=== PATIENT | female | born 1955 | race Caucasian/White ===

== ENCOUNTER 2016-12-31 19:18 | Emergency (ER) | payer OTHER ==
[2016-12-31] MEDS ORDERED: HYDROcodone/Acetaminophen 5/325 mg Tablet ONE ×2 (21:08→21:10)
--- NOTE | 2016-12-31 23:35 | RAD ---
THREE VIEWS LUMBAR SPINE 12/31/2016 HISTORY: Fall from standing at 1500 hours today. Increased tailbone pain. FINDINGS: There are 5 [id number] lumbar-type vertebral bodies. Multilevel osteophytes are seen. There i s loss of intervertebral disk height at the L3-4 and L5-S1 levels. Facet degenerative changes are p resent. There is suggestion of slight height loss along the central superior endplate of the L1 catherine tebral body. While the exact age is indeterminate, given prominent osteophytes at this level, this probably represents a more remote finding. The remaining vertebral body heights are within normal l imits. There is trace anterolisthesis of L4 on L5. Dense vascular calcifications seen in the abdom inal aorta and involving the iliac arteries. IMPRESSION: 1. Trace anterolisthesis of L4 on L5, probably related to facet degenerative changes. 2. Multilevel degenerative changes in the lumbar spine. 3. Slight height loss involving the superior endplate of the L1 vertebral body. There are prominent osteophytes at this level, both anteriorly and posteriorly, and this probably represents a more rem ote finding. Although, the exact age is difficult to determine based on plain film evaluation. POS: TROY
--- NOTE | 2017-01-01 00:21 | CT ---
CT LUMBAR SPINE WITHOUT IV CONTRAST 12/31/16 HISTORY: Lower back pain and tailbone pain after a fall today. FINDINGS: There is suggestion of a tiny bilateral pleural effusions, partially imaged at the posteromedial asp ect of each lung base. However, these pleural effusions have decreased when compared to a study on . There is nonspecific minimal stranding adjacent to the right adrenal gland of uncertain etiology and this is incompletely imaged or evaluated on this exam. There is a small amount of free fluid seen i n the pelvis. This is more than normally expected for physiological fluid. There is colonic diverticulosis. Dense vascular calcifications are seen in the abdominal aorta and involving the iliac arteries. Multilevel degenerative changes are seen in the lumbar spine. There is a mild wedge shaped compression fracture at the L1 vertebral body of which the exact age is indeterminate based on this exam. There is slight retropulsion of fracture fragment suggesting that this represents a small burst type fracture. T12-L1 level: There is posterior osteophyte formation and disc bulge. In addition to retropulsion of fracture fragments of the posterior superior end plate of the L1 vertebral body, there is mild gene ralized narrowing of the central spinal canal. Neural foramina are patent. L1-2 level: There is no disc bulge or disc herniation. Central spinal canal and neural foramina are patent. There are mild facet hypertrophic changes. L2-3 level: There is a mild broad based disc osteophyte complex. Facet hypertrophic changes are pres ent. There is mild to moderate narrowing of the central spinal canal. Neural foramina appear patent. L3-4 level: There is loss of intervertebral disc height with vacuum phenomenon. There are mild end p late degenerative changes present. There is a broad based disc osteophyte complex with prominent fac et hypertrophic changes and ligamentous thickening. Findings result in moderate to severe narrowing of the central spinal canal. There is severe right and moderate left sided neural foraminal narrowin g. L4-5 level: There is trace anterolisthesis of L4 on L5. There is a broad based disc osteophyte comp carlita with prominent facet hypertrophic changes. There is a hypodense structure which is partially per ipherally calcified which is seen to the right of midline and extends into the right neural foramen. This measures 14 mm x 11 mm and may represent a disc extrusion which extends superiorly from the L4 -5 intervertebral disc space. This does extend into the right neural foramen and resulting in what a ppears to be severe right sided neural foraminal narrowing. There is moderate to severe left sided n eural foraminal narrowing. L5-S1 level: There is loss of the intervertebral disc height with vacuum phenomenon in intervertebra l discs. End plate degenerative changes are present. There is posterior osteophyte formation and ass ociated broad based disc bulge. There are prominent facet hypertrophic changes as well. The findings result in mild narrowing of the central spinal canal. There is severe bilateral neural foraminal na rrowing much greater on the left. IMPRESSION: 1. Mild burst fracture involving the L1 vertebral body of which the exact age is indeterminate based on this exam. 2. Probable prominent Schmorl's node left lateral and central aspect of the L3 vertebral body. 3. Trace anterolisthesis of L4 on L5 with trace retrolisthesis of L5 on S1. 4. Multilevel degenerative changes seen throughout the lumbar spine. There are severe degrees o f neural foraminal narrowing as described above. There is a prominent disc osteophyte complex at the L4-5 level with hypodense mass-like structure which is peripherally calcified and extends superiorl y from the disc space and may represent a disc extrusion which is partially peripherally calcified. This is difficult to further evaluate on CT scan exam, and nonemergent MRI lumbar spine is suggested for further evaluation of this structure. There is severe right sided neural foraminal narrowing at this level. 5. Tiny bilateral pleural effusions with small amount of free fluid in the pelvis. There is als o suggestion of minimal stranding and fluid adjacent to the right adrenal gland which is nonspecific and incompletely evaluated. POS: TROY
== END 2017-01-01 00:24 | disposition home or self-care (01) ==
LOC: ERS 19:18
DX: S32.011A Stable burst fracture of first lumbar vertebra, initial encounter for closed fracture (principal); I48.91 Unspecified atrial fibrillation; E11.9 Type 2 diabetes mellitus without complications; K21.9 Gastro-esophageal reflux disease without esophagitis; E78.5 Hyperlipidemia, unspecified; I10 Essential (primary) hypertension; J44.9 Chronic obstructive pulmonary disease, unspecified; F17.200 Nicotine dependence, unspecified, uncomplicated; W18.30XA Fall on same level, unspecified, initial encounter
CPT/HCPCS: 36415; 72100; 72131; 82728; L0639

== ENCOUNTER 2017-08-24 08:37 | Inpatient (IN) | payer MEDICAID, OTHER ==
--- NOTE | 2017-08-24 09:37 | RAD ---
LEFT FOOT THREE VIEWS: History: 62-year-old female with history of left foot pain and swelling, left toes amputated 18 in [place] . Never had stitches removed. Redness and drainage. FINDINGS: There are post amputation changes at the level of the distal second and third metatarsals with some f airly exuberant bony callus and heterogeneous demineralization within the distal second and third rem aining intact metatarsals with soft tissue swelling at the level of the post-operative region. The po ssibility of osteomyelitis certainly is a consideration. Consider follow up MRI for further assessmen t. Stable arthrosis changes of the first toe. Stable post-operative changes of the medial and lateral ankle malleoli. IMPRESSION: Status post amputation changes with some exuberant callus as well as some heterogeneous bony deminera lization in the distal second and third intact metatarsals raising concern for potential osteomyeliti s. Follow up MRI is recommended. Stable post-operative changes of the ankle and degenerative changes of the great toe. POS: OFF
[2017-08-24 09:46] LABS: #Eosinphils 0.1 thou/uL (0.0-0.7); #Lymphocytes 1.5 thou/uL (1.20-3.40); #Monocytes 0.6 thou/uL (0.11-0.59); #Neutrophils 2.6 thou/uL (1.40-6.50); %Basophils 0.1 % (0.0-1.0); %Eosinophils 1.4 % (0.0-10.0); %Lymphocytes 31.4 % (21.0-51.0); %Neutrophils 55.1 % (42.0-75.0); Hemoglobin 12.4 g/dL (12.0-16.0); Mean Corpuscular HGB CONC 32.3 g/dL (32.0-36.0); Mean Corpuscular Hemoglobin 28.2 pg (27.0-31.0); Mean Corpuscular Volume 87.4 fl (81.0-99.0); Mean Platelet Volume 7.3 fL (7.4-10.4); Platelet Count 204 thou/uL (130-400); Red Blood Cell (RBC) Count 4.41 mill/uL (4.20-5.40); White Blood Cell (WBC) Count 4.7 thou/uL (4.8-10.8)
[2017-08-24 10:17] LABS: ALT (SGPT) 15 U/L (8-55); AST (SGOT) 21 U/L (5-34); Albumin 4.1 g/dL (3.4-4.8); Alkaline Phosphatase 98 U/L (40-150); Anion Gap 12 mmol/L (10-20); BUN (Urea Nitrogen) 21 mg/dL (9.8-20.1); Bilirubin, Total 0.4 mg/dL (0.2-1.2); Calc. Creatinine Clearance 0 mL/min (70-130); Calcium 9.3 mg/dL (7.8-10.44); Carbon Dioxide 28 mmol/L (23-31); Chloride 102 mmol/L (98-107); Estimated GFR-MDRD 61; Globulin 3.5 g/dL (2.4-3.5); Glucose 77 mg/dL (80-115); Potassium 3.5 mmol/L (3.5-5.1); Protein, Total 7.6 g/dL (6.0-8.3); Sodium 138 mmol/L (136-145)
[2017-08-24] MEDS ORDERED: Morphine 4 MG/ML VIAL ONE (11:03)
[2017-08-24] MEDS ORDERED: Ondansetron ODT 4 MG TAB ONE (11:09)
[2017-08-24 13:45] VITALS: BMI 25.9
[2017-08-24] MEDS ORDERED: Non-Formulary Item 1 EACH (Acetaminophen With Codeine [Tylenol With Codeine #4] 1 TABLET) PO PRN (16:18)
[2017-08-24] MEDS ORDERED: Bisacodyl 5 MG TAB PO PRN (16:25)
[2017-08-24] MEDS ORDERED: Bisacodyl 10 MG SUPP PR PRN (16:25)
[2017-08-24] MEDS ORDERED: Senokot 8.6 MG TAB PO PRN (16:25)
[2017-08-24] MEDS: OxyCODONE IR 30 MG TAB PO PRN (17:33)
[2017-08-24 17:37] LABS: Hemoglobin A1c 4.9 % (4.0-6.0)
[2017-08-24] MEDS: Carvedilol 25 MG TAB PO SCH (18:37)
--- NOTE | 2017-08-24 19:14 | HP ---
PRIMARY CARE PHYSICIAN: The patient does not have a PCP as she just moved to the area. CHIEF COMPLAINT: Painful left foot. HISTORY OF PRESENT ILLNESS: This is a 62-year-old female with a history of diabetes, coronary artery disease, who presented with a chief complaint of left foot pain. Please note that the patient's his tory actually started several weeks ago and earlier this year she actually stepped on glass which "wo rked its way" and ultimately resulted in amputation in 05/2017. Unfortunately, the patient had mirza nued issues with wound healing and overlying infection including osteo and underwent a further amputa tion in 06/2017. At this point in time, the patient is currently status post amputation of her secon d and third metatarsals of the left foot at the base. The patient is presenting here because of foul -smelling drainage and pain in that area. It also appears that she was originally supposed to see [facility] outpatient surgeon for a possible suture removal on an outpatient basis, but since she moved from [facility] to our area to help take care of her boyfriend who is currently status post CABG, zeina ent presented to our ER for care as noted above. The patient denies any fevers, chills. Endorses a fair amount of localized pain in that region. REVIEW OF SYSTEMS: As per HPI. Constitutional: The patient endorses about 140 pound weight loss ov er the last 2 years, which the first year was grossly unintentional. Denies any overt fevers or chil ls over the last few weeks. HEENT: No new headaches, dizziness or lightheadedness. Cardiovascular: No chest pain or chest pressure. Respiratory: No difficulty with breathing. Of note, the patient does have complaints of a knot like protrusion in her chest wall that she has noticed after "losing all that weight" and states that she has difficulty lying on against her chest for that reason. Julio rointestinal: No issues with tolerating p.o. intake. Remainder of review of systems is otherwise ne gative. PAST MEDICAL HISTORY: As per HPI: 1. History of type 2 diabetes. 2. Gastroesophageal reflux disease, hypertension, hyperlipidemia, COPD, myocardial infarction in Apr of this year. 3. Atrial fibrillation. 4. Status post cholecystectomy. 5. Status post hysterectomy. 6. Status post cardiac ablation during the same time of her admission for PR in 2018. 7. Status post amputations as discussed above. 8. Status post prior history of left ankle surgery with multiple pins in place. HOME MEDICATIONS: Include the following: Aspirin 81 mg p.o. daily, ferrous sulfate 325 mg p.o. b.i. d., digoxin 0.25 mg p.o. daily, carvedilol 25 mg p.o. b.i.d., albuterol 90 mcg inhaled b.i.d., valsar mohr 320 mg p.o. daily, tiotropium bromide 2 inhalation daily, nystatin ointment 1 application topical b.i.d., lisinopril 5 mg p.o. b.i.d., furosemide 20 mg p.o. daily, folic acid 1 mg p.o. daily, tramad ol 50 mg p.o. q.4 hours p.r.n., metoprolol succinate 50 mg p.o. daily, magnesium 250 mg p.o. daily, t izanidine 4 mg p.o. q.6 hours p.r.n., oxycodone 30 mg p.o. q.6 hours p.r.n., hydrocortisone cream 1 a pplication topically daily, amiodarone 200 mg p.o. daily, acetaminophen with codeine #4 one tablet p. o. q.6 hours p.r.n., torsemide 20 mg p.o. daily, omega-3 fatty acids 1 tablet p.o. daily, hydrocodone and acetaminophen 5/325 one tablet p.o. q.6 hours p.r.n., pregabalin 50 mg p.o. at bedtime, duloxeti ne 20 mg p.o. b.i.d., phenytoin 50 mg p.o. daily, pantoprazole 40 mg p.o. daily, metformin 500 mg p.o . b.i.d., diltiazem 360 mg p.o. daily, trazodone 50 mg p.o. at bedtime, atorvastatin 80 mg p.o. daily . ALLERGIES: LATEX allergy. SOCIAL HISTORY: The patient is a former smoker, quit approximately a month ago, tobacco, previously had a remote history of heavy alcohol use. The patient is currently residing with her boyfriend here in town. Please see the HPI as well. FAMILY HISTORY: The patient states that she is adopted, so she is not aware of her biological family history. PHYSICAL EXAMINATION: GENERAL: The patient is awake, alert, appropriate, in no acute distress, lying in the hospital bed, provides a history grossly as noted above, appears to be a reasonable historian. HEENT: Normocephalic, atraumatic. Moist mucous membranes. No posterior oropharyngeal erythema or e xudate. Pupils equal and reactive. Equal ocular motions are intact. CARDIOVASCULAR: S1, S2. Pulses 2+ bilateral upper extremities, no pitting pedal edema. Prominent s ystolic ejection murmur heard over the left precordium approximately 3/5. RESPIRATORY: Reasonable air movement. No conversational dyspnea. No wheezes, rales or rhonchi. Cl ear to auscultation bilaterally. ABDOMEN: Positive bowel sounds, soft, nontender to palpation. MUSCULOSKELETAL: Able to sit up on the edge of the bed without difficulty or assistance. Examinatio n was made of both bilateral lower extremity. It is noted on the left, the patient has an area that appears to have skin changes consistent with psoriatic type plaquing and is found on the patient's ow n elbows as well. This appears to be distributed, extending towards her surgical site and back. She also has multiple sutures lining the anterior aspect of where her previously second and third metata rsal amputations were completed. There is a fair amount of crusting and some slight serosanguineous seepage throughout the wound as well. The area has erythema and is tender to palpation. LABORATORY DATA AND IMAGING: WBC 4.7, hemoglobin 12.4, hematocrit 38.5, platelet 204. Sodium 138, p otassium 3.5, chloride 102, bicarbonate 28, BUN 21, creatinine 0.92, glucose 77, lactic acid 1.2, mar cium 9.3, total bilirubin 0.4, AST 21, ALT 15, alkaline phosphatase 98, total protein 7.6, albumin 4. 1. On 08/24/2017, x-ray of the foot impression, status post amputation changes with some callus as w ell as some heterogenous bony demineralization in the distal second and third intact metatarsals rais ing concern for potential osteomyelitis. Follow up MRI is recommended. Stable postoperative changes of the ankle and degenerative changes of the great toe. ASSESSMENT AND PLAN: A 62-year-old female presenting with pain in her left foot. 1. Pain of the left foot, likely appears to be localized to the previous surgical site. Given the i mages, there is also concern for osteomyelitis. We will continue the patient on her home pain regime n with breakthrough pain coverage as needed and close monitoring of the patient's hemodynamic stabili ty. Given the concern for osteomyelitis, the patient has also been started on empiric vancomycin and Zosyn. We request for an MRI to be completed has been placed. If the patient does have osteomyelit is, she may need further surgery even if the patient does not have osteomyelitis question whether or not the surgical site wound may benefit from a degree of debridement. I appreciate surgical evaluati on and consultation as well. 2. Diabetes. Check hemoglobin A1c again to maintain the patient on her current home regimen. The p atient is not currently giving any risk factors to warrant double coverage for Pseudomonas, but if sh e fails to improve or has any further signs or symptoms consistent with that possibility, we will low threshold to initiate a second antibiotic for antipseudomonal coverage. 3. History of cardiovascular disease including an myocardial infarction earlier this year and atrial fibrillation, currently appears to be stable. Continue the patient on her home regimen. 4. Prior history of seizures. The patient has been seizure free for several years. Continue the pa guint on her home regimen and closely monitor her mental status. 5. Hypertension. We will reassess as the patient's pain is better controlled. 6. Diet: Cardiac. 7. Activity: As tolerated. 8. DVT prophylaxis with heparin.
[2017-08-24] MEDS: Ondansetron HCl/PF 4 MG/2 ML Vial IVP PRN (19:40)
[2017-08-24] MEDS: Piperacillin/Tazobactam 3.375 GM in Sodium Chloride 0.9% 100 ML IVPB SCH (19:40)
[2017-08-24] MEDS: Lisinopril 5 MG TAB PO SCH (19:52)
[2017-08-24] MEDS ORDERED: PROVENTIL INHALER 6.7 G (200 INHALATIONS) INH PRN (21:00)
[2017-08-24] MEDS: Heparin 5,000 UNITS/ML VIAL SC SCH (21:38)
[2017-08-24] MEDS: Pregabalin 50 MG CAP PO SCH (21:39)
[2017-08-24] MEDS: Docusate 100 MG CAP PO SCH (21:39)
[2017-08-24] MEDS: Ferrous Sulfate 325 MG TAB PO SCH (21:39)
[2017-08-24] MEDS: Atorvastatin Calcium 40 MG TAB PO SCH (21:39)
[2017-08-24] MEDS: traZODone HCl 50 MG TAB PO SCH (21:40)
[2017-08-24] MEDS: Nystatin Ointment 15 GM TUBE TOP SCH (21:54)
[2017-08-24] MEDS: Vancomycin HCl 750 MG in Sodium Chloride 0.9% 250 ML 250 ML IVPB SCH (23:35)
[2017-08-24] MEDS: tiZANidine HCl 4 MG TAB PO SCH (23:36)
[2017-08-24] MEDS: HYDROcodone/Acetaminophen 5/325 mg Tablet PO PRN (23:43)
[2017-08-25] MEDS: Piperacillin/Tazobactam 3.375 GM in Sodium Chloride 0.9% 100 ML IVPB SCH ×4 (01:03→14:55)
[2017-08-25] MEDS: traMADol HCl 50 MG TAB PO PRN ×2 (03:39→14:29)
[2017-08-25] MEDS: OxyCODONE IR 30 MG TAB PO PRN ×2 (03:49→14:36)
[2017-08-25] MEDS: Magnesium Oxide 250 MG TAB PO SCH (05:10)
[2017-08-25] MEDS: tiZANidine HCl 4 MG TAB PO SCH ×4 (05:10→23:17)
[2017-08-25 05:13] LABS: Anion Gap 11 mmol/L (10-20); BUN (Urea Nitrogen) 18 mg/dL (9.8-20.1); Calc. Creatinine Clearance 63 mL/min (70-130); Calcium 8.4 mg/dL (7.8-10.44); Carbon Dioxide 30 mmol/L (23-31); Chloride 100 mmol/L (98-107); Estimated GFR-MDRD 52; Glucose 112 mg/dL (80-115); Potassium 3.2 mmol/L (3.5-5.1); Sodium 138 mmol/L (136-145)
[2017-08-25 05:26] LABS: Band 2 % (5-11); Eosinophils 2 % (0-10); Hemoglobin 10.5 g/dL (12.0-16.0); Lymphocytes 30 % (21-51); MDiff Complete? YES; Mean Corpuscular HGB CONC 32.1 g/dL (32.0-36.0); Mean Corpuscular Hemoglobin 28.5 pg (27.0-31.0); Mean Corpuscular Volume 88.8 fl (81.0-99.0); Mean Platelet Volume 6.8 fL (7.4-10.4); Monocytes 12 % (0-10); Neutrophil 54 % (42-75); PLT Morphology Comment Appears Adequate; Platelet Count 167 thou/uL (130-400); RBC Distribution Width 14.9 % (11.5-14.5); Red Blood Cell (RBC) Count 3.68 mill/uL (4.20-5.40); White Blood Cell (WBC) Count 3.5 thou/uL (4.8-10.8)
[2017-08-25] MEDS ORDERED: Loperamide HCl 2 MG CAP PO PRN (06:04)
[2017-08-25] MEDS: Heparin 5,000 UNITS/ML VIAL SC SCH ×3 (09:15→20:19)
[2017-08-25] MEDS: Amiodarone 200 MG TAB PO SCH (09:16)
[2017-08-25] MEDS: Aspirin 81 mg Enteric Coated Tablet PO SCH (09:17)
[2017-08-25] MEDS: Torsemide 20 MG TAB PO SCH (09:17)
[2017-08-25] MEDS: Docusate 100 MG CAP PO SCH ×2 (09:17→20:16)
[2017-08-25] MEDS: Furosemide 20 MG TAB PO SCH (09:17)
[2017-08-25] MEDS: Lisinopril 5 MG TAB PO SCH ×2 (09:17→20:19)
[2017-08-25] MEDS: Digoxin 0.25 MG TAB PO SCH (09:19)
[2017-08-25] MEDS: Proctozone-HC 2.5% Cream 30 GM TUBE TOP SCH (09:20)
[2017-08-25] MEDS: Ferrous Sulfate 325 MG TAB PO SCH ×2 (09:20→20:16)
[2017-08-25] MEDS: Fish Oil 1,000 MG CAP PO SCH (09:20)
[2017-08-25] MEDS: Folic Acid 1 MG TAB PO SCH (09:20)
[2017-08-25] MEDS: Nystatin Ointment 15 GM TUBE TOP SCH ×2 (09:21→22:42)
[2017-08-25] MEDS: Valsartan 80 MG TAB PO SCH (09:22)
[2017-08-25] MEDS: HYDROcodone/Acetaminophen 5/325 mg Tablet PO PRN ×2 (09:28→20:15)
[2017-08-25] MEDS: Carvedilol 25 MG TAB PO SCH ×2 (09:38→16:17)
[2017-08-25] MEDS: Phenytoin 50 MG Chewable Tablet PO SCH (09:38)
[2017-08-25] MEDS: Ondansetron HCl/PF 4 MG/2 ML Vial IVP PRN (10:14)
[2017-08-25] MEDS: Vancomycin HCl 750 MG in Sodium Chloride 0.9% 250 ML 250 ML IVPB SCH (11:28)
--- NOTE | 2017-08-25 13:29 | MRI ---
MRI LEFT SHOULDER WITH AND WITHOUT CONTRAST: HISTORY: Osteomyelitis. COMPARISON: Radiographs prior day. FINDINGS: Bones: There is amputation of the 2nd and 3rd metatarsal necks. There is loss of the normal marrow signal w ithin the 2nd and 3rd metatarsal diaphysis. There is also loss of normal marrow signal within the 4t h metatarsal diaphysis extending to the head and neck. Mild degenerative changes of the mid foot. On the postcontrast sequence, there is an abscess within the plantar soft tissues with peripheral enh ancement extending with a sinus tract to the skin. This abscess measures 1 x 0.5 x 0.8 cm. There is an abnormal enhancement involving the 2nd, 3rd, and 4th metatarsals. There is a likely infectious collection within the 4th metatarsophalangeal joint, septic arthritis. No definite evidence of pyomyositis. IMPRESSION: 1. Osteomyelitis of the 2nd and 3rd metatarsal from the mid diaphysis to the amputation sites. 2. Osteomyelitis of the 4th metatarsal from the mid diaphysis through the head and neck with septic arthritis in the metatarsophalangeal joint. 3. Small abscess measuring up to 1.8 cm with a sinus tract to the skin. 4. Extensive degenerative changes of the mid foot. POS: C
[2017-08-25] MEDS ORDERED: Linezolid 600 MG TAB PO SCH (16:00)
[2017-08-25] MEDS: metFORMIN 500 MG TAB PO SCH (16:17)
--- NOTE | 2017-08-25 19:13 | HP ---
HISTORY OF PRESENT ILLNESS: Mary Khan is a 62-year-old female, recently moved from the [facility]. The patient has diabetes, hypertension. She in May and June had amputation o f the left second and third toes and metatarsals. She had a PICC line, received intravenous antibiot ics until a week ago when it was discontinued. She reported to the emergency room, wanting her sutur es removed from left foot. X-rays were performed revealing changes read out as possible osteomyeliti s and she is admitted for intravenous antibiotics, IV cannot be established. The patient underwent a n MRI, demonstrated changes suggestive, but not definitive for osteomyelitis. I have personally talk ed to the radiologist, who has reviewed these plain radiographs and MRI scans and he admits these cou ld be just postoperative changes. The MRI signals are probably a result of altered weightbearing. ALLERGIES: LATEX. TOBACCO: Cessation a month ago, 1/2 pack per day prior. ALCOHOL: None. OUTPATIENT MEDICATIONS: Ferrous sulfate, digoxin, carvedilol, albuterol inhaler, valsartan, Spiriva, nystatin, lisinopril, furosemide, folic acid, tramadol, metoprolol, magnesium, tizanidine, oxycodone 30 mg p.o. q.6 hours p.r.n., hydrocortisone cream, amiodarone 200 mg daily, Tylenol with codeine as needed for pain, Demadex 20 mg a day, hydrocodone 5/325 p.r.n. pain, Lyrica 50 mg at bedtime, Cymbalt a 20 mg b.i.d., phenytoin 40 mg daily, metformin 500 mg b.i.d., diltiazem HCL 60 mg daily, trazodone 50 mg at bedtime, atorvastatin 80 mg a day, aspirin 81 mg a day. PAST SURGICAL HISTORY: Appendectomy, cholecystectomy, hysterectomy, bilateral salpingo-oophorectomy, tonsillectomy. PAST MEDICAL HISTORY: Hypertension, diabetes, history of atrial fibrillation with ablation on 8 in [place], previous cardiac stress test negative. A PICC line right arm subsequently removed a wee k ago, colonoscopy in the past with polypectomies. SOCIAL HISTORY: She lives in the [facility] area. PHYSICAL EXAMINATION: VITAL SIGNS: Temperature 97.4, pulse 52, blood pressure 108/59. HEENT: Unremarkable. LUNGS: Clear to auscultation. CARDIAC: Regular rate and rhythm without murmur or gallop. ABDOMEN: Soft, obese, nontender. EXTREMITIES: Palpable femoral, popliteal, dorsalis pedis pulse. Left foot reveals sutures over the dorsum of the foot from amputation of left second and third toes and metatarsals. Wound is healthy, healed, and there is no cellulitis or indications of infection. ASSESSMENT AND PLAN: 1. Postoperative left foot surgery, amputation, left second and third toes and metatarsal in [facility] in May and June of 2017. I have reviewed her plain radiographs and MRIs with Radiology and her findings were read as possible osteomyelitis are probably postoperative changes. Clinically, she does not have osteomyelitis. She does not need further surgeries intervention. I would recommend r emoval of her sutures. I would recommend discontinuing her antibiotics. I would recommend dischargi ng her home. She can follow up with a gas station clerk, her doctor in [place] or follow up with me per h er discretion. 2. Diabetes mellitus. 3. Hypertension. 4. History of atrial fibrillation. 5. Polypharmacy with multiple narcotic analgesics.
[2017-08-25] MEDS: Pregabalin 50 MG CAP PO SCH (20:15)
[2017-08-25] MEDS: Atorvastatin Calcium 40 MG TAB PO SCH (20:16)
[2017-08-25] MEDS ORDERED: traZODone HCl 50 MG TAB PO SCH (21:15)
--- NOTE | 2017-08-25 22:19 | CON ---
DATE OF CONSULTATION: 08/25/2017 REASON FOR CONSULTATION: Osteomyelitis, left foot. HISTORY OF PRESENT ILLNESS: A 62-year-old patient with a history of COPD, atrial fibrillation, and ischemic cardiomyopathy as well as type 2 diabetes who had been living in [facility] in the [facility] [place], and had undergone amputation of the second and third toes by a doctor in [place], [place]. These procedures were done in [facility] in [place] and after the second procedure in June, she underwent treatment with IV antimicrobial therapy. She recalls 2 different antimicrobials, one of them was vancomycin and she does not remember the name of the second, and those were administered via PICC line, which was given for 6 weeks. Her boyfriend developed some health issues and she had to move to the area here. He lives in [facility] and because of these events related to her boyfriend, she missed the appointments with her provider in [place], never had the stitches removed from the surgery in June. Eventually, developed worsening pain with foul- smelling drainage and came to the emergency room and was placed in the 24-hour observation. Other than [id number] pain, she denies any headaches, visual symptoms, sore throat, odynophagia, dysphagia. No dyspnea or cough. No back pain. No abdominal pain. Some diarrhea intermittently. No genitourinary symptoms. PAST MEDICAL HISTORY: Type 2 diabetes, hypertension, COPD, coronary artery disease with prior ND, atrial fibrillation, cholecystectomy, hysterectomy, cardiac ablation, and amputation of second and third toes of left foot, protracted IV antimicrobial therapy through a PICC line. MEDICATIONS AT HOME: Aspirin, ferrous sulfate, digoxin, Coreg, albuterol, valsartan, tiotropium inhalation spray, lisinopril, furosemide, tramadol, metoprolol, tizanidine, oxycodone, hydrocortisone, amiodarone, torsemide, pregabalin, duloxetine, phenytoin, pantoprazole, metformin, diltiazem, trazodone. Here, she is receiving albuterol, Ecotrin, Cordarone, Lipitor, Dulcolax, Coreg, Lanoxin, Cardizem, Colace, Cymbalta, Feosol, Folvite, furosemide, heparin, linezolid, levofloxacin, tizanidine, tramadol, valsartan. ALLERGIES: LATEX. SOCIAL HISTORY: Former smoker, quit recently. Has a history of alcohol abuse and had been living in [facility], moved to be with boyfriend. FAMILY HISTORY: Noncontributory. PHYSICAL EXAMINATION: VITAL SIGNS: Temperature max 97.5, blood pressure 108/59, pulse of 52, respirations 16-18, O2 sat 94% to 97%. SKIN: Shows the left foot amputation site, second and third toe area, with stitches still in place. There is a linear slit-like opening at the amputation site with seropurulent exudate, mild erythema surrounding the edges extending towards the mid foot region. No areas of necrosis noted. Some areas of hyperkeratosis in the foot area distal aspect. No lymphadenopathy. HEENT: Ocular movements conjugate. Pupils are 2 mm and reactive. Oral cavity is unremarkable. NECK: Supple. No jugular vein distention. LUNGS: With symmetric air entry. HEART: S1 and S2 regular rate without obvious murmurs. No S3. ABDOMEN: Soft. Not distended or tender. No ascites. No bladder distention. EXTREMITIES: Pulses are 2+ in popliteal and 1+ in dorsalis pedis and posterior tibialis. NEUROLOGIC: Nonfocal including cognitive function. LABORATORY DATA: White cell count 4.7 and 3.5, hemoglobin 12.4 and 10.5, MCV 88 , platelets 167, 54% neutrophils. Chemistry with a creatinine of 0.92. Liver profile is normal. Albumin 4.1, glucose 150. Last urinalysis from 2017. Microbiology: The last one from the left foot is from 2017 with MRSA. The patient had a lower extremity MRI and this showed amputation of second and third metatarsal necks, loss of normal marrow signal in diaphysis of the metatarsals, abscess within the plantar soft tissues with peripheral enhancement extending with a sinus tract to the skin measuring 1 x 0.5 x 0.8 cm ; abnormal enhancement involving second, third, and fourth metatarsals; possible metatarsophalangeal joint septic arthritis. ASSESSMENT: Type 2 diabetes, ischemic cardiomyopathy, and complications related to likely diabetic neuropathy with amputations and then problems with followup. Extended IV antimicrobial therapy with now recrudescence of inflammatory process, evidence of abscess, and residual osteomyelitis of the second and third, possible septic arthritis of the fourth metatarsophalangeal joint. The patient will need consultation with surgery, probably General Surgery, and removal of the stitches and then revision of the amputation site, washout, and resume protracted antimicrobial therapy again. We will need to review the cultures from this site to be obtained during surgery and review the cultures from the [place] samples that were submitted earlier this year. I would advise a full admit for this patient to allow completion of the above management plan. She probably will need placement of PICC line and protracted IV antimicrobial therapy again. Although amputation sites will demonstrate postop MRI changes, in her case there are changes in the 4th MTT which was not involved in the June procedure as well as persistence of pain and drainage 2 months after the procedure. Both developments increase the likelihood of persistent infection. ABHINAV
[2017-08-25 22:20] LABS: Vancomycin, Trough 9.4 ug/mL
[2017-08-25] MEDS: Ondansetron ODT 4 MG TAB PO PRN (22:41)
[2017-08-25] MEDS: Bacitracin Zinc Ointment 30 gm TUBE TOP SCH (22:44)
[2017-08-25] MEDS: traZODone HCl 50 MG TAB PO SCH (22:48)
[2017-08-26] MEDS: HYDROcodone/Acetaminophen 5/325 mg Tablet PO PRN ×3 (03:38→19:39)
[2017-08-26] MEDS: Magnesium Oxide 250 MG TAB PO SCH (05:12)
[2017-08-26] MEDS: tiZANidine HCl 4 MG TAB PO SCH ×4 (05:12→23:44)
[2017-08-26] MEDS: Digoxin 0.25 MG TAB PO SCH ×3 (07:50→10:03)
[2017-08-26] MEDS: Ferrous Sulfate 325 MG TAB PO SCH ×2 (07:50→21:09)
[2017-08-26] MEDS: Aspirin 81 mg Enteric Coated Tablet PO SCH (07:51)
[2017-08-26] MEDS: Furosemide 20 MG TAB PO SCH (07:51)
[2017-08-26] MEDS: Torsemide 20 MG TAB PO SCH (07:51)
[2017-08-26] MEDS: Docusate 100 MG CAP PO SCH ×2 (07:53→21:14)
[2017-08-26] MEDS: metFORMIN 500 MG TAB PO SCH ×3 (07:53→17:11)
[2017-08-26] MEDS: Fish Oil 1,000 MG CAP PO SCH (07:53)
[2017-08-26] MEDS: Folic Acid 1 MG TAB PO SCH (07:54)
[2017-08-26] MEDS: Amiodarone 200 MG TAB PO SCH (07:54)
[2017-08-26] MEDS: Valsartan 80 MG TAB PO SCH (07:55)
[2017-08-26] MEDS: Lisinopril 5 MG TAB PO SCH ×2 (07:56→21:18)
[2017-08-26] MEDS: Heparin 5,000 UNITS/ML VIAL SC SCH ×3 (07:56→21:10)
[2017-08-26] MEDS: Carvedilol 25 MG TAB PO SCH ×3 (07:57→17:10)
[2017-08-26] MEDS: Proctozone-HC 2.5% Cream 30 GM TUBE TOP SCH (07:57)
[2017-08-26] MEDS: Nystatin Ointment 15 GM TUBE TOP SCH ×2 (07:57→21:14)
[2017-08-26] MEDS: Bacitracin Zinc Ointment 30 gm TUBE TOP SCH (07:58)
[2017-08-26] MEDS: OxyCODONE IR 30 MG TAB PO PRN ×3 (08:09→23:50)
--- NOTE | 2017-08-26 09:15 | PDOC.PN ---
- Subjective Encounter Start Date: 08/25/17 Encounter Start Time: 16:00 Subjective: follow up for foot infxn, nsg notes rev, tej ovn, pts pain is better -: controlled on current regimen, still has pain in foot, no fevers/ chills - Objective Resuscitation Status: Resuscitation Status FULL:Full Resuscitation Vital Signs & Weight: Vital Signs (12 hours) Temp Pulse Resp BP BP Pulse Ox 08/26/17 08:00 98.1 F 48 L 16 08/26/17 07:56 48 L 103/53 L 08/26/17 07:50 50 L 08/26/17 07:35 98.1 F 50 L 16 105/72 94 L 08/26/17 03:34 97.4 F L 48 L 16 103/53 L 95 08/25/17 23:38 97.2 F L 48 L 16 96/55 L 95 Weight Admit Weight 165 lb 4 oz Weight 165 lb 4 oz I&O: 08/25/17 08/26/17 08/27/17 06:59 06:59 06:59 Intake Total 980 1170 Output Total 1100 Balance 980 70 Result Diagrams: 08/25/17 04:50 08/25/17 04:50 Additional Labs: Accuchecks 08/26/17 08/25/17 08/25/17 05:12 20:48 16:53 POC Glucose 111 H 141 H 94 08/25/17 11:24 POC Glucose 112 H Phys Exam - Physical Examination Constitutional: NAD HEENT: moist MMs, sclera anicteric Respiratory: no wheezing, no rales, no rhonchi, clear to auscultation bilateral Cardiovascular: RRR, no significant murmur, no rub Gastrointestinal: soft, non-tender, no distention, positive bowel sounds Musculoskeletal: pulses present dressing not removed today Neurological: moves all 4 limbs Psychiatric: normal affect, A&O x 3 Dx/Plan - Plan * L foot infection with question of persistent infection * apprec sugical c/s * apprec ID c/s * unable to obtain PIV, will consider PICC, recheck BMP * concern for new sites of osteo and abscess formation leukopenia * concern for relation to SIRS vs direct abx effect DM2 * appears reasonably well controlled * continue to monitor diet: as becca activity: as becca dvt pxx Review of Systems - Medications/Allergies Allergies/Adverse Reactions: Allergies Allergy/AdvReac Type Severity Reaction Status Date / Time latex Allergy Verified 08/24/17 17:15 No Known Drug Allergies Allergy Verified 10/12/16 20:51 Medications: Current Medications Hydrocodone Bitart/Acetaminophen ([place] 5/325) 1 tab PO Q6H PRN PRN Reason: Mild-Moderate Pain (1-5) Last Admin: 08/26/17 03:38 Dose: 1 tab Albuterol Sulfate (Proventil Hfa) 1 puff INH BID PRN PRN Reason: SOB or Anxiety Amiodarone HCl (Cordarone) 200 mg PO DAILY [facility] Last Admin: 08/26/17 07:54 Dose: 200 mg Aspirin (Ecotrin) 81 mg PO DAILY [facility] Last Admin: 08/26/17 07:51 Dose: 81 mg Atorvastatin Calcium (Lipitor) 80 mg PO HS [facility] Last Admin: 08/25/17 20:16 Dose: 80 mg Bacitracin Zinc (Bacitracin Zinc Ointment 30 Gm Tube) 0 gm TOP BIDPRN [facility] Last Admin: 08/26/17 07:58 Dose: 1 applic Bisacodyl (Dulcolax) 10 mg PO DAILYPRN PRN PRN Reason: Constipation Bisacodyl (Dulcolax) 10 mg [place] Q24H PRN PRN Reason: Constipation Carvedilol (Coreg) 25 mg PO BID-[facility] Last Admin: 08/26/17 07:57 Dose: Not Given Digoxin (Lanoxin) 0.25 mg PO DAILY [facility] Last Admin: 08/26/17 07:50 Dose: Not Given Diltiazem HCl (Cardizem Cd) 360 mg PO DAILY [facility] Last Admin: 08/26/17 07:53 Dose: Not Given Docusate Sodium (Colace) 100 mg PO BID [facility] Last Admin: 08/26/17 07:53 Dose: Not Given Duloxetine HCl (Cymbalta) 20 mg PO BID [facility] Last Admin: 08/26/17 07:59 Dose: 20 mg Ferrous Sulfate (Feosol) 325 mg PO BID [facility] Last Admin: 08/26/17 07:50 Dose: 325 mg Fish Oil (Fish Oil) 1,000 mg PO DAILY [facility] Last Admin: 08/26/17 07:53 Dose: 1,000 mg Folic Acid (Folvite) 1 mg PO DAILY [facility] Last Admin: 08/26/17 07:54 Dose: 1 mg Furosemide (Lasix) 20 mg PO DAILY [facility] Last Admin: 08/26/17 07:51 Dose: 20 mg Heparin Sodium (Porcine) (Heparin) 5,000 units SC TID [facility] Last Admin: 08/26/17 07:56 Dose: Not Given Hydrocortisone Sodium Succinate (Proctozone-Hc 2.5% Cream) 0 gm TOP DAILY [facility] Last Admin: 08/26/17 07:57 Dose: 1 applic Lisinopril (Zestril) 5 mg PO BID [facility] Last Admin: 08/26/17 07:56 Dose: Not Given Loperamide HCl (Imodium) 2 mg PO ASDIR PRN PRN Reason: Diarrhea/Loose Stools Last Admin: 08/25/17 09:28 Dose: 2 mg Magnesium Oxide (Magnesium Oxide) 250 mg PO 0600 [facility] Last Admin: 08/26/17 05:12 Dose: 250 mg Metformin HCl (Glucophage) 500 mg PO BID-[facility] Last Admin: 08/26/17 07:53 Dose: 500 mg Metoprolol Succinate (Toprol Xl) 50 mg PO DAILY [facility] Last Admin: 08/26/17 07:58 Dose: Not Given Non-Formulary Medication (Acetaminophen With Codeine [Tylenol With Codeine #4]) 1 tablet PO Q6H PRN PRN Reason: Pain Nystatin (Mycostatin Ointment) 0 gm TOP BID [facility] Last Admin: 08/26/17 07:57 Dose: 1 applic Ondansetron HCl (Zofran) 4 mg IVP Q6H PRN PRN Reason: Nausea/Vomiting Last Admin: 08/25/17 10:14 Dose: 4 mg Ondansetron HCl (Zofran Odt) 4 mg PO Q6H PRN PRN Reason: Nausea/Vomiting Last Admin: 08/25/17 22:41 Dose: 4 mg Oxycodone HCl (Oxycodone Ir) 30 mg PO Q6H PRN PRN Reason: Moderate to Severe Pain (6-10) Last Admin: 08/26/17 08:09 Dose: 30 mg Pantoprazole Sodium (Protonix) 40 mg PO DAILY [facility] Last Admin: 08/26/17 07:51 Dose: 40 mg Phenytoin Sodium (Dilantin Chewable) 50 mg PO DAILY [facility] Last Admin: 08/25/17 09:38 Dose: 50 mg Pregabalin (Lyrica) 50 mg PO HS [facility] Last Admin: 08/25/17 20:15 Dose: 50 mg Senna (Senokot) 2 tab PO HSPRN PRN PRN Reason: Constipation Tizanidine HCl (Zanaflex) 4 mg PO Q6HR [facility] Last Admin: 08/26/17 05:12 Dose: 4 mg Torsemide (Demadex) 20 mg PO DAILY [facility] Last Admin: 08/26/17 07:51 Dose: 20 mg Tramadol HCl (Ultram) 50 mg PO Q4H PRN PRN Reason: Mild-Moderate Pain (1-5) Last Admin: 08/25/17 14:29 Dose: 50 mg Trazodone HCl (Desyrel) 100 mg PO HS [facility] Valsartan (Diovan) 320 mg PO DAILY [facility] Last Admin: 08/26/17 07:55 Dose: Not Given
[2017-08-26 09:42] LABS: #Eosinphils 0.1 thou/uL (0.0-0.7); #Monocytes 0.4 thou/uL (0.11-0.59); #Neutrophils 1.7 thou/uL (1.40-6.50); %Basophils 0.6 % (0.0-1.0); %Lymphocytes 31.2 % (21.0-51.0); %Neutrophils 51.2 % (42.0-75.0); Hemoglobin 10.8 g/dL (12.0-16.0); Mean Corpuscular HGB CONC 31.9 g/dL (32.0-36.0); Mean Corpuscular Hemoglobin 28.8 pg (27.0-31.0); Mean Corpuscular Volume 90.4 fl (81.0-99.0); Platelet Count 174 thou/uL (130-400); RBC Distribution Width 14.9 % (11.5-14.5); Red Blood Cell (RBC) Count 3.74 mill/uL (4.20-5.40); White Blood Cell (WBC) Count 3.3 thou/uL (4.8-10.8)
[2017-08-26 09:55] LABS: Anion Gap 10 mmol/L (10-20); BUN (Urea Nitrogen) 18 mg/dL (9.8-20.1); Calc. Creatinine Clearance 53 mL/min (70-130); Calcium 8.8 mg/dL (7.8-10.44); Carbon Dioxide 29 mmol/L (23-31); Chloride 99 mmol/L (98-107); Estimated GFR-MDRD 43; Glucose 97 mg/dL (80-115); Sodium 134 mmol/L (136-145)
[2017-08-26] MEDS: Ondansetron ODT 4 MG TAB PO PRN (10:01)
[2017-08-26] MEDS: Phenytoin 50 MG Chewable Tablet PO SCH (10:06)
[2017-08-26] MEDS: Piperacillin/Tazobactam 3.375 GM in Sodium Chloride 0.9% 100 ML IVPB SCH ×2 (17:07→23:40)
--- NOTE | 2017-08-26 17:16 | RAD ---
CHEST TWO VIEWS: HISTORY: Post PICC line placement. COMPARISON: Radiograph from 2017. FINDINGS: Satisfactory appearance of the PICC with the tip of the inferior inserted central catheter in good po sition. No focal air space consolidation, pneumothorax, or effusion. Skin folds over the right hemithorax. Calcified granulomas in the left lung base. IMPRESSION: Satisfactory appearance of the peripherally inserted central catheter. POS: [facility]
--- NOTE | 2017-08-26 17:30 | SPC ---
SONOGRAPHIC GUIDED LEFT UPPER EXTREMITY PICC PLACEMENT: HISTORY: Foot infection. Need for long-term antibiotics. FINDINGS: After explaining the procedure and answering all questions, the left upper extremity was prepped and draped in the usual sterile fashion. A sterile technique, buffered local anesthesia, sonographic ben dance, and a 22 gauge needle were used to carefully access the left brachial vein. Standard techniqu e was then used to place the tip of a 5 Wolof single-lumen PICC. The tip lies at the level of the c avoatrial junction. The catheter was flushed and secured externally. The patient tolerated the proc edure well and was dismissed in good condition. FLUOROSCOPY TIME: Zero seconds. IMPRESSION: Technically successful left upper extremity peripherally inserted central catheter placement. The ca theter is now ready for use. POS: [facility]
--- NOTE | 2017-08-26 17:56 | PRG ---
DATE OF SERVICE: 08/26/2017 SUBJECTIVE: Still with pain on the left foot. She had a PICC line inserted. No respiratory symptom s. No abdominal pain or diarrhea. PHYSICAL EXAMINATION: VITAL SIGNS: Normal. SKIN: Shows erythema in the dorsal aspect of the left forefoot at the base of the amputation site. The stitches have been now removed. There is a slit-like granulation tissue opening. Moderate to ma rked tenderness around the area. I tried to probe with a Q-tip and I could not find any tunneling. LABORATORY DATA: White cell count 3.3, hemoglobin 10.8, platelets 174, and creatinine is 1.26. ASSESSMENT AND DISCUSSION: Type 2 diabetes, ischemic cardiomyopathy, prior amputations with a recent amputation in June of left second and third toes with persistence of inflammatory process with mode rate to marked pain, some drainage, and the findings in the MRI. The patient to continue treatment i n the outpatient setting. We will set it up for her to be potentially discharged tomorrow.
[2017-08-26] MEDS: Vancomycin HCl 1.5 GM in Sodium Chloride 0.9% 250 ML 300 ML IVPB SCH (19:32)
[2017-08-26] MEDS: Atorvastatin Calcium 40 MG TAB PO SCH (21:08)
[2017-08-26] MEDS: Pregabalin 50 MG CAP PO SCH (21:09)
--- NOTE | 2017-08-26 23:22 | PDOC.PN ---
- Subjective Encounter Start Date: 08/26/17 Encounter Start Time: 12:00 Subjective: f/u osteo. nsg notes rev, tej ovn, continued intermittent pain in L foot -: that resolves with pain medications. no fevers, chills, nausea, vomiting. -: sig other @ bedside - Objective Resuscitation Status: Resuscitation Status FULL:Full Resuscitation Vital Signs & Weight: Vital Signs (12 hours) Temp Pulse Resp BP BP Pulse Ox 08/26/17 21:18 57 L 123/58 L 08/26/17 19:32 97.5 F L 57 L 18 123/58 L 97 08/26/17 15:37 97.8 F 57 L 18 118/55 L 91 L Weight Admit Weight 165 lb 4 oz Weight 165 lb 4 oz I&O: 08/25/17 08/26/17 08/27/17 06:59 06:59 06:59 Intake Total 980 1170 1220 Output Total 1100 800 Balance 980 70 420 Result Diagrams: 08/26/17 09:21 08/26/17 09:21 Additional Labs: Accuchecks 08/26/17 08/26/17 08/26/17 21:10 16:49 11:12 POC Glucose 113 H 89 108 08/26/17 05:12 POC Glucose 111 H Phys Exam - Physical Examination HEENT: moist MMs, sclera anicteric Respiratory: no wheezing, no rales, no rhonchi, clear to auscultation bilateral Cardiovascular: RRR, no significant murmur, no rub Gastrointestinal: soft, non-tender, positive bowel sounds Musculoskeletal: no edema, pulses present Neurological: moves all 4 limbs Psychiatric: normal affect, A&O x 3 Deviation from normal: dressing not removed from L foot surg site during this examination Dx/Plan - Plan * L foot infection with question of persistent infection * apprec sugical c/s - no active procedural requirement at this point, d/w Dr. Robles * apprec ID c/s - need for PICC and IV abx re-initiation planned today due to concern for new sites of osteo and cellulitis * recheck BMP in AM, if continued concern re: renal fxn, t/c addition of urine eosinophils * outline area of erythema on foot leukopenia * concern for relation to SIRS vs direct abx effect * continue to monitor hx of hypertension with lower than "usual" BP * hold diuretics * continue to monitor closely DM2 * appears reasonably well controlled * continue to monitor diet: as becca activity: as becca dvt pxx Discussed with patient and boyfriend at bedside Review of Systems - Medications/Allergies Allergies/Adverse Reactions: Allergies Allergy/AdvReac Type Severity Reaction Status Date / Time latex Allergy Verified 08/24/17 17:15 No Known Drug Allergies Allergy Verified 10/12/16 20:51 Medications: Current Medications Hydrocodone Bitart/Acetaminophen ([place] 5/325) 1 tab PO Q6H PRN PRN Reason: Mild-Moderate Pain (1-5) Last Admin: 08/27/17 02:49 Dose: 1 tab Albuterol Sulfate (Proventil Hfa) 1 puff INH BID PRN PRN Reason: SOB or Anxiety Amiodarone HCl (Cordarone) 200 mg PO DAILY [facility] Last Admin: 08/26/17 07:54 Dose: 200 mg Aspirin (Ecotrin) 81 mg PO DAILY [facility] Last Admin: 08/26/17 07:51 Dose: 81 mg Atorvastatin Calcium (Lipitor) 80 mg PO HS [facility]PL[facility] BY [facility] Last Admin: 08/26/17 21:08 Dose: 80 mg Bacitracin Zinc (Bacitracin Zinc Ointment 30 Gm Tube) 0 gm TOP BIDPRN REPLACED BY [facility] Last Admin: 08/26/17 07:58 Dose: 1 applic Bisacodyl (Dulcolax) 10 mg PO DAILYPRN PRN PRN Reason: Constipation Bisacodyl (Dulcolax) 10 mg [place] Q24H PRN PRN Reason: Constipation Carvedilol (Coreg) 25 mg PO BID-[facility] Last Admin: 08/26/17 17:10 Dose: Not Given Digoxin (Lanoxin) 0.25 mg PO DAILY [facility] Last Admin: 08/26/17 10:03 Dose: 0.25 mg Diltiazem HCl (Cardizem Cd) 360 mg PO DAILY [facility] Last Admin: 08/26/17 07:53 Dose: Not Given Docusate Sodium (Colace) 100 mg PO BID [facility] Last Admin: 08/26/17 21:14 Dose: Not Given Duloxetine HCl (Cymbalta) 20 mg PO BID [facility] Last Admin: 08/26/17 21:09 Dose: 20 mg Ferrous Sulfate (Feosol) 325 mg PO BID [facility] Last Admin: 08/26/17 21:09 Dose: 325 mg Fish Oil (Fish Oil) 1,000 mg PO DAILY [facility] Last Admin: 08/26/17 07:53 Dose: 1,000 mg Folic Acid (Folvite) 1 mg PO DAILY [facility] Last Admin: 08/26/17 07:54 Dose: 1 mg Heparin Sodium (Porcine) (Heparin) 5,000 units SC TID [facility]PL[facility] Last Admin: 08/26/17 21:10 Dose: 5,000 units Hydrocortisone Sodium Succinate (Proctozone-Hc 2.5% Cream) 0 gm TOP DAILY [facility]PL[facility] Last Admin: 08/26/17 07:57 Dose: 1 applic Piperacillin Sod/Tazobactam (Sod 3.375 gm/ Sodium Chloride) 100 mls @ 200 mls/ hr IVPB Q6HR REPLACED BY [facility] Last Admin: 08/26/17 23:40 Dose: 100 mls Vancomycin HCl 1.5 gm/ Sodium (Chloride) 300 mls @ 200 mls/hr IVPB Q24HR@2000 REPLACED BY [facility] Last Admin: 08/26/17 19:32 Dose: 300 mls Lisinopril (Zestril) 5 mg PO BID [facility] Last Admin: 08/26/17 21:18 Dose: 5 mg Loperamide HCl (Imodium) 2 mg PO ASDIR PRN PRN Reason: Diarrhea/Loose Stools Last Admin: 08/25/17 09:28 Dose: 2 mg Magnesium Oxide (Magnesium Oxide) 250 mg PO 0600 [facility]PL[facility] Last Admin: 08/26/17 05:12 Dose: 250 mg Metformin HCl (Glucophage) 500 mg PO BID-[facility] Last Admin: 08/26/17 17:11 Dose: Not Given Miscellaneous Medication (Pharmacy To Dose) 1 each IVPB PRN PRN PRN Reason: Pharmacy to dose Non-Formulary Medication (Acetaminophen With Codeine [Tylenol With Codeine #4]) 1 tablet PO Q6H PRN PRN Reason: Pain Nystatin (Mycostatin Ointment) 0 gm TOP BID [facility]PLACED BY [facility] Last Admin: 08/26/17 21:14 Dose: 1 applic Ondansetron HCl (Zofran) 4 mg IVP Q6H PRN PRN Reason: Nausea/Vomiting Last Admin: 08/25/17 10:14 Dose: 4 mg Ondansetron HCl (Zofran Odt) 4 mg PO Q6H PRN PRN Reason: Nausea/Vomiting Last Admin: 08/26/17 10:01 Dose: 4 mg Oxycodone HCl (Oxycodone Ir) 30 mg PO Q6H PRN PRN Reason: Moderate to Severe Pain (6-10) Last Admin: 08/26/17 23:50 Dose: 30 mg Pantoprazole Sodium (Protonix) 40 mg PO DAILY [facility] Last Admin: 08/26/17 07:51 Dose: 40 mg Phenytoin Sodium (Dilantin Chewable) 50 mg PO DAILY [facility] Last Admin: 08/26/17 10:06 Dose: 50 mg Pregabalin (Lyrica) 50 mg PO [facility] Last Admin: 08/26/17 21:09 Dose: 50 mg Senna (Senokot) 2 tab PO HSPRN PRN PRN Reason: Constipation Tizanidine HCl (Zanaflex) 4 mg PO Q6HR REPLACED BY [facility] Last Admin: 08/26/17 23:44 Dose: 4 mg Tramadol HCl (Ultram) 50 mg PO Q4H PRN PRN Reason: Mild-Moderate Pain (1-5) Last Admin: 08/25/17 14:29 Dose: 50 mg Trazodone HCl (Desyrel) 100 mg PO [facility] Last Admin: 08/26/17 23:44 Dose: 100 mg
[2017-08-26] MEDS: traZODone HCl 50 MG TAB PO SCH (23:44)
[2017-08-27] MEDS: HYDROcodone/Acetaminophen 5/325 mg Tablet PO PRN ×3 (02:49→16:55)
[2017-08-27] MEDS: Piperacillin/Tazobactam 3.375 GM in Sodium Chloride 0.9% 100 ML IVPB SCH ×3 (05:38→16:57)
[2017-08-27] MEDS: Magnesium Oxide 250 MG TAB PO SCH (05:39)
[2017-08-27] MEDS: tiZANidine HCl 4 MG TAB PO SCH ×3 (05:39→16:55)
[2017-08-27] MEDS: OxyCODONE IR 30 MG TAB PO PRN ×3 (05:45→20:22)
[2017-08-27] MEDS: metFORMIN 500 MG TAB PO SCH ×2 (08:39→16:55)
[2017-08-27] MEDS: Carvedilol 25 MG TAB PO SCH ×2 (08:39→16:55)
[2017-08-27] MEDS: Digoxin 0.25 MG TAB PO SCH (08:40)
[2017-08-27] MEDS: Aspirin 81 mg Enteric Coated Tablet PO SCH (08:40)
[2017-08-27] MEDS: Amiodarone 200 MG TAB PO SCH (08:40)
[2017-08-27] MEDS: Docusate 100 MG CAP PO SCH ×2 (08:41→20:23)
[2017-08-27] MEDS: Ferrous Sulfate 325 MG TAB PO SCH ×2 (08:41→20:21)
[2017-08-27] MEDS: Fish Oil 1,000 MG CAP PO SCH (08:42)
[2017-08-27] MEDS: Phenytoin 50 MG Chewable Tablet PO SCH (08:42)
[2017-08-27] MEDS: Folic Acid 1 MG TAB PO SCH (08:42)
[2017-08-27] MEDS: Lisinopril 5 MG TAB PO SCH ×2 (08:42→20:21)
[2017-08-27] MEDS: Heparin 5,000 UNITS/ML VIAL SC SCH ×3 (08:43→20:23)
[2017-08-27] MEDS: Nystatin Ointment 15 GM TUBE TOP SCH ×2 (08:43→20:24)
[2017-08-27] MEDS: Proctozone-HC 2.5% Cream 30 GM TUBE TOP SCH (08:43)
[2017-08-27] MEDS: Bacitracin Zinc Ointment 30 gm TUBE TOP SCH (08:44)
--- NOTE | 2017-08-27 12:05 | PDOC.PN ---
- Subjective Encounter Start Date: 08/27/17 Encounter Start Time: 11:55 Subjective: f/u for osteomyelitis of L foot 2nd-4th metatarsals receiving Vancomycin/ -: Zosyn. No surgery recommended currently but PICC line placed with plans for -: outpt IV abx. - Objective Resuscitation Status: Resuscitation Status FULL:Full Resuscitation MAR Reviewed: Yes Vital Signs & Weight: Vital Signs (12 hours) Temp Pulse Resp BP BP Pulse Ox 08/27/17 11:17 97.7 F 62 20 171/74 H 98 08/27/17 08:42 67 08/27/17 08:40 65 08/27/17 07:58 97.4 F L 59 L 18 08/27/17 07:49 97.3 F L 57 L 16 112/56 L 95 08/27/17 03:02 97.4 F L 59 L 18 154/69 H 93 L Weight Admit Weight 165 lb 4 oz Weight 166 lb I&O: 08/26/17 08/27/17 08/28/17 06:59 06:59 06:59 Intake Total 1170 2510 340 Output Total 1100 2025 600 Balance 70 485 -260 Result Diagrams: 08/26/17 09:21 08/26/17 09:21 Additional Labs: Accuchecks 08/27/17 08/26/17 08/26/17 05:44 21:10 16:49 POC Glucose 93 113 H 89 08/26/17 11:12 POC Glucose 108 Microbiology 08/25/17 19:40 Foot - Wound Bacterial Culture - Preliminary Staphylococcus aureus Pseudomonas species 08/24/17 11:00 Venous blood - Left Hand Blood Culture - Preliminary NO GROWTH AT 48 HOURS 08/24/17 10:36 Venous blood - Right Arm Blood Culture - Preliminary NO GROWTH AT 48 HOURS Laboratory Tests 08/24/17 08/24/17 08/25/17 09:36 09:36 04:50 Hgb 12.4 Creatinine 0.92 1.07 08/25/17 04:50 Hgb 10.5 L Creatinine Radiology Reviewed by me: Yes (PCXR - no effusion, pneumothorax, PICC line tip in place) Phys Exam - Physical Examination Constitutional: NAD HEENT: PERRLA, moist MMs, sclera anicteric, oral pharynx no lesions Neck: no nodes, no JVD, supple, full ROM Respiratory: no wheezing, no rales, no rhonchi, clear to auscultation bilateral Cardiovascular: RRR, no significant murmur, no rub, gallop Gastrointestinal: soft, non-tender, no distention, positive bowel sounds L foot edema with dressing in place, edema to forefoot, post-surgical changes Musculoskeletal: pulses present Neurological: normal sensation, moves all 4 limbs Psychiatric: normal affect, A&O x 3 Skin: no rash, normal turgor, cap refill <2 seconds Dx/Plan (1) Osteomyelitis of foot, left, acute Code(s): M86.172 - OTHER ACUTE OSTEOMYELITIS, LEFT ANKLE AND FOOT Status: Acute Comment: Acute/chronic osteo with current Vancomycin and Zosyn, plan for outpt IV abx 6-8 weeks, no surgical intervention planned currently (2) CKD (chronic kidney disease), stage III Code(s): N18.3 - CHRONIC KIDNEY DISEASE, STAGE 3 (MODERATE) Status: Chronic Comment: Avoid nephrotoxic meds and contrast media, serial creatinine, monitor closely given senior living NANDINI-i use (3) CAD (coronary artery disease) Code(s): I25.10 - ATHSCL HEART DISEASE OF [place] CORONARY ARTERY W/O ANG PCTRS Status: Chronic Qualifiers: Coronary Disease-Associated Artery/Lesion type: [place] artery [place] vs. transplanted heart: [place] heart Associated angina: without angina Qualified Code(s): I25.10 - Atherosclerotic heart disease of [place] coronary artery without angina pectoris Comment: Continue ASA, Lipitor and Coreg (4) DM2 (diabetes mellitus, type 2) Status: Chronic Qualifiers: Diabetes mellitus assisted insulin use: without exterminator helper use Diabetes mellitus complication status: with unspecified complications Qualified Code(s) : E11.8 - Type 2 diabetes mellitus with unspecified complications Comment: Continue ISS, Metformin, ADA (5) HTN (hypertension) Code(s): I10 - ESSENTIAL (PRIMARY) HYPERTENSION Status: Chronic Qualifiers: Hypertension type: essential hypertension Qualified Code(s): I10 - Essential (primary) hypertension Comment: Continue Coreg, Diltiazem and Lisinopril, serial BP monitoring - Plan continue antibiotics, PT/OT, social media developer, out of bed/ambulate Stable overall -: Continue Vancomycin and Zosyn -: CM assisting with coordination for outpt IV abx -: Pain control as clinically indicated -: AM lab: BMP * Likely home in 24h
[2017-08-27 17:15] LABS: Hep C IgG Ab Non-Reactive (NonReactive); Hep C Index 0.12 S/CO (0-0.79)
[2017-08-27] MEDS: Vancomycin HCl 1.5 GM in Sodium Chloride 0.9% 250 ML 300 ML IVPB SCH (20:20)
[2017-08-27] MEDS: traZODone HCl 50 MG TAB PO SCH (20:21)
[2017-08-27] MEDS: Atorvastatin Calcium 40 MG TAB PO SCH (20:21)
[2017-08-27] MEDS: Pregabalin 50 MG CAP PO SCH (20:21)
[2017-08-28] MEDS: Piperacillin/Tazobactam 3.375 GM in Sodium Chloride 0.9% 100 ML IVPB SCH ×4 (00:12→17:22)
[2017-08-28] MEDS: tiZANidine HCl 4 MG TAB PO SCH ×4 (00:14→17:22)
[2017-08-28] MEDS: HYDROcodone/Acetaminophen 5/325 mg Tablet PO PRN ×3 (00:16→15:29)
[2017-08-28] MEDS: OxyCODONE IR 30 MG TAB PO PRN ×3 (04:10→18:08)
[2017-08-28] MEDS: Magnesium Oxide 250 MG TAB PO SCH (05:40)
[2017-08-28 05:50] LABS: Anion Gap 11 mmol/L (10-20); BUN (Urea Nitrogen) 20 mg/dL (9.8-20.1); Calc. Creatinine Clearance 67 mL/min (70-130); Calcium 9.4 mg/dL (7.8-10.44); Carbon Dioxide 31 mmol/L (23-31); Chloride 102 mmol/L (98-107); Estimated GFR-MDRD 55; Glucose 66 mg/dL (80-115); Potassium 4.6 mmol/L (3.5-5.1); Sodium 139 mmol/L (136-145)
[2017-08-28] MEDS: Docusate 100 MG CAP PO SCH (08:08)
[2017-08-28] MEDS: Phenytoin 50 MG Chewable Tablet PO SCH (08:08)
[2017-08-28] MEDS: metFORMIN 500 MG TAB PO SCH ×2 (08:08→15:28)
[2017-08-28] MEDS: Aspirin 81 mg Enteric Coated Tablet PO SCH (08:08)
[2017-08-28] MEDS: Amiodarone 200 MG TAB PO SCH (08:08)
[2017-08-28] MEDS: Fish Oil 1,000 MG CAP PO SCH (08:08)
[2017-08-28] MEDS: Folic Acid 1 MG TAB PO SCH (08:08)
[2017-08-28] MEDS: Ferrous Sulfate 325 MG TAB PO SCH (08:08)
[2017-08-28] MEDS: Heparin 5,000 UNITS/ML VIAL SC SCH ×2 (08:09→15:29)
[2017-08-28] MEDS: Proctozone-HC 2.5% Cream 30 GM TUBE TOP SCH (08:13)
[2017-08-28] MEDS: Bacitracin Zinc Ointment 30 gm TUBE TOP SCH (08:13)
[2017-08-28] MEDS: Nystatin Ointment 15 GM TUBE TOP SCH (08:14)
[2017-08-28] MEDS: Digoxin 0.25 MG TAB PO SCH (08:20)
[2017-08-28] MEDS: Carvedilol 25 MG TAB PO SCH ×2 (08:21→15:29)
[2017-08-28] MEDS: Lisinopril 5 MG TAB PO SCH (08:22)
--- NOTE | 2017-08-28 16:06 | PDOC.PN ---
- Subjective Encounter Start Date: 08/28/17 Encounter Start Time: 16:05 Ms. Khan was seen today in follow-up. She does not have any complaints, and is ready to go home. - Objective Resuscitation Status: Resuscitation Status FULL:Full Resuscitation MAR Reviewed: Yes Vital Signs & Weight: Vital Signs (12 hours) Temp Pulse Resp BP BP Pulse Ox 08/28/17 11:00 97.5 F L 58 L 16 134/78 96 08/28/17 08:20 64 08/28/17 08:00 98.1 F 64 16 08/28/17 07:59 98.1 F 55 L 16 100/61 95 08/28/17 05:28 98.4 F 55 L 16 121/58 L 92 L Weight Admit Weight 165 lb 4 oz Weight 166 lb I&O: 08/27/17 08/28/17 08/29/17 06:59 06:59 06:59 Intake Total 2510 2850 720 Output Total 2025 1800 Balance 485 1050 720 Result Diagrams: 08/26/17 09:21 08/28/17 04:10 Additional Labs: Accuchecks 08/28/17 08/28/17 08/27/17 11:25 06:32 20:43 POC Glucose 75 96 95 08/27/17 08/27/17 16:38 11:24 POC Glucose 101 89 Phys Exam - Physical Examination HEENT: PERRLA Respiratory: no wheezing, no rales, no rhonchi, clear to auscultation bilateral Cardiovascular: RRR, no significant murmur, no rub Gastrointestinal: soft, non-tender, positive bowel sounds Musculoskeletal: edema present 1+ edema, on the left lower extremity, good distal pulses Dx/Plan (1) Osteomyelitis of foot, left, acute Code(s): M86.172 - OTHER ACUTE OSTEOMYELITIS, LEFT ANKLE AND FOOT Status: Acute Comment: Acute/chronic osteo with current Vancomycin and Zosyn, plan for outpt IV abx 6-8 weeks, no surgical intervention planned currently (2) MRSA foot wound Status: Acute (3) CAD (coronary artery disease) Code(s): I25.10 - ATHSCL HEART DISEASE OF [place] CORONARY ARTERY W/O ANG PCTRS Status: Chronic Qualifiers: Coronary Disease-Associated Artery/Lesion type: [place] artery [place] vs. 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: without marine oil terminal superintendent use Diabetes mellitus complication status: with unspecified complications Qualified Code(s) : E11.8 - Type 2 diabetes mellitus with unspecified complications Comment: Continue ISS, Metformin, ADA (5) HTN (hypertension) Code(s): I10 - ESSENTIAL (PRIMARY) HYPERTENSION Status: Chronic Qualifiers: Hypertension type: essential hypertension Qualified Code(s): I10 - Essential (primary) hypertension Comment: Continue Coreg, Diltiazem and Lisinopril, serial BP monitoring - Plan * Diabetic foot infection- Out Patient antibiotics have been arranged * DM- blood glucose is stable * HTN- blood pressure is stable * Will discharge home.
[2017-08-28 16:40] VITALS: BP 139/59
[2017-08-28 17:01] LABS: Vancomycin, Trough 14.8 ug/mL
[2017-08-28] MEDS: Vancomycin HCl 1.5 GM in Sodium Chloride 0.9% 250 ML 300 ML IVPB SCH (17:51)
[2017-08-28 19:27] VITALS: TEMP 98.4
== END 2017-08-28 19:52 | disposition home or self-care (01) | DRG 540 ==
LOC: ERS 08:37 → INTOOBSV 11:20 → 2SW 11:20 → OBSVTOIN 11:20 → T4-A 08-27 19:31
PROVIDERS: ADMIT Internal Medicine; ATTEND Internal Medicine
PROC: 02HV33Z Insertion of Infusion Device into Superior Vena Cava, Percutaneous Approach (ICD-10-PCS; principal; 2017-08-27)
DX: M86.172 Other acute osteomyelitis, left ankle and foot (principal); M00.872 Arthritis due to other bacteria, left ankle and foot; E11.40 Type 2 diabetes mellitus with diabetic neuropathy, unspecified; B95.62 Methicillin resistant Staphylococcus aureus infection as the cause of diseases classified elsewhere; I25.10 Atherosclerotic heart disease of native coronary artery without angina pectoris; Z79.4 Long term (current) use of insulin; N18.3 Chronic kidney disease, stage 3 (moderate); I12.9 Hypertensive chronic kidney disease with stage 1 through stage 4 chronic kidney disease, or unspecified chronic kidney disease; E11.22 Type 2 diabetes mellitus with diabetic chronic kidney disease; I25.5 Ischemic cardiomyopathy; J44.9 Chronic obstructive pulmonary disease, unspecified; I25.2 Old myocardial infarction; Z89.422 Acquired absence of other left toe(s); Z87.891 Personal history of nicotine dependence; F10.11 Alcohol abuse, in remission; K21.9 Gastro-esophageal reflux disease without esophagitis
CPT/HCPCS: 36415; 36416; 36569; 71046; 80048; 80053; 80202; 83036; 83605; 85025; 86803; 87040; 87070; 87077; 87186; 87205; 96365; 96375; J1644; J2270; J2405; J2543; J3370; J7050; Q0162

== ENCOUNTER 2017-10-18 08:09 | Emergency (ER) | payer MEDICAID ==
--- NOTE | 2017-10-18 11:10 | RAD ---
RIGHT KNEE 4 VIEWS: Date: 10/18/17 HISTORY: 62-year-old female with history of right knee pain following a fall. COMPARISON: 09/06/16. FINDINGS: Severe tricompartment osteoarthrosis and degenerative change with some increased density in the supra patellar recess, evidence for some joint effusion. No acute fracture or dislocation. IMPRESSION: Severe tricompartment arthrosis and degenerative changes without acute fracture or dislocation. POS: [facility]
== END 2017-10-18 10:01 | disposition home or self-care (01) ==
LOC: ERS 08:09
DX: S80.01XA Contusion of right knee, initial encounter (principal); I48.91 Unspecified atrial fibrillation; E11.9 Type 2 diabetes mellitus without complications; K21.9 Gastro-esophageal reflux disease without esophagitis; E78.5 Hyperlipidemia, unspecified; I10 Essential (primary) hypertension; J44.9 Chronic obstructive pulmonary disease, unspecified; I25.2 Old myocardial infarction; F17.200 Nicotine dependence, unspecified, uncomplicated; W19.XXXA Unspecified fall, initial encounter
CPT/HCPCS: 99406

== ENCOUNTER 2017-11-10 07:16 | Inpatient (IN) | payer MEDICAID, OTHER ==
--- NOTE | 2017-11-10 08:01 | RAD ---
RIGHT ANKLE 3 VIEWS: Date: 11/10/17 HISTORY: Right ankle injury. FINDINGS: Ankle mortise and talar dome are intact. Degenerative changes of the hindfoot and ankle. Achilles and plantar enthesophytes at the posterior aspect of the calcaneus. IMPRESSION: 1. Degenerative changes. No acute osseous abnormalities are demonstrated. 2. Heel spurs. POS: [facility]
[2017-11-10 08:44] LABS: ALT (SGPT) 71 U/L (8-55); AST (SGOT) 60 U/L (5-34); Alkaline Phosphatase 165 U/L (40-150); Anion Gap 18 mmol/L (10-20); BUN (Urea Nitrogen) 20 mg/dL (9.8-20.1); Bilirubin, Total 0.5 mg/dL (0.2-1.2); Calc. Creatinine Clearance 0 mL/min (70-130); Calcium 9.2 mg/dL (7.8-10.44); Carbon Dioxide 23 mmol/L (23-31); Chloride 101 mmol/L (98-107); Estimated GFR-MDRD 70; Globulin 3.4 g/dL (2.4-3.5); Glucose 126 mg/dL (80-115); Potassium 3.7 mmol/L (3.5-5.1); Protein, Total 7.4 g/dL (6.0-8.3); Sodium 138 mmol/L (136-145); Uric Acid 5.9 mg/dL (2.6-6.0)
[2017-11-10 08:55] LABS: Band 3 % (5-11); Hemoglobin 11.9 g/dL (12.0-16.0); Lymphocytes 25 % (21-51); MDiff Complete? YES; Mean Corpuscular HGB CONC 33.2 g/dL (32.0-36.0); Mean Corpuscular Hemoglobin 31.2 pg (27.0-31.0); Mean Platelet Volume 7.3 fL (7.4-10.4); Monocytes 19 % (0-10); Neutrophil 53 % (42-75); PLT Morphology Comment Appears Decreased; Platelet Count 118 thou/uL (130-400); RBC Morphology Normal; White Blood Cell (WBC) Count 4.1 thou/uL (4.8-10.8)
[2017-11-10] MEDS ORDERED: Vancomycin HCl 1.25 GM in Sodium Chloride 0.9% 250 ML 250 ML IVPB SCH ×2 (12:00→23:59)
[2017-11-10 13:23] LABS: Bilirubin Negative (Negative); Blood, Urine Moderate (Negative); Clarity CLEAR (Clear); Glucose, Urine (Dipstick) Negative (Negative); Leukocyte Negative (Negative); Nitrite Negative (Negative); Protein, Urine (Dipstick) 100 mg/dL (Neg-Trace); Specific Gravity, Urine 1.009 (1.002-1.036); pH, Urine 7.5 (5.0-9.0)
[2017-11-10 13:25] LABS: Bacteria/HPF None Seen HPF (None Seen); Hyaline Casts/LPF 0-3 HYALINE CAST LPF (0-3 Hyaline); RBC/HPF 21-50 HPF (0-3); Squamous Epithelial 0-3 HPF (0-3); WBC/HPF None Seen HPF (0-3)
[2017-11-10] MEDS ORDERED: Eucerin (Mineral Oil/Petrolatum,White) 30 gm Jar TOP PRN (13:41)
[2017-11-10] MEDS ORDERED: Loratadine 10 MG TAB PO PRN (13:41)
[2017-11-10] MEDS ORDERED: Artificial Tear Sol 15 ML BOT EA EYE PRN (13:41)
[2017-11-10] MEDS ORDERED: Loperamide HCl 2 MG CAP PO PRN (13:41)
[2017-11-10] MEDS ORDERED: Dextrose 5% in Water 1,000 ML IV PRN (13:41)
[2017-11-10] MEDS ORDERED: Senokot 8.6 MG TAB PO PRN (13:41)
[2017-11-10] MEDS ORDERED: Chloraseptic Spray 180 ml Bottle PO PRN (13:41)
[2017-11-10] MEDS ORDERED: HumaLOG 300 UNITS/3 ML VIAL SC PRN ×2 (13:41)
[2017-11-10] MEDS ORDERED: Labetalol HCl 100 MG/20 ML VIAL SLOW IVP PRN (13:41)
[2017-11-10] MEDS ORDERED: Morphine 4 MG/ML VIAL SLOW IVP PRN (13:41)
[2017-11-10] MEDS ORDERED: hydrALAZINE 20 MG/ML VIAL SLOW IVP PRN (13:41)
[2017-11-10] MEDS ORDERED: Milk Of Magnesia 30 ML UDCUP PO PRN (13:41)
[2017-11-10] MEDS ORDERED: Zolpidem Tartrate 5 MG TAB PO PRN (13:41)
[2017-11-10] MEDS ORDERED: Nitroglycerin 0.4 MG TAB (25 Tab Bottle) SL PRN (13:41)
[2017-11-10] MEDS ORDERED: Diabetic Tussin 200 MG/10 ML UDCUP PO PRN (13:41)
[2017-11-10] MEDS ORDERED: Mag-Al 1200 mg/1200 mg/30 ML UDCUP PO PRN (13:41)
[2017-11-10] MEDS ORDERED: Sodium Chloride 0.65% Nasal 44 ML BOT EA NARE PRN (13:41)
[2017-11-10] MEDS ORDERED: Dextrose 50% Abboject 50 ML SYRINGE SLOW IVP PRN (13:41)
[2017-11-10] MEDS ORDERED: Ondansetron PF 4 MG/2 ML Vial IVP PRN (13:41)
[2017-11-10] MEDS ORDERED: Acetaminophen 325 MG TAB PO PRN (13:41)
[2017-11-10 14:00] VITALS: BMI 28.1
--- NOTE | 2017-11-10 14:02 | HP ---
PRIMARY CARE PHYSICIAN: [facility]. REASON FOR ADMISSION: Sepsis, right lower extremity cellulitis. HISTORY OF PRESENT ILLNESS: A 62-year-old female who has multiple medical problems including diabete s type 2, chronic systolic heart failure, gastroesophageal reflux disease who presented to emergency room today with a complaint of right lower extremity erythema around ankle. The patient reports that she does not know that how it started, but she noticed erythema. She thinks that she twisted her ri ght ankle. She also thinks that she might have stepped on the hole and after that she twisted her ri ght ankle and that is why she did not put any attention to it, but since yesterday, erythema is rapid ly progressing to lower extremity and causing significant amount of pain. She cannot walk. She was not able to sleep due to her significant amount of pain. Her intensity of pain is about 10/10. She was feeling subjective fever at home. She denies any chills. She denies any UTI symptoms. She laura es any constipation, diarrhea, melena or hematochezia. She denies any similar problem on the right l ower extremity. The patient reports that previously she required 2 toe amputations on left foot. Sh nicolas did not try any antibiotic at home. She was not able to follow up with primary care physician give n rapidly worsening of symptoms and that is why she decided to come to emergency room for evaluation. In the emergency room, she was in crisis due to pain. In the emergency room, patient was given vancomycin, Zosyn, clindamycin, morphine 2 mg, Toradol 20 mg . Subsequently, patient is being admitted to medical floor for IV antibiotic therapy. PAST MEDICAL HISTORY: Diabetes type 2, hypertension, dyslipidemia, COPD, history of coronary artery disease with history of [place], gastroesophageal reflux disease, atrial fibrillation paroxysmal, history of toe amputation second and third toe on the left foot, cervical degenerative spine disease. PAST PSYCHIATRIC HISTORY: Anxiety and depression, chronic pain disorder. PAST SURGICAL HISTORY: Cholecystectomy, hysterectomy, ablation for atrial fibrillation, amputation o f second and third toe on the left foot, history of left ankle surgery with multiple pins in place, o ophorectomy and . ALLERGIES: LATEX. No known drug allergy. CURRENT HOME MEDICATIONS: Tylenol #4 one tablet q.6 hourly p.r.n., ProAir HFA 90 mcg inhalation b.i. d., amiodarone 200 mg p.o. daily, aspirin 81 mg p.o. daily, Lipitor 80 mg p.o. daily, Coreg 25 mg p.o . b.i.d., digoxin 0.25 mg p.o. daily, Cardizem-CD 360 mg p.o. daily, Cymbalta 20 mg p.o. b.i.d., ferr ous sulfate 325 mg p.o. daily, folic acid 1 mg p.o. daily, Lasix 20 mg p.o. daily, Redfield 5 one tablet q.6 hourly p.r.n., lisinopril 5 mg p.o. b.i.d., magnesium 250 mg p.o. daily, metformin 500 mg p.o. b .i.d., Toprol-XL 50 mg p.o. daily, omega 3 fish oil 1 capsule daily, oxycodone 30 mg q.6 hourly p.r.n ., Protonix 40 mg p.o. daily, Dilantin 50 mg p.o. daily, Lyrica 50 mg p.o. at bedtime, Spiriva 2 inha lations daily, Zanaflex 4 mg q.6 hourly p.r.n., tramadol 50 mg q.6 hourly p.r.n., trazodone 100 mg p. o. at bedtime. SOCIAL HISTORY: Patient is a former smoker. She quit smoking early this year. She has a remote his tory of alcohol abuse. She currently lives in this town with her boyfriend. She used to live in [place], [place], now recently moved to [facility]. FAMILY HISTORY: Patient is adopted, so she is not aware of any significant biological family history . REVIEW OF SYSTEMS: The following complete review of systems was negative, unless otherwise mentioned in the HPI or below: Constitutional: Weight loss or gain, ability to conduct usual activities. Skin: Rash, itching. Eyes: Double vision, pain. ENT/Mouth: Nose bleeding, neck stiffness, pain, tenderness. Cardiovascular: Palpitations, dyspnea on exertion, orthopnea. Respiratory: Shortness of breath, wheezing, cough, hemoptysis, fever or night sweats. Gastrointestinal: Poor appetite, abdominal pain, heartburn, nausea, vomiting, constipation, or diarr hea. Genitourinary: Urgency, frequency, dysuria, nocturia. Musculoskeletal: Pain, swelling. Neurologic/Psychiatric: Anxiety, depression. Allergy/Immunologic: Skin rash, bleeding tendency. Please see my HPI for pertinent positive and negative. All other review of systems reviewed and nega tive except as mentioned in the HPI. EMERGENCY ROOM COURSE: Patient is given vancomycin, Zosyn, clindamycin, morphine 2 mg, Toradol 20 mg , IV fluid. PHYSICAL EXAMINATION: VITAL SIGNS: On arrival, blood pressure 183/85, pulse 73, respiratory rate 18, temperature 98.0, sat uration 100% on room air, weight 78.9 kilograms. GENERAL: Patient is currently alert, awake, no obvious acute distress. HEAD: Normocephalic, atraumatic. EYES: Pupils round, reactive to light. Extraocular muscle intact. ENT: Oropharynx within normal limits. Moist mucous membranes, no oral lesion, no pharyngeal erythem a, no exudate. NECK: Supple, no JVD, no thyromegaly, no carotid bruit, no jugular venous distention. LUNGS: Clear to auscultation without any rhonchi or rales. No use of accessory muscles of respirati on in use. CARDIAC: S1, S2 appears regular without any significant murmur, no gallop, no rub. ABDOMEN: Soft, bowel sounds present, nontender, nondistended. No organomegaly, no mass, no suprapub ic tenderness. BACK: Unremarkable, no CVA tenderness. EXTREMITIES: Upper extremity passive movements of all joints are normal. Lower extremity, right ank le is swollen, erythematous, and tender. Patient does have erythema spreading proximally as well as distally. Left lower extremity within normal limits. Toe amputation, second and third toe amputatio n of the left foot is noted. NEUROLOGIC: Patient is alert, oriented x3. Cranial nerves II-XII intact. Motor and sensation withi n normal limits. Speech normal. SKIN: No skin rash other than cellulitis of right lower extremity. ENDOCRINE: Normal affect. NEUROLOGIC: Nonfocal examination. IMAGING DATA AND SIGNIFICANT LABORATORY DATA: Ankle x-ray showing no acute process. CBC: WBC 4.1, hemoglobin 11.9, platelet 118 with bandemia. BMP: Sodium 138, potassium 3.7, chloride 101, carbon d ioxide 23, anion gap 18, BUN 20, creatinine 0.82, glucose 126, uric acid 5.9, calcium 9.2. LFT: AST 60, ALT 71, alkaline phosphatase 165, albumin 4.0. ASSESSMENT AND PLAN/IMPRESSION: 1. Sepsis due to soft tissue infection with cellulitis. The patient will be given broad spectrum an tibiotic therapy with vancomycin and Zosyn. We will follow up on culture result and based on culture result, we will change antibiotic therapy accordingly. 2. Right lower extremity cellulitis rapidly progressing. Patient has associated sepsis with pancyto penia. We will need broad spectrum antibiotic therapy with vancomycin and Zosyn. Pain control with morphine p.r.n. basis. The patient is advised to keep lower extremity elevated. We will monitor cli nical response. We are expecting that patient will require more than 2 midnights to control her cell ulitis with IV antibiotic therapy. 3. Pancytopenia, likely due to sepsis. We will repeat CBC. We will monitor platelet count. 4. Abnormal liver function tests, likely due to sepsis. Patient had hepatitis profile negative in t he past. We will repeat CMP tomorrow. 5. Paroxysmal atrial fibrillation. Continue amiodarone 200 mg p.o. daily, aspirin 81 mg p.o. daily, digoxin 0.25 mg p.o. daily, Cardizem-CD 360 mg p.o. daily. We will verify the patient's home medica tion and resume all this medication as per previous. 6. Chronic systolic heart failure. The patient is currently euvolemic. Continue Coreg 25 mg p.o. b .i.d., lisinopril 5 mg p.o. b.i.d. and Lasix 20 mg p.o. daily. We will also continue amiodarone 200 mg p.o. daily. 7. Dyslipidemia. Continue Lipitor 80 mg p.o. at bedtime. We will monitor LFT. If LFT gets worse, then the patient will need to hold on Lipitor therapy for few days until LFT gets better. 8. Anxiety and depression. We will continue Cymbalta 20 mg p.o. b.i.d. 9. Chronic pain disorder. We will continue pain control with morphine and Redfield on a p.r.n. basis w [facility] in hospital. We will also continue Lyrica 50 mg p.o. at bedtime. 10. Gastroesophageal reflux disease. We will continue Protonix 40 mg p.o. daily. 11. Chronic obstructive pulmonary disease, currently well controlled. We will continue DuoNeb thera py q.6 hourly p.r.n. 12. Coronary artery disease. Continue aspirin, statin therapy, beta yanely therapy, and NANDINI inhibi tor as per home dosage. Currently, patient is stable from this perspective. 13. Diabetes type 2. We will continue metformin 500 mg p.o. b.i.d. Diabetic diet will be given. I nsulin as per sliding scale protocol. 14. Deep venous thrombosis prophylaxis, Lovenox 40 mg subcu daily. 15. Gastrointestinal prophylaxis, Protonix 40 mg p.o. daily. CODE STATUS: The patient is FULL CODE. The patient does not have any surrogate decision maker. Disposition plan based on clinical course. We are expecting patient's stay in hospital more than 2 m idnights based on level of severity of her cellulitis. Plan of care discussed with the patient in de tail.
[2017-11-10] MEDS: HYDROcodone/Acetaminophen 10/325 mg Tablet PO PRN ×2 (14:15→19:58)
[2017-11-10] MEDS: Ondansetron ODT 4 MG TAB PO PRN (14:16)
[2017-11-10] MEDS: Piperacillin/Tazobactam 3.375 GM in Sodium Chloride 0.9% 100 ML IVPB SCH ×2 (16:09→23:33)
[2017-11-10] MEDS ORDERED: Piperacillin/Tazobactam 4.5 GM in Sodium Chloride 0.9% 100 ML IVPB SCH (17:00)
[2017-11-10] MEDS ORDERED: Vancomycin HCl 1 GM in Premix Bag 1 BAG IVPB SCH (23:59)
[2017-11-11] MEDS: Piperacillin/Tazobactam 3.375 GM in Sodium Chloride 0.9% 100 ML IVPB SCH ×2 (04:20→10:00)
[2017-11-11 05:23] LABS: ALT (SGPT) 63 U/L (8-55); AST (SGOT) 53 U/L (5-34); Albumin 3.4 g/dL (3.4-4.8); Alkaline Phosphatase 140 U/L (40-150); Anion Gap 13 mmol/L (10-20); BUN (Urea Nitrogen) 27 mg/dL (9.8-20.1); Bilirubin, Total 0.4 mg/dL (0.2-1.2); Calc. Creatinine Clearance 65 mL/min (70-130); Carbon Dioxide 27 mmol/L (23-31); Chloride 102 mmol/L (98-107); Estimated GFR-MDRD 49; Globulin 3.1 g/dL (2.4-3.5); Glucose 79 mg/dL (80-115); Potassium 4.1 mmol/L (3.5-5.1); Protein, Total 6.5 g/dL (6.0-8.3); Sodium 138 mmol/L (136-145)
[2017-11-11 05:59] LABS: Anisocytosis SLIGHT = 6-15 cells (100X) (0-5/hpf); Eosinophils 3 % (0-10); Hemoglobin 11.4 g/dL (12.0-16.0); Lymphocytes 25 % (21-51); MDiff Complete? YES; Mean Corpuscular HGB CONC 33.6 g/dL (32.0-36.0); Mean Corpuscular Hemoglobin 31.6 pg (27.0-31.0); Mean Corpuscular Volume 94.2 fL (78.0-98.0); Mean Platelet Volume 7.5 fL (7.4-10.4); Monocytes 15 % (0-10); Neutrophil 57 % (42-75); PLT Morphology Comment Appears Decreased; Platelet Count 119 thou/uL (130-400); Red Blood Cell (RBC) Count 3.59 mill/uL (4.20-5.40); White Blood Cell (WBC) Count 2.8 thou/uL (4.8-10.8)
[2017-11-11] MEDS: Ondansetron ODT 4 MG TAB PO PRN (07:42)
[2017-11-11 07:49] VITALS: TEMP 97.9
[2017-11-11 08:50] VITALS: BP 168/88
[2017-11-11] MEDS ORDERED: Enoxaparin Sodium 40 MG/0.4 ML SYRINGE SC SCH (09:00)
[2017-11-11] MEDS ORDERED: Saccharomyces boulardii 250 MG CAP PO SCH (09:00)
[2017-11-11] MEDS: HYDROcodone/Acetaminophen 10/325 mg Tablet PO PRN (09:18)
--- NOTE | 2017-11-11 11:05 | DIS ---
DATE OF ADMISSION: 11/10/2017 DATE OF DISCHARGE: 11/11/2017 PRIMARY CARE PHYSICIAN: [facility] call admission. DISCHARGE DISPOSITION: Home. PRIMARY DISCHARGE DIAGNOSES: Sepsis due to cellulitis of right lower extremity improved, pancytopeni a due to sepsis, abnormal liver function tests due to sepsis. SECONDARY DISCHARGE DIAGNOSES: Seizure disorder, paroxysmal atrial fibrillation, hypertension, diabe eunice type 2, COPD disease stage 3, chronic diastolic stage C heart failure, coronary artery disease. PRIMARY PROCEDURE/OPERATION: None. RADIOLOGICAL INVESTIGATION: Ankle x-ray did not show any bony pathology. SIGNIFICANT LABORATORY DATA: WBC 2.8, hemoglobin 11.4, platelet 119. Sodium 138, potassium 4.1, BUN 27, creatinine 1.12, glucose 79, calcium 9.0, AST 53, ALT 63, alkaline phosphatase 140, albumin 3.4. Urinalysis: RBC 21-50. Blood culture negative by the time of dictation. DISCHARGE MEDICATIONS: Keflex 500 mg p.o. t.i.d. for 10 days, doxycycline 100 mg p.o. b.i.d. for 10 days, Florastor 250 mg p.o. daily for 10 days. Continue following medications, Zanaflex 4 mg p.o. q. 6 hourly p.r.n., amiodarone 200 mg p.o. daily, Lipitor 80 mg p.o. at bedtime, Cardizem CD 360 mg p.o. daily, Cymbalta 20 mg p.o. b.i.d., folic acid 1 mg p.o. daily, hydrocortisone topical application da sabina p.r.n., magnesium 250 mg p.o. daily, Toprol-XL 50 mg p.o. daily, nystatin topical application b.i .d. p.r.n., fish oil 1 capsule p.o. daily, Protonix 40 mg p.o. daily, Dilantin 150 mg p.o. daily, Lyr ica 50 mg p.o. at bedtime, Spiriva 2 puffs inhalation b.i.d., trazodone 100 mg p.o. at bedtime, Tylen ol #3 one or two tablets p.o. q.6 hourly p.r.n. for pain, aspirin 81 mg p.o. daily, digoxin 0.25 mg p .o. daily, ferrous sulfate 325 mg p.o. b.i.d., Lasix 20 mg p.o. daily, lisinopril 5 mg p.o. b.i.d. CONTRAINDICATIONS: None. CODE STATUS: FULL CODE. INPATIENT CONSULTANTS: None. ALLERGIES: LATEX, PAROXETINE. DISCHARGE PLAN: Post hospital, the patient is instructed to follow up with primary care physician. HOSPITAL COURSE: A 62-year-old female with above-mentioned medical problem who was admitted by [facility]. The patient came to emergency room with complaint of right lower extremity erythema, tender ness, and swelling, especially around ankle region. There was no known precipitating factor for this particular problem, but patient was having increasing pain with walking and that is why she decided to come to the emergency room for evaluation. She had clinical diagnosis of cellulitis of right lowe r extremity. She was given broad spectrum antibiotic therapy in the emergency room and she was obser deondre to medical floor. She was treated with vancomycin and Zosyn. The patient had dramatic improveme nt in the next 24 hours. The patient is able to walk now, her pain is under control. She is afebril e and hemodynamically stable. While in hospital, she had pancytopenia and abnormal LFT which we pres umed from probably sepsis. Overall, this patient is doing very well and she expressed her wish to go home today. On discharge, we prescribed Keflex, doxycycline and probiotics as well as Tylenol #3. The patient will follow up with her primary care physician. The patient is seen and examined at bedside today. PHYSICAL EXAMINATION: VITAL SIGNS" VITAL SIGNS: Currently, temperature 97.9, pulse 67, respiratory rate 18, blood pressur e 168/88, saturation 98% on room air. GENERAL: The patient is alert, awake, no obvious acute distress. HEAD: Normocephalic, atraumatic. EYES: Pupils round, reactive to light. Extraocular muscle intact. ENT: Oropharynx within normal limit. Moist mucous membranes. NECK: Supple, no JVD, no thyromegaly, no carotid bruit. LUNGS: Clear to auscultation without any rhonchi or rales. CARDIAC: S1, S2 appears regular without any murmur. ABDOMEN: Soft and benign. EXTREMITIES: No edema. NEUROLOGIC: Nonfocal examination. The patient is medically stable for discharge today.
== END 2017-11-11 11:20 | disposition home or self-care (01) | DRG 872 ==
LOC: ERS 07:16 → OBSVTOIN 10:57 → 2SW 10:57
PROVIDERS: ADMIT Internal Medicine; ATTEND Internal Medicine
DX: A41.9 Sepsis, unspecified organism (principal); L03.115 Cellulitis of right lower limb; D61.818 Other pancytopenia; I50.42 Chronic combined systolic (congestive) and diastolic (congestive) heart failure; I11.0 Hypertensive heart disease with heart failure; E11.9 Type 2 diabetes mellitus without complications; K21.9 Gastro-esophageal reflux disease without esophagitis; Z89.422 Acquired absence of other left toe(s); E78.5 Hyperlipidemia, unspecified; J44.9 Chronic obstructive pulmonary disease, unspecified; I25.10 Atherosclerotic heart disease of native coronary artery without angina pectoris; I25.2 Old myocardial infarction; F32.9 Major depressive disorder, single episode, unspecified; F41.9 Anxiety disorder, unspecified; G89.29 Other chronic pain; Z79.82 Long term (current) use of aspirin; Z87.891 Personal history of nicotine dependence; I48.0 Paroxysmal atrial fibrillation; Z79.01 Long term (current) use of anticoagulants; Z79.84 Long term (current) use of oral hypoglycemic drugs
CPT/HCPCS: 36415; 36416; 80053; 81003; 81015; 84550; 85025; 87040; 96365; 96375; J0360; J1650; J2270; J2543; J3370; J7050; Q0162

== ENCOUNTER 2017-11-26 18:33 | Observation (INO) | payer MEDICAID, OTHER ==
[2017-11-26] MEDS ORDERED: Acetaminophen 500 MG TAB ONE (18:54)
[2017-11-26] MEDS ORDERED: Albuterol Sulfate 2.5 mg/3 ml Neb ONE ×2 (18:55)
[2017-11-26] MEDS ORDERED: Dexamethasone 4 MG TAB ONE (18:55)
[2017-11-26] MEDS ORDERED: Magnesium 2 GM/NS 0.9% 100 ML 2 GM in Premix Bag 1 BAG IVPB SCH (19:15)
[2017-11-26 19:20] LABS: #Eosinphils 0.3 thou/uL (0.0-0.7); #Lymphocytes 1.3 thou/uL (1.20-3.40); #Monocytes 0.9 thou/uL (0.11-0.59); %Basophils 0.2 % (0.0-1.0); %Eosinophils 3.6 % (0.0-10.0); %Lymphocytes 17.8 % (21.0-51.0); %Monocytes 12.5 % (0.0-10.0); %Neutrophils 65.9 % (42.0-75.0); Hemoglobin 11.2 g/dL (12.0-16.0); Mean Corpuscular HGB CONC 32.7 g/dL (32.0-36.0); Mean Corpuscular Hemoglobin 31.2 pg (27.0-31.0); Mean Corpuscular Volume 95.5 fL (78.0-98.0); Mean Platelet Volume 7.5 fL (7.4-10.4); Platelet Count 143 thou/uL (130-400); RBC Distribution Width 14.5 % (11.5-14.5); White Blood Cell (WBC) Count 7.5 thou/uL (4.8-10.8)
[2017-11-26] MEDS ORDERED: Dexamethasone 4 mg/ml Vial SLOW IVP SCH (19:30)
[2017-11-26 19:37] LABS: Actual Bicarbonate (HCO3a) 23.5 mEq/L (22-28); Base Excess (BEa) 0.2 mEq/L (-2.0 to +3.0); CO2 Tension 33.7 mmHg (35.0-45.0); O2 Tension (PaO2) 46.5 mmHg (> 80.0); pH, Arterial 7.46 (7.35-7.45)
[2017-11-26 19:38] LABS: Carboxyhemoglobin (COHb) 2.4 gm% (0.0-3.0); Hemoglobin (Hb) 11.5 g/dL (12.0-16.0)
[2017-11-26 19:39] LABS: ALV-art Gradient 61.105 (0-20); Analyzer IN Cardio ER; Potassium - ABG Lab 3.6 mmol/L (3.70-5.30); Puncture Site LRA
[2017-11-26 19:46] LABS: ALT (SGPT) 63 U/L (8-55); AST (SGOT) 52 U/L (5-34); Albumin 3.6 g/dL (3.4-4.8); Alkaline Phosphatase 162 U/L (40-150); Anion Gap 16 mmol/L (10-20); BUN (Urea Nitrogen) 21 mg/dL (9.8-20.1); Bilirubin, Total 0.4 mg/dL (0.2-1.2); CK (CPK) 58 U/L (29-168); CKMB 1.2 ng/mL (0-6.6); Calc. Creatinine Clearance 0 mL/min (70-130); Calcium 8.9 mg/dL (7.8-10.44); Carbon Dioxide 18 mmol/L (23-31); Chloride 107 mmol/L (98-107); Estimated GFR-MDRD 67; Globulin 3.5 g/dL (2.4-3.5); Glucose 126 mg/dL (80-115); Lipase 74 U/L (8-78); Potassium 3.9 mmol/L (3.5-5.1); Protein, Total 7.1 g/dL (6.0-8.3); Sodium 137 mmol/L (136-145); Troponin I 0.012 ng/mL (< 0.028)
[2017-11-26] MEDS ORDERED: Metoclopramide HCl 10 MG/2 ML VIAL ONE (20:30)
--- NOTE | 2017-11-26 20:38 | RAD ---
CHEST ONE VIEW: 11/26/17 HISTORY: Dyspnea. COMPARISON: Chest radiograph 11/13/16. FINDINGS: There is a calcified granuloma left lung base. No focal air space consolidation, pneumothorax or effu elvin. No acute osseous abnormality. IMPRESSION: No acute intrathoracic abnormality. POS: [facility]
[2017-11-26] MEDS ORDERED: Fentanyl 100 MCG/2 ML VIAL ONE (21:29)
[2017-11-26 21:42] LABS: Bilirubin Negative (Negative); Blood, Urine Small (Negative); Clarity CLEAR (Clear); Glucose, Urine (Dipstick) Negative (Negative); Leukocyte Negative (Negative); Nitrite Negative (Negative); Protein, Urine (Dipstick) 30 mg/dL (Neg-Trace); Specific Gravity, Urine 1.016 (1.002-1.036); pH, Urine 5.5 (5.0-9.0)
[2017-11-26 21:43] LABS: Bacteria/HPF None Seen HPF (None Seen); Hyaline Casts/LPF 0-3 HYALINE CAST LPF (0-3 Hyaline); Squamous Epithelial 0-3 HPF (0-3); WBC/HPF 0-3 HPF (0-3)
[2017-11-26] MEDS ORDERED: Ondansetron HCl/PF 4 MG/2 ML Vial IVP PRN (23:08)
[2017-11-26] MEDS ORDERED: Ondansetron ODT 4 MG TAB SL PRN (23:08)
[2017-11-26] MEDS ORDERED: Sodium Chloride 0.9% 1,000 ML IV SCH (23:08)
[2017-11-27 00:03] VITALS: BMI 26.6
[2017-11-27] MEDS ORDERED: Acetaminophen 325 MG TAB PO PRN (00:44)
[2017-11-27] MEDS ORDERED: Diabetic Tussin 200 MG/10 ML UDCUP PO PRN (00:47)
[2017-11-27] MEDS ORDERED: Sodium Chloride 0.65% Nasal 44 ML BOT EA NARE PRN (00:47)
[2017-11-27] MEDS ORDERED: Bisacodyl 5 MG TAB PO PRN (00:47)
[2017-11-27] MEDS ORDERED: Docusate 100 MG CAP PO PRN (00:47)
[2017-11-27] MEDS ORDERED: Benzonatate 100 MG CAP PO PRN (00:47)
[2017-11-27] MEDS ORDERED: Senokot 8.6 MG TAB PO PRN (00:47)
--- NOTE | 2017-11-27 00:48 | PDOC.EVN ---
Event Note - Event Note Event Note: h&p [id number]
[2017-11-27] MEDS ORDERED: Acetaminophen/Codeine 30-300mg Tablet PO PRN (01:00)
[2017-11-27] MEDS ORDERED: traZODone HCl 50 MG TAB PO SCH ×2 (01:30→21:00)
[2017-11-27 02:04] LABS: Troponin I 0.015 ng/mL (< 0.028)
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
[2017-11-27] MEDS: Acetaminophen/Codeine 30-300mg Tablet PO PRN ×4 (04:06→22:16)
[2017-11-27 05:02] LABS: Anion Gap 16 mmol/L (10-20); BUN (Urea Nitrogen) 20 mg/dL (9.8-20.1); Calc. Creatinine Clearance 80 mL/min (70-130); Calcium 8.7 mg/dL (7.8-10.44); Carbon Dioxide 19 mmol/L (23-31); Cardiac Risk 2.3 (Less than 4.5); Chloride 106 mmol/L (98-107); Cholesterol 120 mg/dl (< 200 Desired); Estimated GFR-MDRD 66; Glucose 263 mg/dL (80-115); HDL Cholesterol 53 mg/dL (>60 Neg Risk); LDL Cholesterol, Calculated 63 mg/dL; Sodium 137 mmol/L (136-145); Triglycerides 22 mg/dL (Less than 150)
[2017-11-27 05:16] LABS: Band 9 % (5-11); Hemoglobin 10.4 g/dL (12.0-16.0); Lymphocytes 11 % (21-51); MDiff Complete? YES; Mean Corpuscular HGB CONC 32.9 g/dL (32.0-36.0); Mean Corpuscular Hemoglobin 31.4 pg (27.0-31.0); Mean Corpuscular Volume 95.6 fL (78.0-98.0); Mean Platelet Volume 9.2 fL (7.4-10.4); Neutrophil 80 % (42-75); PLT Morphology Comment Appears Decreased; Platelet Count 114 thou/uL (130-400); RBC Distribution Width 14.3 % (11.5-14.5); Red Blood Cell (RBC) Count 3.32 mill/uL (4.20-5.40); White Blood Cell (WBC) Count 4.6 thou/uL (4.8-10.8)
[2017-11-27] MEDS ORDERED: Dexamethasone 4 mg/ml Vial SLOW IVP SCH (06:00)
[2017-11-27] MEDS: Ipratropium Bromide 2.5 ml Neb NEB SCH ×4 (06:41→23:54)
[2017-11-27] MEDS: tiZANidine HCl 4 MG TAB PO PRN ×2 (08:02→21:19)
[2017-11-27] MEDS ORDERED: Enoxaparin Sodium 30 MG/0.3 ML SYRINGE SC SCH (09:00)
[2017-11-27] MEDS ORDERED: Non-Formulary Item 1 EACH (Tiotropium Bromide [Spiriva Respimat] 2 INH) IH SCH (09:00)
[2017-11-27] MEDS ORDERED: Famotidine/PF 20 mg/2ml Vial SLOW IVP SCH (09:00)
[2017-11-27] MEDS: Furosemide 20 MG TAB PO SCH (09:12)
[2017-11-27] MEDS: Ferrous Sulfate 325 MG TAB PO SCH ×2 (09:13→21:14)
[2017-11-27] MEDS: Fish Oil 1,000 MG CAP PO SCH (09:13)
[2017-11-27] MEDS: Digoxin 0.25 MG TAB PO SCH (09:13)
[2017-11-27] MEDS: Phenytoin 50 MG Chewable Tablet PO SCH (09:13)
[2017-11-27] MEDS: Magnesium Oxide 250 MG TAB PO SCH (09:13)
[2017-11-27] MEDS: Lisinopril 5 MG TAB PO SCH ×2 (09:14→21:15)
[2017-11-27] MEDS: Amiodarone 200 MG TAB PO SCH (09:14)
[2017-11-27] MEDS: Folic Acid 1 MG TAB PO SCH (09:14)
[2017-11-27] MEDS: predniSONE 20 MG TAB PO SCH (10:16)
[2017-11-27] MEDS: Saccharomyces boulardii 250 MG CAP PO SCH (10:17)
--- NOTE | 2017-11-27 10:48 | PDOC.EVN ---
Event Note - Event Note Event Note: Patient is seen today, alert and oriented. pt had CTA was positive for PE, started on Eliiquis 10mg po BID and will change to 5mg Po BID after aw t[place]. She has persistant wheezing on lungs, with COPD exacerbation/ CHF exacerbation from PE. Will clsoley Monitor. Pulmonary is consulted. Will get Eecho. She does have right calf swollen, likely source of the thromboemboslism.
[2017-11-27] MEDS ORDERED: Dextrose 5% in Water 1,000 ML IV PRN (10:57)
[2017-11-27] MEDS ORDERED: Dextrose 50% Abboject 50 ML SYRINGE SLOW IVP PRN (10:57)
[2017-11-27] MEDS ORDERED: Apixaban 5 MG TAB PO SCH (11:00)
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
--- NOTE | 2017-11-27 11:42 | CT ---
CTA CHEST WITH CONTRAST WITH 3D VOLUME RENDERING: INDICATIONS: Chest pain. Cough. FINDINGS: Small filling defects involving the subsegmental pulmonary arteries of the right lower lobe are prese nt, consistent with peripheral pulmonary emboli. The pulmonary trunk and main pulmonary arteries are patent. There is mild prominence of the pulmonary arterial system, which can be seen in the setting of pulmonary artery hypertension. Correlate clinically. Borderline sized mediastinal lymph nodes a re seen. There is scattered vascular disease. Mild bilateral subpleural opacities may relate to vol ume loss. There are scattered granulomatous calcifications of the thorax. Scattered osseous degener ative change is present. IMPRESSION: 1. Small, subsegmental pulmonary emboli of the right lower lobe. 2. Evidence of prior granulomatous disease. 3. Nonspecific mild prominence of thoracic lymph nodes. 4. Mild enlargement of the pulmonary arterial system, which may relate to sequela from pulmonary art liv hypertension, in the correct clinical context. Telephone call to the patient's physician, Dr. Yesy Maravilla, was placed at the time of the dictati on (1011 hours) on 11/27/2017. CODE CR POS: VINAYAK
[2017-11-27] MEDS: Nystatin Ointment 15 GM TUBE TOP SCH ×2 (11:43→21:20)
[2017-11-27] MEDS: Proctozone-HC 2.5% Cream 30 GM TUBE TOP SCH (11:43)
[2017-11-27] MEDS: HumaLOG 300 UNITS/3 ML VIAL SC PRN ×3 (12:36→21:17)
[2017-11-27] MEDS ORDERED: Iopamidol 370 76% 100 ML VIAL ONE (13:29)
--- NOTE | 2017-11-27 14:02 | ULT ---
BILATERAL LOWER EXTREMITY VENOUS DOPPLER ULTRASOUND: HISTORY: Pulmonary embolism. TECHNIQUE: Herrera scale ultrasound with color flow and spectral Doppler imaging of the deep venous systems of the lower extremities performed bilaterally. FINDINGS: There is good flow, compression, and augmentation noted in the common femoral, femoral, deep femoral, popliteal, posterior tibial, and greater saphenous veins in both lower extremities. IMPRESSION: No evidence of deep vein thrombosis in either lower extremity. POS: TROY
--- NOTE | 2017-11-27 15:17 | EKG ---
Test Reason : Blood Pressure : / mmHG Vent. Rate : 073 BPM Atrial Rate : 073 BPM P-R Int : 316 ms QRS Dur : 126 ms QT Int : 432 ms P-R-T Axes : 091 -38 014 degrees QTc Int : 475 ms Sinus rhythm with 1st degree A-V block Left axis deviation Left ventricular hypertrophy with QRS widening Abnormal ECG When compared with ECG of 26-NOV-2017 18:45, (Unconfirmed) Premature atrial complexes are no longer Present Confirmed by MIROSLAVA LINDA MD ([id number]) on 11/27/2017 3:17:27 PM Referred By: JONH Confirmed By:MIROSLAVA LINAD MD
[2017-11-27] MEDS ORDERED: Atorvastatin Calcium 40 MG TAB PO SCH (21:00)
[2017-11-27] MEDS ORDERED: Pregabalin 50 MG CAP PO SCH (21:00)
[2017-11-27] MEDS ORDERED: Insulin Glargine 20 UNITS in Pre-Filled Syringe SC SCH (21:00)
[2017-11-27] MEDS: Apixaban 5 MG TAB PO SCH (21:14)
[2017-11-28] MEDS: Acetaminophen/Codeine 30-300mg Tablet PO PRN ×2 (04:43→11:12)
[2017-11-28 05:27] LABS: Anion Gap 10 mmol/L (10-20); BUN (Urea Nitrogen) 28 mg/dL (9.8-20.1); Calc. Creatinine Clearance 69 mL/min (70-130); Calcium 8.7 mg/dL (7.8-10.44); Carbon Dioxide 26 mmol/L (23-31); Chloride 107 mmol/L (98-107); Estimated GFR-MDRD 56; Glucose 159 mg/dL (80-115); Potassium 4.8 mmol/L (3.5-5.1); Sodium 138 mmol/L (136-145)
[2017-11-28 05:48] LABS: Band 2 % (5-11); Hemoglobin 10.4 g/dL (12.0-16.0); Hypochromia SLIGHT = 6-15 cells (100X) (0-5/hpf); Lymphocytes 9 % (21-51); MDiff Complete? YES; Mean Corpuscular HGB CONC 33.2 g/dL (32.0-36.0); Mean Corpuscular Hemoglobin 31.7 pg (27.0-31.0); Mean Corpuscular Volume 95.3 fL (78.0-98.0); Mean Platelet Volume 8.2 fL (7.4-10.4); Monocytes 2 % (0-10); Neutrophil 87 % (42-75); PLT Morphology Comment Appears Decreased; Platelet Count 125 thou/uL (130-400); RBC Distribution Width 14.3 % (11.5-14.5); Red Blood Cell (RBC) Count 3.28 mill/uL (4.20-5.40); White Blood Cell (WBC) Count 7.5 thou/uL (4.8-10.8)
[2017-11-28] MEDS: Ipratropium Bromide 2.5 ml Neb NEB SCH ×2 (06:38→13:25)
[2017-11-28] MEDS ORDERED: predniSONE 20 MG TAB PO SCH (08:00)
[2017-11-28] MEDS: Apixaban 5 MG TAB PO SCH (08:56)
[2017-11-28] MEDS: Amiodarone 200 MG TAB PO SCH (08:56)
[2017-11-28] MEDS: Digoxin 0.25 MG TAB PO SCH (08:56)
[2017-11-28] MEDS: Furosemide 20 MG TAB PO SCH (08:57)
[2017-11-28] MEDS: Ferrous Sulfate 325 MG TAB PO SCH (08:57)
[2017-11-28] MEDS: Folic Acid 1 MG TAB PO SCH (08:57)
[2017-11-28] MEDS: Fish Oil 1,000 MG CAP PO SCH (08:57)
[2017-11-28] MEDS: Lisinopril 5 MG TAB PO SCH (08:58)
[2017-11-28] MEDS: Proctozone-HC 2.5% Cream 30 GM TUBE TOP SCH (08:58)
[2017-11-28] MEDS: Nystatin Ointment 15 GM TUBE TOP SCH (08:59)
[2017-11-28] MEDS: Phenytoin 50 MG Chewable Tablet PO SCH (08:59)
[2017-11-28] MEDS: Magnesium Oxide 250 MG TAB PO SCH (08:59)
[2017-11-28] MEDS: predniSONE 20 MG TAB PO SCH (08:59)
[2017-11-28] MEDS: Saccharomyces boulardii 250 MG CAP PO SCH (09:00)
[2017-11-28] MEDS: tiZANidine HCl 4 MG TAB PO PRN (09:05)
--- NOTE | 2017-11-28 10:53 | EKG ---
Test Reason : Blood Pressure : / mmHG Vent. Rate : 068 BPM Atrial Rate : 068 BPM P-R Int : 250 ms QRS Dur : 112 ms QT Int : 434 ms P-R-T Axes : 011 -42 044 degrees QTc Int : 461 ms Sinus rhythm with 1st degree A-V block with Premature atrial complexes Left axis deviation Incomplete right bundle branch block Voltage criteria for left ventricular hypertrophy Cannot rule out Septal infarct , age undetermined Abnormal ECG Confirmed by KIMMY SARMIENTO, VEENA ([id number]), editor trade journal IDA GARCIA ([id number]) on 11/28/2017 10:53:10 AM Referred By: Confirmed By:VEENA ONEAL MD
--- NOTE | 2017-11-28 14:28 | PRG ---
DATE OF SERVICE: 11/28/2017 SUBJECTIVE: She says she is better. She wants to go home today, still coughing. OBJECTIVE: VITAL SIGNS: Sats are 98 on room air, respirations 16, pulse 62, blood pressure 130/80, temperature is 97. CHEST: Bilateral rhonchi and crackles. CARDIAC: Normal S1 and S2, no gallops. ABDOMEN: Soft, no masses. LABORATORY DATA: White count 7000. Electrolytes are normal. IMPRESSION: Chronic obstructive pulmonary disease exacerbation, bronchitis, tobacco abuse. Pulmonary-castro, continue present treatment. could be discharged home on p.o. antibiotics, steroids. Follow up with Dr. Gutiérrez.
[2017-11-28 19:24] VITALS: BP 182/75; TEMP 98.2
--- NOTE | 2017-11-28 19:44 | DIS ---
DATE OF ADMISSION: 11/27/2017 DATE OF DISCHARGE: 11/28/2017 ADMITTING DIAGNOSIS: Acute pulmonary embolism. DISCHARGE DIAGNOSES: Acute pulmonary embolism. SECONDARY DIAGNOSES: 1. Acute chronic obstructive pulmonary disease exacerbation. 2. Hypertension. 3. Hyperlipidemia. 4. History of atrial fibrillation. 5. History of coronary artery disease. CONSULTANTS INVOLVED IN THE CARE: Dr. Love. HISTORY OF PRESENT ILLNESS AND HOSPITAL COURSE: In brief, this is a 62-year-old female with a histor y of systolic CHF and coronary artery disease with [place] x2. The patient presented with chief complaint of shortness of breath and she was noted to have yellow productive sputum. So a CT of the chest was done as the patient has severe chest pain, which did reveal that the patient had pulmonary embolism. The patient was started on Eliquis 10 mg p.o. twice a day and she has showed good improvement. She initially had some COPD exacerbation with worsening wheezing. So, Dr. Love was consulted and the pa jennifer was started on p.o. Solu-Medrol, p.o. prednisolone, which did help her breathing. Nebulizer tr eatments were also started. The patient showed good improvement and the patient wanted to go home. Her lungs were sounding good and the patient was discharged home in stable condition to continue on t he Eliquis 10 mg twice a day for one week and then followed by 5 mg twice a day until 6 months. PHYSICAL EXAMINATION: On date of discharge: VITAL SIGNS: Blood pressures are 135/71, heart rate , saturation 98%. GENERAL: The patient is moderately built and moderately nourished, does not appear to be in acute di stress. CARDIOVASCULAR: S1, S2 normal. No murmurs, rubs or gallops. LUNGS: Bilateral air entry was equal. No wheezing, no crackles. ABDOMEN: Soft, nontender. No guarding or rebound tenderness. Bowel sounds normal. MUSCULOSKELETAL: No calf tenderness. No pedal edema. No joint redness, no swelling. SKIN: No cyanosis, no erythema, no rash, no pallor. NEUROLOGIC: Cranial nerves II-XII are intact. No focal deficit noted. DISCHARGE MEDICATIONS: 1. Amiodarone 200 mg p.o. daily, atorvastatin 80 mg p.o. daily, Cardizem 360 mg p.o. daily, duloxeti ne 120 mg p.o. b.i.d. Folic acid. 2. Metoprolol 50 mg p.o. daily. 3. Pantoprazole 40 mg p.o. daily, pregabalin 50 mg p.o. at bedtime. Spiriva two inhalations b.i.d. 4. Eliquis 10 mg tablets takes twice a day and take 10 mg twice a day for 1 week and then follow 5 m g tablets for at least 6 months. 5. The patient is on Aspirin 81 mg. 6. Digoxin 0.25 mg b.i.d. 7. Ferrous sulfate 325 mg p.o. daily. 8. Lasix 20 mg p.o. daily. 9. Levofloxacin 750 mg p.o. daily, continue for 4 more days. 10. Llisinopril 5 mg p.o. b.i.d. 11. Prednisone 20 mg tablet, weaning dose with 20 mg tablet 1 tablet for 3 days and then half tablet for 3 days and then half tablet every.48 hours for 3 days and then stop. DISCHARGE INSTRUCTIONS: Continue activity as tolerated. Advised the patient as she did not have a n ebulizer, advised to take albuterol inhaler every 4 hours at least for a week and then use it as need ed. The patient is advised to follow up with her Pulmonary and have nebulizer prescribed and also Du oNebs if needed. Advised activity as tolerated. Advised return back if the patient develops any further chest pains. I spent 35 minutes with this patient on day of discharge.
[2017-12-04] MEDS ORDERED: Apixaban 5 MG TAB PO SCH (09:00)
== END 2017-11-28 17:47 | disposition home or self-care (01) ==
LOC: ERS 18:33 → T4-A 22:56 → INTOOBSV 22:56
PROVIDERS: ADMIT Family Medicine; ATTEND Family Medicine
DX: I26.99 Other pulmonary embolism without acute cor pulmonale (principal); J44.1 Chronic obstructive pulmonary disease with (acute) exacerbation; I50.21 Acute systolic (congestive) heart failure; I48.91 Unspecified atrial fibrillation; I25.10 Atherosclerotic heart disease of native coronary artery without angina pectoris; I25.2 Old myocardial infarction; F41.9 Anxiety disorder, unspecified; F32.9 Major depressive disorder, single episode, unspecified; R56.9 Unspecified convulsions; E11.9 Type 2 diabetes mellitus without complications; K21.9 Gastro-esophageal reflux disease without esophagitis; F17.290 Nicotine dependence, other tobacco product, uncomplicated; Z79.82 Long term (current) use of aspirin; Z79.899 Other long term (current) drug therapy; Z91.040 Latex allergy status; Z88.5 Allergy status to narcotic agent; Z88.8 Allergy status to other drugs, medicaments and biological substances
CPT/HCPCS: 36415; 36416; 71045; 71275; 80048; 80053; 80061; 81003; 81015; 82550; 82553; 82805; 83605; 83690; 83880; 84484; 85007; 85025; 85027; 87040; 93005; 93010; 93306; 93970; 94640; 94760; 96361; 96365; 96375; 96376; A4216; G0378; J1100; J1650; J1956; J2765; J3010; J3475; J7506; J7611; J7620; J7644; J8540; S0028

== ENCOUNTER 2017-12-08 12:38 | Emergency (ER) | payer OTHER ==
--- NOTE | 2017-12-08 13:53 | RAD ---
RIGHT HIP TWO VIEWS: HISTORY: Fall while walking dog with right hip pain. COMPARISON: None. FINDINGS: Two views of the right hip show no evidence of acute fracture or dislocation. No degenerative change s are seen. Vascular calcifications are present. IMPRESSION: No evidence of acute osseous abnormality. POS: TROY
--- NOTE | 2017-12-08 14:00 | RAD ---
SINGLE VIEW PELVIS: HISTORY: Fall while walking dog with right hip and pelvic pain. COMPARISON: None. FINDINGS: A single view of the pelvis shows no evidence of acute fracture or dislocation. No degenerative bobo ges are seen in either hip. Vascular calcifications are present. IMPRESSION: No evidence of acute osseous abnormality. POS: TROY
== END 2017-12-08 14:38 | disposition home or self-care (01) ==
LOC: ERS 12:38
DX: S70.01XA Contusion of right hip, initial encounter (principal); L03.115 Cellulitis of right lower limb; I48.91 Unspecified atrial fibrillation; E11.9 Type 2 diabetes mellitus without complications; K21.9 Gastro-esophageal reflux disease without esophagitis; E78.5 Hyperlipidemia, unspecified; I10 Essential (primary) hypertension; J44.9 Chronic obstructive pulmonary disease, unspecified; I25.2 Old myocardial infarction; F17.200 Nicotine dependence, unspecified, uncomplicated; W19.XXXA Unspecified fall, initial encounter
CPT/HCPCS: 72170

== ENCOUNTER 2018-06-21 13:25 | Emergency (ER) | payer OTHER ==
[2018-06-21] MEDS ORDERED: Adacel (T-DAP) 0.5 ML SYRINGE ONE (15:27)
[2018-06-21] MEDS ORDERED: HYDROcodone/Acetaminophen 10/325 mg Tablet ONE (15:27)
--- NOTE | 2018-06-21 15:57 | CT ---
CT BRAIN WITHOUT CONTRAST: Date: 06/21/18 HISTORY: Fall, headache. FINDINGS: No evidence of infarct, hemorrhage, midline shift, or abnormal extra-axial fluid collections are seen . The ventricular size is normal and the basilar cisterns are patent. There are changes of chronic sm all vessel ischemic disease in the periventricular white matter. The bony calvarium is intact. The vi sualized paranasal sinuses and mastoid air cells are well aerated. IMPRESSION: No CT evidence of acute intracranial process. POS: C
--- NOTE | 2018-06-21 15:58 | CT ---
CT CERVICAL SPINE WITH CORONAL AND SAGITTAL REFORMATIONS: Date: 06/21/18 HISTORY: Fall, neck stiffness and pain. FINDINGS/IMPRESSION: There is loss of cervical lordosis with mild reversal. Multilevel degenerative changes are present. T here is a nondisplaced fracture involving the left transverse process of C3 vertebra. No facet malali gnment is seen. Discussed over the telephone with VANDANA Black, in the emergency room, at 1519 hours. CODE CR.
== END 2018-06-21 16:34 | disposition home or self-care (01) ==
LOC: ERS 13:25
DX: S12.201A Unspecified nondisplaced fracture of third cervical vertebra, initial encounter for closed fracture (principal); I48.91 Unspecified atrial fibrillation; E11.9 Type 2 diabetes mellitus without complications; K21.9 Gastro-esophageal reflux disease without esophagitis; J45.909 Unspecified asthma, uncomplicated; E78.5 Hyperlipidemia, unspecified; I10 Essential (primary) hypertension; I25.2 Old myocardial infarction; Z79.899 Other long term (current) drug therapy; Z79.891 Long term (current) use of opiate analgesic; V89.9XXA Person injured in unspecified vehicle accident, initial encounter
CPT/HCPCS: 70450; 72125; 90471; 90715

== ENCOUNTER 2018-07-21 13:00 | Outpatient (CLI) | payer OTHER ==
--- NOTE | 2018-07-21 13:18 | RAD ---
EXAM: 3 views of the cervical spine HISTORY: Neck pain. Left C3 transverse process fracture COMPARISON: CT cervical spine 06/21/2018 FINDINGS: AP, lateral, and open mouth odontoid views of the cervical spine shows normal height and al ignment of the vertebral bodies and intervertebral discs without fracture or subluxation. Moderate to severe degenerative changes are seen in the mid cervical spine. The left C3 transverse process fra cture cannot be seen on this exam. No prevertebral soft tissue swelling is seen. IMPRESSION: Degenerative changes of cervical spine.
== END 2018-07-21 13:01 | disposition home or self-care (01) ==
LOC: TBSIIMAG 13:00
PROVIDERS: ATTEND Surgery
DX: S12.201D Unspecified nondisplaced fracture of third cervical vertebra, subsequent encounter for fracture with routine healing (principal); M47.812 Spondylosis without myelopathy or radiculopathy, cervical region
CPT/HCPCS: 72040

== ENCOUNTER 2019-01-29 09:02 | Emergency (ER) | payer OTHER ==
--- NOTE | 2019-01-29 09:28 | RAD ---
2 views of the chest: 01/29/2019 COMPARISON: None HISTORY: Pain FINDINGS: Stable heart and mediastinal contours. There is atherosclerotic calcification of the aortic arch. Granulomata are noted within the left lung base. No pneumothorax or pleural fluid. No focal consolidation or alveolar edema. Postoperative clips are noted in the right upper quadrant suggesting prior cholecystectomy. Stable mild superior endplate fracture of L1. Stable multilevel degenerative change within the mid thoracic spine with disc space narrowing and anterior osteophyte f ormation. IMPRESSION: Stable two-view examination of the chest-no acute findings.
[2019-01-29 10:12] LABS: Bilirubin 1+ (Negative); Blood, Urine 2+ (Negative); Clarity Clear (Clear); Glucose, Urine (Dipstick) Normal (Negative); Leukocyte 75 Leu/uL (Negative); Nitrite Negative (Negative); Protein, Urine (Dipstick) 300 mg/dL (Neg-Trace); RBC/HPF Greater than 50 HPF (0-3); Squamous Epithelial 0-3 HPF (0-3); WBC/HPF 21-50 HPF (0-3)
[2019-01-29 10:13] LABS: Bacteria/HPF 1+ HPF (None Seen)
[2019-01-29 10:28] LABS: #Lymphocytes 0.7 thou/uL (1.20-3.40); #Monocytes 0.6 thou/uL (0.11-0.59); %Basophils 0.3 % (0.0-1.0); %Eosinophils 0.3 % (0.0-10.0); %Lymphocytes 12.2 % (21.0-51.0); %Monocytes 11.1 % (0.0-10.0); %Neutrophils 76.2 % (42.0-75.0); Hemoglobin 12.4 g/dL (12.0-16.0); Mean Corpuscular HGB CONC 33.7 g/dL (32.0-36.0); Mean Corpuscular Hemoglobin 32.3 pg (27.0-31.0); Mean Corpuscular Volume 95.7 fL (78.0-98.0); Mean Platelet Volume 8.7 fL (7.4-10.4); Platelet Count 142 thou/uL (130-400); RBC Distribution Width 12.8 % (11.5-14.5); Red Blood Cell (RBC) Count 3.85 mill/uL (4.20-5.40); White Blood Cell (WBC) Count 5.3 thou/uL (4.8-10.8)
[2019-01-29] MEDS ORDERED: Ondansetron PF 4 MG/2 ML Vial ONE ×2 (10:28→12:18)
[2019-01-29 10:44] LABS: ALT (SGPT) 12 U/L (8-55); AST (SGOT) 17 U/L (5-34); Albumin 3.5 g/dL (3.4-4.8); Alkaline Phosphatase 115 U/L (40-110); Anion Gap 13 mmol/L (10-20); BUN (Urea Nitrogen) 16 mg/dL (9.8-20.1); Bilirubin, Total 0.9 mg/dL (0.2-1.2); Calc. Creatinine Clearance 0 mL/min (70-130); Calcium 8.9 mg/dL (7.8-10.44); Carbon Dioxide 23 mmol/L (23-31); Chloride 105 mmol/L (98-107); Estimated GFR-MDRD 69; Globulin 3.6 g/dL (2.4-3.5); Glucose 102 mg/dL (80-115); Potassium 3.4 mmol/L (3.5-5.1); Protein, Total 7.1 g/dL (6.0-8.3); Sodium 138 mmol/L (136-145)
[2019-01-29] MEDS ORDERED: cefTRIAXone\\ROCEPHIN 2 GM VIAL ONE (10:49)
[2019-01-29] MEDS ORDERED: Dexamethasone 10 MG/ML VIAL ONE (10:49)
[2019-01-29] MEDS ORDERED: Azithromycin 250 MG TAB ONE (10:49)
[2019-01-29] MEDS ORDERED: Albuterol Sulfate 2.5 mg/3 ml Neb ONE (10:56)
[2019-01-29] MEDS ORDERED: Albuterol Sulfate 2.5 mg/0.5 ml Neb ONE (10:56)
[2019-01-29] MEDS ORDERED: Ketorolac Tromethamine 30 MG/ML VIAL ONE (12:10)
[2019-01-29] MEDS ORDERED: Acetaminophen 500 MG TAB ONE (12:10)
[2019-01-29] MEDS ORDERED: Sodium Chloride For Inhalation 0.9% 3 ML NEB ONE (13:19)
== END 2019-01-29 13:37 | disposition home or self-care (01) ==
LOC: ERS 09:02
DX: J45.909 Unspecified asthma, uncomplicated (principal); E86.0 Dehydration; R11.2 Nausea with vomiting, unspecified; I49.9 Cardiac arrhythmia, unspecified; I48.91 Unspecified atrial fibrillation; E11.9 Type 2 diabetes mellitus without complications; K21.9 Gastro-esophageal reflux disease without esophagitis; E78.5 Hyperlipidemia, unspecified; E78.00 Pure hypercholesterolemia, unspecified; I10 Essential (primary) hypertension; F17.200 Nicotine dependence, unspecified, uncomplicated; Z79.899 Other long term (current) drug therapy
CPT/HCPCS: 36415; 71046; 80053; 81003; 81015; 85025; 87081; 87086; 87430; 87804; 93005; 94640; 96361; 96365; 96375; J0696; J1100; J1885; J2405; J7611; J7620

== ENCOUNTER 2019-02-16 09:36 | Emergency (ER) | payer MEDICARE, OTHER ==
--- NOTE | 2019-02-16 11:40 | RAD ---
2 VIEWS CHEST: Date: 02/16/19 COMPARISON: 01/29/19. HISTORY: Cough for 3-4 weeks. FINDINGS: Two views of the chest show normal sized cardiomediastinal silhouette. There is no evidence of consol idation, mass, or pleural effusion. Degenerative changes are seen in the spine. IMPRESSION: No evidence of acute cardiopulmonary disease. POS: TPC
== END 2019-02-16 12:10 | disposition home or self-care (01) ==
LOC: ERS 09:36
DX: R05 Cough (principal); I48.91 Unspecified atrial fibrillation; E11.9 Type 2 diabetes mellitus without complications; K21.9 Gastro-esophageal reflux disease without esophagitis; E78.00 Pure hypercholesterolemia, unspecified; E78.5 Hyperlipidemia, unspecified; J44.9 Chronic obstructive pulmonary disease, unspecified; I25.2 Old myocardial infarction
CPT/HCPCS: 71046; 94640; J7620

== ENCOUNTER 2019-04-10 09:29 | Inpatient (IN) | payer MEDICARE, MEDICAID ==
[2019-04-10] MEDS ORDERED: Sodium Chloride 0.9% 100 ML ONE (10:42)
[2019-04-10] MEDS ORDERED: Morphine 4 MG/ML VIAL ONE (10:42)
[2019-04-10] MEDS ORDERED: cefTRIAXone\\ROCEPHIN 2 GM VIAL ONE (10:42)
[2019-04-10 11:17] LABS: ALT (SGPT) 9 U/L (8-55); AST (SGOT) 16 U/L (5-34); Albumin 3.2 g/dL (3.4-4.8); Alkaline Phosphatase 97 U/L (40-110); Anion Gap 13 mmol/L (10-20); BUN (Urea Nitrogen) 14 mg/dL (9.8-20.1); Bilirubin, Total 0.5 mg/dL (0.2-1.2); Calc. Creatinine Clearance 0 mL/min (70-130); Calcium 8.8 mg/dL (7.8-10.44); Carbon Dioxide 28 mmol/L (23-31); Chloride 104 mmol/L (98-107); Estimated GFR-MDRD 54; Globulin 3.8 g/dL (2.4-3.5); Glucose 97 mg/dL (80-115); Potassium 3.7 mmol/L (3.5-5.1); Sodium 141 mmol/L (136-145)
[2019-04-10 11:30] LABS: Band 7 % (5-11); Eosinophils 2 % (0-10); Hemoglobin 12.2 g/dL (12.0-16.0); Lymphocytes 23 % (21-51); MDiff Complete? YES; Mean Corpuscular HGB CONC 32.3 g/dL (32.0-36.0); Mean Corpuscular Hemoglobin 29.7 pg (27.0-31.0); Mean Platelet Volume 9.6 fL (7.4-10.4); Monocytes 11 % (0-10); Neutrophil 55 % (42-75); Platelet Count 164 thou/uL (130-400); RBC Distribution Width 14.7 % (11.5-14.5); Red Blood Cell (RBC) Count 4.09 mill/uL (4.20-5.40)
--- NOTE | 2019-04-10 12:14 | RAD ---
Left foot 3 views HISTORY: Left foot pain. COMPARISON: 08/24/2017. FINDINGS: Amputation at the second and third metatarsal necks. Degenerative changes throughout the fo ot. Internal fixation of the medial malleolus and distal fibula. Prominent soft tissue swelling about the forefoot with gas in the soft tissues having the appearance of prominent ulceration. No aggressive osseous destruction is apparent. IMPRESSION: Prominent soft tissue swelling and ulceration. Gas at the plantar aspect of the forefoot. Postoperative and prominent osseous degenerative changes. No aggressive osseous destruction is appare nt.
[2019-04-10] MEDS ORDERED: Ketorolac Tromethamine 30 MG/ML VIAL ONE ×2 (12:18→15:32)
[2019-04-10] MEDS ORDERED: Morphine 2 MG/ML SYRINGE SLOW IVP PRN (16:26)
[2019-04-10] MEDS ORDERED: Acetaminophen/Codeine 30-300mg Tablet PO PRN (16:27)
[2019-04-10] MEDS ORDERED: Labetalol HCl 100 MG/20 ML VIAL SLOW IVP PRN (16:35)
[2019-04-10] MEDS ORDERED: Ondansetron PF 4 MG/2 ML Vial IVP PRN (16:46)
[2019-04-10] MEDS ORDERED: Acetaminophen 325 MG TAB PO PRN (16:46)
[2019-04-10] MEDS ORDERED: Ondansetron ODT 4 MG TAB PO PRN (16:46)
[2019-04-10] MEDS ORDERED: Senokot S 8.6-50 MG TAB PO PRN (16:46)
[2019-04-10] MEDS ORDERED: Bisacodyl 10 MG SUPP PR PRN (16:46)
[2019-04-10] MEDS ORDERED: Calcium Carbonate 500 MG ChewTAB PO PRN (16:46)
[2019-04-10] MEDS ORDERED: cloNIDine 0.1 MG TAB PO PRN (17:06)
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
[2019-04-10 17:36] VITALS: BMI 34.9
[2019-04-10] MEDS: Piperacillin/Tazobactam 3.375 GM in Sodium Chloride 0.9% 100 ML IVPB SCH ×2 (18:09→23:20)
--- NOTE | 2019-04-10 19:44 | CON ---
DATE OF CONSULTATION: 04/10/2019 CHIEF COMPLAINT: My left foot hurts. HISTORY OF PRESENT ILLNESS: The patient is a 63-year-old female with numerous comorbidities. Of these, she has COPD, coronary artery disease, history of osteomyelitis, atrial fibrillation, history of pulmonary embolism amongst others. She has been under the care of Podiatry. She has a previous history of amputation of the left 2nd and 3rd toes at an outside institution. Evidently, for the last several weeks, she has noticed some increasing drainage from the left foot. She is starting to develop pain. This really only became noticeable over the last 3 or 4 days when it began to have a foul odor. She presented to the emergency room for evaluation. PAST MEDICAL HISTORY: For hypertension, reflux, hyperlipidemia, COPD, coronary artery disease, osteomyelitis, paroxysmal atrial fibrillation, history of pulmonary embolism, chronic pain syndrome, seizure disorder. PAST SURGICAL HISTORY: For cholecystectomy, left 2nd and 3rd toes amputation, hysterectomy, oophorectomy, , atrial ablation. ALLERGIES: TO LATEX, TRAMADOL, AND PAXIL. HOME MEDICATIONS: List in the computer is very lengthy; however, the patient is unable to really remember any of these. Given its length, I find it difficult to believe that she is on that many medications. Of these, she knows that she is on anticoagulation. SOCIAL HISTORY: Lives at home with her family. She is still a half a day to one pack per day smoker. She smokes marijuana. Denies any alcohol use. REVIEW OF SYSTEMS: Positive for malaise, fatigue, joint pain, cough, back pain, reflux. No active chest pain. Otherwise, 10-system, 2-point per system were negative other than HPI. PHYSICAL EXAMINATION: VITAL SIGNS: Temperature 98.8, heart rate 95, blood pressure 167/87, saturating 93% to 94% on room air. GENERAL: Chronically ill-appearing female, in no apparent distress, obese. HEAD: Normocephalic, atraumatic. NECK: Supple. Midline trachea. LUNGS: Grossly clear to auscultation bilaterally. Normal air movement. HEART: Irregularly irregular without any murmurs. ABDOMEN: Obese, but soft, nontender, nondistended. Normoactive bowel sounds. EXTREMITIES: Particular attention was paid to the left lower extremity. There is a palpable femoral pulse. Dorsalis pedis pulses less noticeable, perhaps 1+. I did not appreciate a posterior tibialis. Concerning her foot, there is a callus on the medial aspect of the great toe. At the plantar aspect of the 4th and 5th toe, there is a well-defined ulcer that is fairly deep and somewhat moist with seropurulent fluid. The forefoot itself is edematous and swollen when compared to the right. There is minimal tenderness to palpation. SKIN: Otherwise, good turgor. No jaundice. PSYCHIATRIC: The patient was somewhat tearful when we discussed her options. She realizes that some of her personal choices have led her to the situation. Therefore, I think she has some decreased insight into her situation. LABORATORY DATA: White blood cell count 6, platelets 164. CRP 5.36. Creatinine is normal. Glucose is 97. IMAGING: I independently viewed the images of a foot x-ray. I also read the radiologist's interpretation. There is some gas in the lateral aspect of the foot. This is commensurate with her ulceration. There does not appear to be any obvious bony destruction. ASSESSMENT: 1. Diabetic foot ulcer. The patient has an active ulcer. There is some seropurulent drainage, although she is not septic at this time. There is no need for surgical intervention tonight. Her forefoot is swollen when compared with the contralateral side. She is already on vancomycin and Zosyn. Perhaps this can reduce some of the swelling, but she will more than likely need surgical intervention on her foot. I discussed this with her and she became tearful. While I believe the 4th and 5th toes will need to be amputated at some point, the great toe has a callus and may be salvageable for the time being. 2. Tobacco abuse-we discussed how nicotine could negatively impact the body's ability to deliver oxygen as well as heal. 3. History of paroxysmal atrial fibrillation as well as pulmonary embolism-the patient is anticoagulated. PLAN: Antibiotics for the time being. I will pass the patient off to another surgeon as I am going off call in the morning. Continue with wet-to-dry dressings. Foot elevation. Job ID: [id number]
[2019-04-10] MEDS: Famotidine 20 MG TAB PO SCH (20:20)
[2019-04-10] MEDS ORDERED: Ketorolac Tromethamine 30 MG/ML VIAL IVP PRN (20:39)
--- NOTE | 2019-04-10 20:41 | PDOC.EVN ---
Event Note - Event Note Event Note: called by nurse - pt reports the morphine and tylenol 3 are not working. Pt is requesting toradol which she had earlier today, and hydrocodone. Added low dose toradol - reviewed and creatinine normal, and low dose norco both for prn use.
[2019-04-10] MEDS ORDERED: Sodium Chloride 0.9% 1,000 ML IV SCH (23:55)
[2019-04-11] MEDS: Vancomycin 1.5 GRAM/300 ML BAG 1.5 GM in Premix Bag 1 BAG IVPB SCH ×2 (01:44→14:20)
[2019-04-11] MEDS: HYDROcodone/Acetaminophen 5/325 mg Tablet PO PRN ×3 (04:09→18:25)
[2019-04-11 05:05] LABS: PTT 35.3 SEC (22.9-36.1); Prothrombin Time 13.4 SEC (12.0-14.7)
[2019-04-11] MEDS: Piperacillin/Tazobactam 3.375 GM in Sodium Chloride 0.9% 100 ML IVPB SCH ×3 (05:11→18:20)
[2019-04-11 05:15] LABS: Anion Gap 15 mmol/L (10-20); BUN (Urea Nitrogen) 12 mg/dL (9.8-20.1); Calc. Creatinine Clearance 102 mL/min (70-130); Calcium 8.3 mg/dL (7.8-10.44); Carbon Dioxide 22 mmol/L (23-31); Chloride 107 mmol/L (98-107); Estimated GFR-MDRD 69; Glucose 74 mg/dL (80-115); Hemoglobin A1c 4.8 % (4.0-6.0); Potassium 3.7 mmol/L (3.5-5.1); Sodium 140 mmol/L (136-145)
[2019-04-11 06:17] LABS: Anisocytosis SLIGHT = 6-15 cells (100X) (0-5/hpf); Band 4 % (5-11); Eosinophils 4 % (0-10); Hemoglobin 11.5 g/dL (12.0-16.0); Lymphocytes 20 % (21-51); MDiff Complete? YES; Mean Corpuscular HGB CONC 31.7 g/dL (32.0-36.0); Mean Corpuscular Hemoglobin 29.2 pg (27.0-31.0); Mean Corpuscular Volume 92.3 fL (78.0-98.0); Mean Platelet Volume 9.2 fL (7.4-10.4); Monocytes 19 % (0-10); Neutrophil 53 % (42-75); Platelet Count 155 thou/uL (130-400); Platelet Morphology Comment Appears Adequate; RBC Distribution Width 14.8 % (11.5-14.5); Red Blood Cell (RBC) Count 3.95 mill/uL (4.20-5.40)
[2019-04-11] MEDS ORDERED: Dextrose 5 %-0.45 % NaCl 1,000 ML IV SCH (07:15)
[2019-04-11] MEDS: Enoxaparin Sodium 40 MG/0.4 ML SYRINGE SC SCH (09:49)
[2019-04-11] MEDS: Saccharomyces boulardii 250 MG CAP PO SCH (09:50)
[2019-04-11] MEDS: Famotidine 20 MG TAB PO SCH ×2 (10:09→20:49)
--- NOTE | 2019-04-11 10:19 | ULT ---
LEFT LOWER EXTREMITY ARTERIAL DOPPLER EXAM: HISTORY: Left foot ulcer. FINDINGS: Left common femoral artery: Peak systolic velocity 113 cm/s Profunda femoral 100 cm/s Proximal superficial femoral artery 205 cm/s Mid 57 cm/s Distal 52 cm/s Popliteal 48 cm/s Anterior tibial 12 cm/s Posterior tibial 78 cm/s Dorsalis pedis 16 cm/s IMPRESSION: Markedly elevated velocities of the proximal superficial femoral artery with fairly significant dropo ff in velocities at the mid superficial femoral artery level. This would suggest moderately severe s tenosis in the proximal superficial femoral artery. Further evaluation with CT angiography would be beneficial. POS: TROY
[2019-04-11] MEDS ORDERED: Acetaminophen 500 MG TAB PO PRN (12:27)
[2019-04-11] MEDS: Sodium Chloride 0.9% 1,000 ML IV SCH ×2 (12:54→22:04)
--- NOTE | 2019-04-11 13:12 | CON ---
DATE OF CONSULTATION: HISTORY OF PRESENT ILLNESS: Mary Khan is a 63-year-old female, lives with a significant other, has history of diabetes and hypertension, has had prior amputation of her left 2nd and 3rd toes, now presents with gangrene in her left 5th toe. X-rays revealed gaseous changes in the foot. She ate an omelet this morning, but did not feel like eating, this was at 8. I made her n.p.o. Dr. Brand has been consulted. Blood cultures negative. The patient has gangrene of her left 5th toe, two openings, foul smelling. Discharge plan is amputation of left 5th toe, and possible 4th toe was indicated. Wound VAC application in the operating room and arrangements for outpatient wound VAC either with Home Health Nursing or outpatient [facility] outpatient appointments. The patient will be discharged home later in the week on oral antibiotics. She understands the risks and benefits of the procedure and consents. The patient smokes 8 or 9 cigarettes a day. Alcohol occasionally. ALLERGIES: 1. LATEX. 2. PAROXETINE. 3. TRAMADOL. HOME MEDICATIONS: 1. Trazodone. 2. Prednisone. 3. Spiriva. 4. Florastor. 5. Lyrica. 6. Protonix. 7. Nystatin. 8. Metoprolol. 9. Magnesium. 10. Lisinopril. 11. Levaquin. 12. Hydrocortisone cream. 13. Furosemide. 14. Folic acid. 15. Ferrous sulfate. 16. Diltiazem. 17. Digoxin. 18. Atorvastatin. 19. Eliquis. 20. Tylenol No.3. PAST SURGICAL HISTORY: 1. Hysterectomy. 2. Bilateral salpingo-oophorectomy. 3. Appendectomy. 4. Cholecystectomy. 5. Amputation of left 2nd and 3rd toes. PAST MEDICAL HISTORY: 1. Hypertension. 2. Chronic back pain with sciatica. 3. Coronary artery disease, having had a coronary stent placed many years ago and 2 years ago had another myocardial infarction without stenting. She does not follow a credit card analyst. She smokes 8 or more cigarettes a day. REVIEW OF SYSTEMS: Noncontributory. PHYSICAL EXAMINATION: VITAL SIGNS: Height 5 feet 2 inches, weight 209 pounds, temperature 98.6, pulse 75, blood pressure 172/80. HEAD, EYES, EARS, NOSE, AND THROAT: Unremarkable. LUNGS: Clear to auscultation. CARDIAC: Regular rate and rhythm without murmur or gallop. ABDOMEN: Soft and nontender. EXTREMITIES: Palpable femoral pulses. Nonpalpable distal pulses. Left foot, history of amputation of 2nd and 3rd toes, well healed. Gangrene in the left 5th toe with 2 lateral wounds, one near the MTP, the other more proximal with redness, gangrene, foul smell, purulent discharge. ASSESSMENT AND PLAN: 1. Diabetic infection of left foot. We would recommend amputation of left 5th toe and metatarsal and possible 4th toe and metatarsal pending operative findings. She understands the risks and benefits and consents. I will ask Wound Care to see her and place a wound VAC in the operating room. We will ask ed case manager to arrange outpatient wound care, either with Home Health Nursing versus [facility] appointment outpatient per her preference. 2. Coronary artery disease. 3. Diabetes mellitus. Intentional weight loss from 340 pounds to 210 pounds. Metformin discontinued. She is not taking medications for diabetes currently. Glucose in the hospital from 97 to 74. Hemoglobin A1c 4.8. 4. Peripheral artery disease. We will consult CV. I am suspecting SFA disease which correlates with ultrasound as I cannot palpate a popliteal or pedal pulses. 5. Hypertension. 6. Sciatica. Job ID: [id number]
[2019-04-11] MEDS ORDERED: Fentanyl 100 MCG/2 ML VIAL ONE (14:57)
--- NOTE | 2019-04-11 19:40 | PDOC.HOSPP ---
- Subjective Encounter Date: 04/11/19 Encounter Time: 08:30 Subjective: Patient seen and examined for Left foot cellulitis/infected ulcer. Pain controlled. No fever. No new complaints. No overnight events - Objective Vital Signs & Weight: Vital Signs (12 hours) Temp Pulse Resp BP Pulse Ox 04/11/19 11:42 98.6 F 75 18 172/80 H 100 04/11/19 08:00 98.4 F 80 18 170/84 H 97 Weight Admit Weight 209 lb 15.845 oz Weight 209 lb 15.845 oz Result Diagrams: 04/11/19 04:44 04/11/19 04:44 Additional Labs: Microbiology 04/10/19 12:23 Venous blood - Left Hand Blood Culture - Preliminary Specimen has been received and culture in progress. No Growth to date. 04/10/19 10:22 Venous blood - Left Arm Blood Culture - Preliminary Specimen has been received and culture in progress. No Growth to date. Radiology Reviewed by me: Yes (Arterial doppler- reviewed) Hospitalist ROS - Review of Systems Respiratory: denies: cough, dry, shortness of breath, hemoptysis, SOB with excertion, pleuritic pain, sputum, wheezing, other Cardiovascular: denies: chest pain, palpitations, orthopnea, paroxysmal noc. dyspnea, edema, light headedness, other - Medication Medications: Active Medications Generic Name Dose Route Start Last Admin Trade Name Freq PRN Reason Stop Dose Admin Hydrocodone Bitart/Acetaminophen 1 tab 04/10/19 20:39 04/11/19 18:25 [place] 5/325 PO 1 tab Q4H PRN Administration Moderate Pain (4-6) Duloxetine HCl 20 mg 04/11/19 09:00 04/11/19 09:52 Cymbalta PO 20 mg DAILY JIMBO Administration Enoxaparin Sodium 40 mg 04/11/19 09:00 04/11/19 09:49 Lovenox SC 40 mg 0900 JIMBO Administration Famotidine 20 mg 04/10/19 21:00 04/11/19 10:09 Pepcid PO 20 mg BID JIMBO Administration Vancomycin HCl 1.5 gm/ Device 300 mls @ 200 mls/hr 04/11/19 01:00 04/11/19 14 :20 IVPB 300 mls 0100,1300 JIMBO Administration Piperacillin Sod/Tazobactam 100 mls @ 200 mls/hr 04/10/19 18:00 04/11/19 18: 20 Sod 3.375 gm/ Sodium Chloride IVPB 100 mls Q6HR JIMBO Administration Sodium Chloride 1,000 mls @ 100 mls/hr 04/11/19 12:30 04/11/19 12:54 Normal Saline 0.9% IV 1,000 mls .Q10H JIMBO Administration Metoprolol Succinate 50 mg 04/11/19 09:00 04/11/19 09:50 Toprol Xl PO 50 mg DAILY JIMBO Administration Morphine Sulfate 2 mg 04/10/19 16:26 04/10/19 20:04 Morphine SLOW IVP 04/12/19 16:27 2 mg Q4H PRN Administration Moderate Pain (4-6) Ondansetron HCl 4 mg 04/10/19 16:46 04/11/19 14:20 Zofran Odt PO 4 mg Q6H PRN Administration Nausea/Vomiting Saccharomyces Boulardii 250 mg 04/11/19 09:00 04/11/19 09:50 Florastor PO 250 mg DAILY JIMBO Administration - Exam General Appearance: NAD Heart: RRR, no gallops, no rubs, normal peripheral pulses Respiratory: CTAB, no wheezes, no rales, no ronchi, normal chest expansion Gastrointestinal: soft, non-tender, non-distended, normal bowel sounds, no palpable masses Extremities: no cyanosis Extremities - other findings: left foot dressing + Psychiatric: normal affect, A&O x 3 Hosp A/P - Plan DVT proph w/lovenox Infected left foot diabetic ulcer with cellulitis. Diabetes mellitus type 2, diet controlled. Hypertension with hypertensive urgency. PVD Chronic obstructive pulmonary disease. Hyperlipidemia. Paroxysmal atrial fibrillation. Coronary artery disease, status post myocardial infarction. History of seizure disorder. Gastroesophageal reflux disease. Chronic pain syndrome. Chronic kidney disease, stage 3. Elevated inflammatory markers. PLAN: Await Surgery/ID input Cont IV Vancomycin/Zosyn Monitor Vancomycin level Await home meds Cont other meds
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
[2019-04-12 00:32] LABS: Vancomycin, Trough 27.6 ug/mL
[2019-04-12] MEDS: HYDROcodone/Acetaminophen 5/325 mg Tablet PO PRN ×3 (00:33→21:31)
[2019-04-12] MEDS: Piperacillin/Tazobactam 3.375 GM in Sodium Chloride 0.9% 100 ML IVPB SCH ×5 (00:34→23:00)
--- NOTE | 2019-04-12 00:43 | CON ---
DATE OF CONSULTATION: 04/11/2019 REASON FOR CONSULTATION: Left forefoot inflammatory process. HISTORY OF PRESENT ILLNESS: A 63-year-old whom I had seen in the past in 2018 when she presented with a history of COPD, chronic smoking, atrial fibrillation, ischemic cardiomyopathy with type 2 diabetes and had undergone amputation of left second and third toes by a doctor in [place], [place]. She had IV antimicrobial therapy after the amputations including vancomycin and a 2nd antimicrobial administered via PICC line for 6 weeks. She then had to move over here, because of her boyfriend having become ill and has been living in [place] since. Now, she developed 4th and 5th toe area of inflammatory changes since [place] with an odor and evidence of necrosis of the skin. She had a vascular study, which was abnormal and I believe she is scheduled for a CT angiogram and possible intervention in the SFA tomorrow. Currently, she denies any headaches, visual symptoms, sore throat, odynophagia, or dysphagia. No cough, sputum production, or chest pain. No abdominal pain or diarrhea. She has chronic skin lesions consistent with psoriasis. PAST MEDICAL HISTORY: Includes type 2 diabetes, chronic smoking, peripheral vascular disease, coronary artery disease, hypertension, COPD, atrial fibrillation, cholecystectomy, hysterectomy, cardiac ablation, amputation of the left 2nd and 3rd toes followed by protracted IV antimicrobial therapy. ALLERGIES: LATEX. SOCIAL HISTORY: Retired [employer]. She is still smoking, had discontinued but resumed recently. History of alcoholism in the past, now living with boyfriend in [place]. FAMILY HISTORY: Noncontributory. CURRENT MEDICATIONS: 1. [place]. 2. DuoNeb. 3. Dulcolax. 4. Catapres. 5. Cymbalta. 6. Lovenox. 7. Pepcid. 8. Motrin. 9. Normodyne. 10. Toprol. 11. Morphine. 12. Zofran. 13. Zosyn. 14. Vancomycin. PHYSICAL EXAMINATION: VITAL SIGNS: T-max 99.7, blood pressure 170/80, pulse 75, respirations 18, O2 saturation 100. SKIN: Shows the area of necrotic skin and ulceration in the lateral left forefoot, 2 or 3 separate ulcerated areas. I was able to probe down to tendon and bone in the distal ulcer. I could not feel any dorsalis pedis pulses or popliteal on the left side and they are faintly palpable on the right side. She has a peripheral IV access and is voiding in the toilet. She has skin lesions consistent with psoriasis, [place] variety. LYMPH: No lymphadenopathy. HEENT: Ocular movements conjugate. Sclerae white. Pupils are equal. Oral cavity with numerous missing teeth. The remainder ones with marked decay and gum disease. NECK: Supple. No jugular vein distention. LUNGS: Symmetric air entry with no crackles or wheezing. HEART: S1, S2 regular rate without murmurs. No S3 or S4. ABDOMEN: Soft, not distended or tender. No ascites. No bladder distention. NEUROLOGIC: She is able to move extremities on command. No focal findings. Cognitive function appears to be intact. Speech is normal. Oriented x3, and good memory. LABORATORY DATA: White cell count is 6, now 5000, hemoglobin 11, platelets 155 , 52% neutrophils. INR 1.0. Sodium 140, creatinine 0.83. Liver profile normal. CRP 5.36, albumin 3.2. Two sets of blood cultures thus far no growth. IMAGING: Showed the arterial duplex ultrasound of the left lower extremity with likely SFA obstruction and there is an x-ray from yesterday with no obvious bone destruction. There is gas at the plantar aspect of the forefoot, lateral side. ASSESSMENT: 1. Type 2 diabetes. 2. Chronic smoking. 3. Peripheral vascular disease and new ulceration with necrosis in the left lateral forefoot and evidence of gas in soft tissues. DISCUSSION: The patient will require radical surgical debridement, probably amputation of the 4th and 5th rays. Vascular study with intervention is scheduled for tomorrow. Typical organisms including gram-negative rods, anaerobes, Staphylococcus aureus including MRSA. Cont. current regimen for now although the combination Zosyn/Vanco has been associated with acute decrease in GFR in some retrospective studies. Job ID: [id number] [facility]
[2019-04-12] MEDS ORDERED: Vancomycin 1.5 GRAM/300 ML BAG 1.5 GM in Premix Bag 1 BAG IVPB SCH (01:00)
[2019-04-12] MEDS: Famotidine 20 MG TAB PO SCH ×2 (09:06→21:31)
[2019-04-12] MEDS: Saccharomyces boulardii 250 MG CAP PO SCH (09:06)
[2019-04-12] MEDS: Enoxaparin Sodium 40 MG/0.4 ML SYRINGE SC SCH (09:06)
[2019-04-12] MEDS ORDERED: Iopamidol 370 76% 50 ML VIAL FS ONE (09:18)
[2019-04-12] MEDS ORDERED: Metoprolol Tartrate 5 MG/5 ML VIAL ONE (09:28)
[2019-04-12] MEDS ORDERED: Ondansetron PF 4 MG/2 ML Vial ONE (09:28)
[2019-04-12] MEDS ORDERED: PROPOFOL 200 MG/20 ML VIAL ONE (09:28)
[2019-04-12] MEDS ORDERED: Lidocaine 1% PF 5 ML VIAL ONE (09:28)
[2019-04-12] MEDS ORDERED: Fentanyl 100 MCG/2 ML VIAL ONE ×3 (10:10→14:09)
[2019-04-12] MEDS ORDERED: Famotidine/PF 20 mg/2ml Vial ONE (10:10)
[2019-04-12 10:16] LABS: Vancomycin, Random 18.2 ug/mL (See Comment)
[2019-04-12] MEDS ORDERED: Bupivacaine 0.25% HCL 30 ML VIAL ONE (10:42)
[2019-04-12] MEDS ORDERED: Sodium Chloride 0.9% 20 ML ONE (10:42)
[2019-04-12] MEDS ORDERED: Lidocaine 1% w/Epinephrine 1:100K 20 ML VIAL ONE (10:42)
[2019-04-12] MEDS ORDERED: PROPOFOL 20 ML ONE (10:58)
[2019-04-12] MEDS ORDERED: Propofol 500 MG/50 ML VIAL ONE (10:58)
--- NOTE | 2019-04-12 11:10 | EKG ---
Test Reason : PREOP Blood Pressure : / mmHG Vent. Rate : 096 BPM Atrial Rate : 098 BPM P-R Int : 000 ms QRS Dur : 102 ms QT Int : 354 ms P-R-T Axes : 000 -49 078 degrees QTc Int : 447 ms Atrial fibrillation Left axis deviation Voltage criteria for left ventricular hypertrophy Abnormal ECG When compared with ECG of 29-JAN-2019 10:41, QT has shortened Confirmed by DR. Chase VILLAFANA ([id number]) on 04/12/2019 11:10:06 AM Referred By: NORMA Confirmed By:DR. Chase VILLAFANA
[2019-04-12] MEDS ORDERED: Piperacillin/Tazobactam 3.375 GM VIAL ONE (11:46)
[2019-04-12] MEDS ORDERED: Ondansetron HCl/PF 4 MG/2 ML Vial IVP PRN (11:57)
[2019-04-12] MEDS ORDERED: Promethazine HCl 25 MG/ML VIAL SLOW IVP PRN (11:57)
[2019-04-12] MEDS ORDERED: Promethazine HCl 25 MG/ML VIAL IM PRN (11:57)
[2019-04-12] MEDS ORDERED: Vancomycin HCl 1 GM in Premix Bag 1 BAG IVPB SCH (12:00)
[2019-04-12] MEDS ORDERED: Heparin (Artline) 500 ML ONE (12:05)
[2019-04-12] MEDS ORDERED: Lidocaine 1% (PF) 30 ML VIAL ONE (12:05)
[2019-04-12] MEDS ORDERED: hydrALAZINE 20 MG/ML VIAL ONE (12:32)
[2019-04-12] MEDS ORDERED: Midazolam HCl 2 mg/2 ml Vial ONE (12:40)
[2019-04-12] MEDS ORDERED: Heparin 10,000 UNITS/1 ML VIAL ONE (12:40)
--- NOTE | 2019-04-12 14:00 | RAD ---
Portable supine frontal chest radiograph: 04/12/2019 COMPARISON: 02/16/2019 HISTORY: Evaluate following central line placement FINDINGS: Supine imaging limits assessment for pneumothorax and pleural fluid. Cardiac silhouette is prominent. Left-sided vascular catheter noted with distal tip overlying the expected location of the proximal SVC. Mild pulmonary vascular congestion. IMPRESSION: Left-sided vascular catheter as above.
[2019-04-12] MEDS ORDERED: Labetalol HCl 100 MG/20 ML VIAL ONE (14:03)
--- NOTE | 2019-04-12 15:41 | OP ---
DATE OF PROCEDURE: 04/12/2019 PREOPERATIVE DIAGNOSES: 1. Peripheral arterial disease. 2. Morbid obesity. 3. Diabetic infection, left 4th and 5th toes. 4. 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 Note, Dr. Sridhar Ford is planning arteriography after this procedure. POSTOPERATIVE DIAGNOSES: 1. Peripheral arterial disease. 2. Morbid obesity. 3. Diabetic infection, left 4th and 5th toes. 4. 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 Note, Dr. Sridhar Ford is planning arteriography after this procedure. PROCEDURE PERFORMED: Amputation of left 4th and 5th toes and metatarsals with wound left open for healing by secondary intention. Wound Care arrived to place a wound VAC. Note Dr. Sridhar Ford will do arteriogram after this procedure, suspect an SFA disease. ANESTHESIA: Intravenous sedation anesthesia. DESCRIPTION OF PROCEDURE: The patient was taken to the operating room, where under intravenous sedation, left lower extremity was prepared with ChloraPrep and draped in routine fashion. Incision was made for amputation of left 4th and 5th toes that she has gangrene, greenish large ulceration laterally, a neuropathic ulcer beneath the MTP of 4th toe, amputating skin and subcutaneous tissue, preserving as much skin as possible, amputating the neuropathic ulcer and gangrenous process, amputating the 4th and 5th toes and metatarsals with a bone cutter, resecting approximately with rongeurs. Hemostasis was gained with cautery. There was arterial bleeding. Good hemostasis noted. Wound irrigated. Connective tissue debrided. Wound care team arrived to place a wound VAC. Job ID: [id number]
--- NOTE | 2019-04-12 16:14 | OP ---
DATE OF PROCEDURE: 04/12/2019 PREOPERATIVE DIAGNOSIS: Peripheral vascular disease with gangrene, left foot. POSTOPERATIVE DIAGNOSIS: Peripheral vascular disease with gangrene, left foot. PROCEDURES PERFORMED: 1. Ultrasound-guided right common femoral artery access. 2. Abdominal aortogram. 3. Left common femoral artery angiogram. 4. Left popliteal artery angiogram. 5. Left superficial femoral artery percutaneous transluminal angioplasty with a 5 x 40 [place] balloon followed by 6 x 40 Lutonix, taken to eight mmHg for 3 minutes. TOTAL CONTRAST: 26 mL. TOTAL FLUORO TIME: 3.4 minutes. DESCRIPTION OF PROCEDURE: After consent was obtained, the patient was brought to the wastewater analyst lab analyst and placed in supine position on wastewater analyst lab analyst table. Appropriate monitoring was placed. IV sedation was begun. Right groin was interrogated with ultrasound and anesthetized with 1% lidocaine. Using ultrasound guidance, percutaneous access to the right common femoral artery was obtained and a micropuncture sheath placed. This was exchanged for a 5-Scottish sheath. A Contra catheter was positioned in the upper abdominal aorta. Hand-injected aortogram showed no intraluminal disease in the abdominal aorta or common iliac arteries. The catheter was withdrawn to the aortic bifurcation and 2nd injection performed, illuminating the iliac and common femoral arteries, showing no intraluminal encroachment by any significant vascular disease. The aortic bifurcation was crossed with a Contra catheter and the tip of the catheter positioned in the common femoral artery. Using digital angiography, contrast was chased from groin to the lower leg. The common femoral, profunda femoris, and superficial femoral arteries were all widely patent. At the distal superficial femoral artery just prior to Bhavik's canal, there was discrete short-segment critical lesion. The popliteal and trifurcation were widely patent down to the midcalf. The sheath was exchanged over Magic Torque guidewire for a 5-Scottish Destination sheath. 5000 units of heparin were given. The angled Painter catheter and Magic Torque guidewire were used to cross lesion. Hand-injected arteriogram was performed with tip of the catheter in the popliteal artery, showing intraluminal location. Magic Torque guidewire was placed. A 4 x 40 [place] balloon was inflated over the lesion, which inflated with no waste. Followup angiogram showed inadequate result. The 4 balloon was small. Therefore, a 6 x 40 Lutonix was selected. This was positioned and inflated for 3 minutes. Followup angiogram showed an excellent result with minimal residual stenosis. The catheters and guidewires were removed. A Bentson guidewire was placed in the upper abdominal aorta. The Destination sheath was removed and ProGlide placed and deployed with good hemostasis. The patient tolerated the procedure well, was transferred to the recovery room in stable condition. Job ID: [id number]
[2019-04-12] MEDS: Sodium Chloride 0.9% 1,000 ML IV SCH ×6 (17:04→23:01)
[2019-04-12] MEDS: Vancomycin HCl 1 GM in Premix Bag 1 BAG IVPB SCH (19:28)
--- NOTE | 2019-04-12 20:17 | PQF ---
RAMSEY GARIBAY MALIK MD [id number] CLINICAL DOCUMENTATION IMPROVEMENT CLARIFICATION FORM: ICD-10 Updated PLEASE DO AN ADDENDUM TO THE PROGRESS NOTE WITH ANY DOCUMENTATION UPDATES OR ADDITIONS AND CARRY THROUGH TO DC SUMMARY. THANK YOU. DATE: 04/12/2019 ATTN: Dr. Bunn Please exercise your independent, professional judgment in responding to the clarification form. Clinical indicators are provided on the bottom of this form for your review Please check appropriate box(s): [ ] Gas gangrene [ ] Gas gangrene due to Diabetes II [ x ] Other diagnosis Gangrene due to PVD/DM2 [ ] Unable to determine In addition, please specify: Present on Admission (POA): [ x] Yes [ ] No [ ] Unable to determine CLINICAL INDICATORS - SIGNS / SYMPTOMS / LABS / RESULTS AND LOCATION IN EMR 04/12 Ford: "PVD with gangrene, left foot" 04/12 Cathie: "SFA Obstruction. There is gas a the plantar aspect of the forefoot, lateral side. PVD and new ulceration with necrosis in the left lateral forefoot and evidence of gas in soft tissues." RISK FACTORS / RESULTS AND LOCATION IN EMR "Infected left foot diabetic ulcer with cellulitis " per 04/10 H&P(Sepideh) TREATMENTS / RESULTS AND LOCATION IN EMR Amputation left 4th and 5th toe 04/12 Op note Left superficial femoral artery percutaneous transluminal angioplasty with a 5x40 [place] balloon followed by 6x40 Lutonix, taken to 8 mmHg for 3 minutes per 04/12 Op note Diabetic Diet /6 orders IV Abx: Zosyn 3.375 gm IV Q6h 04/10-date; Vancomycin 1 gm IV Q12h 04/10-date per orders (This form is maintained as a part of the permanent medical record) 2014 [employer]. All Rights Reserved Stephania Ly RN, BSN, CCDS [email or web address] [phone] [email or web address]
[2019-04-12] MEDS: tiZANidine HCl 4 MG TAB PO PRN (21:31)
[2019-04-12] MEDS: traZODone HCl 50 MG TAB PO PRN (21:31)
--- NOTE | 2019-04-12 22:31 | PDOC.HOSPP ---
- Subjective Encounter Date: 04/12/19 Encounter Time: 18:00 Subjective: Patient seen and examined for foot infection. s/p toe amputation and angioplasty. Pain controlled. No fever/chills. No new complaints. No overnight events - Objective Vital Signs & Weight: Vital Signs (12 hours) Temp Pulse Resp BP Pulse Ox 04/12/19 20:00 98.2 F 78 18 124/64 98 Weight Admit Weight 209 lb 15.845 oz Weight 209 lb 15.845 oz Result Diagrams: 04/13/19 05:50 04/13/19 05:50 Hospitalist ROS - Review of Systems Respiratory: denies: cough, dry, shortness of breath, hemoptysis, SOB with excertion, pleuritic pain, sputum, wheezing, other Cardiovascular: denies: chest pain, palpitations, orthopnea, paroxysmal noc. dyspnea, edema, light headedness, other - Medication Medications: Active Medications Generic Name Dose Route Start Last Admin Trade Name Freq PRN Reason Stop Dose Admin Hydrocodone Bitart/Acetaminophen 1 tab 04/10/19 20:39 04/12/19 21:31 [place] 5/325 PO 1 tab Q4H PRN Administration Moderate Pain (4-6) Duloxetine HCl 20 mg 04/11/19 09:00 04/12/19 09:06 Cymbalta PO Not Given DAILY JIMBO Enoxaparin Sodium 40 mg 04/11/19 09:00 04/12/19 09:06 Lovenox SC Not Given 0900 JIMBO Famotidine 20 mg 04/10/19 21:00 04/12/19 21:31 Pepcid PO 20 mg BID JIMBO Administration Piperacillin Sod/Tazobactam 100 mls @ 200 mls/hr 04/10/19 18:00 04/12/19 17: 20 Sod 3.375 gm/ Sodium Chloride IVPB 100 mls Q6HR JIMBO Administration Sodium Chloride 1,000 mls @ 100 mls/hr 04/11/19 12:30 04/12/19 19:32 Normal Saline 0.9% IV Not Given .Q10H JIMBO Sodium Chloride 1,000 mls @ 100 mls/hr 04/12/19 08:00 04/12/19 18:41 Normal Saline 0.9% IV Not Given .Q10H JIMBO Vancomycin HCl 1 gm/ Device 200 mls @ 200 mls/hr 04/12/19 18:00 04/12/19 19: 28 IVPB 200 mls 0600,1800 JIMBO Administration Metoprolol Succinate 50 mg 04/11/19 09:00 04/12/19 06:02 Toprol Xl PO 50 mg DAILY JIMBO Administration Ondansetron HCl 4 mg 04/10/19 16:46 04/11/19 14:20 Zofran Odt PO 4 mg Q6H PRN Administration Nausea/Vomiting Saccharomyces Boulardii 250 mg 04/11/19 09:00 04/12/19 09:06 Florastor PO Not Given DAILY JIMBO Tizanidine HCl 4 mg 04/10/19 16:46 04/12/19 21:31 Zanaflex PO 4 mg TID PRN Administration Muscle Spasm Trazodone HCl 50 mg 04/10/19 16:49 04/12/19 21:31 Desyrel PO 50 mg HS PRN Administration Insomnia - Exam General Appearance: NAD Heart: RRR, no gallops Respiratory: no wheezes, no ronchi Gastrointestinal: soft, non-tender, normal bowel sounds Extremities: no cyanosis Extremities - other findings: left foot dressing+ Hosp A/P - Plan DVT proph w/lovenox Infected left foot diabetic ulcer with cellulitis. Diabetes mellitus type 2, diet controlled. Hypertension with hypertensive urgency. PVD s/p Left Superficial artery Angioplasty Chronic obstructive pulmonary disease. Hyperlipidemia. Paroxysmal atrial fibrillation. Coronary artery disease, status post myocardial infarction. History of seizure disorder. Gastroesophageal reflux disease. Chronic pain syndrome. Chronic kidney disease, stage 3. Elevated inflammatory markers. PLAN: Surgery/ID/CV input appreciated Cont IV Vancomycin/Zosyn with Vancomycin level monitoring Resume home Eliquis 5 mg daily if ok with Surg/CV Cont Toprol XL Cont ASA Cont wound care/wound vac Await outpt wound vac setup Cont other meds
[2019-04-12] MEDS: Morphine 4 MG/ML VIAL SLOW IVP PRN (23:02)
[2019-04-13] MEDS: HYDROcodone/Acetaminophen 5/325 mg Tablet PO PRN ×4 (01:43→18:03)
[2019-04-13] MEDS: Piperacillin/Tazobactam 3.375 GM in Sodium Chloride 0.9% 100 ML IVPB SCH ×4 (05:55→23:15)
[2019-04-13] MEDS: Vancomycin HCl 1 GM in Premix Bag 1 BAG IVPB SCH ×2 (05:56→17:53)
[2019-04-13 06:29] LABS: Anion Gap 12 mmol/L (10-20); BUN (Urea Nitrogen) 10 mg/dL (9.8-20.1); Calc. Creatinine Clearance 99 mL/min (70-130); Calcium 8.1 mg/dL (7.8-10.44); Carbon Dioxide 26 mmol/L (23-31); Chloride 106 mmol/L (98-107); Estimated GFR-MDRD 67; Glucose 66 mg/dL (80-115); Potassium 3.5 mmol/L (3.5-5.1); Sodium 140 mmol/L (136-145)
[2019-04-13 07:22] LABS: Band 3 % (5-11); Eosinophils 2 % (0-10); Hemoglobin 10.3 g/dL (12.0-16.0); Lymphocytes 20 % (21-51); MDiff Complete? YES; Mean Corpuscular HGB CONC 32.1 g/dL (32.0-36.0); Mean Corpuscular Hemoglobin 29.6 pg (27.0-31.0); Mean Corpuscular Volume 92.2 fL (78.0-98.0); Mean Platelet Volume 8.9 fL (7.4-10.4); Monocytes 4 % (0-10); Neutrophil 62 % (42-75); Platelet Count 165 thou/uL (130-400); Platelet Morphology Comment Appears Adequate; Polychromasia SLIGHT = 2-3 cells (100X) (0-2/hpf); Reactive Lymphocytes 9 % (0-10); Red Blood Cell (RBC) Count 3.46 mill/uL (4.20-5.40); White Blood Cell (WBC) Count 3.9 thou/uL (4.8-10.8)
[2019-04-13] MEDS: Enoxaparin Sodium 40 MG/0.4 ML SYRINGE SC SCH (08:39)
[2019-04-13] MEDS: Famotidine 20 MG TAB PO SCH ×2 (08:40→19:51)
[2019-04-13] MEDS: Saccharomyces boulardii 250 MG CAP PO SCH (08:40)
[2019-04-13] MEDS: Aspirin 325 mg Enteric Coated Tablet PO SCH (08:40)
--- NOTE | 2019-04-13 09:25 | OP ---
DATE OF PROCEDURE: 04/12/2019 PREOPERATIVE DIAGNOSES: Peripheral arterial disease, obesity, diabetic foot infection, left, poor IV access. PROCEDURE PERFORMED: Placement of left subclavian vein, central line, triple lumen. ANESTHESIA: 1% Xylocaine with epinephrine. DESCRIPTION OF PROCEDURE: With the patient at bedside in the operating room, as we could not establish IV access, her left area was prepared with ChloraPrep and draped in routine fashion. Local anesthetic was infiltrated in the skin and subcutaneous tissue and using infraclavicular approach, Seldinger technique used to place a triple-lumen catheter, removing the J-wire and securing it with 3-0 nylon suture, sterile dressing applied. Each port aspirated blood and flushed with saline solution. Job ID: [id number]
[2019-04-13] MEDS: Nystatin Powder 15 GM BOT TOP SCH ×2 (11:30→19:52)
[2019-04-13] MEDS: Morphine 4 MG/ML VIAL SLOW IVP PRN ×2 (14:44→19:57)
--- NOTE | 2019-04-13 17:18 | PRG ---
DATE OF SERVICE: 04/13/2019 SUBJECTIVE: Ms. Khan had a revascularization by Dr. Ford, specifically she had SFA GEM TECHNICIAN with stent and then she had amputation of the fourth and fifth rays by Dr. Robles. A central line was placed in the left subclavian location. Right now, she is feeling okay, no dyspnea, no chest pain. Just feeling the withdrawal from the cigarettes. No abdominal pain. Moderate pain in the left foot. OBJECTIVE: VITAL SIGNS: Temperature has been normal, BP 130/86, pulse 86, respirations 16, O2 saturation 95%. GENERAL: The postop wound shows the fresh tissue at the base, some bleeding. LUNGS: Clear. Heart: S1, S2, regular rate. ABDOMEN: Soft, not distended. EXTREMITIES: Moves extremities equally. NEUROLOGIC: Cognitive function appears to be intact. LABORATORY DATA: White cell count 3.9, hemoglobin 10.3, platelets 165, 62% neutrophils, 3% bands. Creatinine 0.85. Liver profile normal. Albumin 3.2. Foot sample swab culture with gram-negative brian yet to be identified, susceptibility tested. Currently patient is receiving Zosyn and vancomycin. ASSESSMENT AND DISCUSSION: Type 2 diabetes, peripheral vascular disease, chronic smoking, and necrosis of fourth and fifth rays, left side, status post amputation. Awaiting on the final culture results. Hopefully, discharge on oral antimicrobial therapy. Because of the peripheral vascular disease, she is at high risk for relapse of the inflammatory process and I would probably continue treatment for a longer period of time in the order of another 4 weeks after discharge. Job ID: [id number]
--- NOTE | 2019-04-13 19:25 | PDOC.HOSPP ---
- Subjective Encounter Date: 04/13/19 Encounter Time: 17:00 Subjective: Patient seen and examined for foot infection. Pain controlled. No fever/chills. No new complaints. No overnight events - Objective Vital Signs & Weight: Vital Signs (12 hours) Temp Pulse Resp BP Pulse Ox 04/13/19 08:03 97.9 F 86 16 133/86 95 Weight Admit Weight 209 lb 15.845 oz Weight 209 lb 15.845 oz I&O: 04/12/19 04/13/19 04/14/19 06:59 06:59 06:59 Intake Total 1087 Balance 1087 Result Diagrams: 04/13/19 05:50 04/13/19 05:50 Additional Labs: Microbiology 04/12/19 11:45 Foot - E swab Bacterial Culture - Preliminary 04/12/19 11:45 Foot - E swab Gram Negative Eric 04/10/19 12:23 Venous blood - Left Hand Blood Culture - Preliminary NO GROWTH AT 48 HOURS 04/10/19 10:22 Venous blood - Left Arm Blood Culture - Preliminary NO GROWTH AT 48 HOURS Hospitalist ROS - Review of Systems Cardiovascular: denies: chest pain, palpitations, orthopnea, paroxysmal noc. dyspnea, edema, light headedness, other Gastrointestinal: denies: nausea, vomiting, abdominal pain, diarrhea, constipation, melena, hematochezia, other - Medication Medications: Active Medications Generic Name Dose Route Start Last Admin Trade Name Freq PRN Reason Stop Dose Admin Hydrocodone Bitart/Acetaminophen 1 tab 04/10/19 20:39 04/13/19 18:03 [place] 5/325 PO 1 tab Q4H PRN Administration Moderate Pain (4-6) Aspirin 325 mg 04/13/19 09:00 04/13/19 08:40 Ecotrin PO 325 mg DAILY JIMBO Administration Duloxetine HCl 20 mg 04/11/19 09:00 04/13/19 08:40 Cymbalta PO 20 mg DAILY JIMBO Administration Enoxaparin Sodium 40 mg 04/11/19 09:00 04/13/19 08:39 Lovenox SC 40 mg 0900 JIMBO Administration Famotidine 20 mg 04/10/19 21:00 04/13/19 08:40 Pepcid PO 20 mg BID JIMBO Administration Piperacillin Sod/Tazobactam 100 mls @ 200 mls/hr 04/10/19 18:00 04/13/19 17: 20 Sod 3.375 gm/ Sodium Chloride IVPB 100 mls Q6HR JIMBO Administration Vancomycin HCl 1 gm/ Device 200 mls @ 200 mls/hr 04/13/19 19:00 04/13/19 17: 53 IVPB 200 mls 0700,1900 JIMBO Administration Metoprolol Succinate 50 mg 04/11/19 09:00 04/13/19 08:40 Toprol Xl PO 50 mg DAILY JIMBO Administration Morphine Sulfate 4 mg 04/10/19 16:27 04/13/19 14:44 Morphine SLOW IVP 4 mg Q4H PRN Administration Severe Pain (7-10) Nystatin 0 gm 04/13/19 10:00 04/13/19 11:30 Mycostatin Powder TOP 1 applic 1000,2200 JIMBO Administration Ondansetron HCl 4 mg 04/10/19 16:46 04/11/19 14:20 Zofran Odt PO 4 mg Q6H PRN Administration Nausea/Vomiting Saccharomyces Boulardii 250 mg 04/11/19 09:00 04/13/19 08:40 Florastor PO 250 mg DAILY JIMBO Administration Tizanidine HCl 4 mg 04/10/19 16:46 04/12/19 21:31 Zanaflex PO 4 mg TID PRN Administration Muscle Spasm Trazodone HCl 50 mg 04/10/19 16:49 04/12/19 21:31 Desyrel PO 50 mg HS PRN Administration Insomnia - Exam General Appearance: NAD Heart: RRR, no gallops Respiratory: no wheezes, no ronchi Gastrointestinal: soft, non-tender, normal bowel sounds Extremities: no cyanosis Extremities - other findings: dressing + Neurological: no new deficit Hosp A/P - Plan DVT proph w/lovenox Infected left foot diabetic ulcer with cellulitis. Gangrene due to PVD/DM2 Diabetes mellitus type 2, diet controlled. Hypertension with hypertensive urgency. PVD s/p Left Superficial artery Angioplasty Chronic obstructive pulmonary disease. Hyperlipidemia. Paroxysmal atrial fibrillation. Coronary artery disease, status post myocardial infarction. History of seizure disorder. Gastroesophageal reflux disease. Chronic pain syndrome. Chronic kidney disease, stage 3. Elevated inflammatory markers. PLAN: Cont IV Atbx - Vancomycin/Zosyn Resume home Eliquis 5 mg daily if ok with Surg/CV Cont Toprol XL/ASA and other meds Cont wound care/wound vac Await outpt wound vac setup Await sensitivities
[2019-04-13] MEDS: tiZANidine HCl 4 MG TAB PO PRN (19:52)
[2019-04-13] MEDS: traZODone HCl 50 MG TAB PO PRN (19:53)
[2019-04-14] MEDS: HYDROcodone/Acetaminophen 5/325 mg Tablet PO PRN ×5 (00:27→21:35)
[2019-04-14] MEDS: Piperacillin/Tazobactam 3.375 GM in Sodium Chloride 0.9% 100 ML IVPB SCH ×4 (05:10→23:43)
[2019-04-14] MEDS: Vancomycin HCl 1 GM in Premix Bag 1 BAG IVPB SCH ×2 (05:10→20:22)
[2019-04-14] MEDS: Saccharomyces boulardii 250 MG CAP PO SCH (08:47)
[2019-04-14] MEDS: Enoxaparin Sodium 40 MG/0.4 ML SYRINGE SC SCH (08:47)
[2019-04-14] MEDS: Aspirin 325 mg Enteric Coated Tablet PO SCH (08:47)
[2019-04-14] MEDS: Famotidine 20 MG TAB PO SCH ×2 (08:47→20:23)
[2019-04-14] MEDS: Nystatin Powder 15 GM BOT TOP SCH ×2 (08:48→20:25)
[2019-04-14] MEDS: Morphine 4 MG/ML VIAL SLOW IVP PRN (09:43)
[2019-04-14] MEDS: Loperamide HCl 2 MG CAP PO PRN ×2 (12:47→17:21)
[2019-04-14] MEDS: Ibuprofen 600 MG TAB PO PRN ×2 (13:08→20:23)
--- NOTE | 2019-04-14 18:09 | PRG ---
DATE OF SERVICE: 04/14/2019 Ms. Khan is status post 04/12/2019 amputation of left fourth and fifth toes. The wound is granulating and healthy. There are no signs of cellulitis. Dr. Sridhar Ford had done a RATE EXAMINER of her SFA. Overall, her left foot looks good. At this point, she is doing well. I would recommend to discharge her home on oral antibiotics. She should follow up in my office in 3 to 4 weeks. I will see her in this hospitalization as needed. Please call if necessary. She should be on oral antibiotics for 10 to 14 days. Job ID: [id number]
[2019-04-14 18:20] LABS: Vancomycin, Trough 20.4 ug/mL
[2019-04-14] MEDS: Lisinopril 5 MG TAB PO SCH (20:23)
[2019-04-14] MEDS: traZODone HCl 50 MG TAB PO PRN (20:23)
[2019-04-14] MEDS: tiZANidine HCl 4 MG TAB PO PRN (20:23)
[2019-04-14] MEDS ORDERED: Pregabalin 50 MG CAP PO SCH (21:00)
[2019-04-15] MEDS: HYDROcodone/Acetaminophen 5/325 mg Tablet PO PRN ×3 (04:18→12:35)
[2019-04-15] MEDS: Piperacillin/Tazobactam 3.375 GM in Sodium Chloride 0.9% 100 ML IVPB SCH ×2 (05:16→11:20)
[2019-04-15] MEDS: Vancomycin HCl 1 GM in Premix Bag 1 BAG IVPB SCH (05:16)
--- NOTE | 2019-04-15 07:43 | PDOC.HOSPP ---
- Subjective Encounter Date: 04/14/19 Encounter Time: 13:00 Subjective: Patient seen and examined for foot infection. Has some discomfort left foot. No fever or chills. No new complaints. No overnight events - Objective Vital Signs & Weight: Vital Signs (12 hours) Temp Pulse Resp BP BP Pulse Ox 04/15/19 07:39 97.5 F L 67 18 170/67 H 95 04/14/19 20:24 67 157/82 H 04/14/19 20:23 67 157/82 H 04/14/19 19:44 98.2 F 67 18 157/82 H 98 Weight Admit Weight 209 lb 15.845 oz Weight 209 lb 15.845 oz I&O: 04/14/19 04/15/19 04/16/19 06:59 06:59 06:59 Intake Total 700 690 Balance 700 690 Result Diagrams: 04/13/19 05:50 04/13/19 05:50 Hospitalist ROS - Review of Systems Cardiovascular: denies: chest pain, palpitations, orthopnea, paroxysmal noc. dyspnea, edema, light headedness, other Gastrointestinal: denies: nausea, vomiting, abdominal pain, diarrhea, constipation, melena, hematochezia, other - Medication Medications: Active Medications Generic Name Dose Route Start Last Admin Trade Name Freq PRN Reason Stop Dose Admin Hydrocodone Bitart/Acetaminophen 1 tab 04/10/19 20:39 04/15/19 04:18 [place] 5/325 PO 1 tab Q4H PRN Administration Moderate Pain (4-6) Aspirin 325 mg 04/13/19 09:00 04/14/19 08:47 Ecotrin PO 325 mg DAILY JIMBO Administration Clonidine 0.1 mg 04/10/19 17:06 04/13/19 20:30 Catapres PO 0.1 mg Q4H PRN Administration SBP Greater Than 180 Diltiazem HCl 120 mg 04/14/19 21:00 04/14/19 20:24 Cardizem Cd PO 120 mg BID JIMBO Administration Duloxetine HCl 20 mg 04/11/19 09:00 04/14/19 08:47 Cymbalta PO 20 mg DAILY JIMBO Administration Enoxaparin Sodium 40 mg 04/11/19 09:00 04/14/19 08:47 Lovenox SC 40 mg 09 JIMBO Administration Famotidine 20 mg 04/10/19 21:00 04/14/19 20:23 Pepcid PO 20 mg BID JIMBO Administration Piperacillin Sod/Tazobactam 100 mls @ 200 mls/hr 04/10/19 18:00 04/15/19 05: 16 Sod 3.375 gm/ Sodium Chloride IVPB 100 mls Q6HR JIMBO Administration Vancomycin HCl 1 gm/ Device 200 mls @ 200 mls/hr 04/13/19 19:00 04/15/19 05: 16 IVPB 200 mls 0700,1900 JIMBO Administration Ibuprofen 600 mg 04/11/19 12:27 04/14/19 20:23 Motrin PO 600 mg Q6H PRN Administration Pain Lisinopril 5 mg 04/14/19 21:00 04/14/19 20:23 Zestril PO 5 mg BID JIMBO Administration Loperamide HCl 2 mg 04/14/19 12:07 04/14/19 17:21 Imodium PO 2 mg PRN PRN Administration Diarrhea/Loose Stools Metoprolol Succinate 50 mg 04/11/19 09:00 04/14/19 08:47 Toprol Xl PO 50 mg DAILY JIMBO Administration Morphine Sulfate 4 mg 04/10/19 16:27 04/14/19 09:43 Morphine SLOW IVP 4 mg Q4H PRN Administration Severe Pain (7-10) Nystatin 0 gm 04/13/19 10:00 04/14/19 20:25 Mycostatin Powder TOP 1 applic 1000,2200 JIMBO Administration Ondansetron HCl 4 mg 04/10/19 16:46 04/11/19 14:20 Zofran Odt PO 4 mg Q6H PRN Administration Nausea/Vomiting Pregabalin 50 mg 04/14/19 21:00 04/14/19 20:24 Lyrica PO 50 mg HS JIMBO Administration Saccharomyces Boulardii 250 mg 04/11/19 09:00 04/14/19 08:47 Florastor PO 250 mg DAILY JIMBO Administration Tizanidine HCl 4 mg 04/10/19 16:46 04/14/19 20:23 Zanaflex PO 4 mg TID PRN Administration Muscle Spasm Trazodone HCl 50 mg 04/10/19 16:49 04/14/19 20:23 Desyrel PO 50 mg HS PRN Administration Insomnia - Exam General Appearance: NAD Heart: RRR, no gallops Respiratory: no wheezes, no rales Gastrointestinal: non-tender, non-distended Extremities: no cyanosis Extremities - other findings: foot dressing with vac + Hosp A/P - Plan Infected left foot diabetic ulcer with cellulitis. Gangrene due to PVD/DM2 Diabetes mellitus type 2, diet controlled. Hypertension with hypertensive urgency. PVD s/p Left Superficial artery Angioplasty Chronic obstructive pulmonary disease. Hyperlipidemia. Paroxysmal atrial fibrillation. Coronary artery disease, status post myocardial infarction. History of seizure disorder. Gastroesophageal reflux disease. Chronic pain syndrome. Chronic kidney disease, stage 3. Elevated inflammatory markers. PLAN: Cont IV Atbx Await outpt Atbx recommendations Cont Toprol XL/ASA and other meds Cont wound care/wound vac Await outpt wound vac setup
[2019-04-15] MEDS: Famotidine 20 MG TAB PO SCH (08:34)
[2019-04-15] MEDS: Lisinopril 5 MG TAB PO SCH (08:34)
[2019-04-15] MEDS: Aspirin 325 mg Enteric Coated Tablet PO SCH (08:34)
[2019-04-15] MEDS: Saccharomyces boulardii 250 MG CAP PO SCH (08:34)
[2019-04-15] MEDS: Nystatin Powder 15 GM BOT TOP SCH (08:35)
[2019-04-15] MEDS: Loperamide HCl 2 MG CAP PO PRN (08:37)
[2019-04-15 13:16] VITALS: BP 167/88; TEMP 98.4
--- NOTE | 2019-04-15 14:35 | DIS ---
DATE OF ADMISSION: 04/10/2019 DATE OF DISCHARGE: 04/15/2019 DISCHARGE DISPOSITION: Home with [facility]. Home Wound Care has been arranged. FOLLOWUP: 1. The patient will follow up with primary care physician, Dr. Ramone Eldridge in 1 week. 2. Also, follow up with Dr. Robles, Dr. Sridhar Ford, and Dr. Brand as scheduled. The patient was seen on the day of discharge. Denies any new complaints. No chest pain, shortness of breath, palpitations, fever, or chills reported. SIGNIFICANT LABORATORY DATA: Blood cultures negative. Wound culture was positive for Citrobacter. Creatinine 0.85. WBC 6.0 with hemoglobin 12.2. INPATIENT PROCEDURES: 1. On April,, the patient underwent amputation of the left fourth and the fifth toes and metatarsals with wound left open for healing by secondary intention. 2. On April,, the patient underwent left superficial femoral artery percutaneous transluminal angioplasty by Dr. Sridhar Ford. 3. On 12 April 2019, the patient also underwent central line placement. BRIEF HOSPITAL COURSE: The patient is a 63-year-old white female with hypertension and previous history of diabetes mellitus type 2, presented to the emergency room with left foot pain secondary to ulceration. She was found to have infected left foot diabetic ulcer with cellulitis and gangrene. She was started on broad-spectrum antibiotics. Left lower extremity arterial Doppler was consistent with peripheral vascular disease. On April,, she underwent operative procedures as discussed above. She has been cleared by consultants for discharge. Per Infectious Disease recommendation, the patient will be on ciprofloxacin and Flagyl for 4 weeks. FINAL DIAGNOSES: 1. Infected left foot diabetic ulcer with cellulitis. 2. Gangrene secondary to peripheral vascular disease/diabetes mellitus type 2. 3. Diabetes mellitus type 2, diet controlled. Hemoglobin A1c this admission was 4.8. 4. Hypertension with hypertensive urgency on admission. 5. Chronic obstructive pulmonary disease. 6. Peripheral vascular disease, status post left superficial artery angioplasty. 7. Hyperlipidemia. 8. Paroxysmal atrial fibrillation. 9. Coronary artery disease, status post myocardial infarction in the past. 10. History of seizure disorder. 11. Gastroesophageal reflux disease. 12. Chronic pain syndrome. 13. History of venous thromboembolism, on chronic anticoagulation. 14. Chronic kidney disease, stage 3. 15. Elevated inflammatory markers. Total time coordinating the discharge of this patient was 39 minutes. PLAN: Plan was discussed with the patient in detail. She stated understanding. Job ID: [id number]
== END 2019-04-15 13:56 | disposition home health service (06) | DRG 253 ==
LOC: ERS 09:29 → T4-B 12:46
PROVIDERS: ADMIT Internal Medicine; ATTEND Internal Medicine
PROC: 0JBR0ZZ Excision of Left Foot Subcutaneous Tissue and Fascia, Open Approach (ICD-10-PCS; principal; 2019-04-12)
PROC: 0Y6W0Z0 Detachment at Left 4th Toe, Complete, Open Approach (ICD-10-PCS; 2019-04-12)
PROC: 0Y6Y0Z0 Detachment at Left 5th Toe, Complete, Open Approach (ICD-10-PCS; 2019-04-12)
PROC: 047L3Z1 Dilation of Left Femoral Artery using Drug-Coated Balloon, Percutaneous Approach (ICD-10-PCS; 2019-04-12)
PROC: B41G1ZZ Fluoroscopy of Left Lower Extremity Arteries using Low Osmolar Contrast (ICD-10-PCS; 2019-04-12)
PROC: 02HV33Z Insertion of Infusion Device into Superior Vena Cava, Percutaneous Approach (ICD-10-PCS; 2019-04-12)
DX: E11.52 Type 2 diabetes mellitus with diabetic peripheral angiopathy with gangrene (principal); I96 Gangrene, not elsewhere classified; L03.116 Cellulitis of left lower limb; E11.621 Type 2 diabetes mellitus with foot ulcer; I16.0 Hypertensive urgency; E11.22 Type 2 diabetes mellitus with diabetic chronic kidney disease; N18.3 Chronic kidney disease, stage 3 (moderate); J44.9 Chronic obstructive pulmonary disease, unspecified; E78.5 Hyperlipidemia, unspecified; I48.0 Paroxysmal atrial fibrillation; L97.529 Non-pressure chronic ulcer of other part of left foot with unspecified severity; I25.10 Atherosclerotic heart disease of native coronary artery without angina pectoris; F17.200 Nicotine dependence, unspecified, uncomplicated; M54.30 Sciatica, unspecified side; B95.62 Methicillin resistant Staphylococcus aureus infection as the cause of diseases classified elsewhere; E66.01 Morbid (severe) obesity due to excess calories; G40.909 Epilepsy, unspecified, not intractable, without status epilepticus; K21.9 Gastro-esophageal reflux disease without esophagitis; G89.4 Chronic pain syndrome; I12.9 Hypertensive chronic kidney disease with stage 1 through stage 4 chronic kidney disease, or unspecified chronic kidney disease; Z90.49 Acquired absence of other specified parts of digestive tract; Z90.710 Acquired absence of both cervix and uterus; Z79.4 Long term (current) use of insulin; I25.2 Old myocardial infarction; Z90.721 Acquired absence of ovaries, unilateral; Z86.718 Personal history of other venous thrombosis and embolism; Z79.01 Long term (current) use of anticoagulants; Z88.6 Allergy status to analgesic agent; Z88.8 Allergy status to other drugs, medicaments and biological substances; Z68.34 Body mass index [BMI] 34.0-34.9, adult
CPT/HCPCS: 36415; 37224; 71045; 76942; 80048; 80053; 80202; 83036; 83605; 85025; 85347; 85610; 85652; 85730; 86140; 87040; 87070; 87076; 87077; 87186; 87205; 88305; 93005; 93010; 93923; 96361; 96365; 96366; 96367; 96375; 96376; 99152; C1725; C1760; C1769; C1887; J0360; J0696; J1644; J1650; J1885; J2001; J2250; J2270; J2405; J2543; J2704; J3010; J3370; J3490; Q0162; Q9967; S0020; S0028

== ENCOUNTER 2019-11-04 16:32 | Emergency (ER) | payer MEDICARE, OTHER ==
--- NOTE | 2019-11-04 19:52 | RAD ---
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 Soft tissue swelling is seen along the distal and do rsal aspect of the foot. There appears to be a wound along the plantar aspect of the foot. No obvious osseous erosions are seen. Hardware is seen in the tibia and fibula from prior fracture fixat ion. IMPRESSION: Extensive postsurgical changes of the foot without obvious erosion to suggest osteomyelit is
[2019-11-04 19:54] LABS: #Lymphocytes 0.5 thou/uL (1.20-3.40); #Monocytes 0.9 thou/uL (0.11-0.59); #Neutrophils 5.8 thou/uL (1.40-6.50); %Basophils 0.2 % (0.0-1.0); %Eosinophils 0.2 % (0.0-10.0); %Lymphocytes 7.3 % (21.0-51.0); %Monocytes 12.4 % (0.0-10.0); %Neutrophils 79.8 % (42.0-75.0); Hemoglobin 11.2 g/dL (12.0-16.0); Mean Corpuscular HGB CONC 32.6 g/dL (32.0-36.0); Mean Corpuscular Hemoglobin 30.1 pg (27.0-31.0); Mean Corpuscular Volume 92.5 fL (78.0-98.0); Mean Platelet Volume 9.9 fL (7.4-10.4); Platelet Count 163 thou/uL (130-400); RBC Distribution Width 15.1 % (11.5-14.5); White Blood Cell (WBC) Count 7.2 thou/uL (4.8-10.8)
[2019-11-04 20:15] LABS: ALT (SGPT) 14 U/L (8-55); AST (SGOT) 26 U/L (5-34); Albumin 3.1 g/dL (3.4-4.8); Alkaline Phosphatase 131 U/L (40-110); Anion Gap 15 mmol/L (10-20); BUN (Urea Nitrogen) 20 mg/dL (9.8-20.1); Bilirubin, Total 0.6 mg/dL (0.2-1.2); Calc. Creatinine Clearance 0 mL/min (70-130); Calcium 8.4 mg/dL (7.8-10.44); Carbon Dioxide 21 mmol/L (23-31); Chloride 101 mmol/L (98-107); Estimated GFR-MDRD 50; Globulin 4.8 g/dL (2.4-3.5); Glucose 107 mg/dL (80-115); Potassium 3.7 mmol/L (3.5-5.1); Protein, Total 7.9 g/dL (6.0-8.3); Sodium 133 mmol/L (136-145)
[2019-11-04] MEDS ORDERED: HYDROcodone/Acetaminophen 5/325 mg Tablet ONE (20:19)
[2019-11-04] MEDS ORDERED: Ibuprofen 200 MG TAB ONE (20:20)
== END 2019-11-04 20:31 | disposition home or self-care (01) ==
LOC: ERS 16:32
DX: L97.529 Non-pressure chronic ulcer of other part of left foot with unspecified severity (principal); L03.116 Cellulitis of left lower limb; I48.91 Unspecified atrial fibrillation; E11.9 Type 2 diabetes mellitus without complications; K21.9 Gastro-esophageal reflux disease without esophagitis; E78.00 Pure hypercholesterolemia, unspecified; J44.9 Chronic obstructive pulmonary disease, unspecified; I25.2 Old myocardial infarction; F17.210 Nicotine dependence, cigarettes, uncomplicated
CPT/HCPCS: 36415; 80053; 83605; 85025; 85652; 86140

== ENCOUNTER 2020-06-27 13:08 | Inpatient (IN) | payer MEDICARE, MEDICAID ==
[2020-06-27] MEDS ORDERED: Iopamidol 370 76% 100 ML VIAL ONE (14:08)
[2020-06-27 14:14] LABS: #Eosinphils 0.1 thou/uL (0.0-0.7); #Lymphocytes 1.1 thou/uL (1.20-3.40); #Monocytes 0.5 thou/uL (0.11-0.59); #Neutrophils 2.7 thou/uL (1.40-6.50); %Eosinophils 1.2 % (0.0-10.0); %Lymphocytes 24.3 % (21.0-51.0); %Monocytes 12.6 % (0.0-10.0); %Neutrophils 61.9 % (42.0-75.0); Hemoglobin 13.9 g/dL (12.0-16.0); Mean Corpuscular HGB CONC 34.1 g/dL (32.0-36.0); Mean Corpuscular Hemoglobin 32.2 pg (27.0-31.0); Mean Corpuscular Volume 94.3 fL (78.0-98.0); Mean Platelet Volume 8.5 fL (7.4-10.4); Platelet Count 149 thou/uL (130-400); RBC Distribution Width 13.2 % (11.5-14.5); Red Blood Cell (RBC) Count 4.33 mill/uL (4.20-5.40); White Blood Cell (WBC) Count 4.3 thou/uL (4.8-10.8)
[2020-06-27 14:42] LABS: ALT (SGPT) 11 U/L (8-55); AST (SGOT) 20 U/L (5-34); Albumin 3.8 g/dL (3.4-4.8); Alkaline Phosphatase 128 U/L (40-110); Anion Gap 15 mmol/L (10-20); BUN (Urea Nitrogen) 18 mg/dL (9.8-20.1); Bilirubin, Total 0.4 mg/dL (0.2-1.2); CK (CPK) 145 U/L (29-168); Calc. Creatinine Clearance 0 mL/min (70-130); Calcium 8.6 mg/dL (7.8-10.44); Carbon Dioxide 22 mmol/L (23-31); Chloride 107 mmol/L (98-107); Globulin 3.3 g/dL (2.4-3.5); Glucose 90 mg/dL (80-115); Potassium 3.7 mmol/L (3.5-5.1); Protein, Total 7.1 g/dL (5.8-8.1); Sodium 140 mmol/L (136-145)
[2020-06-27 15:55] LABS: CKMB 3.5 ng/mL (0-6.6)
[2020-06-27] MEDS ORDERED: Aspirin 325 MG TAB ONE (16:04)
[2020-06-27] MEDS ORDERED: Meclizine HCl 25 MG TAB ONE (16:04)
[2020-06-27] MEDS ORDERED: Labetalol HCl 100 MG/20 ML VIAL ONE (16:21)
[2020-06-27] MEDS ORDERED: Magnesium 2 GM/50 ML BAG (IN WATER) ONE (16:21)
[2020-06-27] MEDS ORDERED: Acetaminophen 325 MG TAB PO PRN (18:39)
[2020-06-27 22:31] LABS: Troponin I 0.056 ng/mL (< 0.028)
[2020-06-27 22:50] LABS: Anion Gap 14 mmol/L (10-20); BUN (Urea Nitrogen) 18 mg/dL (9.8-20.1); Calc. Creatinine Clearance 0 mL/min (70-130); Calcium 8.6 mg/dL (7.8-10.44); Carbon Dioxide 21 mmol/L (23-31); Chloride 106 mmol/L (98-107); Glucose 100 mg/dL (80-115); Magnesium 2.3 mg/dL (1.6-2.6); Potassium 3.2 mmol/L (3.5-5.1); Sodium 138 mmol/L (136-145)
[2020-06-27 23:54] VITALS: BMI 32.1
[2020-06-28] MEDS: traMADol HCl 50 MG TAB PO PRN ×2 (00:59→10:02)
[2020-06-28] MEDS ORDERED: Potassium Chloride 20 MEQ TAB PO SCH (01:00)
[2020-06-28 02:51] LABS: Bacteria/HPF 1+ HPF (None Seen); Bilirubin Negative (Negative); Blood, Urine Trace (Negative); Clarity Clear (Clear); Glucose, Urine (Dipstick) Normal (Negative); Ketone, Urine Negative (Negative); Leukocyte 75 Leu/uL (Negative); Nitrite Negative (Negative); Protein, Urine (Dipstick) 100 mg/dL (Neg-Trace); RBC/HPF 0-3 HPF (0-3); Specific Gravity, Urine 1.007 (1.002-1.036); Urobilinogen Normal mg/dL (Less than 2)
[2020-06-28 02:52] LABS: Urine Culture Reflex No No
[2020-06-28 02:59] LABS: Amphetamine Not Detected (NotDetected); Barbiturates Screen Not Detected (NotDetected); Benzodiazepine Screen Not Detected (NotDetected); Cocaine Metabolite Screen Not Detected (NotDetected); Medtox Control Line Valid? VALID (VALID); Medtox Reader # READER 1; Methadone Not Detected (NotDetected); Methamphetamine Not Detected (NotDetected); Opiate Screen Not Detected (NotDetected); Oxycodone Screen Not Detected (NotDetected); Phencyclidine (PCP) Not Detected (NotDetected); THC/Cannabinoid Screen Detected (NotDetected); Tricyclic Screen Not Detected (NotDetected)
[2020-06-28 03:28] LABS: Hemoglobin 12.1 g/dL (12.0-16.0); Lymphocytes 28 % (21-51); MDiff Complete? YES; Mean Corpuscular HGB CONC 32.7 g/dL (32.0-36.0); Mean Corpuscular Hemoglobin 31.4 pg (27.0-31.0); Mean Corpuscular Volume 95.9 fL (78.0-98.0); Mean Platelet Volume 8.8 fL (7.4-10.4); Monocytes 8 % (0-10); Neutrophil 64 % (42-75); Platelet Count 108 thou/uL (130-400); Platelet Morphology Comment Appears Decreased; RBC Distribution Width 13.3 % (11.5-14.5); RBC Morphology Normal; Red Blood Cell (RBC) Count 3.87 mill/uL (4.20-5.40); White Blood Cell (WBC) Count 3.2 thou/uL (4.8-10.8)
[2020-06-28 03:29] LABS: Cardiac Risk 4.4 (Less than 4.5); Magnesium 2.2 mg/dL (1.6-2.6)
[2020-06-28 03:59] LABS: CKMB 2.1 ng/mL (0-6.6)
[2020-06-28] MEDS ORDERED: Lorazepam 2 MG/ML VIAL SLOW IVP SCH (06:00)
[2020-06-28] MEDS: Aspirin 325 mg Enteric Coated Tablet PO SCH (08:51)
[2020-06-28] MEDS: Apixaban 5 MG TAB PO SCH (08:51)
[2020-06-28] MEDS: Furosemide 20 MG TAB PO SCH ×2 (08:51→20:02)
[2020-06-28] MEDS ORDERED: predniSONE 20 MG TAB PO SCH (09:00)
[2020-06-28] MEDS ORDERED: Aspirin 81 mg Enteric Coated Tablet PO SCH (09:00)
[2020-06-28] MEDS ORDERED: MIST INHAL INH SCH (09:00)
[2020-06-28] MEDS ORDERED: TIOTROPIUM BROMIDE 4 GM INH SCH (09:00)
[2020-06-28] MEDS: hydrALAZINE 20 MG/ML VIAL SLOW IVP PRN ×2 (10:01→21:17)
[2020-06-28 17:06] LABS: SARS-CoV-2 PCR by NAA Not Detected (NotDetected)
[2020-06-28] MEDS: Meclizine HCl 12.5 MG TAB PO PRN (20:02)
[2020-06-28] MEDS: Atorvastatin Calcium 40 MG TAB PO SCH (20:02)
[2020-06-28] MEDS ORDERED: Ibuprofen 200 MG TAB PO SCH (21:15)
[2020-06-29] MEDS: Labetalol HCl 100 MG/20 ML VIAL SLOW IVP PRN ×4 (01:01→13:09)
[2020-06-29] MEDS: hydrALAZINE 20 MG/ML VIAL SLOW IVP PRN ×3 (01:06→10:03)
[2020-06-29] MEDS: Meclizine HCl 12.5 MG TAB PO PRN ×3 (04:05→19:33)
[2020-06-29 05:32] LABS: #Monocytes 0.6 thou/uL (0.11-0.59); #Neutrophils 2.4 thou/uL (1.40-6.50); %Basophils 0.2 % (0.0-1.0); %Eosinophils 0.3 % (0.0-10.0); %Monocytes 14.3 % (0.0-10.0); %Neutrophils 61.2 % (42.0-75.0); Hemoglobin 12.8 g/dL (12.0-16.0); Mean Corpuscular HGB CONC 33.4 g/dL (32.0-36.0); Mean Corpuscular Hemoglobin 31.8 pg (27.0-31.0); Mean Corpuscular Volume 95.2 fL (78.0-98.0); Mean Platelet Volume 8.6 fL (7.4-10.4); Platelet Count 144 thou/uL (130-400); RBC Distribution Width 13.4 % (11.5-14.5); Red Blood Cell (RBC) Count 4.04 mill/uL (4.20-5.40)
[2020-06-29] MEDS: Apixaban 5 MG TAB PO SCH ×2 (08:57→19:36)
[2020-06-29] MEDS: Aspirin 325 mg Enteric Coated Tablet PO SCH (08:57)
[2020-06-29] MEDS: Furosemide 20 MG TAB PO SCH ×2 (08:57→19:36)
[2020-06-29] MEDS: Ondansetron PF 4 MG/2 ML Vial IVP SCH ×3 (11:34→19:34)
[2020-06-29] MEDS ORDERED: Aspirin/APAP/Caffeine Tab (Excedrin Migraine) PO PRN (11:56)
[2020-06-29] MEDS ORDERED: HYDROcodone/Acetaminophen 5/325 mg Tablet PO PRN (11:56)
[2020-06-29] MEDS ORDERED: HYDROcodone/Acetaminophen 5/325 mg Tablet PO SCH (12:00)
[2020-06-29] MEDS ORDERED: Losartan 25 MG TAB PO SCH (13:15)
[2020-06-29] MEDS ORDERED: Potassium Chloride 20 MEQ TAB PO SCH (14:15)
[2020-06-29] MEDS: hydrALAZINE 25 MG TAB PO SCH ×2 (15:24→19:35)
[2020-06-29] MEDS: Atorvastatin Calcium 40 MG TAB PO SCH (19:34)
[2020-06-29] MEDS: traZODone HCl 50 MG TAB PO SCH (19:36)
[2020-06-30] MEDS: Ondansetron PF 4 MG/2 ML Vial IVP SCH ×3 (02:08→08:21)
[2020-06-30] MEDS: hydrALAZINE 20 MG/ML VIAL SLOW IVP PRN (04:32)
[2020-06-30 05:28] LABS: Anion Gap 14 mmol/L (10-20); BUN (Urea Nitrogen) 20 mg/dL (9.8-20.1); Calc. Creatinine Clearance 73 mL/min (70-130); Calcium 8.3 mg/dL (7.8-10.44); Carbon Dioxide 21 mmol/L (23-31); Chloride 110 mmol/L (98-107); Glucose 78 mg/dL (80-115); Magnesium 1.9 mg/dL (1.6-2.6); Potassium 3.8 mmol/L (3.5-5.1); Sodium 141 mmol/L (136-145)
[2020-06-30] MEDS: Losartan 25 MG TAB PO SCH (08:15)
[2020-06-30] MEDS: Aspirin 325 mg Enteric Coated Tablet PO SCH (08:16)
[2020-06-30] MEDS: Furosemide 20 MG TAB PO SCH ×2 (08:16→20:01)
[2020-06-30] MEDS: Apixaban 5 MG TAB PO SCH ×2 (08:16→20:00)
[2020-06-30] MEDS: hydrALAZINE 25 MG TAB PO SCH ×3 (08:16→20:00)
[2020-06-30] MEDS: Meclizine HCl 12.5 MG TAB PO PRN (08:21)
[2020-06-30] MEDS: traZODone HCl 50 MG TAB PO SCH (20:01)
[2020-06-30] MEDS ORDERED: Atorvastatin Calcium 40 MG TAB PO SCH (21:00)
[2020-07-01 05:16] LABS: Anion Gap 12 mmol/L (10-20); BUN (Urea Nitrogen) 23 mg/dL (9.8-20.1); Calc. Creatinine Clearance 68 mL/min (70-130); Calcium 8.7 mg/dL (7.8-10.44); Carbon Dioxide 25 mmol/L (23-31); Chloride 108 mmol/L (98-107); Glucose 80 mg/dL (80-115); Potassium 3.8 mmol/L (3.5-5.1); Sodium 141 mmol/L (136-145)
[2020-07-01 08:25] VITALS: BP 176/98; TEMP 96.7
[2020-07-01] MEDS ORDERED: Aspirin 81 mg Enteric Coated Tablet PO SCH (09:00)
[2020-07-01] MEDS ORDERED: hydrALAZINE 25 MG TAB PO SCH (09:00)
[2020-07-01] MEDS: Losartan 25 MG TAB PO SCH (09:06)
[2020-07-01] MEDS: Apixaban 5 MG TAB PO SCH (09:06)
[2020-07-01] MEDS: Furosemide 20 MG TAB PO SCH (09:06)
== END 2020-07-01 12:49 | disposition home or self-care (01) | DRG 309 ==
LOC: ERS 13:08 → ERHOLD 17:44 → 2SE 23:46 → OBSVTOIN 06-29 13:06
PROVIDERS: ADMIT Internal Medicine; ATTEND Hospitalist
DX: R00.1 Bradycardia, unspecified (principal); I16.1 Hypertensive emergency; I50.32 Chronic diastolic (congestive) heart failure; I24.8 Other forms of acute ischemic heart disease; Z20.822 Contact with and (suspected) exposure to COVID-19; K21.9 Gastro-esophageal reflux disease without esophagitis; E78.5 Hyperlipidemia, unspecified; J44.9 Chronic obstructive pulmonary disease, unspecified; I25.10 Atherosclerotic heart disease of native coronary artery without angina pectoris; G89.4 Chronic pain syndrome; E11.9 Type 2 diabetes mellitus without complications; I11.0 Hypertensive heart disease with heart failure; I48.0 Paroxysmal atrial fibrillation; G40.909 Epilepsy, unspecified, not intractable, without status epilepticus; E78.00 Pure hypercholesterolemia, unspecified; I34.0 Nonrheumatic mitral (valve) insufficiency; I49.5 Sick sinus syndrome; Z88.8 Allergy status to other drugs, medicaments and biological substances; Z91.040 Latex allergy status; Z79.01 Long term (current) use of anticoagulants; Z79.82 Long term (current) use of aspirin; Z79.52 Long term (current) use of systemic steroids; Z79.899 Other long term (current) drug therapy; I25.2 Old myocardial infarction; Z86.73 Personal history of transient ischemic attack (TIA), and cerebral infarction without residual deficits; Z86.711 Personal history of pulmonary embolism; Z90.49 Acquired absence of other specified parts of digestive tract; Z90.710 Acquired absence of both cervix and uterus; Z89.422 Acquired absence of other left toe(s); Z91.19 Patient's noncompliance with other medical treatment and regimen
CPT/HCPCS: 36415; 36416; 70450; 70496; 70498; 70551; 71045; 76770; 80048; 80053; 80061; 80306; 81001; 82550; 82553; 83735; 83880; 84484; 85025; 87635; 93005; 93306; 93975; 95712; 95819; 95957; 96365; 96375; 96376; G0378; J0360; J2060; J2405; J3475; J7512; Q9967; U0003; U0005

== ENCOUNTER 2020-12-14 16:03 | Inpatient (IN) | payer MEDICARE, MEDICAID ==
[2020-12-14 16:51] LABS: Bacteria/HPF None Seen HPF (None Seen); Bilirubin Negative (Negative); Blood, Urine Negative (Negative); Clarity Clear (Clear); Glucose, Urine (Dipstick) Normal (Negative); Ketone, Urine Negative (Negative); Leukocyte Negative Leu/uL (Negative); Nitrite Negative (Negative); Protein, Urine (Dipstick) 30 mg/dL (Neg-Trace); RBC/HPF 0-3 HPF (0-3); Specific Gravity, Urine 1.007 (1.002-1.036); Squamous Epithelial 0-3 HPF (0-3); Urobilinogen Normal mg/dL (Less than 2); WBC/HPF None Seen HPF (0-3); pH, Urine 7.5 (5.0-9.0)
[2020-12-14] MEDS ORDERED: Magnesium 2 GM/50 ML BAG (IN WATER) ONE (16:52)
[2020-12-14 17:09] LABS: Hemoglobin 13.6 g/dL (12.0-16.0); Mean Corpuscular Hemoglobin 31.3 pg (27.0-31.0); Mean Corpuscular Volume 97.8 fL (78.0-98.0); RBC Distribution Width 13.4 % (11.5-14.5); Red Blood Cell (RBC) Count 4.34 mill/uL (4.20-5.40); White Blood Cell (WBC) Count 5.5 thou/uL (4.8-10.8)
[2020-12-14 17:26] LABS: #Basophils 0.1 thou/uL (0.0-0.2); #Eosinphils 0.1 thou/uL (0.0-0.7); #Lymphocytes 0.9 thou/uL (1.20-3.40); #Monocytes 0.5 thou/uL (0.11-0.59); #Neutrophils 3.9 thou/uL (1.40-6.50); %Basophils 1.4 % (0.0-1.0); %Eosinophils 2.2 % (0.0-10.0); %Lymphocytes 16.5 % (21.0-51.0); %Monocytes 9.8 % (0.0-10.0); %Neutrophils 70.1 % (42.0-75.0); Mean Platelet Volume 9.2 fL (7.4-10.4); Platelet Count 116 thou/uL (130-400); Platelet Morphology Comment Appears Decreased; RBC Morphology Normal
[2020-12-14] MEDS ORDERED: cloNIDine 0.1 MG TAB ONE (18:02)
[2020-12-14 18:37] LABS: ALT (SGPT) 12 U/L (8-55); AST (SGOT) 20 U/L (5-34); Albumin 3.7 g/dL (3.4-4.8); Alkaline Phosphatase 84 U/L (40-110); Anion Gap 15 mmol/L (10-20); BUN (Urea Nitrogen) 23 mg/dL (9.8-20.1); Bilirubin, Total 0.7 mg/dL (0.2-1.2); CK (CPK) 75 U/L (29-168); Calc. Creatinine Clearance 0 mL/min (70-130); Calcium 8.7 mg/dL (7.8-10.44); Carbon Dioxide 20 mmol/L (23-31); Chloride 107 mmol/L (98-107); Globulin 3.1 g/dL (2.4-3.5); Glucose 83 mg/dL (80-115); Lipase 43 U/L (8-78); Potassium 3.6 mmol/L (3.5-5.1); Protein, Total 6.8 g/dL (5.8-8.1); Sodium 138 mmol/L (136-145)
[2020-12-14] MEDS ORDERED: niCARdipine 20MG In NaCl 20 MG/200 ML BAG ONE ×3 (19:20→23:41)
[2020-12-14 19:37] LABS: Amphetamine Not Detected (NotDetected); Barbiturates Screen Not Detected (NotDetected); Benzodiazepine Screen Not Detected (NotDetected); Cocaine Metabolite Screen Not Detected (NotDetected); Methadone Not Detected (NotDetected); Methamphetamine Not Detected (NotDetected); Opiate Screen Detected (NotDetected); Oxycodone Screen Not Detected (NotDetected); Phencyclidine (PCP) Not Detected (NotDetected); THC/Cannabinoid Screen Detected (NotDetected); Tricyclic Screen Not Detected (NotDetected)
[2020-12-14] MEDS ORDERED: Morphine 2 MG/ML VIAL ONE (20:02)
[2020-12-14 20:20] LABS: Alcohol Less than 10 mg/dL (Less than 10)
[2020-12-14 20:22] LABS: Acetaminophen Less than 6.0 mcg/mL (10.0-30.0); Salicylate Less than 8.0 mg/dL (15.0-30.0)
[2020-12-14 20:32] LABS: SARS-CoV-2 NAA Rapid Test DETECTED (NotDetected)
[2020-12-14] MEDS ORDERED: Zolpidem Tartrate 5 MG TAB PO PRN (20:39)
[2020-12-14] MEDS ORDERED: Acetaminophen 325 MG TAB PO PRN (20:39)
[2020-12-14] MEDS ORDERED: Bisacodyl 5 MG TAB PO PRN (20:39)
[2020-12-14] MEDS ORDERED: Amlodipine 10 MG TAB PO SCH (20:45)
[2020-12-14] MEDS ORDERED: HumaLOG 300 UNITS/3 ML VIAL SC PRN (20:53)
[2020-12-14] MEDS ORDERED: GUAIFENESIN SF SOLN 200 MG/10 ML UDCUP PO PRN (20:53)
[2020-12-14] MEDS ORDERED: Amlodipine 5 MG TAB ONE (22:44)
[2020-12-14] MEDS: Apixaban 5 MG TAB PO SCH (23:18)
[2020-12-14] MEDS: Famotidine 20 MG TAB PO SCH (23:18)
[2020-12-14] MEDS: traZODone HCl 50 MG TAB PO SCH (23:19)
[2020-12-14] MEDS: guaiFENesin ER 600 MG TAB PO SCH (23:19)
[2020-12-14] MEDS: hydrALAZINE 25 MG TAB PO SCH (23:19)
[2020-12-15] MEDS ORDERED: niCARdipine 50 MG in Sodium Chloride 0.9% 250 ML 230 ML IV SCH (02:30)
[2020-12-15] MEDS: HYDROcodone/Acetaminophen 7.5/325 mg Tablet PO PRN ×3 (02:32→21:13)
[2020-12-15 04:29] LABS: Troponin I 0.026 ng/mL (< 0.028)
[2020-12-15 05:01] LABS: Eosinophils 1 % (0-10); Hemoglobin 11.5 g/dL (12.0-16.0); Lymphocytes 26 % (21-51); MDiff Complete? YES; Mean Corpuscular HGB CONC 32.7 g/dL (32.0-36.0); Mean Corpuscular Hemoglobin 31.9 pg (27.0-31.0); Mean Corpuscular Volume 97.6 fL (78.0-98.0); Mean Platelet Volume 9.2 fL (7.4-10.4); Monocytes 13 % (0-10); Neutrophil 58 % (42-75); Platelet Count 105 thou/uL (130-400); Platelet Morphology Comment Appears Decreased; RBC Distribution Width 13.2 % (11.5-14.5); RBC Morphology Normal; Reactive Lymphocytes 2 % (0-10); Red Blood Cell (RBC) Count 3.61 mill/uL (4.20-5.40); White Blood Cell (WBC) Count 3.4 thou/uL (4.8-10.8)
[2020-12-15] MEDS ORDERED: Acetaminophen/Codeine 30-300mg Tablet PO PRN (08:03)
[2020-12-15] MEDS: Dexamethasone 1 MG TAB PO SCH ×2 (08:46→17:26)
[2020-12-15] MEDS: Famotidine 20 MG TAB PO SCH ×2 (08:47→20:56)
[2020-12-15] MEDS: Zinc Sulfate 220 MG CAP PO SCH (08:47)
[2020-12-15] MEDS: Amlodipine 10 MG TAB PO SCH (08:47)
[2020-12-15] MEDS: guaiFENesin ER 600 MG TAB PO SCH ×2 (08:47→21:00)
[2020-12-15] MEDS: Aspirin 81 mg Enteric Coated Tablet PO SCH (08:47)
[2020-12-15] MEDS: Apixaban 5 MG TAB PO SCH ×2 (08:48→20:57)
[2020-12-15] MEDS: hydrALAZINE 25 MG TAB PO SCH ×3 (08:48→20:56)
[2020-12-15] MEDS ORDERED: Ondansetron ORAL SOLN. 4 MG/5 ML UDCUP PO PRN (15:06)
[2020-12-15] MEDS ORDERED: Benzonatate 100 MG CAP PO PRN (15:08)
[2020-12-15] MEDS: Doxycycline 100 MG CAP PO SCH (20:56)
[2020-12-15] MEDS: Atorvastatin Calcium 40 MG TAB PO SCH (20:57)
[2020-12-15] MEDS: traZODone HCl 50 MG TAB PO SCH (20:57)
[2020-12-15] MEDS: Pregabalin 75 MG CAP PO SCH (20:57)
[2020-12-16] MEDS: hydrALAZINE 20 MG/ML VIAL SLOW IVP PRN ×2 (04:03→13:33)
[2020-12-16] MEDS ORDERED: Carvedilol 25 MG TAB PO SCH (09:30)
[2020-12-16] MEDS: hydrALAZINE 25 MG TAB PO SCH ×3 (09:42→19:55)
[2020-12-16] MEDS: Aspirin 81 mg Enteric Coated Tablet PO SCH (09:42)
[2020-12-16] MEDS: Dexamethasone 1 MG TAB PO SCH (09:44)
[2020-12-16] MEDS: Zinc Sulfate 220 MG CAP PO SCH (09:44)
[2020-12-16] MEDS: guaiFENesin ER 600 MG TAB PO SCH ×2 (09:45→21:47)
[2020-12-16] MEDS: Apixaban 5 MG TAB PO SCH ×2 (09:46→21:47)
[2020-12-16] MEDS: Famotidine 20 MG TAB PO SCH ×2 (09:47→19:57)
[2020-12-16] MEDS: Doxycycline 100 MG CAP PO SCH ×2 (09:48→19:56)
[2020-12-16] MEDS: Amlodipine 10 MG TAB PO SCH (09:49)
[2020-12-16] MEDS ORDERED: Lorazepam 0.5 MG TAB PO PRN (14:02)
[2020-12-16] MEDS: Carvedilol 25 MG TAB PO SCH (15:59)
[2020-12-16] MEDS: Atorvastatin Calcium 40 MG TAB PO SCH (19:55)
[2020-12-16] MEDS: traZODone HCl 50 MG TAB PO SCH (19:56)
[2020-12-16] MEDS: Pregabalin 75 MG CAP PO SCH (19:56)
[2020-12-16] MEDS: Acetaminophen/Codeine 30-300mg Tablet PO PRN (20:22)
[2020-12-17] MEDS: hydrALAZINE 25 MG TAB PO SCH ×2 (08:09→16:26)
[2020-12-17] MEDS: Aspirin 81 mg Enteric Coated Tablet PO SCH (08:09)
[2020-12-17] MEDS: Famotidine 20 MG TAB PO SCH (08:11)
[2020-12-17] MEDS: guaiFENesin ER 600 MG TAB PO SCH (08:11)
[2020-12-17] MEDS: Carvedilol 25 MG TAB PO SCH ×2 (08:12→16:26)
[2020-12-17] MEDS: Amlodipine 10 MG TAB PO SCH (08:13)
[2020-12-17] MEDS: Zinc Sulfate 220 MG CAP PO SCH (08:13)
[2020-12-17] MEDS: Apixaban 5 MG TAB PO SCH (08:13)
[2020-12-17] MEDS: Doxycycline 100 MG CAP PO SCH (08:14)
[2020-12-17] MEDS: Acetaminophen/Codeine 30-300mg Tablet PO PRN (16:29)
[2020-12-17 16:58] VITALS: TEMP 98.3
[2020-12-17 18:20] VITALS: BP 165/79
[2020-12-17] MEDS ORDERED: Pregabalin 50 MG CAP PO SCH (21:00)
[2020-12-17] MEDS ORDERED: Pregabalin 75 MG CAP PO SCH (21:00)
== END 2020-12-17 19:21 | disposition home or self-care (01) | DRG 177 ==
LOC: ERS 16:03 → ERHOLD 19:44 → CCU 12-15 02:14 → 2SW 12-15 10:44
PROVIDERS: ADMIT Internal Medicine; ATTEND Internal Medicine
PROC: 8E0ZXY6 Isolation (ICD-10-PCS; principal; 2020-12-14)
DX: U07.1 COVID-19 (principal); J12.82 Pneumonia due to coronavirus disease 2019; D61.818 Other pancytopenia; J81.1 Chronic pulmonary edema; I48.91 Unspecified atrial fibrillation; I25.10 Atherosclerotic heart disease of native coronary artery without angina pectoris; J44.9 Chronic obstructive pulmonary disease, unspecified; I12.9 Hypertensive chronic kidney disease with stage 1 through stage 4 chronic kidney disease, or unspecified chronic kidney disease; E11.22 Type 2 diabetes mellitus with diabetic chronic kidney disease; N18.30 Chronic kidney disease, stage 3 unspecified; F12.10 Cannabis abuse, uncomplicated; I16.0 Hypertensive urgency; G89.4 Chronic pain syndrome; K21.9 Gastro-esophageal reflux disease without esophagitis; Z91.040 Latex allergy status; Z88.8 Allergy status to other drugs, medicaments and biological substances; Z79.01 Long term (current) use of anticoagulants; Z79.82 Long term (current) use of aspirin; Z79.899 Other long term (current) drug therapy; Z90.49 Acquired absence of other specified parts of digestive tract; Z90.710 Acquired absence of both cervix and uterus; Z86.711 Personal history of pulmonary embolism; Z71.51 Drug abuse counseling and surveillance of drug abuser
CPT/HCPCS: 36415; 36416; 71045; 80053; 80306; 80307; 81003; 81015; 82550; 83690; 83880; 84443; 84484; 85007; 85025; 85027; 93005; 96365; 96366; 96367; 96375; J0360; J2270; J3475; J8540; U0002

== ENCOUNTER 2021-05-04 09:50 | Inpatient (IN) | payer MEDICARE, MEDICAID ==
[2021-05-04] MEDS ORDERED: Labetalol HCl 100 MG/20 ML VIAL ONE ×2 (10:30→10:31)
[2021-05-04] MEDS ORDERED: Ondansetron PF 4 MG/2 ML Vial ONE (10:30)
[2021-05-04 10:44] LABS: #Eosinphils 0.1 thou/uL (0.0-0.7); #Lymphocytes 1.7 thou/uL (1.20-3.40); #Monocytes 0.7 thou/uL (0.11-0.59); #Neutrophils 5.2 thou/uL (1.40-6.50); %Basophils 0.2 % (0.0-1.0); %Eosinophils 0.9 % (0.0-10.0); %Lymphocytes 21.8 % (21.0-51.0); %Monocytes 9.2 % (0.0-10.0); Mean Corpuscular HGB CONC 32.5 g/dL (32.0-36.0); Mean Corpuscular Hemoglobin 31.5 pg (27.0-31.0); Mean Corpuscular Volume 97.2 fL (78.0-98.0); Mean Platelet Volume 8.1 fL (7.4-10.4); Platelet Count 168 thou/uL (130-400); RBC Distribution Width 14.1 % (11.5-14.5); Red Blood Cell (RBC) Count 4.74 mill/uL (4.20-5.40); White Blood Cell (WBC) Count 7.6 thou/uL (4.8-10.8)
[2021-05-04 10:55] LABS: Bacteria/HPF None Seen HPF (None Seen); Bilirubin Negative (Negative); Blood, Urine Trace (Negative); Clarity Clear (Clear); Glucose, Urine (Dipstick) Normal (Negative); Ketone, Urine Negative (Negative); Leukocyte Negative Leu/uL (Negative); Nitrite Negative (Negative); Protein, Urine (Dipstick) 100 mg/dL (Neg-Trace); RBC/HPF 0-3 HPF (0-3); Specific Gravity, Urine 1.007 (1.002-1.036); Squamous Epithelial 0-3 HPF (0-3); Urobilinogen Normal mg/dL (Less than 2); WBC/HPF 0-3 HPF (0-3)
[2021-05-04 11:00] LABS: Acetaminophen Less than 6.0 mcg/mL (10.0-30.0); Alcohol 157 mg/dL (Less than 10); Salicylate Less than 8.0 mg/dL (15.0-30.0)
[2021-05-04 11:03] LABS: Amphetamine Not Detected (NotDetected); Barbiturates Screen Not Detected (NotDetected); Benzodiazepine Screen Not Detected (NotDetected); Cocaine Metabolite Screen Not Detected (NotDetected); Methadone Not Detected (NotDetected); Methamphetamine Not Detected (NotDetected); Opiate Screen Not Detected (NotDetected); Oxycodone Screen Not Detected (NotDetected); Phencyclidine (PCP) Not Detected (NotDetected); THC/Cannabinoid Screen Detected (NotDetected); Tricyclic Screen Not Detected (NotDetected)
[2021-05-04 11:03] LABS: ALT (SGPT) 7 U/L (8-55); AST (SGOT) 18 U/L (5-34); Alkaline Phosphatase 86 U/L (40-110); Anion Gap 22 mmol/L (10-20); BUN (Urea Nitrogen) 18 mg/dL (9.8-20.1); Bilirubin, Total 0.5 mg/dL (0.2-1.2); CK (CPK) 90 U/L (29-168); Calc. Creatinine Clearance 0 mL/min (70-130); Calcium 9.1 mg/dL (7.8-10.44); Carbon Dioxide 15 mmol/L (23-31); Chloride 107 mmol/L (98-107); Globulin 3.7 g/dL (2.4-3.5); Glucose 140 mg/dL (80-115); Potassium 3.7 mmol/L (3.5-5.1); Protein, Total 7.7 g/dL (5.8-8.1); Sodium 140 mmol/L (136-145)
[2021-05-04 11:28] LABS: CKMB 2.1 ng/mL (0-6.6)
[2021-05-04] MEDS ORDERED: Magnesium 2 GM/50 ML BAG (IN WATER) ONE (11:50)
[2021-05-04] MEDS ORDERED: Aspirin Chewable 81 MG TAB ONE (13:16)
[2021-05-04 15:26] LABS: Troponin I 0.055 ng/mL (< 0.028)
[2021-05-04] MEDS ORDERED: Ondansetron PF 4 MG/2 ML Vial IVP PRN (16:15)
[2021-05-04] MEDS ORDERED: Sodium Chloride 0.9% 1,000 ML IV SCH (16:15)
[2021-05-04] MEDS ORDERED: Amlodipine 10 MG TAB PO SCH (16:15)
[2021-05-04] MEDS ORDERED: Dextrose 5% in Water 1,000 ML IV PRN (16:27)
[2021-05-04] MEDS ORDERED: Dextrose 50% Abboject 50 ML SYRINGE SLOW IVP PRN (16:27)
[2021-05-04] MEDS ORDERED: HumaLOG 300 UNITS/3 ML VIAL SC PRN (16:27)
[2021-05-04] MEDS ORDERED: Amlodipine 5 MG TAB ONE (17:11)
[2021-05-04] MEDS ORDERED: Acetaminophen 325 MG TAB ONE (17:28)
[2021-05-04] MEDS: Carvedilol 25 MG TAB PO SCH (20:39)
[2021-05-04] MEDS: Apixaban 5 MG TAB PO SCH (20:41)
[2021-05-04] MEDS: Atorvastatin Calcium 40 MG TAB PO SCH (20:41)
[2021-05-04] MEDS: Pregabalin 75 MG CAP PO SCH (20:42)
[2021-05-04] MEDS: Fioricet 325/50/40 mg Tablet PO PRN (20:44)
[2021-05-04 20:51] VITALS: BMI 32.5
[2021-05-05 05:05] LABS: Hemoglobin 12.6 g/dL (12.0-16.0); Mean Corpuscular HGB CONC 31.9 g/dL (32.0-36.0); Mean Corpuscular Hemoglobin 31.5 pg (27.0-31.0); Mean Corpuscular Volume 98.6 fL (78.0-98.0); Mean Platelet Volume 8.4 fL (7.4-10.4); Platelet Count 145 thou/uL (130-400); Red Blood Cell (RBC) Count 4.02 mill/uL (4.20-5.40); White Blood Cell (WBC) Count 4.8 thou/uL (4.8-10.8)
[2021-05-05 05:10] LABS: Anion Gap 13 mmol/L (10-20); BUN (Urea Nitrogen) 25 mg/dL (9.8-20.1); Calc. Creatinine Clearance 47 mL/min (70-130); Calcium 8.5 mg/dL (7.8-10.44); Carbon Dioxide 23 mmol/L (23-31); Chloride 106 mmol/L (98-107); Glucose 106 mg/dL (80-115); Potassium 3.6 mmol/L (3.5-5.1); Sodium 138 mmol/L (136-145)
[2021-05-05 06:00] LABS: Band 5 % (5-11); Eosinophils 2 % (0-10); Lymphocytes 27 % (21-51); MDiff Complete? YES; Monocytes 12 % (0-10); Neutrophil 54 % (42-75)
[2021-05-05] MEDS ORDERED: Sodium Chloride 0.9% 1,000 ML IV SCH (08:00)
[2021-05-05] MEDS: Carvedilol 25 MG TAB PO SCH ×2 (08:43→17:03)
[2021-05-05] MEDS: Apixaban 5 MG TAB PO SCH ×2 (08:43→20:41)
[2021-05-05] MEDS: Aspirin 81 mg Enteric Coated Tablet PO SCH (08:43)
[2021-05-05] MEDS: Amlodipine 10 MG TAB PO SCH (08:43)
[2021-05-05] MEDS: Sodium Chloride 0.9% 1,000 ML IV SCH ×2 (14:02→20:42)
[2021-05-05 14:33] LABS: Creatinine, Urine 135.14 mg/dL (47-110); Sodium, Urine Less than 20 mmol/L (Not Available); Urea Nitrogen, Random Urine 705 mg/dl
[2021-05-05 15:13] LABS: SARS-CoV-2 PCR by NAA Not Detected (NotDetected)
[2021-05-05] MEDS: Atorvastatin Calcium 40 MG TAB PO SCH (20:40)
[2021-05-05] MEDS: Pregabalin 75 MG CAP PO SCH (20:40)
[2021-05-05] MEDS ORDERED: traZODone HCl 50 MG TAB PO SCH (23:16)
[2021-05-06 05:16] LABS: Anion Gap 11 mmol/L (10-20); BUN (Urea Nitrogen) 23 mg/dL (9.8-20.1); Calc. Creatinine Clearance 66 mL/min (70-130); Calcium 8.5 mg/dL (7.8-10.44); Carbon Dioxide 25 mmol/L (23-31); Chloride 108 mmol/L (98-107); Glucose 78 mg/dL (80-115); Potassium 3.8 mmol/L (3.5-5.1); Sodium 140 mmol/L (136-145)
[2021-05-06 07:35] LABS: #Eosinphils 0.1 thou/uL (0.0-0.7); #Lymphocytes 1.2 thou/uL (1.20-3.40); #Monocytes 0.6 thou/uL (0.11-0.59); #Neutrophils 2.3 thou/uL (1.40-6.50); %Basophils 0.2 % (0.0-1.0); %Eosinophils 2.5 % (0.0-10.0); %Lymphocytes 29.7 % (21.0-51.0); %Monocytes 13.7 % (0.0-10.0); %Neutrophils 53.9 % (42.0-75.0); Hemoglobin 11.7 g/dL (12.0-16.0); Mean Corpuscular HGB CONC 33.1 g/dL (32.0-36.0); Mean Corpuscular Hemoglobin 32.8 pg (27.0-31.0); Mean Corpuscular Volume 99.1 fL (78.0-98.0); Mean Platelet Volume 8.6 fL (7.4-10.4); Platelet Count 109 thou/uL (130-400); RBC Distribution Width 13.8 % (11.5-14.5); Red Blood Cell (RBC) Count 3.55 mill/uL (4.20-5.40); White Blood Cell (WBC) Count 4.2 thou/uL (4.8-10.8)
[2021-05-06] MEDS: Aspirin 81 mg Enteric Coated Tablet PO SCH (08:42)
[2021-05-06] MEDS: Amlodipine 10 MG TAB PO SCH (08:42)
[2021-05-06] MEDS: Carvedilol 25 MG TAB PO SCH ×2 (08:42→18:07)
[2021-05-06] MEDS: Apixaban 5 MG TAB PO SCH ×2 (08:43→20:46)
[2021-05-06] MEDS: Sodium Chloride 0.9% 1,000 ML IV SCH ×3 (08:45→22:52)
[2021-05-06 09:34] LABS: MDiff Complete? YES; Macrocytosis SLIGHT = 6-15 cells (100X) (0-5/hpf); Ovalocytes SLIGHT = 2-5 cells (100X) (0-1/hpf); Platelet Morphology Comment Appears Decreased; Polychromasia SLIGHT = 2-3 cells (100X) (0-2/hpf); Target Cells SLIGHT = 2-5 cells (100X) (0-1/hpf); Tear Drops SLIGHT = 2-5 cells (100X) (0-1/hpf)
[2021-05-06] MEDS ORDERED: Regadenoson 0.4 MG/5 ML SYRINGE ONE (09:35)
[2021-05-06] MEDS: hydrALAZINE 20 MG/ML VIAL SLOW IVP PRN ×3 (09:57→22:59)
[2021-05-06] MEDS: hydrALAZINE 25 MG TAB PO SCH (20:45)
[2021-05-06] MEDS: traZODone HCl 50 MG TAB PO SCH (20:45)
[2021-05-06] MEDS: Atorvastatin Calcium 40 MG TAB PO SCH (20:45)
[2021-05-06] MEDS: Pregabalin 75 MG CAP PO SCH (20:46)
[2021-05-06] MEDS: Fioricet 325/50/40 mg Tablet PO PRN (23:59)
[2021-05-07] MEDS: Sodium Chloride 0.9% 1,000 ML IV SCH ×2 (04:00→06:01)
[2021-05-07 05:21] LABS: Anion Gap 10 mmol/L (10-20); BUN (Urea Nitrogen) 18 mg/dL (9.8-20.1); Calc. Creatinine Clearance 71 mL/min (70-130); Calcium 8.3 mg/dL (7.8-10.44); Carbon Dioxide 25 mmol/L (23-31); Chloride 110 mmol/L (98-107); Glucose 79 mg/dL (80-115); Potassium 3.8 mmol/L (3.5-5.1); Sodium 141 mmol/L (136-145)
[2021-05-07 05:49] LABS: Eosinophils 1 % (0-10); Hemoglobin 11.1 g/dL (12.0-16.0); Lymphocytes 35 % (21-51); MDiff Complete? YES; Mean Corpuscular HGB CONC 31.9 g/dL (32.0-36.0); Mean Corpuscular Hemoglobin 31.5 pg (27.0-31.0); Mean Corpuscular Volume 98.6 fL (78.0-98.0); Mean Platelet Volume 8.8 fL (7.4-10.4); Monocytes 13 % (0-10); Neutrophil 50 % (42-75); Platelet Count 100 thou/uL (130-400); Platelet Morphology Comment Appears Decreased; RBC Distribution Width 13.7 % (11.5-14.5); Red Blood Cell (RBC) Count 3.53 mill/uL (4.20-5.40); White Blood Cell (WBC) Count 3.5 thou/uL (4.8-10.8)
[2021-05-07] MEDS: hydrALAZINE 25 MG TAB PO SCH ×3 (06:02→20:38)
[2021-05-07] MEDS: Aspirin 81 mg Enteric Coated Tablet PO SCH (06:02)
[2021-05-07] MEDS: Carvedilol 25 MG TAB PO SCH ×2 (06:03→17:32)
[2021-05-07] MEDS: Amlodipine 10 MG TAB PO SCH (06:03)
[2021-05-07] MEDS ORDERED: Heparin 10,000 UNITS/ 10 ML VIAL ONE (07:21)
[2021-05-07] MEDS ORDERED: Verapamil 5 MG/2 ML VIAL ONE (07:21)
[2021-05-07] MEDS ORDERED: Nitroglycerin 100MG/250ML BOT 250 ML ONE (07:22)
[2021-05-07] MEDS ORDERED: Midazolam HCl 2 mg/2 ml Vial ONE (07:49)
[2021-05-07] MEDS ORDERED: Fentanyl 100 MCG/2 ML VIAL ONE (07:49)
[2021-05-07] MEDS ORDERED: Ondansetron PF 4 MG/2 ML Vial ONE (08:02)
[2021-05-07] MEDS ORDERED: Atropine Sulfate 1 mg/10 ml Syringe ONE (08:02)
[2021-05-07] MEDS ORDERED: Adenosine 6 MG/2 ML VIAL ONE (08:03)
[2021-05-07] MEDS ORDERED: Clopidogrel Bisulfate 300 MG TAB ONE ×2 (08:22)
[2021-05-07] MEDS ORDERED: Sodium Chloride 0.9% 1,000 ML IV SCH (08:30)
[2021-05-07] MEDS: Clopidogrel Bisulfate 75 MG TAB PO SCH (09:42)
[2021-05-07] MEDS ORDERED: PROPOFOL 200 MG/20 ML VIAL ONE (11:05)
[2021-05-07] MEDS ORDERED: Iopamidol 370 76% 100 ML VIAL ONE (11:32)
[2021-05-07] MEDS: hydrALAZINE 20 MG/ML VIAL SLOW IVP PRN (12:12)
[2021-05-07] MEDS ORDERED: NIFEdipine XL 60 MG TAB PO SCH (13:45)
[2021-05-07] MEDS: Atorvastatin Calcium 40 MG TAB PO SCH (20:38)
[2021-05-07] MEDS: Pregabalin 75 MG CAP PO SCH (20:39)
[2021-05-07] MEDS: traZODone HCl 50 MG TAB PO SCH (20:39)
[2021-05-07] MEDS: NIFEdipine XL 60 MG TAB PO SCH (20:39)
[2021-05-07] MEDS: Fioricet 325/50/40 mg Tablet PO PRN (21:39)
[2021-05-08 05:10] LABS: #Eosinphils 0.1 thou/uL (0.0-0.7); #Lymphocytes 0.9 thou/uL (1.20-3.40); #Monocytes 0.6 thou/uL (0.11-0.59); #Neutrophils 2.6 thou/uL (1.40-6.50); %Eosinophils 1.6 % (0.0-10.0); %Lymphocytes 21.2 % (21.0-51.0); %Monocytes 13.4 % (0.0-10.0); %Neutrophils 63.7 % (42.0-75.0); Hemoglobin 11.6 g/dL (12.0-16.0); Mean Corpuscular Hemoglobin 32.4 pg (27.0-31.0); Mean Corpuscular Volume 98.1 fL (78.0-98.0); Mean Platelet Volume 9.7 fL (7.4-10.4); Platelet Count 95 thou/uL (130-400); RBC Distribution Width 13.7 % (11.5-14.5); Red Blood Cell (RBC) Count 3.59 mill/uL (4.20-5.40); White Blood Cell (WBC) Count 4.1 thou/uL (4.8-10.8)
[2021-05-08 05:39] LABS: ALT (SGPT) Less than 7 U/L (8-55); AST (SGOT) 14 U/L (5-34); Albumin 3.2 g/dL (3.4-4.8); Alkaline Phosphatase 67 U/L (40-110); Anion Gap 13 mmol/L (10-20); BUN (Urea Nitrogen) 16 mg/dL (9.8-20.1); Bilirubin, Total 0.4 mg/dL (0.2-1.2); Calc. Creatinine Clearance 69 mL/min (70-130); Calcium 8.4 mg/dL (7.8-10.44); Carbon Dioxide 19 mmol/L (23-31); Chloride 111 mmol/L (98-107); Globulin 3.1 g/dL (2.4-3.5); Glucose 89 mg/dL (80-115); Potassium 3.8 mmol/L (3.5-5.1); Protein, Total 6.3 g/dL (5.8-8.1); Sodium 139 mmol/L (136-145)
[2021-05-08] MEDS: Clopidogrel Bisulfate 75 MG TAB PO SCH (08:47)
[2021-05-08] MEDS: Carvedilol 25 MG TAB PO SCH ×3 (08:47→16:09)
[2021-05-08] MEDS: NIFEdipine XL 60 MG TAB PO SCH ×2 (08:48→21:04)
[2021-05-08] MEDS: hydrALAZINE 25 MG TAB PO SCH ×4 (08:48→21:04)
[2021-05-08] MEDS: Sodium Bicarbonate Tab 325 MG TAB PO SCH ×2 (08:48→21:04)
[2021-05-08] MEDS ORDERED: Apixaban 5 MG TAB PO SCH ×2 (11:45→22:00)
[2021-05-08] MEDS: Apixaban 5 MG TAB PO SCH (11:45)
[2021-05-08] MEDS: traZODone HCl 50 MG TAB PO SCH (21:04)
[2021-05-08] MEDS: Atorvastatin Calcium 40 MG TAB PO SCH (21:04)
[2021-05-08] MEDS: Pregabalin 75 MG CAP PO SCH (21:05)
[2021-05-09 05:41] LABS: Band 2 % (5-11); Eosinophils 6 % (0-10); Hemoglobin 11.4 g/dL (12.0-16.0); Lymphocytes 30 % (21-51); MDiff Complete? YES; Mean Corpuscular HGB CONC 32.1 g/dL (32.0-36.0); Mean Corpuscular Hemoglobin 31.3 pg (27.0-31.0); Mean Corpuscular Volume 97.7 fL (78.0-98.0); Mean Platelet Volume 9.6 fL (7.4-10.4); Monocytes 11 % (0-10); Neutrophil 51 % (42-75); Platelet Count 103 thou/uL (130-400); Platelet Morphology Comment Appears Decreased; RBC Distribution Width 13.7 % (11.5-14.5); Red Blood Cell (RBC) Count 3.64 mill/uL (4.20-5.40)
[2021-05-09 05:51] LABS: Anion Gap 15 mmol/L (10-20); BUN (Urea Nitrogen) 16 mg/dL (9.8-20.1); Calc. Creatinine Clearance 89 mL/min (70-130); Calcium 8.9 mg/dL (7.8-10.44); Carbon Dioxide 20 mmol/L (23-31); Chloride 110 mmol/L (98-107); Glucose 78 mg/dL (80-115); Potassium 3.8 mmol/L (3.5-5.1); Sodium 141 mmol/L (136-145)
[2021-05-09] MEDS: hydrALAZINE 25 MG TAB PO SCH (07:46)
[2021-05-09] MEDS: NIFEdipine XL 60 MG TAB PO SCH (07:46)
[2021-05-09] MEDS: Clopidogrel Bisulfate 75 MG TAB PO SCH (07:47)
[2021-05-09] MEDS: Carvedilol 25 MG TAB PO SCH (07:47)
[2021-05-09] MEDS: Sodium Bicarbonate Tab 325 MG TAB PO SCH (07:47)
[2021-05-09] MEDS ORDERED: Apixaban 5 MG TAB PO SCH (09:00)
[2021-05-09 11:37] VITALS: BP 151/70; TEMP 98.3
== END 2021-05-09 13:57 | disposition short-term general hospital (02) | DRG 982 ==
LOC: ERS 09:50 → 2NO 16:18 → OBSVTOIN 05-05 11:04
PROVIDERS: ADMIT Internal Medicine; ATTEND Internal Medicine
PROC: 027034Z Dilation of Coronary Artery, One Artery with Drug-eluting Intraluminal Device, Percutaneous Approach (ICD-10-PCS; principal; 2021-05-07)
PROC: 4A023N7 Measurement of Cardiac Sampling and Pressure, Left Heart, Percutaneous Approach (ICD-10-PCS; 2021-05-07)
PROC: B2151ZZ Fluoroscopy of Left Heart using Low Osmolar Contrast (ICD-10-PCS; 2021-05-07)
PROC: B2111ZZ Fluoroscopy of Multiple Coronary Arteries using Low Osmolar Contrast (ICD-10-PCS; 2021-05-07)
DX: T43.212A Poisoning by selective serotonin and norepinephrine reuptake inhibitors, intentional self-harm, initial encounter (principal); I25.110 Atherosclerotic heart disease of native coronary artery with unstable angina pectoris; N17.9 Acute kidney failure, unspecified; E87.2 Acidosis; I48.20 Chronic atrial fibrillation, unspecified; I16.0 Hypertensive urgency; Z20.822 Contact with and (suspected) exposure to COVID-19; Z23 Encounter for immunization; E66.9 Obesity, unspecified; J44.9 Chronic obstructive pulmonary disease, unspecified; L40.9 Psoriasis, unspecified; G89.4 Chronic pain syndrome; R94.31 Abnormal electrocardiogram [ECG] [EKG]; I12.9 Hypertensive chronic kidney disease with stage 1 through stage 4 chronic kidney disease, or unspecified chronic kidney disease; N18.30 Chronic kidney disease, stage 3 unspecified; E11.22 Type 2 diabetes mellitus with diabetic chronic kidney disease; D63.1 Anemia in chronic kidney disease; I95.9 Hypotension, unspecified; E86.0 Dehydration; E86.9 Volume depletion, unspecified; Z79.01 Long term (current) use of anticoagulants; Z91.040 Latex allergy status; Z88.8 Allergy status to other drugs, medicaments and biological substances; Z79.899 Other long term (current) drug therapy; Z90.49 Acquired absence of other specified parts of digestive tract; Z90.710 Acquired absence of both cervix and uterus; Z98.890 Other specified postprocedural states; Z87.891 Personal history of nicotine dependence; Z79.82 Long term (current) use of aspirin; Z79.84 Long term (current) use of oral hypoglycemic drugs
CPT/HCPCS: 36415; 36416; 71045; 78452; 80048; 80053; 80306; 80307; 81003; 81015; 82550; 82553; 82570; 84300; 84443; 84484; 84540; 85025; 85347; 92928; 93005; 93010; 93017; 93458; 93798; 94760; 99152; 99153; A9500; C1769; C1874; C9600; G0378; J0153; J0360; J0461; J1644; J2250; J2405; J2704; J2785; J3010; J3475; J7050; Q9967; U0003; U0005

== ENCOUNTER 2022-01-10 08:35 | Inpatient (IN) | payer OTHER, MEDICAID ==
[2022-01-10] MEDS ORDERED: Iopamidol 370 76% 100 ML VIAL ONE (09:22)
[2022-01-10] MEDS ORDERED: Diltiazem 125 MG/25 ML ONE (09:23)
[2022-01-10 09:26] LABS: Mean Corpuscular HGB CONC 31.3 g/dL (32.0-36.0); Mean Corpuscular Hemoglobin 29.9 pg (27.0-31.0); Mean Corpuscular Volume 95.6 fL (78.0-98.0); Mean Platelet Volume 9.1 fL (7.4-10.4); Platelet Count 159 thou/uL (130-400); RBC Distribution Width 13.1 % (11.5-14.5); Red Blood Cell (RBC) Count 4.68 mill/uL (4.20-5.40); White Blood Cell (WBC) Count 4.9 thou/uL (4.8-10.8)
[2022-01-10] MEDS ORDERED: Morphine 4 MG/ML VIAL ONE (09:27)
[2022-01-10] MEDS ORDERED: Ondansetron PF 4 MG/2 ML Vial ONE (09:41)
[2022-01-10 09:42] LABS: Band 6 % (5-11); Lymphocytes 7 % (21-51); MDiff Complete? YES; Monocytes 6 % (0-10); Neutrophil 81 % (42-75); Platelet Morphology Comment Appears Adequate; RBC Morphology Normal
[2022-01-10] MEDS ORDERED: Pantoprazole 40 MG VIAL ONE (09:51)
[2022-01-10 10:11] LABS: SARS-CoV-2 NAA Rapid Test Not Detected (NotDetected)
[2022-01-10 10:33] LABS: ALT (SGPT) Less than 7 U/L (8-55); AST (SGOT) 11 U/L (5-34); Albumin 3.2 g/dL (3.4-4.8); Alkaline Phosphatase 77 U/L (40-110); Anion Gap 16 mmol/L (10-20); BUN (Urea Nitrogen) 25 mg/dL (9.8-20.1); Bilirubin, Total 0.6 mg/dL (0.2-1.2); Calc. Creatinine Clearance 0 mL/min (70-130); Calcium 8.5 mg/dL (7.8-10.44); Carbon Dioxide 20 mmol/L (23-31); Chloride 103 mmol/L (98-107); Estimated GFR 53; Globulin 3.5 g/dL (2.4-3.5); Glucose 113 mg/dL (80-115); Potassium 3.5 mmol/L (3.5-5.1); Protein, Total 6.7 g/dL (5.8-8.1); Sodium 135 mmol/L (136-145)
[2022-01-10 10:39] LABS: CKMB 0.8 ng/mL (0-6.6)
[2022-01-10 12:49] LABS: Troponin I 0.063 ng/mL (< 0.028)
[2022-01-10] MEDS ORDERED: Diltiazem 125 MG in Sodium Chloride 0.9% 100 ML IVPB SCH (12:54)
[2022-01-10] MEDS ORDERED: Cepastat Lozenges 1 LOZ PO PRN (12:54)
[2022-01-10] MEDS ORDERED: Ondansetron PF 4 MG/2 ML Vial IVP PRN (12:54)
[2022-01-10] MEDS ORDERED: Sodium Chloride 0.9% 1,000 ML IV SCH (12:54)
[2022-01-10] MEDS ORDERED: Acetaminophen 500 MG TAB PO PRN (12:54)
[2022-01-10] MEDS ORDERED: Labetalol HCl 100 MG/20 ML VIAL SLOW IVP PRN (12:54)
[2022-01-10] MEDS ORDERED: Ondansetron ODT 4 MG TAB PO PRN (12:54)
[2022-01-10] MEDS: Pantoprazole 40 MG VIAL IVP SCH (13:34)
[2022-01-10 14:41] VITALS: BMI 31.3
[2022-01-10] MEDS ORDERED: FLU VACC QS2022-23(65YR UP)/PF 240 MCG/0.7 ML SYRINGE IM ONE (15:15)
[2022-01-10] MEDS: Sodium Chloride 0.9% 1,000 ML IV SCH (15:31)
[2022-01-10 15:54] LABS: Hemoglobin 13.2 g/dL (12.0-16.0); Platelet Count 127 thou/uL (130-400)
[2022-01-10 16:14] LABS: Troponin I 0.061 ng/mL (< 0.028)
[2022-01-10] MEDS: Carvedilol 25 MG TAB PO SCH (16:36)
[2022-01-10] MEDS: Pregabalin 50 MG CAP PO SCH (20:39)
[2022-01-10] MEDS: Atorvastatin Calcium 40 MG TAB PO SCH (20:39)
[2022-01-10] MEDS: Apixaban 5 MG TAB PO SCH (20:39)
[2022-01-10] MEDS: hydrALAZINE 25 MG TAB PO SCH (20:40)
[2022-01-10] MEDS ORDERED: hydrALAZINE 25 MG TAB PO SCH (21:00)
[2022-01-10] MEDS ORDERED: traZODone HCl 50 MG TAB PO SCH (21:30)
[2022-01-11] MEDS: Pantoprazole 40 MG VIAL IVP SCH ×2 (03:24→14:42)
[2022-01-11] MEDS: Sodium Chloride 0.9% 1,000 ML IV SCH ×2 (05:14→16:17)
[2022-01-11 05:44] LABS: #Eosinphils 0.1 thou/uL (0.0-0.7); #Lymphocytes 0.5 thou/uL (1.20-3.40); #Monocytes 0.3 thou/uL (0.11-0.59); #Neutrophils 2.3 thou/uL (1.40-6.50); %Basophils 0.6 % (0.0-1.0); %Eosinophils 2.4 % (0.0-10.0); %Lymphocytes 17.1 % (21.0-51.0); %Neutrophils 71.9 % (42.0-75.0); Hemoglobin 11.8 g/dL (12.0-16.0); Mean Corpuscular HGB CONC 32.2 g/dL (32.0-36.0); Mean Corpuscular Hemoglobin 31.3 pg (27.0-31.0); Mean Corpuscular Volume 97.3 fL (78.0-98.0); Mean Platelet Volume 9.1 fL (7.4-10.4); Platelet Count 132 thou/uL (130-400); RBC Distribution Width 12.9 % (11.5-14.5); Red Blood Cell (RBC) Count 3.77 mill/uL (4.20-5.40); White Blood Cell (WBC) Count 3.2 thou/uL (4.8-10.8)
[2022-01-11 06:05] LABS: ALT (SGPT) Less than 7 U/L (8-55); AST (SGOT) 7 U/L (5-34); Albumin 2.7 g/dL (3.4-4.8); Alkaline Phosphatase 59 U/L (40-110); Anion Gap 11 mmol/L (10-20); BUN (Urea Nitrogen) 33 mg/dL (9.8-20.1); Bilirubin, Total 0.3 mg/dL (0.2-1.2); Calc. Creatinine Clearance 52 mL/min (70-130); Calcium 8.3 mg/dL (7.8-10.44); Carbon Dioxide 22 mmol/L (23-31); Chloride 105 mmol/L (98-107); Estimated GFR 39; Globulin 2.9 g/dL (2.4-3.5); Glucose 86 mg/dL (80-115); Magnesium 1.8 mg/dL (1.6-2.6); Potassium 3.2 mmol/L (3.5-5.1); Protein, Total 5.6 g/dL (5.8-8.1); Sodium 135 mmol/L (136-145)
[2022-01-11] MEDS: Carvedilol 25 MG TAB PO SCH ×2 (08:23→16:16)
[2022-01-11] MEDS: Clopidogrel Bisulfate 75 MG TAB PO SCH (08:24)
[2022-01-11] MEDS: hydrALAZINE 25 MG TAB PO SCH ×3 (08:24→21:06)
[2022-01-11] MEDS: Apixaban 5 MG TAB PO SCH (08:24)
[2022-01-11] MEDS ORDERED: Potassium Chloride 20 MEQ TAB PO SCH (08:30)
[2022-01-11] MEDS ORDERED: GoLYTELY 4,000 ml Bottle PO SCH (17:00)
[2022-01-11] MEDS: Atorvastatin Calcium 40 MG TAB PO SCH (21:08)
[2022-01-11] MEDS: Pregabalin 75 MG CAP PO SCH (21:11)
[2022-01-11] MEDS ORDERED: Pregabalin 75 MG CAP PO SCH (21:30)
[2022-01-11] MEDS: Pregabalin 50 MG CAP PO SCH (21:37)
[2022-01-11] MEDS ORDERED: traZODone HCl 50 MG TAB PO SCH (21:45)
[2022-01-12] MEDS: Pantoprazole 40 MG VIAL IVP SCH (02:22)
[2022-01-12] MEDS: Sodium Chloride 0.9% 1,000 ML IV SCH ×2 (02:24→17:32)
[2022-01-12 04:59] LABS: Anion Gap 12 mmol/L (10-20); BUN (Urea Nitrogen) 29 mg/dL (9.8-20.1); Calc. Creatinine Clearance 56 mL/min (70-130); Calcium 8.3 mg/dL (7.8-10.44); Carbon Dioxide 23 mmol/L (23-31); Chloride 106 mmol/L (98-107); Estimated GFR 42; Glucose 81 mg/dL (80-115); Potassium 3.5 mmol/L (3.5-5.1); Sodium 137 mmol/L (136-145)
[2022-01-12 05:21] LABS: Band 2 % (5-11); Eosinophils 1 % (0-10); Hemoglobin 10.3 g/dL (12.0-16.0); Lymphocytes 18 % (21-51); MDiff Complete? YES; Mean Corpuscular HGB CONC 31.6 g/dL (32.0-36.0); Mean Corpuscular Hemoglobin 30.6 pg (27.0-31.0); Mean Platelet Volume 9.4 fL (7.4-10.4); Monocytes 14 % (0-10); Neutrophil 65 % (42-75); Platelet Count 112 thou/uL (130-400); Platelet Morphology Comment Appears Decreased; RBC Distribution Width 12.9 % (11.5-14.5); Red Blood Cell (RBC) Count 3.37 mill/uL (4.20-5.40); White Blood Cell (WBC) Count 2.2 thou/uL (4.8-10.8)
[2022-01-12] MEDS: hydrALAZINE 25 MG TAB PO SCH ×3 (09:21→19:53)
[2022-01-12] MEDS: Apixaban 5 MG TAB PO SCH ×2 (09:21→19:51)
[2022-01-12] MEDS: Clopidogrel Bisulfate 75 MG TAB PO SCH (09:21)
[2022-01-12] MEDS: Carvedilol 25 MG TAB PO SCH ×3 (09:21→15:40)
[2022-01-12] MEDS ORDERED: Lidocaine 1% PF 5 ML VIAL ONE (11:30)
[2022-01-12] MEDS ORDERED: PROPOFOL 200 MG/20 ML VIAL ONE (11:30)
[2022-01-12] MEDS ORDERED: Promethazine HCl 25 MG/ML VIAL IM PRN (11:40)
[2022-01-12] MEDS ORDERED: Promethazine HCl 25 MG/ML VIAL IVPB PRN (11:40)
[2022-01-12] MEDS ORDERED: Ondansetron HCl/PF 4 MG/2 ML Vial IVP PRN (11:40)
[2022-01-12] MEDS ORDERED: NIFEdipine XL 60 MG TAB PO SCH ×2 (17:15→21:00)
[2022-01-12] MEDS: cloNIDine 0.1 MG TAB PO SCH (19:53)
[2022-01-12] MEDS: Atorvastatin Calcium 40 MG TAB PO SCH (19:54)
[2022-01-12] MEDS: Pregabalin 75 MG CAP PO SCH (19:54)
[2022-01-12] MEDS ORDERED: traZODone HCl 50 MG TAB PO SCH (21:00)
[2022-01-13 04:59] LABS: Anion Gap 14 mmol/L (10-20); BUN (Urea Nitrogen) 24 mg/dL (9.8-20.1); Calc. Creatinine Clearance 50 mL/min (70-130); Calcium 8.2 mg/dL (7.8-10.44); Carbon Dioxide 18 mmol/L (23-31); Chloride 108 mmol/L (98-107); Estimated GFR 36; Glucose 121 mg/dL (80-115); Potassium 3.9 mmol/L (3.5-5.1); Sodium 136 mmol/L (136-145)
[2022-01-13 08:06] LABS: Hemoglobin 10.3 g/dL (12.0-16.0); Mean Corpuscular HGB CONC 31.6 g/dL (32.0-36.0); Mean Corpuscular Hemoglobin 31.4 pg (27.0-31.0); Mean Corpuscular Volume 99.3 fL (78.0-98.0); Mean Platelet Volume 9.7 fL (7.4-10.4); Platelet Count 104 thou/uL (130-400); RBC Distribution Width 13.1 % (11.5-14.5); Red Blood Cell (RBC) Count 3.29 mill/uL (4.20-5.40); White Blood Cell (WBC) Count 3.2 thou/uL (4.8-10.8)
[2022-01-13] MEDS: Clopidogrel Bisulfate 75 MG TAB PO SCH (09:20)
[2022-01-13] MEDS: Carvedilol 25 MG TAB PO SCH (09:20)
[2022-01-13] MEDS: hydrALAZINE 25 MG TAB PO SCH (09:20)
[2022-01-13] MEDS: Apixaban 5 MG TAB PO SCH (09:21)
[2022-01-13] MEDS: cloNIDine 0.1 MG TAB PO SCH (09:21)
[2022-01-13] MEDS: Sodium Chloride 0.9% 1,000 ML IV SCH (09:34)
[2022-01-13 11:26] LABS: Band 8 % (5-11); Eosinophils 2 % (0-10); Lymphocytes 26 % (21-51); MDiff Complete? YES; Monocytes 8 % (0-10); Neutrophil 56 % (42-75); Platelet Morphology Comment Appears Decreased; Polychromasia SLIGHT = 2-3 cells (100X) (0-2/hpf)
[2022-01-13 11:37] VITALS: BP 133/61; TEMP 98.5
== END 2022-01-13 16:00 | disposition home or self-care (01) | DRG 394 ==
LOC: ERS 08:35 → ERHOLD 11:54 → 2NO 14:17
PROVIDERS: ADMIT Internal Medicine; ATTEND Internal Medicine
PROC: 0DBK8ZZ Excision of Ascending Colon, Via Natural or Artificial Opening Endoscopic (ICD-10-PCS; principal; 2022-01-12)
PROC: 0DBN8ZZ Excision of Sigmoid Colon, Via Natural or Artificial Opening Endoscopic (ICD-10-PCS; 2022-01-12)
PROC: 0DJ08ZZ Inspection of Upper Intestinal Tract, Via Natural or Artificial Opening Endoscopic (ICD-10-PCS; 2022-01-12)
DX: K55.9 Vascular disorder of intestine, unspecified (principal); I48.21 Permanent atrial fibrillation; N17.9 Acute kidney failure, unspecified; Z20.822 Contact with and (suspected) exposure to COVID-19; K21.9 Gastro-esophageal reflux disease without esophagitis; E78.5 Hyperlipidemia, unspecified; G40.909 Epilepsy, unspecified, not intractable, without status epilepticus; F17.210 Nicotine dependence, cigarettes, uncomplicated; K52.9 Noninfective gastroenteritis and colitis, unspecified; E87.6 Hypokalemia; K64.8 Other hemorrhoids; K63.5 Polyp of colon; I12.9 Hypertensive chronic kidney disease with stage 1 through stage 4 chronic kidney disease, or unspecified chronic kidney disease; N18.30 Chronic kidney disease, stage 3 unspecified; Z90.49 Acquired absence of other specified parts of digestive tract; Z90.09 Acquired absence of other part of head and neck; I25.2 Old myocardial infarction; Z90.710 Acquired absence of both cervix and uterus; Z91.040 Latex allergy status; Z88.5 Allergy status to narcotic agent; Z88.8 Allergy status to other drugs, medicaments and biological substances; Z79.01 Long term (current) use of anticoagulants; Z79.899 Other long term (current) drug therapy
CPT/HCPCS: 36415; 71045; 74177; 80048; 80053; 82274; 82553; 83735; 83880; 84443; 84484; 85025; 88305; 93005; 93306; 96365; 96366; 96374; 96375; C9113; J2270; J2405; J2704; J3490; J7050; Q9967; U0002

== ENCOUNTER 2022-01-15 08:29 | Emergency (ER) | payer OTHER ==
[2022-01-15] MEDS ORDERED: HYDROcodone/Acetaminophen 5/325 mg Tablet ONE (09:12)
[2022-01-15] MEDS ORDERED: Cephalexin 250 MG CAP ONE (09:12)
== END 2022-01-15 10:50 | disposition home or self-care (01) ==
LOC: ERS 08:29
DX: I80.8 Phlebitis and thrombophlebitis of other sites (principal); I48.91 Unspecified atrial fibrillation; I25.2 Old myocardial infarction; E78.5 Hyperlipidemia, unspecified; I10 Essential (primary) hypertension; F17.210 Nicotine dependence, cigarettes, uncomplicated; Z79.01 Long term (current) use of anticoagulants; Z79.899 Other long term (current) drug therapy

== ENCOUNTER 2022-03-27 04:38 | Inpatient (IN) | payer OTHER, MEDICAID ==
[2022-03-27] MEDS ORDERED: Magnesium 2 GM/50 ML BAG (IN WATER) ONE (04:43)
[2022-03-27] MEDS ORDERED: Albuterol Sulfate 2.5 mg/0.5 ml Neb ONE (04:46)
[2022-03-27] MEDS ORDERED: Nitroglycerin 50 MG/250 ML BOT 250 ML ONE (04:51)
[2022-03-27 04:59] LABS: Actual Bicarbonate (HCO3v) 17 mEq/L (22-28); Analyzer IN Cardio ER; Base Excess -9.5 mEq/L (-2.0 to +3.0); Calcium, Ionized (venous) 1.04 mmol/L (1.16-1.32); Chloride (VBG) 108 mmol/L (98-106); Hemoglobin (Hb) 14.2 g/dL (11.7-16.1); Potassium (VBG) 4.22 mmol/L (3.70-5.30); Sodium 140.2 mmol/L (133-146); pH (venous) 7.26 (7.32-7.43)
[2022-03-27] MEDS ORDERED: Vancomycin 1 GM/200 ML (FROZEN) BAG ONE (05:07)
[2022-03-27 05:11] LABS: #Eosinphils 0.2 thou/uL (0.0-0.7); #Lymphocytes 3.4 thou/uL (1.20-3.40); #Monocytes 0.8 thou/uL (0.11-0.59); #Neutrophils 3.5 thou/uL (1.40-6.50); %Basophils 0.4 % (0.0-1.0); %Lymphocytes 43.2 % (21.0-51.0); %Monocytes 10.5 % (0.0-10.0); %Neutrophils 43.9 % (42.0-75.0); Hemoglobin 13.2 g/dL (12.0-16.0); Mean Corpuscular HGB CONC 32.1 g/dL (32.0-36.0); Mean Corpuscular Hemoglobin 32.3 pg (27.0-31.0); Mean Platelet Volume 9.3 fL (7.4-10.4); Platelet Count 182 10x3/uL (130-400); RBC Distribution Width 15.2 % (11.5-14.5); White Blood Cell (WBC) Count 7.9 10x3/uL (4.8-10.8)
[2022-03-27 05:31] LABS: ALT (SGPT) 10 U/L (8-55); AST (SGOT) 29 U/L (5-34); Albumin 4.2 g/dL (3.4-4.8); Alkaline Phosphatase 112 U/L (40-110); Anion Gap 22 mmol/L (10-20); BUN (Urea Nitrogen) 24 mg/dL (9.8-20.1); Bilirubin, Total 0.5 mg/dL (0.2-1.2); CK (CPK) 82 U/L (29-168); Calc. Creatinine Clearance 0 mL/min (70-130); Calcium 8.9 mg/dL (7.8-10.44); Carbon Dioxide 13 mmol/L (23-31); Chloride 109 mmol/L (98-107); Estimated GFR 45; Globulin 3.7 g/dL (2.4-3.5); Glucose 227 mg/dL (80-115); Potassium 4.4 mmol/L (3.5-5.1); Protein, Total 7.9 g/dL (5.8-8.1); Sodium 140 mmol/L (136-145)
[2022-03-27 05:55] LABS: PTT 33.9 sec (22.9-36.1)
[2022-03-27 06:11] LABS: D-Dimer Test 2.88 *mcg/mL (0.27-0.43)
[2022-03-27 06:18] LABS: SARS-CoV-2 NAA Rapid Test Not Detected (NotDetected)
[2022-03-27] MEDS ORDERED: Acetaminophen 650 MG Suppository PR PRN (06:44)
[2022-03-27] MEDS ORDERED: Ondansetron ODT 4 MG TAB PO PRN (06:44)
[2022-03-27] MEDS ORDERED: Ondansetron PF 4 MG/2 ML Vial IVP PRN (06:44)
[2022-03-27] MEDS ORDERED: Furosemide 100 MG/10 ML VIAL SLOW IVP SCH (07:00)
[2022-03-27] MEDS ORDERED: Furosemide 40 MG/4 ML VIAL ONE (07:05)
[2022-03-27] MEDS ORDERED: Furosemide 20 MG/2 ML VIAL ONE (07:05)
[2022-03-27] MEDS ORDERED: Piperacillin/Tazobactam 4.5 GM VIAL ONE (07:21)
[2022-03-27 08:41] LABS: Lactic Acid 2.1 mmol/L (0.5-2.2)
[2022-03-27] MEDS: Apixaban 5 MG TAB PO SCH ×2 (08:54→20:11)
[2022-03-27] MEDS: Clopidogrel Bisulfate 75 MG TAB PO SCH (08:54)
[2022-03-27] MEDS: cloNIDine 0.1 MG TAB PO SCH ×2 (08:55→20:11)
[2022-03-27] MEDS: NIFEdipine XL 60 MG TAB PO SCH (08:56)
[2022-03-27 08:57] LABS: Troponin I 0.365 ng/mL (< 0.028)
[2022-03-27] MEDS: hydrALAZINE 25 MG TAB PO SCH ×3 (08:57→20:10)
[2022-03-27] MEDS: Acetaminophen 325 MG TAB PO PRN ×2 (08:59→20:10)
[2022-03-27] MEDS ORDERED: niCARdipine 40MG In NaCl 40 MG/200 ML BAG IVPB SCH (09:15)
[2022-03-27] MEDS: Carvedilol 25 MG TAB PO SCH ×2 (09:23→16:44)
[2022-03-27] MEDS ORDERED: niCARdipine 25 MG in Sodium Chloride 0.9% 250 ML 250 ML IVPB SCH (09:30)
[2022-03-27] MEDS ORDERED: Iopamidol-370 76% 500 ML 1 ML ONE (10:37)
[2022-03-27 11:02] VITALS: BMI 32.8
[2022-03-27 11:30] LABS: Troponin I 0.745 ng/mL (< 0.028)
[2022-03-27] MEDS ORDERED: hydrALAZINE 25 MG TAB PO SCH (15:00)
[2022-03-27] MEDS: Atorvastatin Calcium 40 MG TAB PO SCH (20:10)
[2022-03-27] MEDS: traZODone HCl 50 MG TAB PO SCH (20:48)
[2022-03-28] MEDS: Acetaminophen 325 MG TAB PO PRN (01:42)
[2022-03-28 03:22] LABS: #Lymphocytes 0.6 thou/uL (1.20-3.40); #Monocytes 0.4 thou/uL (0.11-0.59); #Neutrophils 3.2 thou/uL (1.40-6.50); %Basophils 0.1 % (0.0-1.0); %Eosinophils 0.2 % (0.0-10.0); %Lymphocytes 14.8 % (21.0-51.0); %Monocytes 9.3 % (0.0-10.0); %Neutrophils 75.6 % (42.0-75.0); Hemoglobin 11.5 g/dL (12.0-16.0); Mean Corpuscular HGB CONC 31.8 g/dL (32.0-36.0); Mean Corpuscular Hemoglobin 31.2 pg (27.0-31.0); Mean Corpuscular Volume 98.3 fl (78.0-98.0); Platelet Count 131 10x3/uL (130-400); RBC Distribution Width 15.3 % (11.5-14.5); Red Blood Cell (RBC) Count 3.69 mill/uL (4.20-5.40); White Blood Cell (WBC) Count 4.3 10x3/uL (4.8-10.8)
[2022-03-28 03:47] LABS: Anion Gap 17 mmol/L (10-20); BUN (Urea Nitrogen) 28 mg/dL (9.8-20.1); Calc. Creatinine Clearance 66 mL/min (70-130); Carbon Dioxide 19 mmol/L (23-31); Chloride 106 mmol/L (98-107); Estimated GFR 48; Glucose 100 mg/dL (80-115); Sodium 138 mmol/L (136-145)
[2022-03-28] MEDS: Clopidogrel Bisulfate 75 MG TAB PO SCH (08:35)
[2022-03-28] MEDS: Apixaban 5 MG TAB PO SCH ×2 (08:36→20:10)
[2022-03-28] MEDS: hydrALAZINE 25 MG TAB PO SCH ×3 (08:36→20:10)
[2022-03-28] MEDS: cloNIDine 0.1 MG TAB PO SCH ×2 (08:36→20:10)
[2022-03-28] MEDS: Carvedilol 25 MG TAB PO SCH ×2 (08:36→16:35)
[2022-03-28] MEDS: NIFEdipine XL 60 MG TAB PO SCH (08:36)
[2022-03-28] MEDS ORDERED: hydrALAZINE 25 MG TAB PO PRN (11:10)
[2022-03-28] MEDS: traZODone HCl 50 MG TAB PO SCH (20:10)
[2022-03-28] MEDS: Atorvastatin Calcium 40 MG TAB PO SCH (20:10)
[2022-03-28] MEDS ORDERED: Electrolyte Replacement Protocol 1 EACH FS SCH (20:45)
[2022-03-29 04:43] LABS: Hemoglobin 11.7 g/dL (12.0-16.0); Mean Corpuscular HGB CONC 36.8 g/dL (32.0-36.0); Mean Corpuscular Hemoglobin 36.3 pg (27.0-31.0); Mean Corpuscular Volume 98.6 fl (78.0-98.0); Platelet Count 106 10x3/uL (130-400); RBC Distribution Width 15.4 % (11.5-14.5); Red Blood Cell (RBC) Count 3.24 mill/uL (4.20-5.40); White Blood Cell (WBC) Count 3.5 10x3/uL (4.8-10.8)
[2022-03-29 05:07] LABS: Anion Gap 15 mmol/L (10-20); BUN (Urea Nitrogen) 34 mg/dL (9.8-20.1); Calc. Creatinine Clearance 68 mL/min (70-130); Calcium 8.6 mg/dL (7.8-10.44); Carbon Dioxide 21 mmol/L (23-31); Chloride 106 mmol/L (98-107); Estimated GFR 50; Glucose 83 mg/dL (80-115); Magnesium 2.1 mg/dL (1.6-2.6); Potassium 3.9 mmol/L (3.5-5.1); Sodium 138 mmol/L (136-145)
[2022-03-29 05:29] LABS: Band 2 % (5-11); Hypochromia SLIGHT = 6-15 cells (100X) (0-5/hpf); Lymphocytes 40 % (21-51); MDiff Complete? YES; Monocytes 6 % (0-10); Neutrophil 48 % (42-75); Platelet Morphology Comment Appears Decreased; Reactive Lymphocytes 4 % (0-10)
[2022-03-29] MEDS: hydrALAZINE 25 MG TAB PO SCH ×2 (09:49→15:37)
[2022-03-29] MEDS: cloNIDine 0.1 MG TAB PO SCH (09:49)
[2022-03-29] MEDS: NIFEdipine XL 60 MG TAB PO SCH (09:49)
[2022-03-29] MEDS: Carvedilol 25 MG TAB PO SCH (09:50)
[2022-03-29] MEDS: Clopidogrel Bisulfate 75 MG TAB PO SCH (09:50)
[2022-03-29] MEDS: Apixaban 5 MG TAB PO SCH (09:50)
[2022-03-29 17:16] VITALS: BP 148/68; TEMP 98.2
== END 2022-03-29 17:00 | disposition home or self-care (01) | DRG 280 ==
LOC: ERS 04:38 → ERHOLD 06:08 → CCU 07:58 → 2NO 03-28 17:59
PROVIDERS: ADMIT Internal Medicine; ATTEND Internal Medicine
DX: I16.1 Hypertensive emergency (principal); J96.01 Acute respiratory failure with hypoxia; I21.A1 Myocardial infarction type 2; E87.20 Acidosis, unspecified; Z20.822 Contact with and (suspected) exposure to COVID-19; J44.9 Chronic obstructive pulmonary disease, unspecified; K21.9 Gastro-esophageal reflux disease without esophagitis; I48.0 Paroxysmal atrial fibrillation; N18.30 Chronic kidney disease, stage 3 unspecified; D53.9 Nutritional anemia, unspecified; D69.6 Thrombocytopenia, unspecified; I13.2 Hypertensive heart and chronic kidney disease with heart failure and with stage 5 chronic kidney disease, or end stage renal disease; F17.210 Nicotine dependence, cigarettes, uncomplicated; E11.51 Type 2 diabetes mellitus with diabetic peripheral angiopathy without gangrene; I50.9 Heart failure, unspecified; E78.5 Hyperlipidemia, unspecified; Z88.8 Allergy status to other drugs, medicaments and biological substances; Z88.6 Allergy status to analgesic agent; Z86.73 Personal history of transient ischemic attack (TIA), and cerebral infarction without residual deficits; Z91.040 Latex allergy status; Z79.899 Other long term (current) drug therapy; Z79.01 Long term (current) use of anticoagulants; Z79.02 Long term (current) use of antithrombotics/antiplatelets; Z95.5 Presence of coronary angioplasty implant and graft; I25.2 Old myocardial infarction; Z90.49 Acquired absence of other specified parts of digestive tract; Z90.89 Acquired absence of other organs; Z90.710 Acquired absence of both cervix and uterus; Z90.721 Acquired absence of ovaries, unilateral
CPT/HCPCS: 36415; 71045; 71275; 80048; 80053; 82550; 82805; 83605; 83735; 83880; 84484; 85025; 85379; 85610; 85730; 87040; 87804; 93005; 93306; 94640; 94644; 94660; 94760; J1940; J2543; J3370-JW; J3475; J7050; J7611; J7620; Q9967; U0002

== ENCOUNTER 2022-10-08 14:23 | Inpatient (IN) | payer OTHER, MEDICAID ==
[~2022-10-08 14:23] MED LIST: Iopamidol-370 76% 500 ML MDV (1 ML CHARGE) ONE
[2022-10-08 15:15] LABS: #Monocytes 0.6 thou/uL (0.11-0.59); #Neutrophils 4.1 thou/uL (1.40-6.50); %Basophils 0.5 % (0.0-1.0); %Eosinophils 0.7 % (0.0-10.0); %Lymphocytes 13.8 % (21.0-51.0); %Monocytes 10.5 % (0.0-10.0); %Neutrophils 74.1 % (42.0-75.0); Hemoglobin 10.6 g/dL (12.0-16.0); Mean Corpuscular HGB CONC 31.7 g/dL (32.0-36.0); Mean Corpuscular Hemoglobin 28.6 pg (27.0-31.0); Mean Corpuscular Volume 90.3 fl (78.0-98.0); Platelet Count 197 10x3/uL (130-400); RBC Distribution Width 17.2 % (11.5-14.5); White Blood Cell (WBC) Count 5.5 10x3/uL (4.8-10.8)
[2022-10-08] MEDS ORDERED: predniSONE 20 MG TAB ONE (15:53)
[2022-10-08] MEDS ORDERED: Nitroglycerin 2% Ointment 1 INCH/1 GM Packet ONE (15:53)
[2022-10-08] MEDS ORDERED: Cefepime 1 GM VIAL ONE (15:53)
[2022-10-08] MEDS ORDERED: Furosemide 40 MG/4 ML VIAL ONE (15:53)
[2022-10-08] MEDS ORDERED: Acetaminophen 500 MG TAB ONE (15:53)
[2022-10-08] MEDS ORDERED: Magnesium 2 GM/50 ML BAG (IN WATER) ONE (15:53)
[2022-10-08 16:39] LABS: ALT (SGPT) Less than 7 U/L (8-55); AST (SGOT) 16 U/L (5-34); Albumin 3.8 g/dL (3.4-4.8); Alkaline Phosphatase 76 U/L (40-110); Anion Gap 19 mmol/L (10-20); BUN (Urea Nitrogen) 30 mg/dL (9.8-20.1); Bilirubin, Total 0.8 mg/dL (0.2-1.2); Calc. Creatinine Clearance 0 mL/min (70-130); Calcium 9.5 mg/dL (7.8-10.44); Carbon Dioxide 20 mmol/L (23-31); Chloride 107 mmol/L (98-107); Estimated GFR 32; Globulin 3.2 g/dL (2.4-3.5); Glucose 100 mg/dL (80-115); Magnesium 1.9 mg/dL (1.6-2.6); Potassium 4.5 mmol/L (3.5-5.1); Sodium 141 mmol/L (136-145)
[2022-10-08] MEDS ORDERED: Aspirin Chewable 81 MG TAB ONE (16:47)
[2022-10-08] MEDS ORDERED: Azithromycin 250 MG TAB ONE (16:47)
[2022-10-08] MEDS ORDERED: hydrALAZINE 20 MG/ML VIAL ONE (18:30)
[2022-10-08] MEDS ORDERED: Labetalol HCl 100 MG/20 ML VIAL SLOW IVP SCH (18:45)
[2022-10-08] MEDS ORDERED: Acetaminophen 650 MG Suppository PR PRN (18:52)
[2022-10-08] MEDS ORDERED: Acetaminophen 325 MG TAB PO PRN (18:52)
[2022-10-08] MEDS ORDERED: Ondansetron ODT 4 MG TAB PO PRN (18:52)
[2022-10-08] MEDS ORDERED: Ondansetron PF 4 MG/2 ML Vial IVP PRN (18:52)
[2022-10-08] MEDS ORDERED: Ipratropium/Albuterol 3 ML NEB NEB PRN (19:23)
[2022-10-08 19:41] LABS: Troponin I 0.661 ng/mL (< 0.028)
[2022-10-08] MEDS ORDERED: Morphine 2 MG/ML VIAL SLOW IVP PRN (20:24)
[2022-10-08] MEDS ORDERED: Morphine 2 MG/ML VIAL SLOW IVP SCH (20:30)
[2022-10-08] MEDS: Nicotine 14 MG PATCH TD SCH (20:48)
[2022-10-08] MEDS: Carvedilol 25 MG TAB PO SCH (20:49)
[2022-10-08] MEDS: Atorvastatin Calcium 40 MG TAB PO SCH (20:49)
[2022-10-08] MEDS: Pregabalin 75 MG CAP PO SCH (20:50)
[2022-10-08] MEDS: Nitroglycerin 2% Ointment 1 INCH/1 GM Packet TOP SCH (20:50)
[2022-10-08] MEDS: Sertraline 100 MG TAB PO SCH (20:50)
[2022-10-08] MEDS ORDERED: Apixaban 5 MG TAB PO SCH (21:00)
[2022-10-08] MEDS ORDERED: Metoprolol Tartrate 5 MG/5 ML VIAL IVP PRN (21:45)
[2022-10-08] MEDS: hydrALAZINE 25 MG TAB PO SCH (21:51)
[2022-10-08] MEDS: NIFEdipine XL 60 MG TAB PO SCH (21:51)
[2022-10-08] MEDS ORDERED: Metoprolol Tartrate 5 MG/5 ML VIAL IVP SCH (22:00)
[2022-10-08 22:05] LABS: Magnesium 2.1 mg/dL (1.6-2.6)
[2022-10-08 22:19] VITALS: BMI 31.1
[2022-10-08] MEDS: Melatonin 3 MG TAB PO PRN (22:25)
[2022-10-08 22:35] LABS: Critical Call Chem Troponin I RESULT DECREASING
[2022-10-09] MEDS: hydrALAZINE 25 MG TAB PO SCH ×4 (00:29→21:21)
[2022-10-09] MEDS ORDERED: Acetaminophen 500 MG TAB PO SCH (00:30)
[2022-10-09] MEDS: NIFEdipine XL 60 MG TAB PO SCH ×3 (00:31→21:21)
[2022-10-09] MEDS ORDERED: Labetalol HCl 100 MG/20 ML VIAL SLOW IVP PRN (01:18)
[2022-10-09] MEDS ORDERED: hydrALAZINE 20 MG/ML VIAL SLOW IVP PRN (01:18)
[2022-10-09 05:05] LABS: #Monocytes 0.1 thou/uL (0.11-0.59); #Neutrophils 3.5 thou/uL (1.40-6.50); %Basophils 0.3 % (0.0-1.0); %Lymphocytes 6.8 % (21.0-51.0); %Monocytes 1.8 % (0.0-10.0); %Neutrophils 90.6 % (42.0-75.0); Hemoglobin 9.7 g/dL (12.0-16.0); Mean Corpuscular HGB CONC 31.3 g/dL (32.0-36.0); Mean Corpuscular Hemoglobin 29.4 pg (27.0-31.0); Mean Platelet Volume 12.8 fL (7.4-10.4); Platelet Count 174 10x3/uL (130-400); RBC Distribution Width 17.4 % (11.5-14.5); White Blood Cell (WBC) Count 3.9 10x3/uL (4.8-10.8)
[2022-10-09 05:26] LABS: Anion Gap 15 mmol/L (10-20); BUN (Urea Nitrogen) 33 mg/dL (9.8-20.1); Calc. Creatinine Clearance 42 mL/min (70-130); Calcium 8.9 mg/dL (7.8-10.44); Carbon Dioxide 19 mmol/L (23-31); Cardiac Risk 5.4 (Less than 4.5); Chloride 105 mmol/L (98-107); Cholesterol 141 mg/dl (< 200 Desired); Estimated GFR 30; Glucose 153 mg/dL (80-115); HDL Cholesterol 26 mg/dL (>60 Neg Risk); Iron 31 ug/dL (50-170); Iron Binding Capacity, Total 241 mcg/dL (265-497); LDL Cholesterol, Calculated 105 mg/dL; Sodium 135 mmol/L (136-145); Triglycerides 49 mg/dL (Less than 150)
[2022-10-09 05:37] LABS: Mean Corpuscular Volume 93.9 fl (78.0-98.0)
[2022-10-09] MEDS: Nitroglycerin 2% Ointment 1 INCH/1 GM Packet TOP SCH ×3 (05:44→21:20)
[2022-10-09 05:55] LABS: Ferritin 139.09 ng/mL (10-291); Thyroid Stimulating Hormone 5.3524 uIU/mL (0.35-4.94)
[2022-10-09] MEDS ORDERED: Furosemide 40 MG/4 ML VIAL SLOW IVP SCH (06:00)
[2022-10-09] MEDS: Carvedilol 25 MG TAB PO SCH ×2 (08:14→21:21)
[2022-10-09] MEDS: Clopidogrel Bisulfate 75 MG TAB PO SCH (08:14)
[2022-10-09] MEDS ORDERED: Apixaban 5 MG TAB PO SCH (09:00)
[2022-10-09] MEDS ORDERED: Sodium Bicarbonate Tab 325 MG TAB PO SCH (09:45)
[2022-10-09] MEDS: Sodium Bicarbonate Tab 325 MG TAB PO SCH ×2 (16:29→21:22)
[2022-10-09] MEDS: Sertraline 100 MG TAB PO SCH (21:20)
[2022-10-09] MEDS: Atorvastatin Calcium 40 MG TAB PO SCH (21:20)
[2022-10-09] MEDS: Nicotine 14 MG PATCH TD SCH (21:20)
[2022-10-09] MEDS: Pregabalin 75 MG CAP PO SCH (21:21)
[2022-10-09] MEDS: Melatonin 3 MG TAB PO PRN (21:29)
[2022-10-10 04:43] LABS: #Eosinphils 0.1 thou/uL (0.0-0.7); #Monocytes 0.4 thou/uL (0.11-0.59); #Neutrophils 3.3 thou/uL (1.40-6.50); %Basophils 0.9 % (0.0-1.0); %Eosinophils 1.8 % (0.0-10.0); %Lymphocytes 13.2 % (21.0-51.0); %Monocytes 9.3 % (0.0-10.0); %Neutrophils 74.3 % (42.0-75.0); Hemoglobin 9.5 g/dL (12.0-16.0); Mean Corpuscular HGB CONC 31.3 g/dL (32.0-36.0); Mean Corpuscular Volume 92.7 fl (78.0-98.0); Mean Platelet Volume 12.8 fL (7.4-10.4); Platelet Count 211 10x3/uL (130-400); Red Blood Cell (RBC) Count 3.28 mill/uL (4.20-5.40); White Blood Cell (WBC) Count 4.4 10x3/uL (4.8-10.8)
[2022-10-10 05:04] LABS: Albumin 3.2 g/dL (3.4-4.8); Anion Gap 15 mmol/L (10-20); BUN (Urea Nitrogen) 39 mg/dL (9.8-20.1); BUN/Creatinine Ratio 18.14; Calc. Creatinine Clearance 35 mL/min (70-130); Calcium 8.6 mg/dL (7.8-10.44); Carbon Dioxide 22 mmol/L (23-31); Chloride 106 mmol/L (98-107); Estimated GFR 24; Glucose 87 mg/dL (80-115); Phosphorus 4.8 mg/dL (2.3-4.7); Potassium 3.8 mmol/L (3.5-5.1); Sodium 139 mmol/L (136-145)
[2022-10-10 05:15] LABS: Troponin I 0.603 ng/mL (< 0.028)
[2022-10-10] MEDS: Nitroglycerin 2% Ointment 1 INCH/1 GM Packet TOP SCH ×3 (06:17→23:33)
[2022-10-10] MEDS ORDERED: Furosemide 40 MG/4 ML VIAL SLOW IVP SCH (09:00)
[2022-10-10] MEDS: Clopidogrel Bisulfate 75 MG TAB PO SCH (10:12)
[2022-10-10] MEDS: hydrALAZINE 25 MG TAB PO SCH ×3 (10:12→23:32)
[2022-10-10] MEDS: Carvedilol 25 MG TAB PO SCH ×2 (10:13→23:32)
[2022-10-10] MEDS: Sodium Bicarbonate Tab 325 MG TAB PO SCH ×3 (10:15→23:31)
[2022-10-10] MEDS: Nitroglycerin 0.4 MG TAB (25 Tab Bottle) SL PRN ×2 (16:55→17:04)
[2022-10-10] MEDS ORDERED: Lidocaine 2% Viscous Solution 10 ML, Aluminum & Magnesium Hydroxide 30 ML SSW SCH (17:45)
[2022-10-10] MEDS ORDERED: ALPRAZolam 0.5 MG TAB PO SCH (18:30)
[2022-10-10 19:03] LABS: Magnesium 2.5 mg/dL (1.6-2.6)
[2022-10-10 19:12] LABS: Critical Call Chem Troponin I RESULT DECREASING; Troponin I 0.527 ng/mL (< 0.028)
[2022-10-10] MEDS: Nicotine 14 MG PATCH TD SCH (20:12)
[2022-10-10] MEDS: Atorvastatin Calcium 40 MG TAB PO SCH (23:32)
[2022-10-10] MEDS: Pregabalin 75 MG CAP PO SCH (23:32)
[2022-10-10] MEDS: Sertraline 100 MG TAB PO SCH (23:33)
[2022-10-10] MEDS: Melatonin 3 MG TAB PO PRN (23:36)
[2022-10-11 04:14] LABS: #Eosinphils 0.1 thou/uL (0.0-0.7); #Monocytes 1.1 thou/uL (0.11-0.59); #Neutrophils 6.1 thou/uL (1.40-6.50); %Basophils 0.3 % (0.0-1.0); %Eosinophils 1.4 % (0.0-10.0); %Lymphocytes 8.1 % (21.0-51.0); %Monocytes 13.2 % (0.0-10.0); %Neutrophils 76.7 % (42.0-75.0); Hemoglobin 9.6 g/dL (12.0-16.0); Mean Corpuscular HGB CONC 30.8 g/dL (32.0-36.0); Mean Corpuscular Hemoglobin 28.7 pg (27.0-31.0); Mean Corpuscular Volume 93.4 fl (78.0-98.0); Mean Platelet Volume 12.2 fL (7.4-10.4); Platelet Count 204 10x3/uL (130-400); RBC Distribution Width 18.2 % (11.5-14.5); Red Blood Cell (RBC) Count 3.34 mill/uL (4.20-5.40)
[2022-10-11 04:34] LABS: Anion Gap 14 mmol/L (10-20); BUN (Urea Nitrogen) 42 mg/dL (9.8-20.1); Calc. Creatinine Clearance 29 mL/min (70-130); Calcium 8.3 mg/dL (7.8-10.44); Carbon Dioxide 22 mmol/L (23-31); Chloride 107 mmol/L (98-107); Estimated GFR 20; Glucose 102 mg/dL (80-115); Potassium 3.6 mmol/L (3.5-5.1); Sodium 139 mmol/L (136-145)
[2022-10-11] MEDS: Nitroglycerin 2% Ointment 1 INCH/1 GM Packet TOP SCH ×2 (05:49→13:55)
[2022-10-11] MEDS: Clopidogrel Bisulfate 75 MG TAB PO SCH (09:44)
[2022-10-11] MEDS: Sodium Bicarbonate Tab 325 MG TAB PO SCH ×3 (09:44→21:57)
[2022-10-11] MEDS: hydrALAZINE 25 MG TAB PO SCH ×2 (09:44→18:39)
[2022-10-11] MEDS: Carvedilol 25 MG TAB PO SCH ×2 (09:46→21:59)
[2022-10-11] MEDS ORDERED: ALPRAZolam 0.25 MG TAB PO PRN (11:40)
[2022-10-11 11:41] LABS: Bilirubin Negative (Negative); Blood, Urine Negative (Negative); Clarity Turbid (Clear); Glucose, Urine (Dipstick) Normal (Negative); Ketone, Urine Negative (Negative); Leukocyte 75 Leu/uL (Negative); Nitrite Negative (Negative); Protein, Urine (Dipstick) 30 mg/dL (Neg-Trace); RBC/HPF 0-3 HPF (0-3); Squamous Epithelial 21-50 HPF (0-3); Urobilinogen Normal mg/dL (Less than 2); pH, Urine 5.5 (5.0-9.0)
[2022-10-11 11:42] LABS: Bacteria/HPF 1+ HPF (None Seen)
[2022-10-11] MEDS: HYDROcodone/Acetaminophen 5/325 mg Tablet PO PRN (11:55)
[2022-10-11] MEDS: Furosemide 40 MG/4 ML VIAL SLOW IVP SCH (13:55)
[2022-10-11] MEDS: Atorvastatin Calcium 40 MG TAB PO SCH (21:58)
[2022-10-11] MEDS: Pregabalin 75 MG CAP PO SCH (21:59)
[2022-10-11] MEDS: Sertraline 100 MG TAB PO SCH (21:59)
[2022-10-11] MEDS: Nicotine 14 MG PATCH TD SCH (22:48)
[2022-10-11] MEDS: Melatonin 3 MG TAB PO PRN (22:48)
[2022-10-12] MEDS: hydrALAZINE 25 MG TAB PO SCH ×4 (00:10→21:16)
[2022-10-12] MEDS: HYDROcodone/Acetaminophen 5/325 mg Tablet PO PRN ×3 (03:45→23:33)
[2022-10-12 04:51] LABS: #Monocytes 0.7 thou/uL (0.11-0.59); #Neutrophils 4.9 thou/uL (1.40-6.50); %Basophils 0.2 % (0.0-1.0); %Eosinophils 0.5 % (0.0-10.0); %Lymphocytes 5.4 % (21.0-51.0); %Neutrophils 81.6 % (42.0-75.0); Hemoglobin 10.2 g/dL (12.0-16.0); Mean Corpuscular HGB CONC 31.9 g/dL (32.0-36.0); Mean Corpuscular Hemoglobin 29.3 pg (27.0-31.0); Mean Platelet Volume 12.2 fL (7.4-10.4); Platelet Count 177 10x3/uL (130-400); RBC Distribution Width 18.1 % (11.5-14.5); Red Blood Cell (RBC) Count 3.48 mill/uL (4.20-5.40); White Blood Cell (WBC) Count 5.9 10x3/uL (4.8-10.8)
[2022-10-12 05:14] LABS: Anion Gap 15 mmol/L (10-20); BUN (Urea Nitrogen) 40 mg/dL (9.8-20.1); Calc. Creatinine Clearance 38 mL/min (70-130); Calcium 8.5 mg/dL (7.8-10.44); Carbon Dioxide 22 mmol/L (23-31); Chloride 104 mmol/L (98-107); Estimated GFR 27; Glucose 100 mg/dL (80-115); Potassium 3.6 mmol/L (3.5-5.1); Sodium 137 mmol/L (136-145)
[2022-10-12] MEDS: Furosemide 40 MG/4 ML VIAL SLOW IVP SCH ×2 (05:56→14:02)
[2022-10-12] MEDS: Clopidogrel Bisulfate 75 MG TAB PO SCH (08:18)
[2022-10-12] MEDS: Carvedilol 25 MG TAB PO SCH ×2 (08:19→21:15)
[2022-10-12] MEDS: Sodium Bicarbonate Tab 325 MG TAB PO SCH ×3 (08:19→21:15)
[2022-10-12] MEDS: Nicotine 14 MG PATCH TD SCH (21:14)
[2022-10-12] MEDS: Pregabalin 75 MG CAP PO SCH (21:15)
[2022-10-12] MEDS: Sertraline 100 MG TAB PO SCH (21:16)
[2022-10-12] MEDS: Atorvastatin Calcium 40 MG TAB PO SCH (21:17)
[2022-10-12] MEDS: Senokot S 8.6-50 MG TAB PO SCH (21:17)
[2022-10-12] MEDS: Melatonin 3 MG TAB PO PRN (21:17)
[2022-10-13 04:43] LABS: #Monocytes 0.6 thou/uL (0.11-0.59); %Basophils 0.2 % (0.0-1.0); %Eosinophils 0.3 % (0.0-10.0); %Lymphocytes 5.9 % (21.0-51.0); %Monocytes 10.2 % (0.0-10.0); %Neutrophils 83.1 % (42.0-75.0); Hemoglobin 10.1 g/dL (12.0-16.0); Mean Corpuscular HGB CONC 31.2 g/dL (32.0-36.0); Mean Corpuscular Hemoglobin 28.6 pg (27.0-31.0); Mean Corpuscular Volume 91.8 fl (78.0-98.0); Mean Platelet Volume 12.7 fL (7.4-10.4); Platelet Count 150 10x3/uL (130-400); RBC Distribution Width 17.9 % (11.5-14.5); Red Blood Cell (RBC) Count 3.53 mill/uL (4.20-5.40)
[2022-10-13 05:07] LABS: Anion Gap 13 mmol/L (10-20); BUN (Urea Nitrogen) 35 mg/dL (9.8-20.1); Calc. Creatinine Clearance 53 mL/min (70-130); Calcium 8.3 mg/dL (7.8-10.44); Carbon Dioxide 25 mmol/L (23-31); Chloride 103 mmol/L (98-107); Estimated GFR 36; Glucose 99 mg/dL (80-115); Potassium 3.1 mmol/L (3.5-5.1); Sodium 138 mmol/L (136-145)
[2022-10-13] MEDS: Furosemide 40 MG/4 ML VIAL SLOW IVP SCH ×2 (06:34→15:07)
[2022-10-13] MEDS: Polyethylene Glycol 3350 17 GM Packet PO SCH (09:36)
[2022-10-13] MEDS: Senokot S 8.6-50 MG TAB PO SCH ×2 (09:36→20:30)
[2022-10-13] MEDS: hydrALAZINE 25 MG TAB PO SCH ×3 (09:37→20:29)
[2022-10-13] MEDS: NIFEdipine XL 60 MG TAB PO SCH ×2 (09:37→20:28)
[2022-10-13] MEDS: Carvedilol 25 MG TAB PO SCH ×2 (09:37→20:28)
[2022-10-13] MEDS: Clopidogrel Bisulfate 75 MG TAB PO SCH (09:37)
[2022-10-13] MEDS: Spironolactone 25 MG TAB PO SCH (09:38)
[2022-10-13] MEDS: Sodium Bicarbonate Tab 325 MG TAB PO SCH (09:38)
[2022-10-13] MEDS ORDERED: Potassium Chloride 20 MEQ TAB PO SCH (10:15)
[2022-10-13 10:34] LABS: Magnesium 1.7 mg/dL (1.6-2.6)
[2022-10-13] MEDS ORDERED: Epoetin (ESRD) 10,000 UNITS/ML VIAL SC SCH (11:00)
[2022-10-13] MEDS: Ferrous Sulfate 325 MG TAB PO SCH (17:35)
[2022-10-13] MEDS: Nicotine 14 MG PATCH TD SCH (19:49)
[2022-10-13] MEDS: Atorvastatin Calcium 40 MG TAB PO SCH (20:28)
[2022-10-13] MEDS: Pregabalin 75 MG CAP PO SCH (20:30)
[2022-10-13] MEDS: Sertraline 100 MG TAB PO SCH (20:30)
[2022-10-13] MEDS: Melatonin 3 MG TAB PO PRN (20:30)
[2022-10-14 04:43] LABS: #Monocytes 0.7 thou/uL (0.11-0.59); #Neutrophils 4.1 thou/uL (1.40-6.50); %Basophils 0.2 % (0.0-1.0); %Eosinophils 0.5 % (0.0-10.0); %Monocytes 12.7 % (0.0-10.0); %Neutrophils 74.2 % (42.0-75.0); Hemoglobin 9.5 g/dL (12.0-16.0); Mean Corpuscular HGB CONC 31.3 g/dL (32.0-36.0); Mean Corpuscular Hemoglobin 28.5 pg (27.0-31.0); Mean Corpuscular Volume 91.3 fl (78.0-98.0); Mean Platelet Volume 12.1 fL (7.4-10.4); Platelet Count 152 10x3/uL (130-400); RBC Distribution Width 17.8 % (11.5-14.5); Red Blood Cell (RBC) Count 3.33 mill/uL (4.20-5.40); White Blood Cell (WBC) Count 5.5 10x3/uL (4.8-10.8)
[2022-10-14 05:14] LABS: Anion Gap 16 mmol/L (10-20); BUN (Urea Nitrogen) 37 mg/dL (9.8-20.1); Calc. Creatinine Clearance 45 mL/min (70-130); Calcium 8.4 mg/dL (7.8-10.44); Carbon Dioxide 24 mmol/L (23-31); Chloride 101 mmol/L (98-107); Estimated GFR 30; Glucose 114 mg/dL (80-115); Potassium 3.7 mmol/L (3.5-5.1); Sodium 137 mmol/L (136-145)
[2022-10-14] MEDS: Furosemide 40 MG/4 ML VIAL SLOW IVP SCH (05:39)
[2022-10-14 08:16] VITALS: TEMP 98.3
[2022-10-14] MEDS: NIFEdipine XL 60 MG TAB PO SCH (09:38)
[2022-10-14] MEDS: Carvedilol 25 MG TAB PO SCH (09:39)
[2022-10-14] MEDS: Spironolactone 25 MG TAB PO SCH (09:39)
[2022-10-14] MEDS: Clopidogrel Bisulfate 75 MG TAB PO SCH (09:40)
[2022-10-14] MEDS: hydrALAZINE 25 MG TAB PO SCH (09:40)
[2022-10-14] MEDS: Ferrous Sulfate 325 MG TAB PO SCH (09:40)
[2022-10-14] MEDS: Senokot S 8.6-50 MG TAB PO SCH (09:44)
[2022-10-14] MEDS: Polyethylene Glycol 3350 17 GM Packet PO SCH (09:44)
[2022-10-14 12:53] VITALS: BP 139/64
[2022-10-15] MEDS ORDERED: Furosemide 40 MG TAB PO SCH (07:30)
== END 2022-10-14 14:20 | disposition home or self-care (01) | DRG 280 ==
LOC: ERS 14:23 → 2NO 17:32
PROVIDERS: ADMIT Hospitalist; ATTEND Internal Medicine
DX: I13.0 Hypertensive heart and chronic kidney disease with heart failure and stage 1 through stage 4 chronic kidney disease, or unspecified chronic kidney disease (principal); I50.33 Acute on chronic diastolic (congestive) heart failure; I21.4 Non-ST elevation (NSTEMI) myocardial infarction; N17.9 Acute kidney failure, unspecified; E87.20 Acidosis, unspecified; I25.10 Atherosclerotic heart disease of native coronary artery without angina pectoris; N18.32 Chronic kidney disease, stage 3b; E78.2 Mixed hyperlipidemia; I48.0 Paroxysmal atrial fibrillation; F17.210 Nicotine dependence, cigarettes, uncomplicated; K21.9 Gastro-esophageal reflux disease without esophagitis; I16.0 Hypertensive urgency; D63.1 Anemia in chronic kidney disease; Z79.899 Other long term (current) drug therapy; Z79.02 Long term (current) use of antithrombotics/antiplatelets; Z79.01 Long term (current) use of anticoagulants; Z91.040 Latex allergy status; Z88.8 Allergy status to other drugs, medicaments and biological substances; Z95.5 Presence of coronary angioplasty implant and graft; Z86.711 Personal history of pulmonary embolism; Z90.49 Acquired absence of other specified parts of digestive tract; Z90.89 Acquired absence of other organs; Z90.710 Acquired absence of both cervix and uterus; Z89.432 Acquired absence of left foot; Z82.49 Family history of ischemic heart disease and other diseases of the circulatory system; I25.2 Old myocardial infarction; E87.6 Hypokalemia
CPT/HCPCS: 36415; 70450; 71045; 71275; 76705; 80048; 80053; 80061; 80069; 81001; 82553; 82607; 82728; 83036; 83540; 83550; 83735; 83880; 84443; 84484; 85025; 85379; 93005; 93010; 93798; 94640; 94760; 96365; 96367; 96372; 96375; 97139; J0360; J0692; J1650; J1940; J2272; J3475; J7512; J7620; Q4081; Q9967

== ENCOUNTER 2023-01-07 09:23 | Inpatient (IN) | payer OTHER, MEDICARE ==
[2023-01-07] MEDS ORDERED: Ondansetron PF 4 MG/2 ML Vial ONE (09:52)
[2023-01-07 10:15] LABS: #Monocytes 0.6 thou/uL (0.11-0.59); #Neutrophils 3.2 thou/uL (1.40-6.50); %Basophils 0.6 % (0.0-1.0); %Lymphocytes 18.6 % (21.0-51.0); %Neutrophils 68.6 % (42.0-75.0); Hematocrit 36.8 % (36.0-47.0); Hemoglobin 11.7 g/dL (12.0-16.0); Mean Corpuscular HGB CONC 31.8 g/dL (32.0-36.0); Mean Corpuscular Hemoglobin 29.3 pg (27.0-31.0); Mean Platelet Volume 11.5 fL (7.4-10.4); Platelet Count 183 10x3/uL (130-400); RBC Distribution Width 17.6 % (11.5-14.5); White Blood Cell (WBC) Count 4.7 10x3/uL (4.8-10.8)
[2023-01-07] MEDS ORDERED: hydrALAZINE 20 MG/ML VIAL ONE ×2 (10:29→16:03)
[2023-01-07 10:38] LABS: ALT (SGPT) Less than 7 U/L (8-55); AST (SGOT) 12 U/L (5-34); Albumin 4.2 g/dL (3.4-4.8); Alkaline Phosphatase 88 U/L (40-110); Anion Gap 18 mmol/L (10-20); BUN (Urea Nitrogen) 25 mg/dL (9.8-20.1); Bilirubin, Total 1.4 mg/dL (0.2-1.2); Calc. Creatinine Clearance 0 mL/min (70-130); Calcium 9.7 mg/dL (7.8-10.44); Carbon Dioxide 19 mmol/L (23-31); Chloride 107 mmol/L (98-107); Estimated GFR 40; Globulin 3.2 g/dL (2.4-3.5); Glucose 140 mg/dL (80-115); Lipase 17 U/L (8-78); Potassium 3.7 mmol/L (3.5-5.1); Protein, Total 7.4 g/dL (5.8-8.1); Sodium 140 mmol/L (136-145)
[2023-01-07 10:42] LABS: Troponin I 0.115 ng/mL (< 0.028)
[2023-01-07 10:43] LABS: INR-International Normal Ratio 1.2; PTT 31.7 sec (22.9-36.1); Prothrombin Time 15.3 sec (12.0-14.7)
[2023-01-07] MEDS ORDERED: Acetaminophen 500 MG TAB ONE (11:01)
[2023-01-07] MEDS ORDERED: cloNIDine 0.1 MG TAB ONE (11:52)
[2023-01-07 13:32] LABS: Lactic Acid 1.7 mmol/L (0.5-2.2)
[2023-01-07] MEDS ORDERED: Loperamide HCl 2 MG CAP PO PRN (14:39)
[2023-01-07] MEDS ORDERED: Ondansetron PF 4 MG/2 ML Vial IVP PRN (14:39)
[2023-01-07] MEDS ORDERED: Acetaminophen 650 MG Suppository PR PRN (14:39)
[2023-01-07 14:55] VITALS: BMI 30.8
[2023-01-07 15:11] LABS: Troponin I 0.113 ng/mL (< 0.028)
[2023-01-07 15:12] LABS: Magnesium 1.8 mg/dL (1.6-2.6)
[2023-01-07] MEDS ORDERED: Iopamidol-370 76% 500 ML MDV (1 ML CHARGE) ONE (15:53)
[2023-01-07] MEDS: hydrALAZINE 20 MG/ML VIAL SLOW IVP PRN (16:04)
[2023-01-07] MEDS: Sodium Chloride 0.9% 1,000 ML IV SCH (16:07)
[2023-01-07 16:29] LABS: Bacteria/HPF None Seen HPF (None Seen); Bilirubin Negative (Negative); Blood, Urine 1+ (Negative); CAUTI Indications for Culture Alt mental st,lethar; Clarity Clear (Clear); Glucose, Urine (Dipstick) Normal (Negative); Ketone, Urine Negative (Negative); Leukocyte Negative Leu/uL (Negative); Nitrite Negative (Negative); Protein, Urine (Dipstick) 300 mg/dL (Neg-Trace); RBC/HPF 0-3 HPF (0-3); Squamous Epithelial 0-3 HPF (0-3); Urobilinogen Normal mg/dL (Less than 2); WBC/HPF 0-3 HPF (0-3)
[2023-01-07 16:30] LABS: Specific Gravity, Urine 1.052 (1.002-1.036)
[2023-01-07 16:31] LABS: Urine Culture Reflex No No
[2023-01-07] MEDS: Carvedilol 25 MG TAB PO SCH (18:24)
[2023-01-07] MEDS: HYDROcodone/Acetaminophen 5/325 mg Tablet PO PRN (18:25)
[2023-01-07] MEDS ORDERED: Magnesium 2 GM/50 ML(in water) 2 GM in Premix Bag 1 BAG IVPB SCH (19:00)
[2023-01-07 19:14] LABS: Troponin I 0.116 ng/mL (< 0.028)
[2023-01-07] MEDS: Apixaban 5 MG TAB PO SCH (20:27)
[2023-01-07] MEDS: Famotidine/PF 20 mg/2ml Vial SLOW IVP SCH (20:27)
[2023-01-07] MEDS: Atorvastatin Calcium 40 MG TAB PO SCH (20:27)
[2023-01-07] MEDS: hydrALAZINE 25 MG TAB PO SCH (20:27)
[2023-01-07] MEDS ORDERED: Atorvastatin Calcium 40 MG TAB PO SCH (21:00)
[2023-01-07] MEDS: Sertraline 100 MG TAB PO SCH (21:23)
[2023-01-07] MEDS: traZODone HCl 50 MG TAB PO SCH (21:23)
[2023-01-08 04:25] LABS: #Monocytes 0.5 thou/uL (0.11-0.59); #Neutrophils 1.7 thou/uL (1.40-6.50); %Basophils 1.1 % (0.0-1.0); %Eosinophils 1.1 % (0.0-10.0); %Lymphocytes 22.6 % (21.0-51.0); %Monocytes 16.1 % (0.0-10.0); %Neutrophils 59.1 % (42.0-75.0); Hematocrit 32.5 % (36.0-47.0); Hemoglobin 9.9 g/dL (12.0-16.0); Mean Corpuscular HGB CONC 30.5 g/dL (32.0-36.0); Mean Corpuscular Hemoglobin 29.6 pg (27.0-31.0); Mean Platelet Volume 11.4 fL (7.4-10.4); Platelet Count 121 10x3/uL (130-400); RBC Distribution Width 17.7 % (11.5-14.5); Red Blood Cell (RBC) Count 3.34 mill/uL (4.20-5.40); White Blood Cell (WBC) Count 2.8 10x3/uL (4.8-10.8)
[2023-01-08 04:34] LABS: Mean Corpuscular Volume 97.3 fl (78.0-98.0)
[2023-01-08 04:59] LABS: ALT (SGPT) Less than 7 U/L (8-55); AST (SGOT) 9 U/L (5-34); Albumin 3.2 g/dL (3.4-4.8); Alkaline Phosphatase 66 U/L (40-110); Anion Gap 13 mmol/L (10-20); BUN (Urea Nitrogen) 24 mg/dL (9.8-20.1); Bilirubin, Total 0.8 mg/dL (0.2-1.2); Calc. Creatinine Clearance 65 mL/min (70-130); Calcium 8.4 mg/dL (7.8-10.44); Carbon Dioxide 18 mmol/L (23-31); Chloride 109 mmol/L (98-107); Estimated GFR 51; Globulin 2.5 g/dL (2.4-3.5); Glucose 87 mg/dL (80-115); Potassium 3.1 mmol/L (3.5-5.1); Protein, Total 5.7 g/dL (5.8-8.1); Sodium 137 mmol/L (136-145)
[2023-01-08] MEDS: hydrALAZINE 20 MG/ML VIAL SLOW IVP PRN (05:50)
[2023-01-08] MEDS: HYDROcodone/Acetaminophen 5/325 mg Tablet PO PRN ×3 (05:50→21:18)
[2023-01-08] MEDS: Sodium Chloride 0.9% 1,000 ML IV SCH ×2 (05:53→11:40)
[2023-01-08] MEDS: Carvedilol 25 MG TAB PO SCH ×2 (08:43→16:03)
[2023-01-08] MEDS: Apixaban 5 MG TAB PO SCH ×2 (08:43→21:18)
[2023-01-08] MEDS: Famotidine/PF 20 mg/2ml Vial SLOW IVP SCH (08:43)
[2023-01-08] MEDS: Isosorbide Mononitrate 60 MG ER.TAB PO SCH (08:43)
[2023-01-08] MEDS: hydrALAZINE 25 MG TAB PO SCH ×3 (08:43→21:18)
[2023-01-08] MEDS ORDERED: Ipratropium/Albuterol 3 ML NEB NEB PRN (15:50)
[2023-01-08] MEDS: Sertraline 100 MG TAB PO SCH (21:18)
[2023-01-08] MEDS: traZODone HCl 50 MG TAB PO SCH (21:18)
[2023-01-08] MEDS: Atorvastatin Calcium 40 MG TAB PO SCH (21:18)
[2023-01-09 04:07] LABS: #Monocytes 0.5 thou/uL (0.11-0.59); #Neutrophils 2.3 thou/uL (1.40-6.50); %Basophils 0.6 % (0.0-1.0); %Eosinophils 1.2 % (0.0-10.0); %Lymphocytes 18.3 % (21.0-51.0); %Monocytes 13.1 % (0.0-10.0); %Neutrophils 66.5 % (42.0-75.0); Hematocrit 32.7 % (36.0-47.0); Mean Corpuscular HGB CONC 30.6 g/dL (32.0-36.0); Mean Corpuscular Hemoglobin 29.4 pg (27.0-31.0); Mean Corpuscular Volume 96.2 fl (78.0-98.0); Mean Platelet Volume 11.6 fL (7.4-10.4); Platelet Count 142 10x3/uL (130-400); RBC Distribution Width 17.4 % (11.5-14.5); White Blood Cell (WBC) Count 3.4 10x3/uL (4.8-10.8)
[2023-01-09 04:34] LABS: ALT (SGPT) Less than 7 U/L (8-55); AST (SGOT) 10 U/L (5-34); Albumin 3.1 g/dL (3.4-4.8); Alkaline Phosphatase 65 U/L (40-110); Anion Gap 11 mmol/L (10-20); BUN (Urea Nitrogen) 23 mg/dL (9.8-20.1); Bilirubin, Total 0.7 mg/dL (0.2-1.2); Calc. Creatinine Clearance 65 mL/min (70-130); Calcium 8.4 mg/dL (7.8-10.44); Carbon Dioxide 21 mmol/L (23-31); Chloride 109 mmol/L (98-107); Estimated GFR 51; Globulin 2.5 g/dL (2.4-3.5); Glucose 86 mg/dL (80-115); Potassium 3.4 mmol/L (3.5-5.1); Protein, Total 5.6 g/dL (5.8-8.1); Sodium 138 mmol/L (136-145)
[2023-01-09] MEDS: Carvedilol 25 MG TAB PO SCH (08:28)
[2023-01-09] MEDS: hydrALAZINE 25 MG TAB PO SCH (08:28)
[2023-01-09] MEDS: Apixaban 5 MG TAB PO SCH (08:28)
[2023-01-09] MEDS: Isosorbide Mononitrate 60 MG ER.TAB PO SCH (08:28)
[2023-01-09] MEDS: hydrALAZINE 20 MG/ML VIAL SLOW IVP PRN (09:46)
[2023-01-09] MEDS ORDERED: cloNIDine 0.1 MG TAB PO PRN (10:42)
[2023-01-09] MEDS ORDERED: cloNIDine 0.1 MG TAB PO SCH (10:45)
[2023-01-09] MEDS ORDERED: NIFEdipine XL 60 MG ER.TAB PO SCH ×2 (10:45→21:00)
[2023-01-09] MEDS: HYDROcodone/Acetaminophen 5/325 mg Tablet PO PRN (11:04)
[2023-01-09 11:31] VITALS: TEMP 96.9
[2023-01-09 13:58] VITALS: BP 147/74
[2023-01-09] MEDS ORDERED: hydrALAZINE 25 MG TAB PO SCH (15:00)
[2023-01-09] MEDS ORDERED: Isosorbide Mononitrate 60 MG ER.TAB PO SCH (21:00)
[2023-01-10] MEDS ORDERED: Furosemide 40 MG TAB PO SCH (09:00)
[2023-01-10] MEDS ORDERED: Clopidogrel Bisulfate 75 MG TAB PO SCH (09:00)
[2023-01-10] MEDS ORDERED: FLU VACC QS2023(65UP)/MF59C/PF 60 MCG/0.5 ML SYRINGE IM ONE (09:00)
[2023-01-10] MEDS ORDERED: Spironolactone 25 MG TAB PO SCH (09:00)
[2023-01-10] MEDS ORDERED: Empagliflozin 10 MG TAB PO SCH (09:00)
== END 2023-01-09 18:37 | disposition home or self-care (01) | DRG 291 ==
LOC: ERS 09:23 → ERHOLD 14:20 → 2NO 17:14 → OBSVTOIN 01-08 12:23
PROVIDERS: ADMIT Internal Medicine; ATTEND Internal Medicine
DX: I13.0 Hypertensive heart and chronic kidney disease with heart failure and stage 1 through stage 4 chronic kidney disease, or unspecified chronic kidney disease (principal); I50.33 Acute on chronic diastolic (congestive) heart failure; E86.0 Dehydration; I16.0 Hypertensive urgency; I25.10 Atherosclerotic heart disease of native coronary artery without angina pectoris; N18.30 Chronic kidney disease, stage 3 unspecified; D63.1 Anemia in chronic kidney disease; J44.9 Chronic obstructive pulmonary disease, unspecified; K21.9 Gastro-esophageal reflux disease without esophagitis; F41.9 Anxiety disorder, unspecified; F32.A Depression, unspecified; F17.290 Nicotine dependence, other tobacco product, uncomplicated; I48.91 Unspecified atrial fibrillation; E78.5 Hyperlipidemia, unspecified; R11.2 Nausea with vomiting, unspecified; Z82.49 Family history of ischemic heart disease and other diseases of the circulatory system; Z90.49 Acquired absence of other specified parts of digestive tract; Z90.710 Acquired absence of both cervix and uterus; Z98.890 Other specified postprocedural states; Z91.040 Latex allergy status; Z88.5 Allergy status to narcotic agent; Z79.899 Other long term (current) drug therapy; Z91.048 Other nonmedicinal substance allergy status; Z86.73 Personal history of transient ischemic attack (TIA), and cerebral infarction without residual deficits
CPT/HCPCS: 36415; 36416; 74177; 80053; 81001; 83605; 83690; 83735; 83880; 84484; 85025; 85610; 85730; 87040; 87077; 87086; 87149; 87186; 93005; 94760; 96374; 96375; 96376; G0378; J0360; J2405; J3475; J7050; Q9967; S0028

== ENCOUNTER 2023-03-14 14:25 | Inpatient (IN) | payer OTHER, MEDICAID ==
[2023-03-14 15:05] LABS: #Monocytes 0.5 thou/uL (0.11-0.59); #Neutrophils 2.3 thou/uL (1.40-6.50); %Basophils 0.3 % (0.0-1.0); %Lymphocytes 21.4 % (21.0-51.0); %Monocytes 14.6 % (0.0-10.0); %Neutrophils 63.4 % (42.0-75.0); Hematocrit 34.7 % (36.0-47.0); Mean Corpuscular HGB CONC 31.7 g/dL (32.0-36.0); Mean Corpuscular Hemoglobin 28.1 pg (27.0-31.0); Mean Corpuscular Volume 88.7 fl (78.0-98.0); Mean Platelet Volume 11.7 fL (7.4-10.4); Platelet Count 148 10x3/uL (130-400); RBC Distribution Width 17.6 % (11.5-14.5); Red Blood Cell (RBC) Count 3.91 mill/uL (4.20-5.40); White Blood Cell (WBC) Count 3.6 10x3/uL (4.8-10.8)
[2023-03-14 15:30] LABS: ALT (SGPT) 35 U/L (8-55); AST (SGOT) 53 U/L (5-34); Albumin 3.7 g/dL (3.4-4.8); Alkaline Phosphatase 72 U/L (40-110); Anion Gap 16 mmol/L (10-20); BUN (Urea Nitrogen) 29 mg/dL (9.8-20.1); Bilirubin, Total 1.3 mg/dL (0.2-1.2); Calc. Creatinine Clearance 0 mL/min (70-130); Calcium 8.6 mg/dL (7.8-10.44); Carbon Dioxide 19 mmol/L (23-31); Chloride 108 mmol/L (98-107); Estimated GFR 35; Globulin 2.6 g/dL (2.4-3.5); Glucose 114 mg/dL (80-115); Potassium 3.7 mmol/L (3.5-5.1); Protein, Total 6.3 g/dL (5.8-8.1); Sodium 139 mmol/L (136-145)
[2023-03-14 15:33] LABS: Troponin I 0.122 ng/mL (< 0.028)
[2023-03-14] MEDS ORDERED: Furosemide 40 MG/4 ML VIAL ONE (15:35)
[2023-03-14] MEDS ORDERED: Ondansetron PF 4 MG/2 ML Vial ONE (15:35)
[2023-03-14 17:40] LABS: Bacteria/HPF 1+ HPF (None Seen); Bilirubin Negative (Negative); Blood, Urine Negative (Negative); CAUTI Indications for Culture Dysuria,urgency,freq; Clarity Clear (Clear); Glucose, Urine (Dipstick) 30 mg/dL (Negative); Ketone, Urine Negative (Negative); Leukocyte 75 Leu/uL (Negative); Nitrite Negative (Negative); Protein, Urine (Dipstick) 200 mg/dL (Neg-Trace); RBC/HPF 0-3 HPF (0-3); Specific Gravity, Urine 1.017 (1.002-1.036); Squamous Epithelial 0-3 HPF (0-3); Urine Culture Reflex No No; WBC/HPF 0-3 HPF (0-3); pH, Urine 5.5 (5.0-9.0)
[2023-03-14 20:40] LABS: Troponin I 0.152 ng/mL (< 0.028)
[2023-03-14] MEDS ORDERED: Senokot S 8.6-50 MG TAB PO PRN (20:52)
[2023-03-14] MEDS ORDERED: Ondansetron ODT 4 MG TAB PO PRN (20:52)
[2023-03-14] MEDS ORDERED: Ipratropium/Albuterol 3 ML NEB NEB PRN (20:53)
[2023-03-14] MEDS ORDERED: NIFEdipine XL 60 MG ER.TAB PO SCH (21:00)
[2023-03-14] MEDS ORDERED: Isosorbide Mononitrate 60 MG ER.TAB PO SCH (21:00)
[2023-03-14] MEDS ORDERED: hydrALAZINE 25 MG TAB PO SCH (21:00)
[2023-03-14] MEDS: Sertraline 100 MG TAB PO SCH (23:39)
[2023-03-14] MEDS: Carvedilol 25 MG TAB PO SCH (23:39)
[2023-03-14] MEDS: Atorvastatin Calcium 40 MG TAB PO SCH (23:39)
[2023-03-14] MEDS: Apixaban 5 MG TAB PO SCH (23:40)
[2023-03-15 00:41] LABS: Troponin I 0.126 ng/mL (< 0.028)
[2023-03-15 04:42] LABS: #Monocytes 0.6 thou/uL (0.11-0.59); #Neutrophils 2.1 thou/uL (1.40-6.50); %Basophils 0.3 % (0.0-1.0); %Eosinophils 0.6 % (0.0-10.0); %Lymphocytes 19.9 % (21.0-51.0); %Monocytes 17.3 % (0.0-10.0); %Neutrophils 61.6 % (42.0-75.0); Hematocrit 31.7 % (36.0-47.0); Hemoglobin 9.8 g/dL (12.0-16.0); Mean Corpuscular HGB CONC 30.9 g/dL (32.0-36.0); Mean Corpuscular Volume 90.6 fl (78.0-98.0); Mean Platelet Volume 11.6 fL (7.4-10.4); Platelet Count 123 10x3/uL (130-400); RBC Distribution Width 17.4 % (11.5-14.5); White Blood Cell (WBC) Count 3.5 10x3/uL (4.8-10.8)
[2023-03-15 05:10] LABS: Anion Gap 12 mmol/L (10-20); BUN (Urea Nitrogen) 30 mg/dL (9.8-20.1); Calc. Creatinine Clearance 41 mL/min (70-130); Calcium 7.9 mg/dL (7.8-10.44); Carbon Dioxide 20 mmol/L (23-31); Chloride 107 mmol/L (98-107); Estimated GFR 32; Glucose 102 mg/dL (80-115); Potassium 3.4 mmol/L (3.5-5.1); Sodium 136 mmol/L (136-145)
[2023-03-15] MEDS: Furosemide 40 MG/4 ML VIAL SLOW IVP SCH ×2 (06:21→15:14)
[2023-03-15] MEDS: Carvedilol 25 MG TAB PO SCH ×2 (08:49→21:49)
[2023-03-15] MEDS: Apixaban 5 MG TAB PO SCH ×2 (08:49→21:49)
[2023-03-15] MEDS: Clopidogrel Bisulfate 75 MG TAB PO SCH (08:49)
[2023-03-15] MEDS: Empagliflozin 10 MG TAB PO SCH (08:49)
[2023-03-15] MEDS ORDERED: Spironolactone 25 MG TAB PO SCH (09:00)
[2023-03-15] MEDS ORDERED: Electrolyte Replacement Protocol 1 EACH FS SCH (09:15)
[2023-03-15] MEDS ORDERED: Electrolyte Replacement Protocol FS PRN (09:30)
[2023-03-15] MEDS ORDERED: Potassium Chloride 20 MEQ TAB PO SCH (10:00)
[2023-03-15 12:55] LABS: Amphetamine Not Detected (NotDetected); Barbiturates Screen Not Detected (NotDetected); Benzodiazepine Screen Not Detected (NotDetected); Cocaine Metabolite Screen Not Detected (NotDetected); Methadone Not Detected (NotDetected); Methamphetamine Not Detected (NotDetected); Opiate Screen Not Detected (NotDetected); Oxycodone Screen Not Detected (NotDetected); Phencyclidine (PCP) Not Detected (NotDetected); THC/Cannabinoid Screen Detected (NotDetected); Tricyclic Screen Not Detected (NotDetected)
[2023-03-15 13:17] LABS: SARS-CoV-2 NAA Rapid Test DETECTED (NotDetected)
[2023-03-15] MEDS ORDERED: Dexamethasone 4 MG TAB PO SCH (13:45)
[2023-03-15] MEDS ORDERED: REMDESIVIR 200 MG in Sodium Chloride 0.9% 250 ML 210 ML IV SCH (14:15)
[2023-03-15] MEDS: Atorvastatin Calcium 40 MG TAB PO SCH (21:49)
[2023-03-15] MEDS: Sertraline 100 MG TAB PO SCH (21:49)
[2023-03-16] MEDS: Furosemide 40 MG/4 ML VIAL SLOW IVP SCH (06:11)
[2023-03-16 06:38] LABS: #Monocytes 0.1 thou/uL (0.11-0.59); %Lymphocytes 10.1 % (21.0-51.0); %Neutrophils 85.6 % (42.0-75.0); Hematocrit 33.8 % (36.0-47.0); Hemoglobin 10.1 g/dL (12.0-16.0); Mean Corpuscular HGB CONC 29.9 g/dL (32.0-36.0); Mean Corpuscular Hemoglobin 27.7 pg (27.0-31.0); Mean Corpuscular Volume 92.9 fl (78.0-98.0); Mean Platelet Volume 11.4 fL (7.4-10.4); Platelet Count 155 10x3/uL (130-400); RBC Distribution Width 17.6 % (11.5-14.5); Red Blood Cell (RBC) Count 3.64 mill/uL (4.20-5.40); White Blood Cell (WBC) Count 3.5 10x3/uL (4.8-10.8)
[2023-03-16 07:10] LABS: Anion Gap 14 mmol/L (10-20); BUN (Urea Nitrogen) 32 mg/dL (9.8-20.1); Calc. Creatinine Clearance 35 mL/min (70-130); Carbon Dioxide 19 mmol/L (23-31); Chloride 106 mmol/L (98-107); Estimated GFR 26; Glucose 115 mg/dL (80-115); Magnesium 1.9 mg/dL (1.6-2.6); Potassium 4.1 mmol/L (3.5-5.1); Sodium 135 mmol/L (136-145)
[2023-03-16] MEDS ORDERED: predniSONE 20 MG TAB PO SCH (08:00)
[2023-03-16] MEDS ORDERED: Spironolactone 25 MG TAB PO SCH (08:00)
[2023-03-16] MEDS ORDERED: Magnesium 2 GM/50 ML(in water) 2 GM in Premix 1 BAG IVPB SCH (08:30)
[2023-03-16] MEDS: Carvedilol 25 MG TAB PO SCH ×2 (09:43→22:03)
[2023-03-16] MEDS: Clopidogrel Bisulfate 75 MG TAB PO SCH (09:43)
[2023-03-16] MEDS: Dexamethasone 4 MG TAB PO SCH (09:44)
[2023-03-16] MEDS: Apixaban 5 MG TAB PO SCH ×2 (09:44→22:03)
[2023-03-16] MEDS: Empagliflozin 10 MG TAB PO SCH (09:44)
[2023-03-16] MEDS: REMDESIVIR 100 MG in Sodium Chloride 0.9% 250 ML 230 ML IV SCH (17:56)
[2023-03-16] MEDS: Atorvastatin Calcium 40 MG TAB PO SCH (22:03)
[2023-03-16] MEDS: Sertraline 100 MG TAB PO SCH (22:03)
[2023-03-17 06:07] LABS: #Monocytes 0.6 thou/uL (0.11-0.59); #Neutrophils 4.2 thou/uL (1.40-6.50); %Lymphocytes 8.7 % (21.0-51.0); %Neutrophils 80.1 % (42.0-75.0); Hematocrit 35.1 % (36.0-47.0); Hemoglobin 10.9 g/dL (12.0-16.0); Mean Corpuscular HGB CONC 31.1 g/dL (32.0-36.0); Mean Corpuscular Hemoglobin 27.8 pg (27.0-31.0); Mean Platelet Volume 11.5 fL (7.4-10.4); Platelet Count 188 10x3/uL (130-400); RBC Distribution Width 17.5 % (11.5-14.5); Red Blood Cell (RBC) Count 3.92 mill/uL (4.20-5.40); White Blood Cell (WBC) Count 5.3 10x3/uL (4.8-10.8)
[2023-03-17 06:12] LABS: Mean Corpuscular Volume 89.5 fl (78.0-98.0)
[2023-03-17 06:26] LABS: ALT (SGPT) 19 U/L (8-55); AST (SGOT) 19 U/L (5-34); Albumin 3.5 g/dL (3.4-4.8); Alkaline Phosphatase 65 U/L (40-110); Anion Gap 14 mmol/L (10-20); BUN (Urea Nitrogen) 43 mg/dL (9.8-20.1); Bilirubin, Total 0.5 mg/dL (0.2-1.2); CRP (Inflammatory) Less than 0.50 mg/dL (= or < 0.5); Calc. Creatinine Clearance 32 mL/min (70-130); Calcium 8.4 mg/dL (7.8-10.44); Carbon Dioxide 22 mmol/L (23-31); Chloride 103 mmol/L (98-107); Estimated GFR 24; Globulin 2.9 g/dL (2.4-3.5); Glucose 117 mg/dL (80-115); Potassium 4.3 mmol/L (3.5-5.1); Protein, Total 6.4 g/dL (5.8-8.1); Sodium 135 mmol/L (136-145)
[2023-03-17 06:28] LABS: Magnesium 2.2 mg/dL (1.6-2.6)
[2023-03-17] MEDS: Dexamethasone 4 MG TAB PO SCH (10:07)
[2023-03-17] MEDS: Empagliflozin 10 MG TAB PO SCH (10:08)
[2023-03-17] MEDS: Apixaban 5 MG TAB PO SCH ×2 (10:08→21:08)
[2023-03-17] MEDS: Clopidogrel Bisulfate 75 MG TAB PO SCH (10:08)
[2023-03-17] MEDS: Carvedilol 25 MG TAB PO SCH ×2 (10:08→21:08)
[2023-03-17] MEDS: hydrALAZINE 20 MG/ML VIAL SLOW IVP PRN ×3 (13:26→21:07)
[2023-03-17] MEDS: REMDESIVIR 100 MG in Sodium Chloride 0.9% 250 ML 230 ML IV SCH (13:27)
[2023-03-17] MEDS ORDERED: Amlodipine 10 MG TAB PO SCH (15:15)
[2023-03-17] MEDS: Atorvastatin Calcium 40 MG TAB PO SCH (21:08)
[2023-03-17] MEDS: Sertraline 100 MG TAB PO SCH (21:08)
[2023-03-17] MEDS: traZODone HCl 50 MG TAB PO PRN (21:35)
[2023-03-17] MEDS: Acetaminophen 325 MG TAB PO PRN (21:35)
[2023-03-18 05:28] LABS: Anion Gap 12 mmol/L (10-20); BUN (Urea Nitrogen) 49 mg/dL (9.8-20.1); CRP (Inflammatory) Less than 0.50 mg/dL (= or < 0.5); Calc. Creatinine Clearance 38 mL/min (70-130); Calcium 8.3 mg/dL (7.8-10.44); Carbon Dioxide 21 mmol/L (23-31); Chloride 104 mmol/L (98-107); Estimated GFR 29; Glucose 103 mg/dL (80-115); Potassium 4.4 mmol/L (3.5-5.1); Sodium 133 mmol/L (136-145)
[2023-03-18] MEDS: Clopidogrel Bisulfate 75 MG TAB PO SCH (08:26)
[2023-03-18] MEDS: Dexamethasone 4 MG TAB PO SCH (08:27)
[2023-03-18] MEDS: Apixaban 5 MG TAB PO SCH ×2 (08:28→20:56)
[2023-03-18] MEDS: Carvedilol 25 MG TAB PO SCH ×2 (08:28→20:56)
[2023-03-18] MEDS: Empagliflozin 10 MG TAB PO SCH (08:28)
[2023-03-18] MEDS ORDERED: Amlodipine 5 MG TAB PO SCH (09:00)
[2023-03-18] MEDS: Furosemide 40 MG TAB PO SCH (09:51)
[2023-03-18] MEDS: Amlodipine 10 MG TAB PO SCH (09:51)
[2023-03-18] MEDS: Acetaminophen 325 MG TAB PO PRN ×2 (09:55→14:45)
[2023-03-18] MEDS: hydrALAZINE 20 MG/ML VIAL SLOW IVP PRN ×3 (11:26→20:56)
[2023-03-18] MEDS: Sertraline 100 MG TAB PO SCH (20:56)
[2023-03-18] MEDS: traZODone HCl 50 MG TAB PO PRN (20:56)
[2023-03-18] MEDS: Atorvastatin Calcium 40 MG TAB PO SCH (20:56)
[2023-03-19] MEDS: hydrALAZINE 20 MG/ML VIAL SLOW IVP PRN ×3 (00:29→09:47)
[2023-03-19] MEDS ORDERED: Spironolactone 25 MG TAB PO SCH (08:00)
[2023-03-19] MEDS: Carvedilol 25 MG TAB PO SCH (09:48)
[2023-03-19] MEDS: Apixaban 5 MG TAB PO SCH (09:48)
[2023-03-19] MEDS: Clopidogrel Bisulfate 75 MG TAB PO SCH (09:48)
[2023-03-19] MEDS: Empagliflozin 10 MG TAB PO SCH (09:48)
[2023-03-19] MEDS: Dexamethasone 4 MG TAB PO SCH (09:48)
[2023-03-19] MEDS: Amlodipine 10 MG TAB PO SCH (09:48)
[2023-03-19] MEDS: Furosemide 40 MG TAB PO SCH (09:48)
[2023-03-19 12:24] VITALS: BP 167/77; TEMP 97.8
== END 2023-03-19 12:05 | disposition home or self-care (01) | DRG 177 ==
LOC: ERS 14:25 → 2SE 19:51
PROVIDERS: ADMIT Student in an Organized Health Care Education/Training Program; ATTEND Family Medicine
PROC: 3E0333Z Introduction of Anti-inflammatory into Peripheral Vein, Percutaneous Approach (ICD-10-PCS; principal; 2023-03-15)
PROC: XW033E5 Introduction of Remdesivir Anti-infective into Peripheral Vein, Percutaneous Approach, New Technology Group 5 (ICD-10-PCS; 2023-03-15)
PROC: 8E0ZXY6 Isolation (ICD-10-PCS; 2023-03-15)
DX: U07.1 COVID-19 (principal); I21.A1 Myocardial infarction type 2; I50.33 Acute on chronic diastolic (congestive) heart failure; I13.0 Hypertensive heart and chronic kidney disease with heart failure and stage 1 through stage 4 chronic kidney disease, or unspecified chronic kidney disease; J44.1 Chronic obstructive pulmonary disease with (acute) exacerbation; I48.11 Longstanding persistent atrial fibrillation; D61.818 Other pancytopenia; N17.9 Acute kidney failure, unspecified; I25.10 Atherosclerotic heart disease of native coronary artery without angina pectoris; K21.9 Gastro-esophageal reflux disease without esophagitis; I73.9 Peripheral vascular disease, unspecified; N18.32 Chronic kidney disease, stage 3b; F12.10 Cannabis abuse, uncomplicated; Z90.710 Acquired absence of both cervix and uterus; Z88.6 Allergy status to analgesic agent; Z90.49 Acquired absence of other specified parts of digestive tract; Z90.89 Acquired absence of other organs; Z88.8 Allergy status to other drugs, medicaments and biological substances; Z91.040 Latex allergy status; Z79.899 Other long term (current) drug therapy; Z98.890 Other specified postprocedural states; Z95.5 Presence of coronary angioplasty implant and graft; Z82.49 Family history of ischemic heart disease and other diseases of the circulatory system
CPT/HCPCS: 36415; 71045; 80048; 80053; 80306; 81001; 83735; 83880; 84484; 85025; 86140; 87631; 93005; 96374; 96375; J0248; J0360; J1940; J2405; J3475; J7050; J8540; U0002

== ENCOUNTER 2023-04-13 18:34 | Inpatient (IN) | payer MEDICARE, MEDICAID ==
[2023-04-13 20:00] LABS: #Eosinphils 0.1 thou/uL (0.0-0.7); #Monocytes 0.6 thou/uL (0.11-0.59); #Neutrophils 2.6 thou/uL (1.40-6.50); %Basophils 0.5 % (0.0-1.0); %Eosinophils 1.3 % (0.0-10.0); %Lymphocytes 16.6 % (21.0-51.0); %Monocytes 14.2 % (0.0-10.0); %Neutrophils 66.9 % (42.0-75.0); Hematocrit 33.6 % (36.0-47.0); Hemoglobin 10.5 g/dL (12.0-16.0); Mean Corpuscular HGB CONC 31.3 g/dL (32.0-36.0); Mean Corpuscular Volume 89.6 fl (78.0-98.0); Mean Platelet Volume 11.6 fL (7.4-10.4); Platelet Count 153 10x3/uL (130-400); RBC Distribution Width 20.2 % (11.5-14.5); Red Blood Cell (RBC) Count 3.75 mill/uL (4.20-5.40); White Blood Cell (WBC) Count 3.9 10x3/uL (4.8-10.8)
[2023-04-13 20:29] LABS: ALT (SGPT) Less than 7 U/L (8-55); AST (SGOT) 12 U/L (5-34); Albumin 3.7 g/dL (3.4-4.8); Alkaline Phosphatase 79 U/L (40-110); BUN (Urea Nitrogen) 26 mg/dL (9.8-20.1); Bilirubin, Total 0.9 mg/dL (0.2-1.2); Calc. Creatinine Clearance 0 mL/min (70-130); Calcium 8.8 mg/dL (7.8-10.44); Carbon Dioxide 18 mmol/L (23-31); Estimated GFR 49; Globulin 3.1 g/dL (2.4-3.5); Glucose 97 mg/dL (80-115); Magnesium 1.8 mg/dL (1.6-2.6); Protein, Total 6.8 g/dL (5.8-8.1); Sodium 137 mmol/L (136-145)
[2023-04-13 20:32] LABS: Troponin I 0.163 ng/mL (< 0.028)
[2023-04-13 20:44] LABS: Anion Gap 15 mmol/L (10-20); Chloride 106 mmol/L (98-107); Potassium 3.4 mmol/L (3.5-5.1)
[2023-04-13] MEDS ORDERED: Potassium Chloride 20 MEQ TAB ONE (21:24)
[2023-04-13] MEDS ORDERED: Furosemide 40 MG (4 mL) VIAL ONE (21:24)
[2023-04-13] MEDS ORDERED: Metoclopramide HCl 10 MG (2 mL) VIAL ONE (21:24)
[2023-04-13] MEDS ORDERED: diphenhydrAMINE 50 MG/ML VIAL ONE (21:24)
[2023-04-13] MEDS ORDERED: dilTIAZem 25 MG/5 ML VIAL ONE (21:25)
[2023-04-13] MEDS ORDERED: dilTIAZem 125 MG/25 ML SDV ONE (21:25)
[2023-04-13] MEDS ORDERED: cloNIDine 0.1 MG TAB PO PRN (23:17)
[2023-04-13] MEDS ORDERED: dilTIAZem 125 MG in Sodium Chloride 0.9% 100 ML IVPB SCH (23:30)
[2023-04-13] MEDS ORDERED: Ondansetron PF 4 MG/2 ML Vial IVP PRN (23:30)
[2023-04-13] MEDS ORDERED: Acetaminophen 325 MG TAB PO PRN (23:30)
[2023-04-14] MEDS ORDERED: Potassium Chloride 20 MEQ TAB PO SCH (00:15)
[2023-04-14] MEDS ORDERED: Metoprolol Tartrate 5 MG (5 mL) VIAL ONE (00:18)
[2023-04-14 00:19] LABS: Troponin I 0.181 ng/mL (< 0.028)
[2023-04-14] MEDS ORDERED: Labetalol HCl 100 MG/20 ML VIAL SLOW IVP SCH (00:30)
[2023-04-14] MEDS ORDERED: Labetalol HCl 100 MG/20 ML VIAL ONE (01:39)
[2023-04-14 03:46] LABS: Anion Gap 17 mmol/L (10-20); BUN (Urea Nitrogen) 26 mg/dL (9.8-20.1); Calc. Creatinine Clearance 57 mL/min (70-130); Calcium 8.6 mg/dL (7.8-10.44); Carbon Dioxide 17 mmol/L (23-31); Chloride 107 mmol/L (98-107); Estimated GFR 45; Glucose 110 mg/dL (80-115); Potassium 3.7 mmol/L (3.5-5.1); Sodium 137 mmol/L (136-145)
[2023-04-14 03:48] LABS: Hematocrit 33.6 % (36.0-47.0); Hemoglobin 10.6 g/dL (12.0-16.0); Manual Diff?? YES; Mean Corpuscular HGB CONC 31.5 g/dL (32.0-36.0); Mean Corpuscular Volume 88.9 fl (78.0-98.0); Mean Platelet Volume 11.5 fL (7.4-10.4); Platelet Count 153 10x3/uL (130-400); RBC Distribution Width 20.4 % (11.5-14.5); Red Blood Cell (RBC) Count 3.78 mill/uL (4.20-5.40); White Blood Cell (WBC) Count 4.1 10x3/uL (4.8-10.8)
[2023-04-14 03:49] LABS: Delete Auto Diff?? YES
[2023-04-14 04:15] LABS: Anisocytosis SLIGHT = 6-15 cells HPF (0-5); Band 1 % (5-11); CellaVision Operator ID LAB.CLH1; Hypochromia SLIGHT = 6-15 cells HPF (0-5); Large Platelets 9.7 % (0-5); Lymphocytes 4 % (21-51); Monocytes 19 % (0-10); Neutrophil 69 % (42-75); Nucleated RBC (Manual Ct) 1 % (0); Platelet Adequacy Comment Platelets Normal; Poikilocytosis SLIGHT = 6-15 cells HPF (0-5); Polychromasia SLIGHT = 2-3 cells HPF (0-2); Reactive Lymphocytes 6 % (0-10); Target Cells SLIGHT = 2-5 cells HPF (0-1); Total Cell Count 72
[2023-04-14] MEDS ORDERED: Furosemide 40 MG (4 mL) VIAL ONE (06:04)
[2023-04-14] MEDS: Furosemide 40 MG (4 mL) VIAL SLOW IVP SCH ×2 (06:10→18:43)
[2023-04-14] MEDS ORDERED: cloNIDine 0.1 MG TAB ONE (06:14)
[2023-04-14] MEDS ORDERED: Carvedilol 25 MG TAB ONE (11:57)
[2023-04-14] MEDS ORDERED: Clopidogrel Bisulfate 75 MG TAB ONE (11:57)
[2023-04-14] MEDS ORDERED: hydrALAZINE 25 MG TAB ONE (11:57)
[2023-04-14] MEDS ORDERED: Apixaban 5 MG TAB ONE (11:58)
[2023-04-14] MEDS ORDERED: Sodium Bicarbonate Tab 325 MG TAB ONE (11:58)
[2023-04-14] MEDS: hydrALAZINE 25 MG TAB PO SCH ×3 (12:00→21:26)
[2023-04-14] MEDS: Carvedilol 25 MG TAB PO SCH ×2 (12:00→21:25)
[2023-04-14] MEDS: Apixaban 5 MG TAB PO SCH ×2 (12:00→21:14)
[2023-04-14] MEDS: Clopidogrel Bisulfate 75 MG TAB PO SCH (12:00)
[2023-04-14] MEDS: Sodium Bicarbonate Tab 325 MG TAB PO SCH ×2 (12:01→21:14)
[2023-04-14] MEDS: Ascorbic Acid 500 mg Chewable Tablet PO SCH (18:40)
[2023-04-14] MEDS: Cholecalciferol (Vitamin D3) 400 UNITS TAB PO SCH (18:40)
[2023-04-14] MEDS: Isosorbide Mononitrate 60 MG ER.TAB PO SCH ×2 (18:41→21:14)
[2023-04-14] MEDS: Empagliflozin 10 MG TAB PO SCH (18:41)
[2023-04-14] MEDS: NIFEdipine XL 60 MG ER.TAB PO SCH ×2 (18:42→21:26)
[2023-04-14] MEDS: Spironolactone 25 MG TAB PO SCH (18:42)
[2023-04-14] MEDS: Zinc Sulfate 220 MG CAP PO SCH (18:42)
[2023-04-14] MEDS ORDERED: dilTIAZem 125 MG in Sodium Chloride 0.9% 100 ML IVPB SCH (19:45)
[2023-04-14] MEDS: traZODone HCl 50 MG TAB PO SCH (21:14)
[2023-04-14] MEDS: Sertraline 100 MG TAB PO SCH (21:14)
[2023-04-14] MEDS: Atorvastatin Calcium 40 MG TAB PO SCH (21:14)
[2023-04-15 05:53] LABS: Hematocrit 30.1 % (36.0-47.0); Hemoglobin 9.1 g/dL (12.0-16.0); Manual Diff?? YES; Mean Corpuscular HGB CONC 30.2 g/dL (32.0-36.0); Mean Corpuscular Hemoglobin 27.7 pg (27.0-31.0); Mean Corpuscular Volume 91.8 fl (78.0-98.0); Mean Platelet Volume 11.7 fL (7.4-10.4); Platelet Count 147 10x3/uL (130-400); RBC Distribution Width 20.1 % (11.5-14.5); Red Blood Cell (RBC) Count 3.28 mill/uL (4.20-5.40)
[2023-04-15 05:59] LABS: Delete Auto Diff?? YES
[2023-04-15] MEDS: Furosemide 40 MG (4 mL) VIAL SLOW IVP SCH ×3 (06:00→15:00)
[2023-04-15 06:28] LABS: Anion Gap 11 mmol/L (10-20); BUN (Urea Nitrogen) 29 mg/dL (9.8-20.1); Calc. Creatinine Clearance 53 mL/min (70-130); Calcium 7.9 mg/dL (7.8-10.44); Carbon Dioxide 20 mmol/L (23-31); Chloride 108 mmol/L (98-107); Estimated GFR 42; Glucose 85 mg/dL (80-115); Magnesium 1.7 mg/dL (1.6-2.6); Potassium 3.3 mmol/L (3.5-5.1); Sodium 136 mmol/L (136-145)
[2023-04-15 06:30] LABS: Band 8 % (5-11); CellaVision Operator ID LAB.CLH1; Elliptocytes SLIGHT = 2-5 cells HPF (0-1); Eosinophils 2 % (0-10); Hypochromia SLIGHT = 6-15 cells HPF (0-5); Large Platelets 17.5 % (0-5); Lymphocytes 15 % (21-51); Metamyelocyte 1 % (0-0); Monocytes 10 % (0-10); Neutrophil 65 % (42-75); Nucleated RBC (Manual Ct) 2 % (0); Platelet Adequacy Comment Platelets Normal; Poikilocytosis SLIGHT = 6-15 cells HPF (0-5); Polychromasia SLIGHT = 2-3 cells HPF (0-2); Target Cells SLIGHT = 2-5 cells HPF (0-1); Total Cell Count 103
[2023-04-15] MEDS: Ascorbic Acid 500 mg Chewable Tablet PO SCH (09:34)
[2023-04-15] MEDS: Carvedilol 25 MG TAB PO SCH ×2 (09:34→19:49)
[2023-04-15] MEDS: Cholecalciferol (Vitamin D3) 400 UNITS TAB PO SCH (09:34)
[2023-04-15] MEDS: Clopidogrel Bisulfate 75 MG TAB PO SCH (09:34)
[2023-04-15] MEDS: Apixaban 5 MG TAB PO SCH ×2 (09:34→19:49)
[2023-04-15] MEDS: Empagliflozin 10 MG TAB PO SCH (09:35)
[2023-04-15] MEDS: Sodium Bicarbonate Tab 325 MG TAB PO SCH ×2 (09:35→19:49)
[2023-04-15] MEDS: hydrALAZINE 25 MG TAB PO SCH ×3 (09:35→19:50)
[2023-04-15] MEDS: NIFEdipine XL 60 MG ER.TAB PO SCH (09:35)
[2023-04-15] MEDS: Isosorbide Mononitrate 60 MG ER.TAB PO SCH ×2 (09:35→19:49)
[2023-04-15] MEDS: Spironolactone 25 MG TAB PO SCH (09:36)
[2023-04-15] MEDS: Zinc Sulfate 220 MG CAP PO SCH (09:36)
[2023-04-15 10:53] VITALS: BMI 29.7
[2023-04-15] MEDS ORDERED: Potassium Chloride 20 MEQ TAB PO SCH (13:00)
[2023-04-15] MEDS ORDERED: Magnesium 2 GM/50 ML(in water) 2 GM in Premix 1 BAG IVPB SCH (18:30)
[2023-04-15] MEDS: traZODone HCl 50 MG TAB PO SCH (19:49)
[2023-04-15] MEDS: Sertraline 100 MG TAB PO SCH (19:49)
[2023-04-15] MEDS: Atorvastatin Calcium 40 MG TAB PO SCH (19:50)
[2023-04-15] MEDS ORDERED: Amlodipine 5 MG TAB PO SCH (21:00)
[2023-04-16 05:12] LABS: #Eosinphils 0.1 thou/uL (0.0-0.7); #Monocytes 0.7 thou/uL (0.11-0.59); #Neutrophils 2.6 thou/uL (1.40-6.50); %Basophils 0.5 % (0.0-1.0); %Eosinophils 1.9 % (0.0-10.0); %Lymphocytes 20.8 % (21.0-51.0); %Monocytes 15.8 % (0.0-10.0); %Neutrophils 60.8 % (42.0-75.0); Hematocrit 28.9 % (36.0-47.0); Hemoglobin 8.9 g/dL (12.0-16.0); Mean Corpuscular HGB CONC 30.8 g/dL (32.0-36.0); Mean Corpuscular Hemoglobin 27.6 pg (27.0-31.0); Mean Corpuscular Volume 89.8 fl (78.0-98.0); Mean Platelet Volume 11.4 fL (7.4-10.4); Platelet Count 158 10x3/uL (130-400); RBC Distribution Width 20.1 % (11.5-14.5); Red Blood Cell (RBC) Count 3.22 mill/uL (4.20-5.40); White Blood Cell (WBC) Count 4.2 10x3/uL (4.8-10.8)
[2023-04-16 05:51] LABS: Anion Gap 13 mmol/L (10-20); BUN (Urea Nitrogen) 33 mg/dL (9.8-20.1); Calc. Creatinine Clearance 35 mL/min (70-130); Calcium 8.1 mg/dL (7.8-10.44); Carbon Dioxide 22 mmol/L (23-31); Chloride 106 mmol/L (98-107); Estimated GFR 25; Glucose 113 mg/dL (80-115); Magnesium 2.1 mg/dL (1.6-2.6); Potassium 3.9 mmol/L (3.5-5.1); Sodium 137 mmol/L (136-145)
[2023-04-16] MEDS: Clopidogrel Bisulfate 75 MG TAB PO SCH (08:51)
[2023-04-16] MEDS: Carvedilol 25 MG TAB PO SCH ×2 (08:51→20:40)
[2023-04-16] MEDS: Zinc Sulfate 220 MG CAP PO SCH (08:51)
[2023-04-16] MEDS: Isosorbide Mononitrate 60 MG ER.TAB PO SCH ×2 (08:51→20:40)
[2023-04-16] MEDS: Apixaban 5 MG TAB PO SCH ×2 (08:51→20:40)
[2023-04-16] MEDS: Sodium Bicarbonate Tab 325 MG TAB PO SCH ×2 (08:51→20:40)
[2023-04-16] MEDS: Spironolactone 25 MG TAB PO SCH (08:51)
[2023-04-16] MEDS: Cholecalciferol (Vitamin D3) 400 UNITS TAB PO SCH (08:52)
[2023-04-16] MEDS: hydrALAZINE 25 MG TAB PO SCH ×3 (08:52→20:39)
[2023-04-16] MEDS: Ascorbic Acid 500 mg Chewable Tablet PO SCH (08:52)
[2023-04-16] MEDS ORDERED: Ferrous Sulfate 325 MG TAB PO SCH (09:30)
[2023-04-16 09:52] LABS: Bacteria/HPF None Seen HPF (None Seen); Bilirubin Negative (Negative); Blood, Urine Negative (Negative); Clarity Clear (Clear); Glucose, Urine (Dipstick) 300 mg/dL (Negative); Ketone, Urine Negative (Negative); Leukocyte Negative Leu/uL (Negative); Nitrite Negative (Negative); Protein, Urine (Dipstick) 20 mg/dL (Neg-Trace); RBC/HPF 0-3 HPF (0-3); Specific Gravity, Urine 1.018 (1.002-1.036); Squamous Epithelial 0-3 HPF (0-3); Urobilinogen Normal mg/dL (Less than 2); WBC/HPF 0-3 HPF (0-3)
[2023-04-16 10:17] LABS: Iron 25 ug/dL (50-170); Iron Binding Capacity, Total 274 mcg/dL (265-497)
[2023-04-16 10:39] LABS: Creatinine, Urine 139.57 mg/dL (47-110)
[2023-04-16] MEDS ORDERED: Iron, Sodium Ferric Gluconate 250 MG in Sodium Chloride 0.9% 250 ML 250 ML IVPB SCH (16:15)
[2023-04-16] MEDS: Ferrous Sulfate 325 MG TAB PO SCH (18:12)
[2023-04-16] MEDS: Atorvastatin Calcium 40 MG TAB PO SCH (20:39)
[2023-04-16] MEDS: Sertraline 100 MG TAB PO SCH (20:40)
[2023-04-16] MEDS: traZODone HCl 50 MG TAB PO SCH (20:40)
[2023-04-17 06:00] LABS: #Eosinphils 0.1 thou/uL (0.0-0.7); #Monocytes 0.7 thou/uL (0.11-0.59); #Neutrophils 3.2 thou/uL (1.40-6.50); %Basophils 0.2 % (0.0-1.0); %Eosinophils 1.1 % (0.0-10.0); %Lymphocytes 15.5 % (21.0-51.0); %Monocytes 15.7 % (0.0-10.0); %Neutrophils 67.3 % (42.0-75.0); Hematocrit 30.8 % (36.0-47.0); Hemoglobin 9.5 g/dL (12.0-16.0); Mean Corpuscular HGB CONC 30.8 g/dL (32.0-36.0); Mean Corpuscular Hemoglobin 27.5 pg (27.0-31.0); Mean Corpuscular Volume 89.3 fl (78.0-98.0); Mean Platelet Volume 11.4 fL (7.4-10.4); Platelet Count 173 10x3/uL (130-400); RBC Distribution Width 20.1 % (11.5-14.5); Red Blood Cell (RBC) Count 3.45 mill/uL (4.20-5.40); White Blood Cell (WBC) Count 4.7 10x3/uL (4.8-10.8)
[2023-04-17 06:24] LABS: Anion Gap 13 mmol/L (10-20); BUN (Urea Nitrogen) 31 mg/dL (9.8-20.1); Calc. Creatinine Clearance 40 mL/min (70-130); Calcium 8.1 mg/dL (7.8-10.44); Carbon Dioxide 22 mmol/L (23-31); Chloride 107 mmol/L (98-107); Estimated GFR 30; Glucose 87 mg/dL (80-115); Sodium 138 mmol/L (136-145)
[2023-04-17] MEDS ORDERED: Iron, Sodium Ferric Gluconate 250 MG in Sodium Chloride 0.9% 250 ML 250 ML IVPB SCH (07:00)
[2023-04-17] MEDS: Ascorbic Acid 500 mg Chewable Tablet PO SCH (08:39)
[2023-04-17] MEDS: Cholecalciferol (Vitamin D3) 400 UNITS TAB PO SCH (08:39)
[2023-04-17] MEDS: Spironolactone 25 MG TAB PO SCH (08:39)
[2023-04-17] MEDS: Zinc Sulfate 220 MG CAP PO SCH (08:39)
[2023-04-17] MEDS: Carvedilol 25 MG TAB PO SCH (08:39)
[2023-04-17] MEDS: Clopidogrel Bisulfate 75 MG TAB PO SCH (08:39)
[2023-04-17] MEDS: Sodium Bicarbonate Tab 325 MG TAB PO SCH (08:39)
[2023-04-17] MEDS: Isosorbide Mononitrate 60 MG ER.TAB PO SCH (08:39)
[2023-04-17] MEDS: Apixaban 5 MG TAB PO SCH (08:39)
[2023-04-17] MEDS: hydrALAZINE 25 MG TAB PO SCH (08:40)
[2023-04-17] MEDS: Ferrous Sulfate 325 MG TAB PO SCH (08:40)
[2023-04-17 12:03] VITALS: TEMP 98.7
[2023-04-17 12:04] VITALS: BP 144/67
== END 2023-04-17 16:30 | disposition home or self-care (01) | DRG 308 ==
LOC: ERS 18:34 → ERHOLD 23:15 → 2SW 04-14 16:39 → OBSVTOIN 04-15 07:11
PROVIDERS: ADMIT Internal Medicine; ATTEND Hospitalist
DX: I48.0 Paroxysmal atrial fibrillation (principal); I50.33 Acute on chronic diastolic (congestive) heart failure; E87.21 Acute metabolic acidosis; I13.0 Hypertensive heart and chronic kidney disease with heart failure and stage 1 through stage 4 chronic kidney disease, or unspecified chronic kidney disease; N17.9 Acute kidney failure, unspecified; I16.0 Hypertensive urgency; E87.6 Hypokalemia; Z91.041 Radiographic dye allergy status; Z88.5 Allergy status to narcotic agent; Z88.8 Allergy status to other drugs, medicaments and biological substances; Z79.899 Other long term (current) drug therapy; Z79.01 Long term (current) use of anticoagulants; J44.9 Chronic obstructive pulmonary disease, unspecified; I25.10 Atherosclerotic heart disease of native coronary artery without angina pectoris; K21.9 Gastro-esophageal reflux disease without esophagitis; D63.1 Anemia in chronic kidney disease; Z90.710 Acquired absence of both cervix and uterus; Z90.89 Acquired absence of other organs; Z90.49 Acquired absence of other specified parts of digestive tract; Z98.890 Other specified postprocedural states; Z82.49 Family history of ischemic heart disease and other diseases of the circulatory system; N18.30 Chronic kidney disease, stage 3 unspecified; Z79.4 Long term (current) use of insulin; F17.290 Nicotine dependence, other tobacco product, uncomplicated; E83.42 Hypomagnesemia
CPT/HCPCS: 36415; 70450; 71045; 80048; 80053; 81001; 82570; 82728; 83540; 83550; 83735; 83880; 84156; 84300; 84443; 84484; 84540; 85025; 93005; 96365; 96366; 96367; 96375; 96376; 97139; G0378; J1200; J1940; J2765; J2916; J3475; J3490; J7050

== ENCOUNTER 2023-05-09 13:24 | Inpatient (IN) | payer MEDICARE, MEDICAID ==
[2023-05-09 14:17] LABS: #Eosinphils 0.1 thou/uL (0.0-0.7); #Monocytes 0.6 thou/uL (0.11-0.59); #Neutrophils 2.7 thou/uL (1.40-6.50); %Basophils 0.3 % (0.0-1.0); %Eosinophils 1.5 % (0.0-10.0); %Lymphocytes 15.6 % (21.0-51.0); %Monocytes 14.5 % (0.0-10.0); %Neutrophils 67.6 % (42.0-75.0); Hematocrit 36.2 % (36.0-47.0); Hemoglobin 11.2 g/dL (12.0-16.0); Mean Corpuscular HGB CONC 30.9 g/dL (32.0-36.0); Mean Corpuscular Hemoglobin 28.8 pg (27.0-31.0); Mean Corpuscular Volume 93.1 fl (78.0-98.0); Mean Platelet Volume 11.8 fL (7.4-10.4); Platelet Count 141 10x3/uL (130-400); Red Blood Cell (RBC) Count 3.89 mill/uL (4.20-5.40); White Blood Cell (WBC) Count 3.9 10x3/uL (4.8-10.8)
[2023-05-09 14:38] LABS: ALT (SGPT) Less than 7 U/L (8-55); AST (SGOT) 12 U/L (5-34); Albumin 3.9 g/dL (3.4-4.8); Alkaline Phosphatase 72 U/L (40-110); Anion Gap 14 mmol/L (10-20); BUN (Urea Nitrogen) 27 mg/dL (9.8-20.1); Bilirubin, Total 1.1 mg/dL (0.2-1.2); Calc. Creatinine Clearance 0 mL/min (70-130); Carbon Dioxide 22 mmol/L (23-31); Chloride 108 mmol/L (98-107); Estimated GFR 37; Glucose 137 mg/dL (80-115); Potassium 3.8 mmol/L (3.5-5.1); Protein, Total 6.9 g/dL (5.8-8.1); Sodium 140 mmol/L (136-145)
[2023-05-09 14:41] LABS: Troponin I 0.118 ng/mL (< 0.028)
[2023-05-09] MEDS ORDERED: Morphine 4 MG/ML VIAL ONE (14:44)
[2023-05-09] MEDS ORDERED: Sodium Chloride 0.9% 100 ML ONE (14:45)
[2023-05-09] MEDS ORDERED: Cefepime 2 GM VIAL ONE (14:45)
[2023-05-09] MEDS ORDERED: Morphine 2 MG/ML VIAL ONE (14:46)
[2023-05-09] MEDS ORDERED: Vancomycin 1 GM/200 ML (FROZEN) BAG ONE (15:02)
[2023-05-09] MEDS ORDERED: Labetalol HCl 100 MG/20 ML VIAL ONE (15:20)
[2023-05-09] MEDS ORDERED: Ondansetron PF 4 MG/2 ML Vial ONE ×2 (15:46→17:43)
[2023-05-09] MEDS ORDERED: Ondansetron PF 4 MG/2 ML Vial IVP PRN (17:40)
[2023-05-09] MEDS ORDERED: Acetaminophen 325 MG TAB PO PRN (17:40)
[2023-05-09] MEDS ORDERED: Ipratropium/Albuterol 3 ML NEB EZPAP PRN (17:42)
[2023-05-09 19:39] VITALS: BMI 32.8
[2023-05-09] MEDS: Furosemide 20 MG (2 mL) VIAL SLOW IVP SCH (19:40)
[2023-05-09] MEDS: Enoxaparin 100 MG (1 mL) SYRINGE SC SCH (20:27)
[2023-05-09] MEDS: Furosemide 40 MG (4 mL) VIAL SLOW IVP SCH (20:27)
[2023-05-09] MEDS: Potassium Chloride 20 MEQ in Premix 1 BAG IVPB SCH (20:27)
[2023-05-09] MEDS: Atorvastatin Calcium 40 MG TAB PO SCH (20:29)
[2023-05-09] MEDS: hydrALAZINE 25 MG TAB PO SCH (20:29)
[2023-05-09] MEDS: Carvedilol 25 MG TAB PO SCH (20:29)
[2023-05-09] MEDS: Isosorbide Mononitrate 60 MG ER.TAB PO SCH (20:30)
[2023-05-09 20:36] LABS: Magnesium 1.9 mg/dL (1.6-2.6)
[2023-05-09] MEDS: Magnesium 2 GM/50 ML(in water) 2 GM in Premix 1 BAG IVPB SCH (22:53)
[2023-05-09] MEDS: Vancomycin HCl 750 MG in Sodium Chloride 0.9% 250 ML 250 ML IVPB SCH (22:53)
[2023-05-10] MEDS: Promethazine HCl 12.5 MG in Sodium Chloride 0.9% 50 ML IVPB SCH (00:55)
[2023-05-10] MEDS: Cefepime 1 GM in Sodium Chloride 0.9% 100 ML IVPB SCH (04:53)
[2023-05-10 05:15] LABS: #Eosinphils 0.1 thou/uL (0.0-0.7); #Monocytes 0.5 thou/uL (0.11-0.59); %Basophils 0.7 % (0.0-1.0); %Eosinophils 1.8 % (0.0-10.0); %Lymphocytes 11.2 % (21.0-51.0); %Monocytes 16.8 % (0.0-10.0); %Neutrophils 69.5 % (42.0-75.0); Hematocrit 33.6 % (36.0-47.0); Hemoglobin 10.1 g/dL (12.0-16.0); Mean Corpuscular HGB CONC 30.1 g/dL (32.0-36.0); Mean Corpuscular Hemoglobin 28.7 pg (27.0-31.0); Mean Corpuscular Volume 95.5 fl (78.0-98.0); Mean Platelet Volume 11.1 fL (7.4-10.4); Platelet Count 109 10x3/uL (130-400); RBC Distribution Width 22.5 % (11.5-14.5); Red Blood Cell (RBC) Count 3.52 mill/uL (4.20-5.40); White Blood Cell (WBC) Count 2.9 10x3/uL (4.8-10.8)
[2023-05-10 05:28] LABS: Hemoglobin A1c 5.1 % (4.0-6.0)
[2023-05-10 05:35] LABS: Anion Gap 10 mmol/L (10-20); BUN (Urea Nitrogen) 25 mg/dL (9.8-20.1); Calc. Creatinine Clearance 57 mL/min (70-130); Calcium 8.2 mg/dL (7.8-10.44); Carbon Dioxide 23 mmol/L (23-31); Chloride 110 mmol/L (98-107); Estimated GFR 43; Glucose 91 mg/dL (80-115); Magnesium 2.1 mg/dL (1.6-2.6); Potassium 3.7 mmol/L (3.5-5.1); Sodium 139 mmol/L (136-145)
[2023-05-10] MEDS: Furosemide 20 MG (2 mL) VIAL SLOW IVP SCH (06:34)
[2023-05-10] MEDS: Lidocaine 1% (PF) 30 ML VIAL NERVE BLCK SCH (10:00)
[2023-05-10] MEDS: Lidocaine 1% (PF) 30 ML VIAL ONE (10:00)
[2023-05-10] MEDS: Morphine 2 MG/ML VIAL SLOW IVP SCH ×2 (10:09→10:57)
[2023-05-10] MEDS: Ondansetron PF 4 MG/2 ML Vial IVP PRN (10:13)
[2023-05-10] MEDS: dilTIAZem CD 120 MG CAP PO SCH (10:45)
[2023-05-10] MEDS: Sodium Bicarbonate Tab 325 MG TAB PO SCH (10:46)
[2023-05-10] MEDS: Spironolactone 25 MG TAB PO SCH (10:46)
[2023-05-10] MEDS: HYDROcodone/Acetaminophen 5/325 mg Tablet PO PRN (13:59)
[2023-05-10] MEDS: Vancomycin (BATCH) 1.25 GM in Premix 1 BAG IVPB SCH (20:03)
[2023-05-10] MEDS: traZODone HCl 50 MG TAB PO SCH (23:28)
[2023-05-11 04:27] LABS: #Eosinphils 0.2 thou/uL (0.0-0.7); #Monocytes 0.6 thou/uL (0.11-0.59); #Neutrophils 1.8 thou/uL (1.40-6.50); %Basophils 0.7 % (0.0-1.0); %Lymphocytes 13.7 % (21.0-51.0); %Monocytes 18.7 % (0.0-10.0); %Neutrophils 61.6 % (42.0-75.0); Hematocrit 32.8 % (36.0-47.0); Mean Corpuscular HGB CONC 30.5 g/dL (32.0-36.0); Mean Corpuscular Hemoglobin 29.2 pg (27.0-31.0); Mean Corpuscular Volume 95.6 fl (78.0-98.0); Mean Platelet Volume 11.3 fL (7.4-10.4); Platelet Count 129 10x3/uL (130-400); RBC Distribution Width 22.7 % (11.5-14.5); Red Blood Cell (RBC) Count 3.43 mill/uL (4.20-5.40)
[2023-05-11 04:50] LABS: Anion Gap 14 mmol/L (10-20); BUN (Urea Nitrogen) 25 mg/dL (9.8-20.1); Calc. Creatinine Clearance 45 mL/min (70-130); Calcium 8.4 mg/dL (7.8-10.44); Carbon Dioxide 20 mmol/L (23-31); Chloride 109 mmol/L (98-107); Estimated GFR 32; Glucose 97 mg/dL (80-115); Potassium 3.8 mmol/L (3.5-5.1); Sodium 139 mmol/L (136-145)
[2023-05-11] MEDS ORDERED: Magnevist 469MG/ML 20 ML VIAL ONE (12:11)
[2023-05-11 20:32] LABS: Vancomycin, Trough 15.8 ug/mL
[2023-05-12 05:06] LABS: #Eosinphils 0.1 thou/uL (0.0-0.7); #Monocytes 0.7 thou/uL (0.11-0.59); #Neutrophils 2.3 thou/uL (1.40-6.50); %Basophils 0.6 % (0.0-1.0); %Eosinophils 2.5 % (0.0-10.0); %Monocytes 19.1 % (0.0-10.0); %Neutrophils 64.5 % (42.0-75.0); Hematocrit 32.7 % (36.0-47.0); Hemoglobin 9.9 g/dL (12.0-16.0); Mean Corpuscular HGB CONC 30.3 g/dL (32.0-36.0); Mean Corpuscular Hemoglobin 28.9 pg (27.0-31.0); Mean Corpuscular Volume 95.6 fl (78.0-98.0); Mean Platelet Volume 11.8 fL (7.4-10.4); Platelet Count 134 10x3/uL (130-400); RBC Distribution Width 22.5 % (11.5-14.5); Red Blood Cell (RBC) Count 3.42 mill/uL (4.20-5.40); White Blood Cell (WBC) Count 3.6 10x3/uL (4.8-10.8)
[2023-05-12 05:44] LABS: Anion Gap 13 mmol/L (10-20); BUN (Urea Nitrogen) 27 mg/dL (9.8-20.1); Calc. Creatinine Clearance 36 mL/min (70-130); Calcium 6.4 mg/dL (7.8-10.44); Carbon Dioxide 21 mmol/L (23-31); Chloride 106 mmol/L (98-107); Critical Call Chemistry NUR.LLA1 @0543; Estimated GFR 25; Glucose 85 mg/dL (80-115); Magnesium 1.9 mg/dL (1.6-2.6); Potassium 3.9 mmol/L (3.5-5.1); Sodium 136 mmol/L (136-145)
[2023-05-12] MEDS: Promethazine 25 MG TAB PO PRN (13:22)
[2023-05-12] MEDS: Cephalexin 250 MG CAP PO SCH (17:33)
[2023-05-12] MEDS: FLU VACC QS2023(65UP)/MF59C/PF 60 MCG/0.5 ML SYRINGE IM ONE (20:26)
[2023-05-12] MEDS: Apixaban 5 MG TAB PO SCH (20:27)
[2023-05-12] MEDS: Sertraline 100 MG TAB PO SCH (20:32)
[2023-05-12] MEDS: Senokot S 8.6-50 MG TAB PO PRN (23:12)
[2023-05-13 04:44] LABS: #Eosinphils 0.1 thou/uL (0.0-0.7); #Monocytes 0.6 thou/uL (0.11-0.59); #Neutrophils 2.4 thou/uL (1.40-6.50); %Basophils 0.3 % (0.0-1.0); %Eosinophils 1.7 % (0.0-10.0); %Monocytes 17.6 % (0.0-10.0); %Neutrophils 66.1 % (42.0-75.0); Hematocrit 33.4 % (36.0-47.0); Mean Corpuscular HGB CONC 29.9 g/dL (32.0-36.0); Mean Corpuscular Hemoglobin 28.7 pg (27.0-31.0); Mean Platelet Volume 12.1 fL (7.4-10.4); Platelet Count 144 10x3/uL (130-400); RBC Distribution Width 22.3 % (11.5-14.5); Red Blood Cell (RBC) Count 3.48 mill/uL (4.20-5.40); White Blood Cell (WBC) Count 3.6 10x3/uL (4.8-10.8)
[2023-05-13 05:17] LABS: Anion Gap 12 mmol/L (10-20); BUN (Urea Nitrogen) 32 mg/dL (9.8-20.1); Calc. Creatinine Clearance 34 mL/min (70-130); Calcium 8.5 mg/dL (7.8-10.44); Carbon Dioxide 22 mmol/L (23-31); Chloride 106 mmol/L (98-107); Estimated GFR 22; Glucose 89 mg/dL (80-115); Potassium 4.3 mmol/L (3.5-5.1); Sodium 136 mmol/L (136-145)
[2023-05-13] MEDS: Furosemide 40 MG TAB PO SCH (08:30)
[2023-05-13] MEDS: Zinc Sulfate 220 MG CAP PO SCH (08:55)
[2023-05-13] MEDS: Empagliflozin 10 MG TAB PO SCH (08:55)
[2023-05-13] MEDS: Ferrous Sulfate 325 MG TAB PO SCH (08:55)
[2023-05-13] MEDS: Clopidogrel Bisulfate 75 MG TAB PO SCH (08:55)
[2023-05-13] MEDS: Ascorbic Acid 500 mg Chewable Tablet PO SCH (08:55)
[2023-05-13] MEDS: Cholecalciferol (Vitamin D3) 400 UNITS TAB PO SCH (08:55)
[2023-05-13] MEDS: Metoclopramide HCl 10 MG TAB PO SCH (12:02)
[2023-05-14] MEDS: Sertraline 100 MG TAB PO SCH (08:54)
[2023-05-14 11:47] VITALS: TEMP 98.2
[2023-05-14 11:51] VITALS: BP 174/92
== END 2023-05-14 14:40 | disposition home health service (06) | DRG 622 ==
LOC: ERS 13:24 → 2NO 18:43
PROVIDERS: ADMIT Internal Medicine; ATTEND Emergency Medicine
PROC: 0JBR0ZZ Excision of Left Foot Subcutaneous Tissue and Fascia, Open Approach (ICD-10-PCS; principal; 2023-05-10)
PROC: 0J9R0ZZ Drainage of Left Foot Subcutaneous Tissue and Fascia, Open Approach (ICD-10-PCS; 2023-05-10)
DX: E11.69 Type 2 diabetes mellitus with other specified complication (principal); I50.33 Acute on chronic diastolic (congestive) heart failure; I13.0 Hypertensive heart and chronic kidney disease with heart failure and stage 1 through stage 4 chronic kidney disease, or unspecified chronic kidney disease; L08.9 Local infection of the skin and subcutaneous tissue, unspecified; N18.30 Chronic kidney disease, stage 3 unspecified; E11.22 Type 2 diabetes mellitus with diabetic chronic kidney disease; E78.5 Hyperlipidemia, unspecified; I25.10 Atherosclerotic heart disease of native coronary artery without angina pectoris; J44.9 Chronic obstructive pulmonary disease, unspecified; K21.9 Gastro-esophageal reflux disease without esophagitis; I48.0 Paroxysmal atrial fibrillation; B95.61 Methicillin susceptible Staphylococcus aureus infection as the cause of diseases classified elsewhere; F41.9 Anxiety disorder, unspecified; G40.909 Epilepsy, unspecified, not intractable, without status epilepticus; Z86.73 Personal history of transient ischemic attack (TIA), and cerebral infarction without residual deficits; Z88.8 Allergy status to other drugs, medicaments and biological substances; Z91.040 Latex allergy status; Z95.5 Presence of coronary angioplasty implant and graft; Z79.899 Other long term (current) drug therapy; Z79.01 Long term (current) use of anticoagulants; Z90.49 Acquired absence of other specified parts of digestive tract; Z90.710 Acquired absence of both cervix and uterus; Z98.890 Other specified postprocedural states; Z90.89 Acquired absence of other organs; Z87.891 Personal history of nicotine dependence; Z89.412 Acquired absence of left great toe; Z89.422 Acquired absence of other left toe(s)
CPT/HCPCS: 36415; 71045; 80048; 80053; 80202; 83036; 83605; 83735; 83880; 84484; 85025; 86140; 87040; 87070; 87077; 87186; 87205; 96365; 96367; 96375; 96376; 97139; A9579; J0692; J1650; J1940; J2001; J2270; J2272; J2405; J3370; J3370-JW; J3475; J3480; J3490; J7050; Q0169

== ENCOUNTER 2023-05-27 11:43 | Inpatient (IN) | payer MEDICARE, MEDICAID ==
[2023-05-27] MEDS ORDERED: Pantoprazole 40 MG VIAL ONE ×2 (12:41→23:49)
[2023-05-27] MEDS ORDERED: Morphine 4 MG/ML VIAL ONE ×2 (12:41→20:24)
[2023-05-27] MEDS ORDERED: dilTIAZem 25 MG/5 ML VIAL ONE (12:41)
[2023-05-27 13:23] LABS: #Monocytes 0.8 thou/uL (0.11-0.59); #Neutrophils 3.7 thou/uL (1.40-6.50); %Basophils 0.2 % (0.0-1.0); %Eosinophils 0.2 % (0.0-10.0); %Lymphocytes 6.4 % (21.0-51.0); %Monocytes 16.6 % (0.0-10.0); %Neutrophils 76.2 % (42.0-75.0); Hemoglobin 10.1 g/dL (12.0-16.0); Mean Corpuscular HGB CONC 31.6 g/dL (32.0-36.0); Mean Corpuscular Hemoglobin 29.1 pg (27.0-31.0); Mean Corpuscular Volume 92.2 fl (78.0-98.0); Mean Platelet Volume 10.7 fL (7.4-10.4); Platelet Count 141 10x3/uL (130-400); RBC Distribution Width 20.5 % (11.5-14.5); Red Blood Cell (RBC) Count 3.47 mill/uL (4.20-5.40); White Blood Cell (WBC) Count 4.9 10x3/uL (4.8-10.8)
[2023-05-27 13:37] LABS: INR-International Normal Ratio 1.2; PTT 37.1 sec (22.9-36.1); Prothrombin Time 15.5 sec (12.0-14.7)
[2023-05-27 13:51] LABS: ALT (SGPT) Less than 7 U/L (8-55); AST (SGOT) 20 U/L (5-34); Albumin 3.8 g/dL (3.4-4.8); Alkaline Phosphatase 112 U/L (40-110); Anion Gap 16 mmol/L (10-20); BUN (Urea Nitrogen) 26 mg/dL (9.8-20.1); Bilirubin, Total 1.6 mg/dL (0.2-1.2); Calc. Creatinine Clearance 0 mL/min (70-130); Calcium 9.2 mg/dL (7.8-10.44); Carbon Dioxide 19 mmol/L (23-31); Chloride 106 mmol/L (98-107); Estimated GFR 54; Globulin 3.5 g/dL (2.4-3.5); Glucose 88 mg/dL (80-115); Lipase 11 U/L (8-78); Magnesium 1.8 mg/dL (1.6-2.6); Potassium 4.6 mmol/L (3.5-5.1); Protein, Total 7.3 g/dL (5.8-8.1); Sodium 136 mmol/L (136-145)
[2023-05-27 13:53] LABS: Troponin I 0.043 ng/mL (< 0.028)
[2023-05-27] MEDS ORDERED: Furosemide 40 MG (4 mL) VIAL ONE (16:02)
[2023-05-27] MEDS ORDERED: cefTRIAXone (ROCEPHIN) 2 GM VIAL ONE (16:02)
[2023-05-27] MEDS ORDERED: Sodium Chloride 0.9% 100 ML ONE (16:03)
[2023-05-27] MEDS ORDERED: Ondansetron PF 4 MG/2 ML Vial IVP PRN (16:49)
[2023-05-27] MEDS ORDERED: Dextrose 5% in Water 1,000 ML IV PRN (16:49)
[2023-05-27] MEDS ORDERED: Glucagon 1 MG/ML KIT IM PRN (16:49)
[2023-05-27] MEDS ORDERED: Dextrose 50% Abboject 50 ML SYRINGE SLOW IVP PRN (16:49)
[2023-05-27] MEDS ORDERED: Acetaminophen 650 MG Suppository PR PRN (16:49)
[2023-05-27] MEDS ORDERED: Acetaminophen 325 MG TAB PO PRN (16:49)
[2023-05-27] MEDS ORDERED: Ondansetron ODT 4 MG TAB PO PRN (16:49)
[2023-05-27] MEDS ORDERED: Insulin Regular 300 UNITS/3 ML VIAL SC PRN ×2 (16:50)
[2023-05-27] MEDS ORDERED: Ipratropium/Albuterol 3 ML NEB NEB PRN (16:52)
[2023-05-27 17:02] LABS: Troponin I 0.046 ng/mL (< 0.028)
[2023-05-27 20:21] LABS: Hematocrit 31.2 % (36.0-47.0); Hemoglobin 9.9 g/dL (12.0-16.0)
[2023-05-27] MEDS ORDERED: Labetalol HCl 100 MG/20 ML VIAL ONE (20:23)
[2023-05-27] MEDS: Morphine 4 MG/ML VIAL SLOW IVP SCH (20:37)
[2023-05-27] MEDS: Labetalol HCl 100 MG/20 ML VIAL SLOW IVP SCH (20:38)
[2023-05-27] MEDS ORDERED: Ondansetron PF 4 MG/2 ML Vial ONE (20:47)
[2023-05-27 20:50] LABS: Troponin I 0.047 ng/mL (< 0.028)
[2023-05-27 23:14] LABS: Hematocrit 29.7 % (36.0-47.0); Hemoglobin 9.1 g/dL (12.0-16.0)
[2023-05-27] MEDS: Pantoprazole 40 MG VIAL IVP SCH (23:50)
[2023-05-27] MEDS: Docusate 100 MG CAP PO SCH (23:50)
[2023-05-27] MEDS ORDERED: Furosemide 20 MG (2 mL) VIAL ONE (23:52)
[2023-05-28] MEDS: Furosemide 20 MG (2 mL) VIAL SLOW IVP SCH (00:01)
[2023-05-28] MEDS: Promethazine HCl 12.5 MG in Sodium Chloride 0.9% 50 ML IVPB SCH (00:01)
[2023-05-28] MEDS ORDERED: Morphine 4 MG/ML VIAL SLOW IVP SCH (04:00)
[2023-05-28 04:52] LABS: #Eosinphils 0.1 thou/uL (0.0-0.7); #Monocytes 0.6 thou/uL (0.11-0.59); #Neutrophils 2.1 thou/uL (1.40-6.50); %Basophils 0.3 % (0.0-1.0); %Eosinophils 1.6 % (0.0-10.0); %Lymphocytes 13.1 % (21.0-51.0); %Monocytes 18.2 % (0.0-10.0); %Neutrophils 66.2 % (42.0-75.0); Hematocrit 31.7 % (36.0-47.0); Hemoglobin 9.6 g/dL (12.0-16.0); Mean Corpuscular HGB CONC 30.3 g/dL (32.0-36.0); Mean Corpuscular Hemoglobin 28.7 pg (27.0-31.0); Mean Corpuscular Volume 94.6 fl (78.0-98.0); Platelet Count 127 10x3/uL (130-400); RBC Distribution Width 20.7 % (11.5-14.5); Red Blood Cell (RBC) Count 3.35 mill/uL (4.20-5.40); White Blood Cell (WBC) Count 3.1 10x3/uL (4.8-10.8)
[2023-05-28 05:43] LABS: Anion Gap 15 mmol/L (10-20); BUN (Urea Nitrogen) 25 mg/dL (9.8-20.1); Calc. Creatinine Clearance 0 mL/min (70-130); Calcium 9.1 mg/dL (7.8-10.44); Carbon Dioxide 19 mmol/L (23-31); Chloride 105 mmol/L (98-107); Estimated GFR 49; Glucose 74 mg/dL (80-115); Potassium 4.4 mmol/L (3.5-5.1); Sodium 135 mmol/L (136-145)
[2023-05-28] MEDS ORDERED: Carvedilol 25 MG TAB ONE (05:45)
[2023-05-28] MEDS ORDERED: Acetaminophen/Codeine 30-300mg Tablet ONE (05:46)
[2023-05-28] MEDS: Acetaminophen/Codeine 30-300mg Tablet PO PRN (05:53)
[2023-05-28] MEDS: Carvedilol 25 MG TAB PO SCH ×2 (05:53→17:26)
[2023-05-28] MEDS ORDERED: Non-Formulary Item 1 EACH (Umeclidinium Bromide [Incruse Ellipta] 62.5 MCG Blst.W.Dev) INH SCH (09:00)
[2023-05-28] MEDS ORDERED: Sertraline 100 MG TAB ONE (10:41)
[2023-05-28] MEDS ORDERED: Polyethylene Glycol 3350 17 GM Packet ONE (10:42)
[2023-05-28] MEDS ORDERED: Pantoprazole 40 MG VIAL ONE (10:42)
[2023-05-28] MEDS: Empagliflozin 10 MG TAB PO SCH (11:03)
[2023-05-28] MEDS: Sertraline 100 MG TAB PO SCH (11:04)
[2023-05-28] MEDS: Polyethylene Glycol 3350 17 GM Packet PO SCH (11:04)
[2023-05-28 11:30] LABS: Hematocrit 30.2 % (36.0-47.0); Hemoglobin 9.2 g/dL (12.0-16.0)
[2023-05-28] MEDS ORDERED: Metoclopramide HCl 10 MG (2 mL) VIAL ONE (12:39)
[2023-05-28] MEDS ORDERED: Furosemide 40 MG (4 mL) VIAL ONE (12:40)
[2023-05-28] MEDS: Metoclopramide HCl 10 MG TAB PO SCH (12:43)
[2023-05-28] MEDS: Furosemide 40 MG (4 mL) VIAL SLOW IVP SCH ×2 (12:43→17:26)
[2023-05-28] MEDS: Albumin 25% 25 GM (100 mL) BOT IVPB SCH (15:11)
[2023-05-28] MEDS: hydrALAZINE 25 MG TAB PO SCH (15:26)
[2023-05-28 16:14] VITALS: BMI 34.0
[2023-05-28 18:49] LABS: Hematocrit 28.7 % (36.0-47.0); Hemoglobin 8.7 g/dL (12.0-16.0)
[2023-05-28] MEDS: Atorvastatin Calcium 40 MG TAB PO SCH (22:19)
[2023-05-28 23:15] LABS: Hematocrit 30.2 % (36.0-47.0); Hemoglobin 8.8 g/dL (12.0-16.0)
[2023-05-29] MEDS: Melatonin 3 MG TAB PO SCH (01:54)
[2023-05-29] MEDS: Furosemide 40 MG (4 mL) VIAL SLOW IVP SCH (05:27)
[2023-05-29 06:35] LABS: #Eosinphils 0.1 thou/uL (0.0-0.7); #Monocytes 0.5 thou/uL (0.11-0.59); %Basophils 0.3 % (0.0-1.0); %Eosinophils 2.3 % (0.0-10.0); %Lymphocytes 11.7 % (21.0-51.0); %Monocytes 17.1 % (0.0-10.0); %Neutrophils 68.3 % (42.0-75.0); Hematocrit 29.4 % (36.0-47.0); Hemoglobin 8.8 g/dL (12.0-16.0); Mean Corpuscular HGB CONC 29.9 g/dL (32.0-36.0); Mean Corpuscular Hemoglobin 28.4 pg (27.0-31.0); Mean Corpuscular Volume 94.8 fl (78.0-98.0); Mean Platelet Volume 12.4 fL (7.4-10.4); Platelet Count 124 10x3/uL (130-400); RBC Distribution Width 20.2 % (11.5-14.5)
[2023-05-29 07:11] LABS: Anion Gap 14 mmol/L (10-20); BUN (Urea Nitrogen) 27 mg/dL (9.8-20.1); Calc. Creatinine Clearance 58 mL/min (70-130); Calcium 8.8 mg/dL (7.8-10.44); Carbon Dioxide 24 mmol/L (23-31); Chloride 103 mmol/L (98-107); Estimated GFR 41; Glucose 97 mg/dL (80-115); Magnesium 1.6 mg/dL (1.6-2.6); Potassium 3.9 mmol/L (3.5-5.1); Sodium 137 mmol/L (136-145)
[2023-05-29] MEDS: Spironolactone 100 MG TAB PO SCH (08:58)
[2023-05-29] MEDS ORDERED: Carvedilol 25 MG TAB PO SCH ×2 (10:25→10:30)
[2023-05-29] MEDS: Magnesium Oxide 400 MG TAB PO SCH ×2 (11:56→21:14)
[2023-05-29] MEDS: Pregabalin 75 MG CAP PO SCH (11:56)
[2023-05-29] MEDS: HYDROcodone/Acetaminophen 5/325 mg Tablet PO PRN (17:18)
[2023-05-29] MEDS: Isosorbide Mononitrate 60 MG ER.TAB PO SCH (21:14)
[2023-05-29] MEDS: traZODone HCl 50 MG TAB PO SCH (21:14)
[2023-05-30 04:25] LABS: Hematocrit 29.1 % (36.0-47.0); Hemoglobin 8.8 g/dL (12.0-16.0); Manual Diff?? YES; Mean Corpuscular HGB CONC 30.2 g/dL (32.0-36.0); Mean Corpuscular Hemoglobin 28.2 pg (27.0-31.0); Mean Corpuscular Volume 93.3 fl (78.0-98.0); Mean Platelet Volume 11.5 fL (7.4-10.4); Platelet Count 130 10x3/uL (130-400); RBC Distribution Width 20.4 % (11.5-14.5); Red Blood Cell (RBC) Count 3.12 mill/uL (4.20-5.40); White Blood Cell (WBC) Count 2.9 10x3/uL (4.8-10.8)
[2023-05-30 04:38] LABS: Delete Auto Diff?? YES
[2023-05-30 05:10] LABS: Anion Gap 11 mmol/L (10-20); BUN (Urea Nitrogen) 28 mg/dL (9.8-20.1); Calc. Creatinine Clearance 47 mL/min (70-130); Calcium 8.5 mg/dL (7.8-10.44); Carbon Dioxide 27 mmol/L (23-31); Chloride 102 mmol/L (98-107); Estimated GFR 32; Glucose 78 mg/dL (80-115); Potassium 3.8 mmol/L (3.5-5.1); Sodium 136 mmol/L (136-145)
[2023-05-30 06:26] LABS: Anisocytosis MODERATE=16-30 cells HPF (0-5); Band 1 % (5-11); CellaVision Operator ID LAB.JMM; Eosinophils 3 % (0-10); Hypochromia MODERATE=16-30 cells HPF (0-5); Lymphocytes 13 % (21-51); Macrocytosis SLIGHT = 6-15 cells HPF (0-5); Monocytes 14 % (0-10); Neutrophil 69 % (42-75); Platelet Adequacy Comment Platelets Normal; Polychromasia MODERATE = 3-4 cells HPF (0-2); Total Cell Count 100
[2023-05-30] MEDS: Apixaban 5 MG TAB PO SCH ×2 (13:53→20:40)
[2023-05-30] MEDS: Pregabalin 75 MG CAP PO SCH (20:41)
[2023-05-31 04:40] LABS: #Eosinphils 0.1 thou/uL (0.0-0.7); #Monocytes 0.6 thou/uL (0.11-0.59); #Neutrophils 2.1 thou/uL (1.40-6.50); %Basophils 0.3 % (0.0-1.0); %Eosinophils 2.1 % (0.0-10.0); %Lymphocytes 15.3 % (21.0-51.0); Hematocrit 27.3 % (36.0-47.0); Hemoglobin 8.4 g/dL (12.0-16.0); Mean Corpuscular HGB CONC 30.8 g/dL (32.0-36.0); Mean Corpuscular Hemoglobin 28.7 pg (27.0-31.0); Mean Corpuscular Volume 93.2 fl (78.0-98.0); Mean Platelet Volume 10.9 fL (7.4-10.4); Platelet Count 145 10x3/uL (130-400); RBC Distribution Width 20.5 % (11.5-14.5); Red Blood Cell (RBC) Count 2.93 mill/uL (4.20-5.40); White Blood Cell (WBC) Count 3.3 10x3/uL (4.8-10.8)
[2023-05-31 05:12] LABS: Anion Gap 14 mmol/L (10-20); BUN (Urea Nitrogen) 28 mg/dL (9.8-20.1); Calc. Creatinine Clearance 47 mL/min (70-130); Calcium 8.4 mg/dL (7.8-10.44); Carbon Dioxide 23 mmol/L (23-31); Chloride 102 mmol/L (98-107); Estimated GFR 32; Glucose 67 mg/dL (80-115); Potassium 4.1 mmol/L (3.5-5.1); Sodium 135 mmol/L (136-145)
[2023-05-31 11:56] VITALS: TEMP 98.4
[2023-05-31 14:47] VITALS: BP 171/83
== END 2023-05-31 15:36 | disposition home health service (06) | DRG 291 ==
LOC: ERS 11:43 → ERHOLD 15:32 → 2NO 16:04
PROVIDERS: ADMIT Internal Medicine; ATTEND Internal Medicine
DX: I13.0 Hypertensive heart and chronic kidney disease with heart failure and stage 1 through stage 4 chronic kidney disease, or unspecified chronic kidney disease (principal); I50.33 Acute on chronic diastolic (congestive) heart failure; J96.01 Acute respiratory failure with hypoxia; R18.8 Other ascites; K64.9 Unspecified hemorrhoids; I25.10 Atherosclerotic heart disease of native coronary artery without angina pectoris; J44.9 Chronic obstructive pulmonary disease, unspecified; E78.5 Hyperlipidemia, unspecified; E11.9 Type 2 diabetes mellitus without complications; N18.30 Chronic kidney disease, stage 3 unspecified; D63.1 Anemia in chronic kidney disease; K21.9 Gastro-esophageal reflux disease without esophagitis; F41.9 Anxiety disorder, unspecified; K59.00 Constipation, unspecified; F32.A Depression, unspecified; I16.0 Hypertensive urgency; Z86.73 Personal history of transient ischemic attack (TIA), and cerebral infarction without residual deficits; Z79.02 Long term (current) use of antithrombotics/antiplatelets; Z79.891 Long term (current) use of opiate analgesic; Z79.899 Other long term (current) drug therapy
CPT/HCPCS: 36415; 36416; 71045; 71275; 74174; 80048; 80053; 83605; 83690; 83735; 83880; 84484; 85025; 85610; 85730; 86850; 86870; 86880; 86900; 86901; 86922; 87040; 93005; 94640; 97139; C9113; J0696; J1940; J2270; J2405; J2550; J2765; J3490; P9047; Q9967

== ENCOUNTER 2023-06-07 18:57 | Inpatient (IN) | payer MEDICARE, MEDICAID ==
[2023-06-07] MEDS ORDERED: Aspirin Chewable 81 MG TAB ONE (20:14)
[2023-06-07] MEDS ORDERED: Cefepime 2 GM VIAL ONE (20:14)
[2023-06-07] MEDS ORDERED: Sodium Chloride 0.9% 100 ML ONE (20:14)
[2023-06-07] MEDS ORDERED: Vancomycin 1 GM/200 ML (FROZEN) BAG ONE (20:14)
[2023-06-07] MEDS ORDERED: HYDROcodone/Acetaminophen 5/325 mg Tablet ONE (20:15)
[2023-06-07 20:16] LABS: Influenza A by NAA Not Detected (NotDetected); Influenza B by NAA Not Detected (NotDetected); SARS-CoV-2 NAA Rapid Test Not Detected (NotDetected)
[2023-06-07] MEDS ORDERED: dilTIAZem 25 MG/5 ML VIAL ONE (20:20)
[2023-06-07 20:21] LABS: #Monocytes 0.7 thou/uL (0.11-0.59); #Neutrophils 2.7 thou/uL (1.40-6.50); %Basophils 0.5 % (0.0-1.0); %Eosinophils 0.5 % (0.0-10.0); %Lymphocytes 11.4 % (21.0-51.0); %Monocytes 17.8 % (0.0-10.0); %Neutrophils 69.3 % (42.0-75.0); Hematocrit 30.4 % (36.0-47.0); Hemoglobin 9.6 g/dL (12.0-16.0); Mean Corpuscular HGB CONC 31.6 g/dL (32.0-36.0); Mean Corpuscular Hemoglobin 28.9 pg (27.0-31.0); Mean Corpuscular Volume 91.6 fl (78.0-98.0); Mean Platelet Volume 11.2 fL (7.4-10.4); Platelet Count 173 10x3/uL (130-400); RBC Distribution Width 20.8 % (11.5-14.5); Red Blood Cell (RBC) Count 3.32 mill/uL (4.20-5.40); White Blood Cell (WBC) Count 3.9 10x3/uL (4.8-10.8)
[2023-06-07 20:47] LABS: Troponin I 0.079 ng/mL (< 0.028)
[2023-06-07 20:49] LABS: ALT (SGPT) Less than 7 U/L (8-55); AST (SGOT) 17 U/L (5-34); Albumin 3.9 g/dL (3.4-4.8); Alkaline Phosphatase 91 U/L (40-110); Anion Gap 19 mmol/L (10-20); BUN (Urea Nitrogen) 24 mg/dL (9.8-20.1); Bilirubin, Total 1.2 mg/dL (0.2-1.2); Calc. Creatinine Clearance 0 mL/min (70-130); Calcium 9.4 mg/dL (7.8-10.44); Carbon Dioxide 20 mmol/L (23-31); Chloride 102 mmol/L (98-107); Estimated GFR 43; Globulin 3.8 g/dL (2.4-3.5); Glucose 78 mg/dL (80-115); Magnesium 1.8 mg/dL (1.6-2.6); Potassium 4.4 mmol/L (3.5-5.1); Protein, Total 7.7 g/dL (5.8-8.1); Sodium 137 mmol/L (136-145)
[2023-06-07] MEDS ORDERED: Furosemide 40 MG (4 mL) VIAL ONE (21:26)
[2023-06-07] MEDS ORDERED: Ondansetron ODT 4 MG TAB SL PRN (22:15)
[2023-06-07] MEDS ORDERED: Ondansetron PF 4 MG/2 ML Vial IVP PRN ×2 (22:15→23:55)
[2023-06-07] MEDS ORDERED: Acetaminophen 325 MG TAB PO PRN ×2 (22:15→23:55)
[2023-06-07] MEDS ORDERED: Nitroglycerin 2% Ointment 1 INCH/1 GM Packet ONE (22:23)
[2023-06-07] MEDS ORDERED: Ondansetron ODT 4 MG TAB PO PRN (23:55)
[2023-06-08 00:03] LABS: Troponin I 0.079 ng/mL (< 0.028)
[2023-06-08] MEDS: Ipratropium Bromide 2.5 ml Neb NEB SCH (01:10)
[2023-06-08] MEDS: HYDROcodone/Acetaminophen 5/325 mg Tablet PO PRN (02:36)
[2023-06-08] MEDS ORDERED: HYDROcodone/Acetaminophen 5/325 mg Tablet ONE ×2 (02:40→08:23)
[2023-06-08 03:24] LABS: Troponin I 0.066 ng/mL (< 0.028)
[2023-06-08 04:53] LABS: #Monocytes 0.6 thou/uL (0.11-0.59); #Neutrophils 4.2 thou/uL (1.40-6.50); %Basophils 0.2 % (0.0-1.0); %Eosinophils 0.6 % (0.0-10.0); %Lymphocytes 4.9 % (21.0-51.0); %Monocytes 11.3 % (0.0-10.0); %Neutrophils 82.4 % (42.0-75.0); Hematocrit 29.5 % (36.0-47.0); Hemoglobin 9.6 g/dL (12.0-16.0); Mean Corpuscular HGB CONC 32.5 g/dL (32.0-36.0); Mean Corpuscular Hemoglobin 29.5 pg (27.0-31.0); Mean Corpuscular Volume 90.8 fl (78.0-98.0); Mean Platelet Volume 11.1 fL (7.4-10.4); Platelet Count 177 10x3/uL (130-400); RBC Distribution Width 20.5 % (11.5-14.5); Red Blood Cell (RBC) Count 3.25 mill/uL (4.20-5.40); White Blood Cell (WBC) Count 5.1 10x3/uL (4.8-10.8)
[2023-06-08 05:55] LABS: Anion Gap 17 mmol/L (10-20); BUN (Urea Nitrogen) 25 mg/dL (9.8-20.1); Calc. Creatinine Clearance 58 mL/min (70-130); Carbon Dioxide 23 mmol/L (23-31); Chloride 101 mmol/L (98-107); Estimated GFR 46; Glucose 78 mg/dL (80-115); Iron 29 ug/dL (50-170); Iron Binding Capacity, Total 246 mcg/dL (265-497); Potassium 3.6 mmol/L (3.5-5.1); Sodium 137 mmol/L (136-145)
[2023-06-08] MEDS: Furosemide 40 MG (4 mL) VIAL SLOW IVP SCH (06:25)
[2023-06-08] MEDS ORDERED: Furosemide 40 MG (4 mL) VIAL ONE (06:27)
[2023-06-08] MEDS ORDERED: Ipratropium Bromide 2.5 ml Neb ONE (06:56)
[2023-06-08] MEDS ORDERED: Carvedilol 25 MG TAB ONE (07:59)
[2023-06-08] MEDS ORDERED: Metoclopramide HCl 10 MG TAB ONE (07:59)
[2023-06-08] MEDS: Metoclopramide HCl 10 MG TAB PO SCH (08:31)
[2023-06-08] MEDS: Carvedilol 25 MG TAB PO SCH (08:32)
[2023-06-08] MEDS: Empagliflozin 10 MG TAB PO SCH (10:16)
[2023-06-08] MEDS: Sertraline 100 MG TAB PO SCH (10:16)
[2023-06-08] MEDS: Spironolactone 25 MG TAB PO SCH (10:16)
[2023-06-08] MEDS: Apixaban 5 MG TAB PO SCH (10:16)
[2023-06-08] MEDS: hydrALAZINE 25 MG TAB PO SCH (10:43)
[2023-06-08] MEDS: Isosorbide Mononitrate 60 MG ER.TAB PO SCH (10:44)
[2023-06-08] MEDS: Famotidine 20 MG TAB PO SCH (10:45)
[2023-06-08] MEDS: Vancomycin (BATCH) 1.5 GM in Premix 1 BAG IVPB SCH (12:50)
[2023-06-08] MEDS: Atorvastatin Calcium 40 MG TAB PO SCH (20:53)
[2023-06-08] MEDS: Pregabalin 75 MG CAP PO SCH (20:54)
[2023-06-08] MEDS: Acetaminophen/Codeine 30-300mg Tablet PO PRN (20:54)
[2023-06-08] MEDS: traZODone HCl 50 MG TAB PO PRN (20:55)
[2023-06-09 05:49] LABS: #Eosinphils 0.1 thou/uL (0.0-0.7); #Monocytes 0.4 thou/uL (0.11-0.59); #Neutrophils 2.1 thou/uL (1.40-6.50); %Basophils 0.7 % (0.0-1.0); %Eosinophils 3.2 % (0.0-10.0); %Lymphocytes 8.5 % (21.0-51.0); %Monocytes 14.4 % (0.0-10.0); %Neutrophils 72.8 % (42.0-75.0); Mean Corpuscular Hemoglobin 28.6 pg (27.0-31.0); Mean Corpuscular Volume 95.2 fl (78.0-98.0); Mean Platelet Volume 11.2 fL (7.4-10.4); Platelet Count 149 10x3/uL (130-400); RBC Distribution Width 21.1 % (11.5-14.5); Red Blood Cell (RBC) Count 3.15 mill/uL (4.20-5.40); White Blood Cell (WBC) Count 2.8 10x3/uL (4.8-10.8)
[2023-06-09 06:09] LABS: Anion Gap 15 mmol/L (10-20); BUN (Urea Nitrogen) 26 mg/dL (9.8-20.1); Calc. Creatinine Clearance 51 mL/min (70-130); Calcium 8.3 mg/dL (7.8-10.44); Carbon Dioxide 23 mmol/L (23-31); Chloride 103 mmol/L (98-107); Estimated GFR 37; Glucose 80 mg/dL (80-115); Potassium 3.8 mmol/L (3.5-5.1); Sodium 137 mmol/L (136-145)
[2023-06-09] MEDS: Zinc Sulfate 220 MG CAP PO SCH (08:50)
[2023-06-09] MEDS: Ferrous Sulfate 325 MG TAB PO SCH (08:51)
[2023-06-09] MEDS: Cholecalciferol (Vitamin D3) 400 UNITS TAB PO SCH (08:51)
[2023-06-09] MEDS: Aspirin 81 mg Enteric Coated Tablet PO SCH (08:51)
[2023-06-09] MEDS: Ascorbic Acid 500 mg Chewable Tablet PO SCH (08:51)
[2023-06-09 12:27] LABS: Vancomycin, Trough 16.9 ug/mL
[2023-06-09] MEDS: Vancomycin 1 GM in Premix 1 BAG IVPB SCH (14:01)
[2023-06-09] MEDS: HYDROcodone/Acetaminophen 5/325 mg Tablet PO PRN (17:44)
[2023-06-09] MEDS: Senokot S 8.6-50 MG TAB PO SCH (20:59)
[2023-06-10 04:44] LABS: Anion Gap 13 mmol/L (10-20); BUN (Urea Nitrogen) 33 mg/dL (9.8-20.1); Calc. Creatinine Clearance 45 mL/min (70-130); Calcium 8.1 mg/dL (7.8-10.44); Carbon Dioxide 24 mmol/L (23-31); Chloride 102 mmol/L (98-107); Estimated GFR 31; Glucose 83 mg/dL (80-115); Potassium 3.6 mmol/L (3.5-5.1); Sodium 135 mmol/L (136-145)
[2023-06-10] MEDS: Vancomycin HCl 750 MG in Sodium Chloride 0.9% 250 ML 250 ML IVPB SCH (13:51)
[2023-06-11 04:50] LABS: Anion Gap 15 mmol/L (10-20); BUN (Urea Nitrogen) 37 mg/dL (9.8-20.1); Calc. Creatinine Clearance 38 mL/min (70-130); Calcium 7.9 mg/dL (7.8-10.44); Carbon Dioxide 24 mmol/L (23-31); Chloride 102 mmol/L (98-107); Estimated GFR 25; Glucose 94 mg/dL (80-115); Potassium 3.9 mmol/L (3.5-5.1); Sodium 137 mmol/L (136-145)
[2023-06-11] MEDS ORDERED: Vancomycin HCl 750 MG in Sodium Chloride 0.9% 250 ML 250 ML IVPB SCH (11:00)
[2023-06-11 12:19] LABS: Vancomycin, Trough 23.4 ug/mL
[2023-06-11] MEDS ORDERED: Vancomycin Dose by Levels Sliding Scale (Wt 71-99) FS SCH (12:45)
[2023-06-11] MEDS ORDERED: Sodium Chloride 0.9% 100 ML ONE (13:42)
[2023-06-11] MEDS ORDERED: CEFAZOLIN 2 GM VIAL ONE (13:42)
[2023-06-11] MEDS ORDERED: PROPOFOL 20 ML ONE (13:53)
[2023-06-11] MEDS ORDERED: fentaNYL PF 100 MCG/2 ML SYRINGE ONE ×2 (14:07→15:02)
[2023-06-11] MEDS ORDERED: ePHEDrine Sulfate 50 MG/10 ML VIAL ONE (14:07)
[2023-06-11] MEDS ORDERED: Ondansetron HCl/PF 4 MG/2 ML Vial IVP PRN (15:00)
[2023-06-11] MEDS ORDERED: Promethazine HCl 25 MG/ML VIAL IM PRN (15:00)
[2023-06-11] MEDS: CEFAZOLIN 2 GM in Sodium Chloride 0.9% 100 ML IVPB SCH (22:43)
[2023-06-12 04:27] LABS: #Eosinphils 0.1 thou/uL (0.0-0.7); #Monocytes 0.7 thou/uL (0.11-0.59); #Neutrophils 2.7 thou/uL (1.40-6.50); %Basophils 0.5 % (0.0-1.0); %Eosinophils 2.5 % (0.0-10.0); %Lymphocytes 13.8 % (21.0-51.0); %Monocytes 17.2 % (0.0-10.0); %Neutrophils 65.8 % (42.0-75.0); Hematocrit 26.6 % (36.0-47.0); Hemoglobin 8.1 g/dL (12.0-16.0); Mean Corpuscular HGB CONC 30.5 g/dL (32.0-36.0); Mean Corpuscular Hemoglobin 28.8 pg (27.0-31.0); Mean Corpuscular Volume 94.7 fl (78.0-98.0); Mean Platelet Volume 11.5 fL (7.4-10.4); Platelet Count 156 10x3/uL (130-400); RBC Distribution Width 20.4 % (11.5-14.5); Red Blood Cell (RBC) Count 2.81 mill/uL (4.20-5.40); White Blood Cell (WBC) Count 4.1 10x3/uL (4.8-10.8)
[2023-06-12 04:49] LABS: Anion Gap 15 mmol/L (10-20); BUN (Urea Nitrogen) 38 mg/dL (9.8-20.1); Calc. Creatinine Clearance 40 mL/min (70-130); Calcium 7.8 mg/dL (7.8-10.44); Carbon Dioxide 24 mmol/L (23-31); Chloride 103 mmol/L (98-107); Estimated GFR 28; Glucose 72 mg/dL (80-115); Potassium 3.9 mmol/L (3.5-5.1); Sodium 138 mmol/L (136-145)
[2023-06-12] MEDS: Ipratropium/Albuterol 3 ML NEB NEB PRN (07:34)
[2023-06-12 10:28] LABS: Vancomycin, Random 20.9 ug/mL (See Comment)
[2023-06-12 13:10] VITALS: BMI 32.1
[2023-06-12] MEDS: Vancomycin HCl 500 MG in Sodium Chloride 0.9% 100 ML IV SCH (13:38)
[2023-06-12] MEDS ORDERED: Pharmacy to Dose UNASYN IVPB PRN (17:39)
[2023-06-12] MEDS: Ampicillin/Sulbactam 3 GM in Sodium Chloride 0.9% 100 ML IVPB SCH (18:03)
[2023-06-13 04:58] LABS: #Eosinphils 0.1 thou/uL (0.0-0.7); #Monocytes 0.5 thou/uL (0.11-0.59); #Neutrophils 2.5 thou/uL (1.40-6.50); %Basophils 0.3 % (0.0-1.0); %Eosinophils 1.8 % (0.0-10.0); %Lymphocytes 17.1 % (21.0-51.0); %Monocytes 13.9 % (0.0-10.0); %Neutrophils 66.6 % (42.0-75.0); Hemoglobin 8.3 g/dL (12.0-16.0); Mean Corpuscular HGB CONC 30.7 g/dL (32.0-36.0); Mean Corpuscular Volume 94.4 fl (78.0-98.0); Mean Platelet Volume 11.8 fL (7.4-10.4); Platelet Count 159 10x3/uL (130-400); RBC Distribution Width 20.2 % (11.5-14.5); Red Blood Cell (RBC) Count 2.86 mill/uL (4.20-5.40); White Blood Cell (WBC) Count 3.8 10x3/uL (4.8-10.8)
[2023-06-13 05:28] LABS: Anion Gap 17 mmol/L (10-20); BUN (Urea Nitrogen) 44 mg/dL (9.8-20.1); Calc. Creatinine Clearance 36 mL/min (70-130); Calcium 8.1 mg/dL (7.8-10.44); Carbon Dioxide 25 mmol/L (23-31); Chloride 102 mmol/L (98-107); Estimated GFR 24; Glucose 103 mg/dL (80-115); Potassium 4.2 mmol/L (3.5-5.1); Sodium 140 mmol/L (136-145)
[2023-06-13] MEDS: HYDROcodone/Acetaminophen 5/325 mg Tablet PO SCH (09:14)
[2023-06-13 12:51] LABS: Vancomycin, Random 19.5 ug/mL (See Comment)
[2023-06-13] MEDS: Vancomycin HCl 500 MG in Sodium Chloride 0.9% 100 ML IV SCH (18:04)
[2023-06-14 07:19] LABS: Anion Gap 16 mmol/L (10-20); BUN (Urea Nitrogen) 50 mg/dL (9.8-20.1); Calc. Creatinine Clearance 41 mL/min (70-130); Calcium 7.9 mg/dL (7.8-10.44); Carbon Dioxide 24 mmol/L (23-31); Chloride 100 mmol/L (98-107); Estimated GFR 28; Glucose 74 mg/dL (80-115); Potassium 4.5 mmol/L (3.5-5.1); Sodium 135 mmol/L (136-145)
[2023-06-14] MEDS: Furosemide 40 MG TAB PO SCH (09:44)
[2023-06-14 12:59] LABS: Vancomycin, Random 16.6 ug/mL (See Comment)
[2023-06-14] MEDS: Vancomycin HCl 500 MG in Sodium Chloride 0.9% 100 ML IV SCH (14:34)
[2023-06-15 06:04] LABS: Anion Gap 18 mmol/L (10-20); BUN (Urea Nitrogen) 59 mg/dL (9.8-20.1); Calc. Creatinine Clearance 40 mL/min (70-130); Calcium 8.7 mg/dL (7.8-10.44); Carbon Dioxide 26 mmol/L (23-31); Chloride 98 mmol/L (98-107); Estimated GFR 27; Glucose 80 mg/dL (80-115); Potassium 5.1 mmol/L (3.5-5.1); Sodium 137 mmol/L (136-145)
[2023-06-15] MEDS: HYDROcodone/Acetaminophen 5/325 mg Tablet PO SCH (09:58)
[2023-06-15 12:28] LABS: Vancomycin, Random 16.7 ug/mL (See Comment)
[2023-06-15] MEDS: Vancomycin HCl 500 MG in Sodium Chloride 0.9% 100 ML IVPB SCH (13:40)
[2023-06-16 06:41] LABS: Anion Gap 14 mmol/L (10-20); BUN (Urea Nitrogen) 60 mg/dL (9.8-20.1); Calc. Creatinine Clearance 39 mL/min (70-130); Calcium 8.9 mg/dL (7.8-10.44); Carbon Dioxide 27 mmol/L (23-31); Chloride 99 mmol/L (98-107); Estimated GFR 27; Glucose 91 mg/dL (80-115); Potassium 4.8 mmol/L (3.5-5.1); Sodium 135 mmol/L (136-145)
[2023-06-16 12:15] VITALS: BP 155/81; TEMP 97.9
[2023-06-16] MEDS ORDERED: Vancomycin HCl 500 MG in Sodium Chloride 0.9% 100 ML IVPB SCH (14:00)
== END 2023-06-16 11:40 | disposition home health service (06) | DRG 264 ==
LOC: ERS 18:57 → ERHOLD 22:05 → 2NO 22:19 → OBSVTOIN 06-09 12:29
PROVIDERS: ADMIT Student in an Organized Health Care Education/Training Program; ATTEND Family Medicine
PROC: 0KBS0ZZ Excision of Right Lower Leg Muscle, Open Approach (ICD-10-PCS; principal; 2023-06-11)
DX: I48.91 Unspecified atrial fibrillation (principal); I50.33 Acute on chronic diastolic (congestive) heart failure; I13.0 Hypertensive heart and chronic kidney disease with heart failure and stage 1 through stage 4 chronic kidney disease, or unspecified chronic kidney disease; I96 Gangrene, not elsewhere classified; L97.919 Non-pressure chronic ulcer of unspecified part of right lower leg with unspecified severity; I24.89 Other forms of acute ischemic heart disease; S81.801A Unspecified open wound, right lower leg, initial encounter; J44.9 Chronic obstructive pulmonary disease, unspecified; E78.5 Hyperlipidemia, unspecified; E11.22 Type 2 diabetes mellitus with diabetic chronic kidney disease; N18.30 Chronic kidney disease, stage 3 unspecified; K21.9 Gastro-esophageal reflux disease without esophagitis; D63.1 Anemia in chronic kidney disease; I25.10 Atherosclerotic heart disease of native coronary artery without angina pectoris; E11.40 Type 2 diabetes mellitus with diabetic neuropathy, unspecified; E11.622 Type 2 diabetes mellitus with other skin ulcer; F32.A Depression, unspecified; Z86.73 Personal history of transient ischemic attack (TIA), and cerebral infarction without residual deficits; Z89.422 Acquired absence of other left toe(s); Z95.9 Presence of cardiac and vascular implant and graft, unspecified; Z79.01 Long term (current) use of anticoagulants; Z79.899 Other long term (current) drug therapy; Z79.82 Long term (current) use of aspirin; Z79.891 Long term (current) use of opiate analgesic; Z90.49 Acquired absence of other specified parts of digestive tract; Z90.710 Acquired absence of both cervix and uterus; Z87.891 Personal history of nicotine dependence
CPT/HCPCS: 36415; 71045; 80048; 80053; 80202; 82728; 83540; 83550; 83605; 83735; 83880; 84484; 85025; 87040; 93005; 94640; 96365; 96366; 96367; 96375; 96376; 97139; G0378; J0295; J0692; J1940; J2704; J3370; J3370-JW; J3490; J7050; J7620

== ENCOUNTER 2023-06-22 14:25 | Inpatient (IN) | payer MEDICARE, MEDICAID ==
[2023-06-22 15:20] LABS: #Monocytes 0.8 thou/uL (0.11-0.59); #Neutrophils 3.2 thou/uL (1.40-6.50); %Basophils 0.5 % (0.0-1.0); %Eosinophils 0.2 % (0.0-10.0); %Monocytes 17.9 % (0.0-10.0); %Neutrophils 73.2 % (42.0-75.0); Hematocrit 29.2 % (36.0-47.0); Hemoglobin 9.1 g/dL (12.0-16.0); Mean Corpuscular HGB CONC 31.2 g/dL (32.0-36.0); Mean Corpuscular Hemoglobin 29.4 pg (27.0-31.0); Mean Corpuscular Volume 94.2 fl (78.0-98.0); Mean Platelet Volume 12.3 fL (7.4-10.4); Platelet Count 162 10x3/uL (130-400); RBC Distribution Width 20.1 % (11.5-14.5); White Blood Cell (WBC) Count 4.4 10x3/uL (4.8-10.8)
[2023-06-22] MEDS ORDERED: Ondansetron PF 4 MG/2 ML Vial ONE (15:30)
[2023-06-22 15:38] LABS: ALT (SGPT) 10 U/L (8-55); AST (SGOT) 28 U/L (5-34); Albumin 3.9 g/dL (3.4-4.8); Alkaline Phosphatase 86 U/L (40-110); Anion Gap 20 mmol/L (10-20); BUN (Urea Nitrogen) 45 mg/dL (9.8-20.1); Bilirubin, Total 0.9 mg/dL (0.2-1.2); Calc. Creatinine Clearance 0 mL/min (70-130); Calcium 9.4 mg/dL (7.8-10.44); Carbon Dioxide 17 mmol/L (23-31); Chloride 103 mmol/L (98-107); Estimated GFR 42; Globulin 3.7 g/dL (2.4-3.5); Glucose 91 mg/dL (80-115); Lipase 14 U/L (8-78); Protein, Total 7.6 g/dL (5.8-8.1); Sodium 136 mmol/L (136-145)
[2023-06-22 16:21] LABS: INR-International Normal Ratio 1.3; Prothrombin Time 16.6 sec (12.0-14.7)
[2023-06-22 16:22] LABS: Actual Bicarbonate (HCO3v) 19.2 mEq/L (22-28); Base Excess -3.7 mEq/L (-2.0 to +3.0); Calcium, Ionized (venous) 1.07 mmol/L (1.16-1.32); Chloride (VBG) 102 mmol/L (98-106); Hematocrit-VBG 31 % (36.0-47.0); Hemoglobin (Hb) 10.6 g/dL (11.7-16.1); Potassium (VBG) 4.27 mmol/L (3.70-5.30); Sodium 136 mmol/L (133-146); pH (venous) 7.457 (7.32-7.43)
[2023-06-22 16:22] LABS: PTT 36.3 sec (22.9-36.1)
[2023-06-22 16:33] LABS: Troponin I 0.101 ng/mL (< 0.028)
[2023-06-22] MEDS ORDERED: Morphine 4 MG/ML VIAL ONE ×2 (16:33→20:48)
[2023-06-22] MEDS ORDERED: dilTIAZem 25 MG/5 ML VIAL ONE (16:33)
[2023-06-22] MEDS ORDERED: Ondansetron ODT 4 MG TAB PO PRN (18:20)
[2023-06-22] MEDS ORDERED: Ondansetron PF 4 MG/2 ML Vial IVP PRN (18:20)
[2023-06-22] MEDS ORDERED: Acetaminophen 650 MG Suppository PR PRN (18:20)
[2023-06-22] MEDS ORDERED: Furosemide 40 MG (4 mL) VIAL ONE (18:26)
[2023-06-22] MEDS ORDERED: Nitroglycerin 2% Ointment 1 INCH/1 GM Packet ONE (18:26)
[2023-06-22] MEDS ORDERED: Cefepime 2 GM VIAL ONE (18:27)
[2023-06-22] MEDS ORDERED: Sodium Chloride 0.9% 100 ML ONE (18:27)
[2023-06-22] MEDS ORDERED: Electrolyte Replacement Protocol 1 EACH FS SCH (18:30)
[2023-06-22 18:41] VITALS: BMI 33.2
[2023-06-22] MEDS: Furosemide 40 MG (4 mL) VIAL SLOW IVP SCH (18:45)
[2023-06-22] MEDS ORDERED: Labetalol HCl 100 MG/20 ML VIAL ONE (18:46)
[2023-06-22] MEDS ORDERED: Electrolyte Replacement Protocol FS PRN (19:00)
[2023-06-22] MEDS ORDERED: Vancomycin 1 GM/200 ML (FROZEN) BAG ONE (19:13)
[2023-06-22] MEDS ORDERED: Ipratropium/Albuterol 3 ML NEB NEB PRN (20:01)
[2023-06-22 20:20] LABS: Troponin I 0.092 ng/mL (< 0.028)
[2023-06-22] MEDS ORDERED: Magnesium 2 GM/50 ML BAG (IN WATER) ONE (20:40)
[2023-06-22 20:57] LABS: Bilirubin Negative (Negative); Blood, Urine 1+ (Negative); CAUTI Indications for Culture Acute Hematuria; Clarity Clear (Clear); Glucose, Urine (Dipstick) Normal (Negative); Ketone, Urine Negative (Negative); Leukocyte Negative Leu/uL (Negative); Nitrite Negative (Negative); Protein, Urine (Dipstick) 100 mg/dL (Neg-Trace); Specific Gravity, Urine 1.033 (1.002-1.036); Squamous Epithelial 0-3 HPF (0-3); Urobilinogen Normal mg/dL (Less than 2); WBC/HPF 0-3 HPF (0-3); pH, Urine 5.5 (5.0-9.0)
[2023-06-22 21:06] LABS: Bacteria/HPF Rare-Few HPF (None Seen)
[2023-06-22 21:08] LABS: Urine Culture Reflex No No
[2023-06-22] MEDS: Magnesium 2 GM/50 ML(in water) 2 GM in Premix 1 BAG IVPB SCH (22:00)
[2023-06-22] MEDS: Ipratropium/Albuterol 3 ML NEB NEB SCH (22:48)
[2023-06-22 23:38] LABS: Troponin I 0.076 ng/mL (< 0.028)
[2023-06-23] MEDS: Morphine 4 MG/ML VIAL SLOW IVP PRN (02:39)
[2023-06-23 04:28] LABS: #Monocytes 0.9 thou/uL (0.11-0.59); #Neutrophils 2.6 thou/uL (1.40-6.50); %Basophils 0.8 % (0.0-1.0); %Eosinophils 0.3 % (0.0-10.0); %Lymphocytes 5.4 % (21.0-51.0); %Monocytes 23.4 % (0.0-10.0); %Neutrophils 69.8 % (42.0-75.0); Hemoglobin 8.5 g/dL (12.0-16.0); Mean Corpuscular HGB CONC 30.4 g/dL (32.0-36.0); Mean Corpuscular Hemoglobin 28.9 pg (27.0-31.0); Mean Corpuscular Volume 95.2 fl (78.0-98.0); Mean Platelet Volume 11.7 fL (7.4-10.4); Platelet Count 135 10x3/uL (130-400); RBC Distribution Width 19.9 % (11.5-14.5); Red Blood Cell (RBC) Count 2.94 mill/uL (4.20-5.40); White Blood Cell (WBC) Count 3.7 10x3/uL (4.8-10.8)
[2023-06-23 04:49] LABS: Manual Diff?? YES
[2023-06-23 05:02] LABS: Anion Gap 17 mmol/L (10-20); BUN (Urea Nitrogen) 48 mg/dL (9.8-20.1); Calc. Creatinine Clearance 53 mL/min (70-130); Calcium 8.8 mg/dL (7.8-10.44); Carbon Dioxide 18 mmol/L (23-31); Chloride 104 mmol/L (98-107); Estimated GFR 38; Glucose 77 mg/dL (80-115); Magnesium 2.5 mg/dL (1.6-2.6); Potassium 3.8 mmol/L (3.5-5.1); Sodium 135 mmol/L (136-145)
[2023-06-23 05:03] LABS: Anisocytosis SLIGHT = 6-15 cells HPF (0-5); CellaVision Operator ID LAB.CLH1; Elliptocytes SLIGHT = 2-5 cells HPF (0-1); Hypochromia SLIGHT = 6-15 cells HPF (0-5); Large Platelets 12.5 % (0-5); Lymphocytes 9 % (21-51); Monocytes 13 % (0-10); Neutrophil 77 % (42-75); Nucleated RBC (Manual Ct) 1 % (0); Platelet Adequacy Comment Platelets Normal; Polychromasia SLIGHT = 2-3 cells HPF (0-2); Target Cells SLIGHT = 2-5 cells HPF (0-1); Total Cell Count 112
[2023-06-23] MEDS: Furosemide 40 MG (4 mL) VIAL SLOW IVP SCH (10:00)
[2023-06-23] MEDS ORDERED: Ipratropium/Albuterol 3 ML NEB NEB PRN (11:58)
[2023-06-23] MEDS ORDERED: Isosorbide Mononitrate 60 MG ER.TAB PO SCH (11:59)
[2023-06-23] MEDS: Carvedilol 25 MG TAB PO SCH ×2 (13:19→16:42)
[2023-06-23] MEDS: Isosorbide Mononitrate 60 MG ER.TAB PO SCH (13:19)
[2023-06-23] MEDS: Apixaban 5 MG TAB PO SCH ×2 (13:19→20:43)
[2023-06-23] MEDS: hydrALAZINE 25 MG TAB PO SCH ×2 (13:19→20:42)
[2023-06-23] MEDS: Spironolactone 25 MG TAB PO SCH (13:20)
[2023-06-23] MEDS: traZODone HCl 50 MG TAB PO SCH (20:41)
[2023-06-23] MEDS: Atorvastatin Calcium 40 MG TAB PO SCH (20:41)
[2023-06-24] MEDS: Morphine 2 MG/ML VIAL SLOW IVP SCH (01:37)
[2023-06-24 04:57] LABS: Hematocrit 29.2 % (36.0-47.0); Hemoglobin 8.7 g/dL (12.0-16.0); Manual Diff?? YES; Mean Corpuscular HGB CONC 29.8 g/dL (32.0-36.0); Mean Corpuscular Hemoglobin 28.7 pg (27.0-31.0); Mean Corpuscular Volume 96.4 fl (78.0-98.0); Mean Platelet Volume 11.9 fL (7.4-10.4); Platelet Count 118 10x3/uL (130-400); RBC Distribution Width 19.9 % (11.5-14.5); Red Blood Cell (RBC) Count 3.03 mill/uL (4.20-5.40); White Blood Cell (WBC) Count 2.8 10x3/uL (4.8-10.8)
[2023-06-24 05:01] LABS: Delete Auto Diff?? YES
[2023-06-24 05:40] LABS: ALT (SGPT) 10 U/L (8-55); AST (SGOT) 22 U/L (5-34); Albumin 3.1 g/dL (3.4-4.8); Alkaline Phosphatase 79 U/L (40-110); Anion Gap 17 mmol/L (10-20); BUN (Urea Nitrogen) 44 mg/dL (9.8-20.1); Bilirubin, Total 0.5 mg/dL (0.2-1.2); Calc. Creatinine Clearance 55 mL/min (70-130); Calcium 8.6 mg/dL (7.8-10.44); Carbon Dioxide 20 mmol/L (23-31); Chloride 103 mmol/L (98-107); Estimated GFR 41; Globulin 3.3 g/dL (2.4-3.5); Glucose 80 mg/dL (80-115); Potassium 4.1 mmol/L (3.5-5.1); Protein, Total 6.4 g/dL (5.8-8.1); Sodium 136 mmol/L (136-145)
[2023-06-24 05:48] LABS: Anisocytosis MODERATE=16-30 cells HPF (0-5); Band 1 % (5-11); Burr Cells SLIGHT = 2-5 cells HPF (0-1); CellaVision Operator ID lab.sh2; Hypochromia SLIGHT = 6-15 cells HPF (0-5); Lymphocytes 13 % (21-51); Macrocytosis SLIGHT = 6-15 cells HPF (0-5); Microcytosis SLIGHT = 6-15 cells HPF (0-5); Monocytes 22 % (0-10); Neutrophil 63 % (42-75); Nucleated RBC (Manual Ct) 3 % (0); Ovalocytes MODERATE= 6-15 cells HPF (0-1); Platelet Adequacy Comment Platelets Decreased; Poikilocytosis MODERATE=16-30 cells HPF (0-5); Polychromasia MODERATE = 3-4 cells HPF (0-2); Total Cell Count 100
[2023-06-24] MEDS: HYDROcodone/Acetaminophen 5/325 mg Tablet PO PRN (06:19)
[2023-06-24] MEDS: Spironolactone 25 MG TAB PO SCH (09:31)
[2023-06-24] MEDS: Isosorbide Mononitrate 60 MG ER.TAB PO SCH (09:31)
[2023-06-24] MEDS: Aspirin 81 mg Enteric Coated Tablet PO SCH (09:31)
[2023-06-24] MEDS: Empagliflozin 10 MG TAB PO SCH (09:31)
[2023-06-24] MEDS ORDERED: Ipratropium/Albuterol 3 ML NEB NEB PRN (11:16)
[2023-06-24] MEDS: Tamsulosin HCl 0.4 MG CAP PO SCH (13:42)
[2023-06-24] MEDS: Sacubitril 24MG/Valsartan 26 MG TAB PO SCH ×2 (13:46→20:48)
[2023-06-25 04:56] LABS: #Eosinphils 0.1 thou/uL (0.0-0.7); #Monocytes 0.6 thou/uL (0.11-0.59); #Neutrophils 2.3 thou/uL (1.40-6.50); %Basophils 0.3 % (0.0-1.0); %Monocytes 17.3 % (0.0-10.0); %Neutrophils 68.1 % (42.0-75.0); Hematocrit 28.3 % (36.0-47.0); Hemoglobin 8.7 g/dL (12.0-16.0); Mean Corpuscular HGB CONC 30.7 g/dL (32.0-36.0); Mean Corpuscular Volume 94.3 fl (78.0-98.0); Mean Platelet Volume 11.6 fL (7.4-10.4); Platelet Count 141 10x3/uL (130-400); RBC Distribution Width 19.7 % (11.5-14.5); White Blood Cell (WBC) Count 3.4 10x3/uL (4.8-10.8)
[2023-06-25 05:21] LABS: ALT (SGPT) Less than 7 U/L (8-55); AST (SGOT) 15 U/L (5-34); Alkaline Phosphatase 74 U/L (40-110); Anion Gap 13 mmol/L (10-20); BUN (Urea Nitrogen) 38 mg/dL (9.8-20.1); Bilirubin, Total 0.4 mg/dL (0.2-1.2); Calc. Creatinine Clearance 63 mL/min (70-130); Calcium 8.3 mg/dL (7.8-10.44); Carbon Dioxide 23 mmol/L (23-31); Chloride 103 mmol/L (98-107); Estimated GFR 49; Globulin 3.1 g/dL (2.4-3.5); Glucose 83 mg/dL (80-115); Potassium 3.9 mmol/L (3.5-5.1); Protein, Total 6.1 g/dL (5.8-8.1); Sodium 135 mmol/L (136-145)
[2023-06-25] MEDS: Magnesium 2 GM/50 ML(in water) 2 GM in Premix 1 BAG IVPB SCH (09:59)
[2023-06-26 05:27] LABS: #Basophils Less than 0.0 thou/uL (0.0-0.2); #Eosinphils 0.1 thou/uL (0.0-0.7); #Monocytes 0.6 thou/uL (0.11-0.59); #Neutrophils 1.8 thou/uL (1.40-6.50); %Basophils 0.3 % (0.0-1.0); %Eosinophils 2.6 % (0.0-10.0); %Lymphocytes 20.9 % (21.0-51.0); %Neutrophils 57.2 % (42.0-75.0); Mean Corpuscular Hemoglobin 28.6 pg (27.0-31.0); Mean Corpuscular Volume 92.1 fl (78.0-98.0); Mean Platelet Volume 11.1 fL (7.4-10.4); Platelet Count 150 10x3/uL (130-400); RBC Distribution Width 19.5 % (11.5-14.5); Red Blood Cell (RBC) Count 3.15 mill/uL (4.20-5.40); White Blood Cell (WBC) Count 3.1 10x3/uL (4.8-10.8)
[2023-06-26 05:29] LABS: Anion Gap 15 mmol/L (10-20); BUN (Urea Nitrogen) 38 mg/dL (9.8-20.1); Calc. Creatinine Clearance 59 mL/min (70-130); Calcium 8.3 mg/dL (7.8-10.44); Carbon Dioxide 22 mmol/L (23-31); Chloride 103 mmol/L (98-107); Estimated GFR 46; Glucose 79 mg/dL (80-115); Magnesium 2.2 mg/dL (1.6-2.6); Potassium 4.2 mmol/L (3.5-5.1); Sodium 136 mmol/L (136-145)
[2023-06-26] MEDS: Ipratropium/Albuterol 3 ML NEB NEB PRN (14:07)
[2023-06-26] MEDS: Mometasone 200 MCG/Formoterol 5 MCG 120 PUFF INHALER INH SCH ×2 (14:08→19:20)
[2023-06-27 05:33] LABS: #Basophils Less than 0.03 10x3/uL (0.0-0.2); %Basophils 0.6 % (0.0-1.0); %Eosinophils 1.8 % (0.0-10.0); %Lymphocytes 21.9 % (21.0-51.0); %Monocytes 18.6 % (0.0-10.0); %Neutrophils 56.8 % (42.0-75.0); Hematocrit 29.5 % (36.0-47.0); Hemoglobin 9.1 g/dL (12.0-16.0); Mean Corpuscular HGB CONC 30.8 g/dL (32.0-36.0); Mean Corpuscular Hemoglobin 28.7 pg (27.0-31.0); Mean Corpuscular Volume 93.1 fL (78.0-98.0); Mean Platelet Volume 11.1 fL (7.4-10.4); Platelet Count 162 10x3/uL (130-400); RBC Distribution Width 19.6 % (11.5-14.5); Red Blood Cell (RBC) Count 3.17 mill/uL (4.20-5.40)
[2023-06-27 06:10] LABS: Anion Gap 16 mmol/L (10-20); BUN (Urea Nitrogen) 35 mg/dL (9.8-20.1); Calc. Creatinine Clearance 52 mL/min (70-130); Calcium 8.3 mg/dL (7.8-10.44); Carbon Dioxide 21 mmol/L (23-31); Chloride 106 mmol/L (98-107); Estimated GFR 40; Glucose 76 mg/dL (80-115); Magnesium 2.1 mg/dL (1.6-2.6); Potassium 4.6 mmol/L (3.5-5.1); Sodium 138 mmol/L (136-145)
[2023-06-27] MEDS: Acetaminophen 325 MG TAB PO PRN (13:54)
[2023-06-28 06:14] LABS: #Basophils Less than 0.03 10x3/uL (0.0-0.2); %Basophils 0.3 % (0.0-1.0); %Eosinophils 2.2 % (0.0-10.0); %Lymphocytes 24.9 % (21.0-51.0); %Monocytes 17.2 % (0.0-10.0); %Neutrophils 55.1 % (42.0-75.0); Hematocrit 29.8 % (36.0-47.0); Hemoglobin 9.3 g/dL (12.0-16.0); Mean Corpuscular HGB CONC 31.2 g/dL (32.0-36.0); Mean Corpuscular Hemoglobin 28.7 pg (27.0-31.0); Mean Platelet Volume 10.7 fL (7.4-10.4); Platelet Count 160 10x3/uL (130-400); RBC Distribution Width 19.2 % (11.5-14.5); Red Blood Cell (RBC) Count 3.24 mill/uL (4.20-5.40)
[2023-06-28 06:40] LABS: Anion Gap 15 mmol/L (10-20); BUN (Urea Nitrogen) 37 mg/dL (9.8-20.1); Calc. Creatinine Clearance 52 mL/min (70-130); Calcium 8.7 mg/dL (7.8-10.44); Carbon Dioxide 24 mmol/L (23-31); Chloride 103 mmol/L (98-107); Estimated GFR 42; Glucose 93 mg/dL (80-115); Potassium 4.7 mmol/L (3.5-5.1); Sodium 137 mmol/L (136-145)
[2023-06-28] MEDS: Magnesium 2 GM/50 ML(in water) 2 GM in Premix 1 BAG IVPB SCH (09:39)
[2023-06-28 12:06] VITALS: BP 156/72; TEMP 98
== END 2023-06-28 13:56 | disposition home or self-care (01) | DRG 280 ==
LOC: ERS 14:25 → ERHOLD 17:51 → 2NO 06-23 02:02 → OBSVTOIN 06-24 09:58
PROVIDERS: ADMIT Family Medicine; ATTEND Internal Medicine
DX: I13.0 Hypertensive heart and chronic kidney disease with heart failure and stage 1 through stage 4 chronic kidney disease, or unspecified chronic kidney disease (principal); I21.A1 Myocardial infarction type 2; I50.33 Acute on chronic diastolic (congestive) heart failure; I48.91 Unspecified atrial fibrillation; I25.10 Atherosclerotic heart disease of native coronary artery without angina pectoris; E78.5 Hyperlipidemia, unspecified; K21.9 Gastro-esophageal reflux disease without esophagitis; K52.9 Noninfective gastroenteritis and colitis, unspecified; D63.1 Anemia in chronic kidney disease; R33.9 Retention of urine, unspecified; Z79.899 Other long term (current) drug therapy; Z79.01 Long term (current) use of anticoagulants; I25.2 Old myocardial infarction; Z86.718 Personal history of other venous thrombosis and embolism; Z90.49 Acquired absence of other specified parts of digestive tract; Z91.040 Latex allergy status; Z88.5 Allergy status to narcotic agent; Z91.09 Other allergy status, other than to drugs and biological substances; Z79.82 Long term (current) use of aspirin
CPT/HCPCS: 36415; 36416; 51798; 71045; 74177; 76770; 80048; 80053; 81001; 82805; 83605; 83690; 83735; 83880; 84443; 84484; 85025; 85610; 85730; 87040; 93005; 93798; 94640; 94760; 96360; 96361; 96365; 96367; 96375; 96376; 97139; G0378; J0692; J1940; J2270; J2272; J2405; J3370-JW; J3475; J3490; J7620; Q9967

== ENCOUNTER 2023-10-10 10:34 | Inpatient (IN) | payer MEDICARE, MEDICAID ==
[2023-10-10 11:07] LABS: #Basophils Less than 0.03 10x3/uL (0.0-0.2); #Eosinphils Less than 0.03 10x3/uL (0.0-0.7); %Basophils 0.2 % (0.0-1.0); %Eosinophils 0.3 % (0.0-10.0); %Lymphocytes 14.1 % (21.0-51.0); %Monocytes 9.4 % (0.0-10.0); %Neutrophils 75.7 % (42.0-75.0); Hematocrit 33.9 % (36.0-47.0); Hemoglobin 11.1 g/dL (12.0-16.0); Mean Corpuscular HGB CONC 32.7 g/dL (32.0-36.0); Mean Corpuscular Hemoglobin 29.7 pg (27.0-31.0); Mean Corpuscular Volume 90.6 fL (78.0-98.0); Mean Platelet Volume 9.7 fL (7.4-10.4); Platelet Count 127 10x3/uL (130-400); Red Blood Cell (RBC) Count 3.74 mill/uL (4.20-5.40)
[2023-10-10 11:48] LABS: ALT (SGPT) 8 U/L (8-55); AST (SGOT) 26 U/L (5-34); Albumin 2.3 g/dL (3.4-4.8); Alkaline Phosphatase 84 U/L (40-110); Anion Gap 15 mmol/L (10-20); BUN (Urea Nitrogen) 27 mg/dL (9.8-20.1); Bilirubin, Total 0.9 mg/dL (0.2-1.2); Calc. Creatinine Clearance 0 mL/min (70-130); Calcium 7.8 mg/dL (7.8-10.44); Carbon Dioxide 22 mmol/L (23-31); Chloride 102 mmol/L (98-107); Estimated GFR 58; Globulin 3.7 g/dL (2.4-3.5); Glucose 65 mg/dL (80-115); Lipase 16 U/L (8-78); Potassium 5.1 mmol/L (3.5-5.1); Sodium 134 mmol/L (136-145)
[2023-10-10 13:01] LABS: Troponin I 0.032 ng/mL (< 0.028)
[2023-10-10] MEDS ORDERED: methylPREDNISolone Sod Succ/PF 125 MG/2 ML VIAL ONE (13:42)
[2023-10-10] MEDS ORDERED: cefTRIAXone (ROCEPHIN) 2 GM VIAL ONE (13:42)
[2023-10-10] MEDS ORDERED: Aspirin Chewable 81 MG TAB ONE (13:42)
[2023-10-10] MEDS ORDERED: Magnesium 2 GM/50 ML BAG (IN WATER) ONE (13:42)
[2023-10-10] MEDS ORDERED: Azithromycin 500 MG VIAL ONE (13:42)
[2023-10-10] MEDS ORDERED: Senokot S 8.6-50 MG TAB PO PRN (14:17)
[2023-10-10] MEDS ORDERED: traMADol HCl 50 MG TAB PO PRN (14:17)
[2023-10-10] MEDS ORDERED: Ipratropium/Albuterol 3 ML NEB NEB PRN (14:35)
[2023-10-10] MEDS ORDERED: Iopamidol-370 76% 500 ML MDV (1 ML CHARGE) ONE (16:16)
[2023-10-10 16:37] LABS: Troponin I 0.034 ng/mL (< 0.028)
[2023-10-10] MEDS: Acetaminophen 325 MG TAB PO SCH (16:52)
[2023-10-10 17:07] VITALS: BMI 31.3
[2023-10-10 18:38] LABS: Cardiac Risk 3.7 (Less than 4.5)
[2023-10-10 18:42] LABS: Troponin I 0.037 ng/mL (< 0.028)
[2023-10-10] MEDS: Naproxen 500 MG TAB PO SCH (20:27)
[2023-10-10] MEDS: Apixaban 5 MG TAB PO SCH (20:30)
[2023-10-10] MEDS: methylPREDNISolone Sod Succ 40 MG VIAL IVP SCH (20:30)
[2023-10-10] MEDS: Famotidine 20 MG TAB PO SCH (20:30)
[2023-10-11 05:27] LABS: #Basophils Less than 0.03 10x3/uL (0.0-0.2); #Eosinphils Less than 0.03 10x3/uL (0.0-0.7); %Lymphocytes 10.4 % (21.0-51.0); %Monocytes 1.9 % (0.0-10.0); %Neutrophils 87.2 % (42.0-75.0); Hematocrit 32.7 % (36.0-47.0); Hemoglobin 10.6 g/dL (12.0-16.0); Mean Corpuscular HGB CONC 32.4 g/dL (32.0-36.0); Mean Corpuscular Volume 89.3 fL (78.0-98.0); Mean Platelet Volume 10.2 fL (7.4-10.4); Platelet Count 156 10x3/uL (130-400); RBC Distribution Width 20.6 % (11.5-14.5); Red Blood Cell (RBC) Count 3.66 mill/uL (4.20-5.40)
[2023-10-11 05:34] LABS: Anion Gap 14 mmol/L (10-20); BUN (Urea Nitrogen) 29 mg/dL (9.8-20.1); Calc. Creatinine Clearance 72 mL/min (70-130); Calcium 8.1 mg/dL (7.8-10.44); Carbon Dioxide 20 mmol/L (23-31); Chloride 103 mmol/L (98-107); Estimated GFR 50; Glucose 144 mg/dL (80-115); Potassium 4.1 mmol/L (3.5-5.1); Sodium 133 mmol/L (136-145)
[2023-10-11] MEDS: methylPREDNISolone Sod Succ 40 MG VIAL IVP SCH ×2 (09:27→18:41)
[2023-10-11] MEDS: Ipratropium/Albuterol 3 ML NEB NEB SCH (10:24)
[2023-10-11] MEDS ORDERED: Naproxen 500 MG TAB PO PRN (11:14)
[2023-10-11 12:50] LABS: Legionella Urinary Ag Negative (Negative); Strep pneumo Urine Ag NEGATIVE (NEGATIVE)
[2023-10-11] MEDS: cefTRIAXone\\ROCEPHIN 2 GM in Sodium Chloride 0.9% 100 ML IVPB SCH ×2 (14:31→21:18)
[2023-10-11] MEDS: Azithromycin 500 MG in Sodium Chloride 0.9% 250 ML 250 ML IVPB SCH (14:32)
[2023-10-11] MEDS: Furosemide 20 MG (2 mL) VIAL SLOW IVP SCH (14:32)
[2023-10-11] MEDS: Calcium Carbonate 600 MG + Vit D TAB PO SCH (18:41)
[2023-10-11] MEDS: Budesonide 0.5 MG/2 ML NEB INH SCH (18:51)
[2023-10-11] MEDS: Cyanocobalamin (Vitamin B-12) 1,000 MCG TAB PO SCH (21:09)
[2023-10-12 06:43] LABS: #Basophils Less than 0.03 10x3/uL (0.0-0.2); #Eosinphils Less than 0.03 10x3/uL (0.0-0.7); %Monocytes 3.6 % (0.0-10.0); %Neutrophils 88.7 % (42.0-75.0); Hematocrit 33.3 % (36.0-47.0); Hemoglobin 10.8 g/dL (12.0-16.0); Mean Corpuscular HGB CONC 32.4 g/dL (32.0-36.0); Mean Corpuscular Hemoglobin 29.1 pg (27.0-31.0); Mean Corpuscular Volume 89.8 fL (78.0-98.0); Mean Platelet Volume 10.4 fL (7.4-10.4); Platelet Count 200 10x3/uL (130-400); RBC Distribution Width 20.8 % (11.5-14.5); Red Blood Cell (RBC) Count 3.71 mill/uL (4.20-5.40)
[2023-10-12 06:59] LABS: Anion Gap 16 mmol/L (10-20); BUN (Urea Nitrogen) 34 mg/dL (9.8-20.1); Calc. Creatinine Clearance 63 mL/min (70-130); Calcium 8.1 mg/dL (7.8-10.44); Carbon Dioxide 19 mmol/L (23-31); Chloride 102 mmol/L (98-107); Estimated GFR 42; Glucose 135 mg/dL (80-115); Magnesium 2.1 mg/dL (1.6-2.6); Potassium 4.3 mmol/L (3.5-5.1); Sodium 133 mmol/L (136-145)
[2023-10-12 11:07] VITALS: BMI 35.8
[2023-10-12] MEDS ORDERED: Non-Formulary Item 1 EACH (Umeclidinium Bromide [Incruse Ellipta] 62.5 MCG Blst.W.Dev) INH PRN (13:58)
[2023-10-12] MEDS ORDERED: HYDROcodone/Acetaminophen 5/325 mg Tablet PO PRN (14:01)
[2023-10-12] MEDS: Acetaminophen/Codeine 30-300mg Tablet PO PRN (15:00)
[2023-10-12] MEDS: Furosemide 40 MG TAB PO SCH (15:00)
[2023-10-12] MEDS: hydrALAZINE 25 MG TAB PO SCH (15:00)
[2023-10-12] MEDS: Carvedilol 25 MG TAB PO SCH (17:40)
[2023-10-12] MEDS: Ipratropium/Albuterol 3 ML NEB NEB SCH (18:31)
[2023-10-12] MEDS: guaiFENesin ER 600 MG TAB PO SCH (21:23)
[2023-10-12] MEDS: traZODone HCl 50 MG TAB PO SCH (21:24)
[2023-10-12] MEDS: Pregabalin 75 MG CAP PO SCH (21:24)
[2023-10-13 04:52] LABS: Anion Gap 18 mmol/L (10-20); BUN (Urea Nitrogen) 39 mg/dL (9.8-20.1); Calc. Creatinine Clearance 62 mL/min (70-130); Calcium 7.5 mg/dL (7.8-10.44); Carbon Dioxide 19 mmol/L (23-31); Chloride 104 mmol/L (98-107); Estimated GFR 41; Glucose 91 mg/dL (80-115); Potassium 4.5 mmol/L (3.5-5.1); Sodium 136 mmol/L (136-145)
[2023-10-13 05:11] LABS: #Basophils Less than 0.03 10x3/uL (0.0-0.2); #Eosinphils Less than 0.03 10x3/uL (0.0-0.7); %Eosinophils 0.1 % (0.0-10.0); %Lymphocytes 11.5 % (21.0-51.0); %Monocytes 8.1 % (0.0-10.0); %Neutrophils 79.6 % (42.0-75.0); Hematocrit 31.4 % (36.0-47.0); Mean Corpuscular HGB CONC 31.8 g/dL (32.0-36.0); Mean Corpuscular Hemoglobin 29.4 pg (27.0-31.0); Mean Corpuscular Volume 92.4 fL (78.0-98.0); Mean Platelet Volume 9.4 fL (7.4-10.4); Platelet Count 172 10x3/uL (130-400); RBC Distribution Width 20.6 % (11.5-14.5)
[2023-10-13] MEDS: Sertraline 100 MG TAB PO SCH (09:32)
[2023-10-13] MEDS: Spironolactone 25 MG TAB PO SCH (09:32)
[2023-10-13] MEDS: Oxybutynin ER 5 MG TAB PO SCH (09:32)
[2023-10-13] MEDS: Pantoprazole DR 40 MG TAB PO SCH (09:33)
[2023-10-13] MEDS: predniSONE 20 MG TAB PO SCH (09:33)
[2023-10-13] MEDS: Apixaban 5 MG TAB PO SCH (09:33)
[2023-10-14] MEDS ORDERED: Amlodipine 5 MG TAB PO PRN (08:14)
[2023-10-14] MEDS: Cefdinir 300 MG CAP PO SCH (09:57)
[2023-10-14] MEDS: Doxycycline 100 MG CAP PO SCH (09:57)
[2023-10-14] MEDS: Amiodarone 200 MG TAB PO SCH (09:58)
[2023-10-16] MEDS: Levothyroxine Sodium 25 MCG TAB PO SCH (05:20)
[2023-10-16 20:04] LABS: Bilirubin Negative (Negative); Blood, Urine Negative (Negative); CAUTI Indications for Culture Dysuria,urgency,freq; Clarity Clear (Clear); Glucose, Urine (Dipstick) Normal (Negative); Ketone, Urine Negative (Negative); Leukocyte 75 Leu/uL (Negative); Nitrite Negative (Negative); Protein, Urine (Dipstick) Negative (Neg-Trace); RBC/HPF 0-3 HPF (0-3); Specific Gravity, Urine 1.012 (1.002-1.036); Squamous Epithelial 0-3 HPF (0-3); Urobilinogen Normal mg/dL (Less than 2)
[2023-10-16 20:06] LABS: Bacteria/HPF 1+ HPF (None Seen); Urine Culture Reflex No No
[2023-10-17] MEDS: Amlodipine 5 MG TAB PO SCH (09:01)
[2023-10-18 06:52] LABS: Anion Gap 12 mmol/L (10-20); BUN (Urea Nitrogen) 51 mg/dL (9.8-20.1); Calc. Creatinine Clearance 72 mL/min (70-130); Calcium 8.1 mg/dL (7.8-10.44); Carbon Dioxide 22 mmol/L (23-31); Chloride 100 mmol/L (98-107); Estimated GFR 48; Glucose 93 mg/dL (80-115); Potassium 5.2 mmol/L (3.5-5.1); Sodium 129 mmol/L (136-145)
[2023-10-18] MEDS: LOKELMA 10 GM PACKET PO SCH (09:03)
[2023-10-18] MEDS: Estradiol 0.01% Vaginal Cream 42.5 gm Tube VAG PRN (14:03)
[2023-10-19 06:36] LABS: Anion Gap 12 mmol/L (10-20); BUN (Urea Nitrogen) 52 mg/dL (9.8-20.1); Calc. Creatinine Clearance 64 mL/min (70-130); Calcium 8.6 mg/dL (7.8-10.44); Carbon Dioxide 23 mmol/L (23-31); Chloride 101 mmol/L (98-107); Estimated GFR 41; Glucose 74 mg/dL (80-115); Potassium 5.4 mmol/L (3.5-5.1); Sodium 131 mmol/L (136-145)
[2023-10-19] MEDS: Insulin Regular, Human 100 UNIT/ML 10 ML VIAL IVP SCH (09:16)
[2023-10-19] MEDS: Dextrose 50% Abboject 50 ML SYRINGE SLOW IVP SCH (09:16)
[2023-10-19] MEDS: LOKELMA 10 GM PACKET PO SCH (09:18)
[2023-10-19] MEDS: Ondansetron PF 4 MG/2 ML Vial IVP PRN (14:54)
[2023-10-19] MEDS: hydrALAZINE 10 MG TAB PO SCH (22:08)
[2023-10-20 06:32] LABS: Anion Gap 14 mmol/L (10-20); BUN (Urea Nitrogen) 54 mg/dL (9.8-20.1); Calc. Creatinine Clearance 59 mL/min (70-130); Calcium 8.4 mg/dL (7.8-10.44); Carbon Dioxide 22 mmol/L (23-31); Chloride 101 mmol/L (98-107); Estimated GFR 38; Glucose 77 mg/dL (80-115); Potassium 5.6 mmol/L (3.5-5.1); Sodium 131 mmol/L (136-145)
[2023-10-20] MEDS: hydrALAZINE 25 MG TAB PO SCH (10:28)
[2023-10-20] MEDS: Albuterol 2.5 MG (3 mL) NEB NEB SCH (10:48)
[2023-10-20] MEDS: Calcium Gluc 4.6 MEQ/10 ML (100 MG/ML) SLOW IVP ONE (12:22)
[2023-10-20] MEDS: Lidocaine 2% Viscous Solution 10 ML, Aluminum & Magnesium Hydroxide 30 ML SSW SCH (13:47)
[2023-10-20] MEDS: Sodium Polystyrene Sulfonate 15 GM (60 mL) BOT PO SCH (13:48)
[2023-10-20] MEDS: CALCIUM GLUC 1 GM/NS 50 ML 1 GM in Premix 1 BAG IVPB SCH (13:49)
[2023-10-20 19:55] LABS: Anion Gap 16 mmol/L (10-20); Carbon Dioxide 28 mmol/L (23-31); Chloride 97 mmol/L (98-107); Potassium 4.9 mmol/L (3.5-5.1); Sodium 136 mmol/L (136-145)
[2023-10-21 06:11] LABS: Hematocrit 29.9 % (36.0-47.0); Hemoglobin 9.2 g/dL (12.0-16.0); Mean Corpuscular HGB CONC 30.8 g/dL (32.0-36.0); Mean Corpuscular Volume 94.3 fL (78.0-98.0); Mean Platelet Volume 9.9 fL (7.4-10.4); Platelet Count 160 10x3/uL (130-400); RBC Distribution Width 20.8 % (11.5-14.5); Red Blood Cell (RBC) Count 3.17 mill/uL (4.20-5.40)
[2023-10-21 06:28] LABS: Anion Gap 13 mmol/L (10-20); BUN (Urea Nitrogen) 56 mg/dL (9.8-20.1); Calc. Creatinine Clearance 64 mL/min (70-130); Calcium 8.3 mg/dL (7.8-10.44); Carbon Dioxide 27 mmol/L (23-31); Chloride 101 mmol/L (98-107); Estimated GFR 41; Glucose 88 mg/dL (80-115); Potassium 4.7 mmol/L (3.5-5.1); Sodium 136 mmol/L (136-145)
[2023-10-21 15:24] VITALS: BP 135/72; TEMP 99
== END 2023-10-21 17:00 | DRG 193 ==
LOC: ERS 10:34 → ERHOLD 13:50 → 2NO 16:32 → SJJU 10-14 18:33
PROVIDERS: ADMIT Hospitalist; ATTEND Internal Medicine
DX: J18.9 Pneumonia, unspecified organism (principal); I50.33 Acute on chronic diastolic (congestive) heart failure; J96.01 Acute respiratory failure with hypoxia; J44.0 Chronic obstructive pulmonary disease with (acute) lower respiratory infection; E87.1 Hypo-osmolality and hyponatremia; J44.1 Chronic obstructive pulmonary disease with (acute) exacerbation; I13.0 Hypertensive heart and chronic kidney disease with heart failure and stage 1 through stage 4 chronic kidney disease, or unspecified chronic kidney disease; I48.0 Paroxysmal atrial fibrillation; E03.8 Other specified hypothyroidism; Z91.040 Latex allergy status; Z88.5 Allergy status to narcotic agent; Z79.899 Other long term (current) drug therapy; N18.9 Chronic kidney disease, unspecified; F41.9 Anxiety disorder, unspecified; F32.A Depression, unspecified; F17.290 Nicotine dependence, other tobacco product, uncomplicated; Z90.49 Acquired absence of other specified parts of digestive tract; E87.5 Hyperkalemia
CPT/HCPCS: 36415; 71275; 80048; 80053; 80061; 81001; 83690; 83735; 83880; 84439; 84443; 84484; 85025; 85027; 87040; 87449; 87899; 93005; 93010; 94640; 96365; 96367; 96375; 97139; J0456; J0613; J0696; J1815; J1940; J2405; J2920; J2930; J3475; J3490; J7050; J7512; J7611; J7620; J7626; J7999; Q9967

== ENCOUNTER 2024-01-03 05:53 | Inpatient (IN) | payer OTHER, MEDICAID ==
[2024-01-03] MEDS ORDERED: Dexamethasone 10 MG/ML VIAL ONE (06:24)
[2024-01-03] MEDS ORDERED: LevoFLOXacin 750 mg/D5W 150 ml Premix Bag ONE (06:25)
[2024-01-03] MEDS ORDERED: Morphine 2 MG/ML VIAL ONE (06:25)
[2024-01-03] MEDS ORDERED: Magnesium 2 GM/50 ML BAG (IN WATER) ONE (06:25)
[2024-01-03] MEDS ORDERED: Ipratropium/Albuterol 3 ML NEB ONE (06:35)
[2024-01-03] MEDS ORDERED: Albuterol 2.5 MG (3 mL) NEB ONE (06:35)
[2024-01-03 06:50] LABS: #Basophils Less than 0.03 10x3/uL (0.0-0.2); %Basophils 0.2 % (0.0-1.0); %Lymphocytes 10.2 % (21.0-51.0); %Monocytes 13.7 % (0.0-10.0); %Neutrophils 71.5 % (42.0-75.0); Hematocrit 31.7 % (36.0-47.0); Hemoglobin 9.8 g/dL (12.0-16.0); Mean Corpuscular HGB CONC 30.9 g/dL (32.0-36.0); Mean Corpuscular Hemoglobin 32.7 pg (27.0-31.0); Mean Corpuscular Volume 105.7 fL (78.0-98.0); Mean Platelet Volume 10.2 fL (7.4-10.4); Platelet Count 111 10x3/uL (130-400); RBC Distribution Width 16.6 % (11.5-14.5)
[2024-01-03 06:59] LABS: ALT (SGPT) 35 U/L (8-55); AST (SGOT) 25 U/L (5-34); Albumin 3.2 g/dL (3.4-4.8); Alkaline Phosphatase 104 U/L (40-110); Anion Gap 13 mmol/L (10-20); BUN (Urea Nitrogen) 39 mg/dL (9.8-20.1); Bilirubin, Total 0.5 mg/dL (0.2-1.2); Calc. Creatinine Clearance 0 mL/min (70-130); Calcium 8.8 mg/dL (7.8-10.44); Carbon Dioxide 23 mmol/L (23-31); Chloride 110 mmol/L (98-107); Estimated GFR 40; Globulin 3.3 g/dL (2.4-3.5); Glucose 96 mg/dL (80-115); Lipase 24 U/L (8-78); Potassium 4.1 mmol/L (3.5-5.1); Protein, Total 6.5 g/dL (5.8-8.1); Sodium 142 mmol/L (136-145)
[2024-01-03 07:06] LABS: Troponin I 0.023 ng/mL (< 0.028)
[2024-01-03 07:50] LABS: Bacteria/HPF 3+ HPF (None Seen); Bilirubin Negative (Negative); Blood, Urine 3+ (Negative); CAUTI Indications for Culture < 2yrs of age; Clarity Turbid (Clear); Glucose, Urine (Dipstick) 500 mg/dL (Negative); Ketone, Urine Negative (Negative); Leukocyte 500 Leu/uL (Negative); Nitrite 1+ (Negative); Protein, Urine (Dipstick) 100 mg/dL (Neg-Trace); RBC/HPF Greater than 50 HPF (0-3); Squamous Epithelial 0-3 HPF (0-3); Urobilinogen Normal mg/dL (Less than 2); WBC/HPF Greater than 50 HPF (0-3)
[2024-01-03 07:51] LABS: Urine Culture Reflex Yes Yes
[2024-01-03 07:54] LABS: Influenza A by NAA Not Detected (NotDetected); Influenza B by NAA Not Detected (NotDetected); SARS-CoV-2 NAA Rapid Test Not Detected (NotDetected)
[2024-01-03] MEDS ORDERED: Ondansetron PF 4 MG/2 ML Vial IVP PRN (08:52)
[2024-01-03] MEDS ORDERED: Calcium Carbonate 500 MG ChewTAB PO PRN (08:52)
[2024-01-03] MEDS ORDERED: Guaifenesin DM 100-10/5 ML UDCUP PO PRN (08:52)
[2024-01-03] MEDS ORDERED: Enoxaparin 30 MG (0.3 mL) SYRINGE SC SCH (09:00)
[2024-01-03] MEDS ORDERED: Amoxicillin/Potassium Clav 875 MG TAB PO SCH ×2 (09:00→21:00)
[2024-01-03] MEDS ORDERED: Sodium Chloride 0.9% 1,000 ML IV SCH (09:15)
[2024-01-03] MEDS ORDERED: Iopamidol 370 76% 100 ML VIAL ONE (09:51)
[2024-01-03 10:48] LABS: Creatinine, Urine 56.17 mg/dL (47-110)
[2024-01-03] MEDS: Acetaminophen 325 MG TAB PO PRN (12:47)
[2024-01-03] MEDS: LevoFLOXacin 500 MG TAB PO SCH (13:03)
[2024-01-03] MEDS: Ipratropium/Albuterol 3 ML NEB NEB SCH (13:06)
[2024-01-03] MEDS: Senokot S 8.6-50 MG TAB PO SCH ×2 (13:29→21:06)
[2024-01-03] MEDS ORDERED: Furosemide 40 MG (4 mL) VIAL SLOW IVP SCH (14:00)
[2024-01-03] MEDS: Furosemide 40 MG (4 mL) VIAL SLOW IVP SCH ×2 (14:36→15:54)
[2024-01-03 15:18] LABS: Anion Gap 16 mmol/L (10-20); BUN (Urea Nitrogen) 38 mg/dL (9.8-20.1); Calc. Creatinine Clearance 0 mL/min (70-130); Carbon Dioxide 20 mmol/L (23-31); Chloride 108 mmol/L (98-107); Potassium 4.9 mmol/L (3.5-5.1); Sodium 139 mmol/L (136-145)
[2024-01-03 15:19] LABS: Calcium 8.6 mg/dL (7.8-10.44); Estimated GFR 34; Glucose 206 mg/dL (80-115)
[2024-01-03] MEDS: Carvedilol 25 MG TAB PO SCH (16:03)
[2024-01-03 17:57] VITALS: BMI 34.9
[2024-01-03] MEDS: Atorvastatin Calcium 40 MG TAB PO SCH (21:06)
[2024-01-03] MEDS: Cyanocobalamin (Vitamin B-12) 1,000 MCG TAB PO SCH (21:06)
[2024-01-03] MEDS: Apixaban 5 MG TAB PO SCH (21:06)
[2024-01-03] MEDS: traZODone HCl 50 MG TAB PO SCH (21:06)
[2024-01-03] MEDS: hydrALAZINE 20 MG/ML VIAL SLOW IVP SCH (22:50)
[2024-01-03] MEDS: Budesonide 0.5 MG/2 ML NEB INH SCH (22:56)
[2024-01-03] MEDS ORDERED: HYDROcodone/Acetaminophen 5/325 mg Tablet PO SCH (23:00)
[2024-01-03] MEDS: Morphine 2 MG/ML VIAL SLOW IVP SCH (23:08)
[2024-01-04] MEDS: Levothyroxine Sodium 25 MCG TAB PO SCH (04:46)
[2024-01-04] MEDS: HYDROcodone/Acetaminophen 5/325 mg Tablet PO PRN (04:54)
[2024-01-04] MEDS: hydrALAZINE 25 MG TAB PO SCH ×2 (05:50→15:05)
[2024-01-04 06:20] LABS: #Basophils Less than 0.03 10x3/uL (0.0-0.2); #Eosinphils Less than 0.03 10x3/uL (0.0-0.7); %Basophils 0.2 % (0.0-1.0); %Lymphocytes 8.3 % (21.0-51.0); %Monocytes 13.1 % (0.0-10.0); %Neutrophils 77.9 % (42.0-75.0); Hematocrit 33.2 % (36.0-47.0); Hemoglobin 10.3 g/dL (12.0-16.0); Mean Corpuscular Hemoglobin 32.9 pg (27.0-31.0); Mean Corpuscular Volume 106.1 fL (78.0-98.0); Mean Platelet Volume 10.8 fL (7.4-10.4); Platelet Count 122 10x3/uL (130-400); RBC Distribution Width 16.2 % (11.5-14.5); Red Blood Cell (RBC) Count 3.13 mill/uL (4.20-5.40)
[2024-01-04 06:29] LABS: ALT (SGPT) 31 U/L (8-55); AST (SGOT) 22 U/L (5-34); Albumin 3.2 g/dL (3.4-4.8); Alkaline Phosphatase 101 U/L (40-110); Anion Gap 14 mmol/L (10-20); BUN (Urea Nitrogen) 41 mg/dL (9.8-20.1); Bilirubin, Total 0.4 mg/dL (0.2-1.2); Calc. Creatinine Clearance 58 mL/min (70-130); Carbon Dioxide 25 mmol/L (23-31); Chloride 105 mmol/L (98-107); Estimated GFR 39; Globulin 3.2 g/dL (2.4-3.5); Glucose 122 mg/dL (80-115); Potassium 4.3 mmol/L (3.5-5.1); Protein, Total 6.4 g/dL (5.8-8.1); Sodium 140 mmol/L (136-145)
[2024-01-04] MEDS: Nitroglycerin 2% Ointment 1 INCH/1 GM Packet TOP SCH (07:33)
[2024-01-04] MEDS ORDERED: Enoxaparin 30 MG (0.3 mL) SYRINGE SC SCH (09:00)
[2024-01-04] MEDS: Oxybutynin ER 5 MG TAB PO SCH (09:37)
[2024-01-04] MEDS: Amiodarone 200 MG TAB PO SCH (09:37)
[2024-01-04] MEDS: Pantoprazole DR 40 MG TAB PO SCH (09:39)
[2024-01-04] MEDS: Ferrous Sulfate 325 MG TAB PO SCH (09:39)
[2024-01-04] MEDS: NIFEdipine XL 30 MG ER.TAB PO SCH (12:31)
[2024-01-04 20:47] LABS: Hematocrit 32.2 % (36.0-47.0); Hemoglobin 9.8 g/dL (12.0-16.0); Mean Corpuscular HGB CONC 30.4 g/dL (32.0-36.0); Mean Corpuscular Hemoglobin 32.2 pg (27.0-31.0); Mean Corpuscular Volume 105.9 fL (78.0-98.0); Mean Platelet Volume 9.9 fL (7.4-10.4); Platelet Count 121 10x3/uL (130-400); RBC Distribution Width 16.5 % (11.5-14.5); Red Blood Cell (RBC) Count 3.04 mill/uL (4.20-5.40)
[2024-01-04] MEDS: Isosorbide Dinitrate 20 MG TAB PO SCH (21:20)
[2024-01-05] MEDS: LevoFLOXacin 750 MG TAB PO SCH (05:54)
[2024-01-05] MEDS ORDERED: NIFEdipine XL 30 MG ER.TAB PO SCH (09:00)
[2024-01-05 09:30] LABS: Anion Gap 15 mmol/L (10-20); BUN (Urea Nitrogen) 44 mg/dL (9.8-20.1); Calc. Creatinine Clearance 44 mL/min (70-130); Calcium 8.9 mg/dL (7.8-10.44); Carbon Dioxide 28 mmol/L (23-31); Chloride 100 mmol/L (98-107); Estimated GFR 32; Glucose 104 mg/dL (80-115); Magnesium 1.9 mg/dL (1.6-2.6); Potassium 3.6 mmol/L (3.5-5.1); Sodium 139 mmol/L (136-145)
[2024-01-05] MEDS: cefTRIAXone\\ROCEPHIN 1 GM in Sodium Chloride 0.9% 100 ML IVPB SCH (10:18)
[2024-01-05] MEDS: NIFEdipine XL 30 MG ER.TAB PO SCH (10:22)
[2024-01-05] MEDS: Spironolactone 25 MG TAB PO SCH (17:31)
[2024-01-05 20:03] LABS: Hematocrit 27.9 % (36.0-47.0); Hemoglobin 8.9 g/dL (12.0-16.0); Mean Corpuscular HGB CONC 31.9 g/dL (32.0-36.0); Mean Corpuscular Hemoglobin 32.5 pg (27.0-31.0); Mean Corpuscular Volume 101.8 fL (78.0-98.0); Mean Platelet Volume 9.7 fL (7.4-10.4); Platelet Count 140 10x3/uL (130-400); RBC Distribution Width 16.1 % (11.5-14.5); Red Blood Cell (RBC) Count 2.74 mill/uL (4.20-5.40)
[2024-01-06 04:53] LABS: Anion Gap 12 mmol/L (10-20); BUN (Urea Nitrogen) 42 mg/dL (9.8-20.1); Calc. Creatinine Clearance 45 mL/min (70-130); Calcium 8.4 mg/dL (7.8-10.44); Carbon Dioxide 29 mmol/L (23-31); Chloride 101 mmol/L (98-107); Estimated GFR 34; Glucose 87 mg/dL (80-115); Magnesium 1.9 mg/dL (1.6-2.6); Potassium 4.1 mmol/L (3.5-5.1); Sodium 138 mmol/L (136-145)
[2024-01-06] MEDS: Furosemide 40 MG (4 mL) VIAL SLOW IVP SCH (08:31)
[2024-01-06] MEDS: Spironolactone 25 MG TAB PO SCH (08:33)
[2024-01-06] MEDS ORDERED: Ipratropium/Albuterol 3 ML NEB NEB PRN (11:38)
[2024-01-06] MEDS: Ipratropium/Albuterol 3 ML NEB NEB SCH (13:48)
[2024-01-06 15:12] LABS: Iron 43 ug/dL (50-170); Iron Binding Capacity, Total 219 mcg/dL (265-497)
[2024-01-06 19:44] LABS: Hematocrit 30.2 % (36.0-47.0); Hemoglobin 9.2 g/dL (12.0-16.0); Mean Corpuscular HGB CONC 30.5 g/dL (32.0-36.0); Mean Corpuscular Hemoglobin 31.9 pg (27.0-31.0); Mean Corpuscular Volume 104.9 fL (78.0-98.0); Platelet Count 128 10x3/uL (130-400); RBC Distribution Width 15.9 % (11.5-14.5); Red Blood Cell (RBC) Count 2.88 mill/uL (4.20-5.40)
[2024-01-07 04:21] LABS: Anion Gap 12 mmol/L (10-20); BUN (Urea Nitrogen) 43 mg/dL (9.8-20.1); Calc. Creatinine Clearance 44 mL/min (70-130); Carbon Dioxide 31 mmol/L (23-31); Chloride 100 mmol/L (98-107); Estimated GFR 33; Glucose 89 mg/dL (80-115); Magnesium 1.8 mg/dL (1.6-2.6); Potassium 4.1 mmol/L (3.5-5.1); Sodium 139 mmol/L (136-145)
[2024-01-07] MEDS: NIFEdipine XL 60 MG ER.TAB PO SCH (09:32)
[2024-01-07] MEDS: Torsemide 20 MG TAB PO SCH (09:32)
[2024-01-07] MEDS: Sodium Ferric Gluconate 250 MG in Sodium Chloride 0.9% 250 ML 250 ML IVPB SCH (13:11)
[2024-01-07] MEDS: EPOETIN ALFA-EPBX 10,000 UNITS/ML VIAL SC SCH (13:23)
[2024-01-07] MEDS: EPOETIN ALFA-EPBX (ESRD) 10,000 UNITS/ML VIAL SC SCH (13:29)
[2024-01-07 19:30] LABS: Hematocrit 30.1 % (36.0-47.0); Hemoglobin 9.5 g/dL (12.0-16.0); Mean Corpuscular HGB CONC 31.6 g/dL (32.0-36.0); Mean Corpuscular Hemoglobin 32.4 pg (27.0-31.0); Mean Corpuscular Volume 102.7 fL (78.0-98.0); Platelet Count 133 10x3/uL (130-400); RBC Distribution Width 15.9 % (11.5-14.5); Red Blood Cell (RBC) Count 2.93 mill/uL (4.20-5.40)
[2024-01-08 04:56] LABS: Anion Gap 12 mmol/L (10-20); BUN (Urea Nitrogen) 40 mg/dL (9.8-20.1); Calc. Creatinine Clearance 45 mL/min (70-130); Calcium 9.1 mg/dL (7.8-10.44); Carbon Dioxide 29 mmol/L (23-31); Chloride 101 mmol/L (98-107); Estimated GFR 36; Glucose 87 mg/dL (80-115); Magnesium 1.8 mg/dL (1.6-2.6); Potassium 3.9 mmol/L (3.5-5.1); Sodium 138 mmol/L (136-145)
[2024-01-08 19:52] LABS: Hematocrit 30.8 % (36.0-47.0); Hemoglobin 9.6 g/dL (12.0-16.0); Mean Corpuscular HGB CONC 31.2 g/dL (32.0-36.0); Mean Corpuscular Hemoglobin 32.1 pg (27.0-31.0); Mean Platelet Volume 9.8 fL (7.4-10.4); Platelet Count 144 10x3/uL (130-400); RBC Distribution Width 15.9 % (11.5-14.5); Red Blood Cell (RBC) Count 2.99 mill/uL (4.20-5.40)
[2024-01-09] MEDS: Labetalol HCl 100 MG/20 ML VIAL SLOW IVP SCH (04:00)
[2024-01-09 04:48] LABS: Anion Gap 14 mmol/L (10-20); BUN (Urea Nitrogen) 38 mg/dL (9.8-20.1); Calc. Creatinine Clearance 41 mL/min (70-130); Calcium 9.3 mg/dL (7.8-10.44); Carbon Dioxide 25 mmol/L (23-31); Chloride 102 mmol/L (98-107); Estimated GFR 34; Glucose 87 mg/dL (80-115); Magnesium 1.8 mg/dL (1.6-2.6); Potassium 4.3 mmol/L (3.5-5.1); Sodium 137 mmol/L (136-145)
[2024-01-09] MEDS: hydrALAZINE 25 MG TAB PO SCH ×2 (09:03→13:39)
[2024-01-09] MEDS: Carvedilol 25 MG TAB PO SCH (09:04)
[2024-01-09] MEDS: Isosorbide Dinitrate 20 MG TAB PO SCH ×2 (09:06→13:38)
[2024-01-09] MEDS: Magnesium Oxide 400 MG TAB PO SCH (09:07)
[2024-01-09 10:48] VITALS: BMI 27.8
[2024-01-09] MEDS: Empagliflozin 10 MG TAB PO SCH (13:38)
[2024-01-09] MEDS ORDERED: Ipratropium/Albuterol 3 ML NEB NEB PRN (14:45)
[2024-01-10 09:04] LABS: Anion Gap 13 mmol/L (10-20); BUN (Urea Nitrogen) 42 mg/dL (9.8-20.1); BUN/Creatinine Ratio 26.09; Calc. Creatinine Clearance 40 mL/min (70-130); Calcium 9.2 mg/dL (7.8-10.44); Carbon Dioxide 27 mmol/L (23-31); Chloride 99 mmol/L (98-107); Estimated GFR 34; Glucose 123 mg/dL (80-115); Phosphorus 3.9 mg/dL (2.3-4.7); Sodium 135 mmol/L (136-145)
[2024-01-10 11:42] VITALS: BP 168/86; TEMP 98.3
[2024-01-10] MEDS: Empagliflozin 10 MG TAB PO SCH (11:45)
[2024-01-10] MEDS: NIFEdipine XL 30 MG ER.TAB PO SCH (11:45)
[2024-01-11] MEDS ORDERED: Empagliflozin 10 MG TAB PO SCH (09:00)
[2024-01-11] MEDS ORDERED: NIFEdipine XL 90 MG ER.TAB PO SCH (09:00)
== END 2024-01-10 13:20 | DRG 682 ==
LOC: ERS 05:53 → T4-B 08:23 → 2NO 01-06 15:02
PROVIDERS: ADMIT Internal Medicine; ATTEND Internal Medicine
DX: N17.9 Acute kidney failure, unspecified (principal); I50.33 Acute on chronic diastolic (congestive) heart failure; J96.01 Acute respiratory failure with hypoxia; I13.0 Hypertensive heart and chronic kidney disease with heart failure and stage 1 through stage 4 chronic kidney disease, or unspecified chronic kidney disease; N39.0 Urinary tract infection, site not specified; J44.1 Chronic obstructive pulmonary disease with (acute) exacerbation; I48.11 Longstanding persistent atrial fibrillation; N18.30 Chronic kidney disease, stage 3 unspecified; I34.0 Nonrheumatic mitral (valve) insufficiency; E61.1 Iron deficiency; B96.1 Klebsiella pneumoniae [K. pneumoniae] as the cause of diseases classified elsewhere; B96.4 Proteus (mirabilis) (morganii) as the cause of diseases classified elsewhere; F12.10 Cannabis abuse, uncomplicated; E11.22 Type 2 diabetes mellitus with diabetic chronic kidney disease; I25.10 Atherosclerotic heart disease of native coronary artery without angina pectoris; K21.9 Gastro-esophageal reflux disease without esophagitis; F41.9 Anxiety disorder, unspecified; F32.A Depression, unspecified; K74.60 Unspecified cirrhosis of liver; E03.9 Hypothyroidism, unspecified; E78.5 Hyperlipidemia, unspecified; D63.1 Anemia in chronic kidney disease; Z91.040 Latex allergy status; Z88.8 Allergy status to other drugs, medicaments and biological substances; Z88.5 Allergy status to narcotic agent; Z95.5 Presence of coronary angioplasty implant and graft; Z89.422 Acquired absence of other left toe(s); Z90.49 Acquired absence of other specified parts of digestive tract; Z90.710 Acquired absence of both cervix and uterus; I25.2 Old myocardial infarction; Z86.718 Personal history of other venous thrombosis and embolism; Z86.73 Personal history of transient ischemic attack (TIA), and cerebral infarction without residual deficits; Z79.01 Long term (current) use of anticoagulants; Z79.899 Other long term (current) drug therapy; Z87.891 Personal history of nicotine dependence; Z79.890 Hormone replacement therapy; Z79.52 Long term (current) use of systemic steroids
CPT/HCPCS: 36415; 71045; 71275; 80048; 80053; 80069; 81001; 82040; 82570; 82728; 83540; 83550; 83605; 83690; 83735; 83880; 84156; 84300; 84443; 84484; 84540; 85025; 85027; 85379; 87040; 87077; 87086; 87186; 93005; 93010; 93306; 94640; 94644; 96365; 96367; 96375; 97139; J0360; J0696; J1100; J1940; J1956; J2272; J2916; J3475; J7050; J7611; J7620; J7626; Q5105; Q9967

== ENCOUNTER 2024-10-26 22:34 | Inpatient (IN) | payer OTHER, MEDICAID ==
[2024-10-26] MEDS ORDERED: Ondansetron PF 4 MG/2 ML Vial ONE (22:39)
[2024-10-26 23:00] LABS: #Basophils Less than 0.03 10x3/uL (0.0-0.2); #Eosinophils 0.06 10x3/uL (0.0-0.7); #Monocytes 0.68 10x3/uL (0.11-0.59); #Neutrophils 5.11 10x3/uL (1.40-6.50); %Basophils 0.3 % (0.0-1.0); %Eosinophils 0.8 % (0.0-10.0); %Lymphocytes 17.5 % (21.0-51.0); %Monocytes 9.5 % (0.0-10.0); %Neutrophils 71.6 % (42.0-75.0); Hematocrit 36.7 % (36.0-47.0); Hemoglobin 12.4 g/dL (12.0-16.0); Mean Corpuscular Hemoglobin 29.3 pg (27.0-31.0); Mean Corpuscular Volume 86.8 fL (78.0-98.0); Platelet Count 226 10x3/uL (130-400); Red Blood Cell (RBC) Count 4.23 mill/uL (4.20-5.40); White Blood Cell (WBC) Count 7.14 10x3/uL (4.8-10.8)
[2024-10-26 23:13] LABS: ALT (SGPT) Less than 7 U/L (Less than 34); AST (SGOT) 17 U/L (11-34); Albumin 3.6 g/dL (3.1-4.5); Alkaline Phosphatase 111 U/L (40-110); Anion Gap 20 mmol/L (10-20); BUN (Urea Nitrogen) 24 mg/dL (9.8-20.1); Bilirubin, Total 0.7 mg/dL (0.3-1.2); Calc. Creatinine Clearance 0 mL/min (70-130); Calcium 9.9 mg/dL (7.8-10.44); Carbon Dioxide 17 mmol/L (23-31); Chloride 105 mmol/L (98-107); Globulin 4.8 g/dL (2.4-3.5); Glucose 173 mg/dL (83-110); Lipase 45 U/L (8-78); Magnesium 1.6 mg/dL (1.6-2.6); Potassium 4.0 mmol/L (3.5-5.1); Sodium 138 mmol/L (136-145)
[2024-10-26] MEDS ORDERED: Famotidine/PF 20 mg/2ml Vial ONE (23:16)
[2024-10-26 23:18] LABS: Troponin I 0.034 ng/mL (< 0.028)
[2024-10-27] MEDS ORDERED: diphenhydrAMINE 50 MG/ML VIAL ONE (00:23)
[2024-10-27] MEDS ORDERED: dilTIAZem 25 MG/5 ML VIAL ONE (01:28)
[2024-10-27] MEDS ORDERED: Nitroglycerin 0.4 MG TAB (25 Tab Bottle) SL PRN (01:38)
[2024-10-27] MEDS ORDERED: dilTIAZem 25 MG/5 ML VIAL SLOW IVP PRN (01:45)
[2024-10-27 01:53] LABS: Troponin I 0.038 ng/mL (< 0.028)
[2024-10-27] MEDS ORDERED: hydrALAZINE 20 MG/ML VIAL ONE (02:00)
[2024-10-27] MEDS ORDERED: Dextrose 50% Abboject 50 ML SYRINGE SLOW IVP PRN (02:04)
[2024-10-27] MEDS ORDERED: Glucagon 1 MG/ML KIT IM PRN (02:04)
[2024-10-27 03:47] VITALS: BMI 27.9
[2024-10-27] MEDS: Ondansetron PF 4 MG/2 ML Vial IVP SCH (04:29)
[2024-10-27] MEDS: cloNIDine 0.1mg/24 Hour PATCH TD SCH (04:30)
[2024-10-27] MEDS: Magnesium Sulfate In Water 4 GM in Premix 1 BAG IVPB SCH (04:30)
[2024-10-27] MEDS: hydrALAZINE 20 MG/ML VIAL SLOW IVP PRN (04:41)
[2024-10-27] MEDS: cloNIDine 0.1 MG TAB PO SCH (06:29)
[2024-10-27] MEDS: Dicyclomine 10 MG CAP PO SCH (06:37)
[2024-10-27 07:16] LABS: Cocaine Metabolite Screen Negative (Negative); THC/Cannabinoid Screen PRELIM POSITIVE (Negative); Tricyclic Screen Negative (Negative)
[2024-10-27 07:51] LABS: Anion Gap 17 mmol/L (10-20); BUN (Urea Nitrogen) 22 mg/dL (9.8-20.1); Calc. Creatinine Clearance 57 mL/min (70-130); Calcium 9.2 mg/dL (7.8-10.44); Carbon Dioxide 18 mmol/L (23-31); Chloride 104 mmol/L (98-107); Glucose 207 mg/dL (83-110); Potassium 3.4 mmol/L (3.5-5.1); Sodium 136 mmol/L (136-145)
[2024-10-27 07:57] LABS: Troponin I 0.158 ng/mL (< 0.028)
[2024-10-27] MEDS ORDERED: Dicyclomine 10 MG CAP PO SCH (09:00)
[2024-10-27] MEDS: Carvedilol 6.25 MG TAB PO SCH ×2 (09:45→15:41)
[2024-10-27] MEDS: Pantoprazole 40 MG VIAL IVP SCH ×2 (09:46→21:12)
[2024-10-27] MEDS: cloNIDine 0.1 MG TAB PO PRN (11:28)
[2024-10-27 11:40] VITALS: BMI 28.8
[2024-10-27] MEDS: Valsartan 80 MG TAB PO SCH (15:40)
[2024-10-27] MEDS ORDERED: Valsartan 80 MG TAB PO SCH (21:00)
[2024-10-28] MEDS: Melatonin 3 MG TAB PO PRN (00:58)
[2024-10-28 03:47] LABS: #Basophils Less than 0.03 10x3/uL (0.0-0.2); #Eosinophils 0.07 10x3/uL (0.0-0.7); #Monocytes 0.84 10x3/uL (0.11-0.59); #Neutrophils 4.56 10x3/uL (1.40-6.50); %Basophils 0.3 % (0.0-1.0); %Eosinophils 1.1 % (0.0-10.0); %Lymphocytes 14.4 % (21.0-51.0); %Monocytes 13.0 % (0.0-10.0); %Neutrophils 70.6 % (42.0-75.0); Hematocrit 30.7 % (36.0-47.0); Hemoglobin 9.8 g/dL (12.0-16.0); Mean Corpuscular Hemoglobin 28.4 pg (27.0-31.0); Mean Corpuscular Volume 89.0 fL (78.0-98.0); Platelet Count 208 10x3/uL (130-400); Red Blood Cell (RBC) Count 3.45 mill/uL (4.20-5.40); White Blood Cell (WBC) Count 6.46 10x3/uL (4.8-10.8)
[2024-10-28 04:30] LABS: INR-International Normal Ratio 1.2; Prothrombin Time 14.9 sec (12.0-14.7)
[2024-10-28 04:31] LABS: PTT 37.0 sec (22.9-36.1)
[2024-10-28 04:49] LABS: ALT (SGPT) Less than 7 U/L (Less than 34); AST (SGOT) 16 U/L (11-34); Albumin 2.9 g/dL (3.1-4.5); Alkaline Phosphatase 83 U/L (40-110); Anion Gap 15 mmol/L (10-20); BUN (Urea Nitrogen) 30 mg/dL (9.8-20.1); Bilirubin, Total 0.4 mg/dL (0.3-1.2); Calc. Creatinine Clearance 36 mL/min (70-130); Calcium 8.5 mg/dL (7.8-10.44); Carbon Dioxide 20 mmol/L (23-31); Chloride 105 mmol/L (98-107); Globulin 3.5 g/dL (2.4-3.5); Glucose 113 mg/dL (83-110); Magnesium 2.5 mg/dL (1.6-2.6); Potassium 3.9 mmol/L (3.5-5.1); Sodium 136 mmol/L (136-145)
[2024-10-28] MEDS: Valsartan 80 MG TAB PO SCH (08:38)
[2024-10-28 13:17] VITALS: TEMP 97.6
[2024-10-28 15:36] VITALS: BP 157/77
== END 2024-10-28 16:40 | disposition home or self-care (01) | DRG 392 ==
LOC: ERS 22:34 → PCU 10-27 01:50 → OBSVTOIN 10-27 13:46
PROVIDERS: ADMIT Internal Medicine; ATTEND Internal Medicine
DX: R11.2 Nausea with vomiting, unspecified (principal); I50.32 Chronic diastolic (congestive) heart failure; E87.20 Acidosis, unspecified; I13.0 Hypertensive heart and chronic kidney disease with heart failure and stage 1 through stage 4 chronic kidney disease, or unspecified chronic kidney disease; I48.20 Chronic atrial fibrillation, unspecified; M86.9 Osteomyelitis, unspecified; J41.0 Simple chronic bronchitis; I25.10 Atherosclerotic heart disease of native coronary artery without angina pectoris; E11.22 Type 2 diabetes mellitus with diabetic chronic kidney disease; N18.30 Chronic kidney disease, stage 3 unspecified; K21.9 Gastro-esophageal reflux disease without esophagitis; F32.A Depression, unspecified; E83.42 Hypomagnesemia; I16.0 Hypertensive urgency; F41.9 Anxiety disorder, unspecified; E78.5 Hyperlipidemia, unspecified; Z95.1 Presence of aortocoronary bypass graft; I25.2 Old myocardial infarction; Z86.73 Personal history of transient ischemic attack (TIA), and cerebral infarction without residual deficits; Z90.721 Acquired absence of ovaries, unilateral; Z90.49 Acquired absence of other specified parts of digestive tract; Z98.890 Other specified postprocedural states; Z98.891 History of uterine scar from previous surgery; Z89.422 Acquired absence of other left toe(s); Z91.040 Latex allergy status; Z88.8 Allergy status to other drugs, medicaments and biological substances; Z79.899 Other long term (current) drug therapy; Z79.01 Long term (current) use of anticoagulants
CPT/HCPCS: 36415; 36416; 71045; 74177; 80048; 80053; 80306; 83690; 83735; 83880; 84100; 84443; 84484; 85025; 85610; 85730; 93005; 96374; 96375; 96376; G0378; J0360; J1200; J1308; J1630; J2270; J2405; J2470; J2550; J3475; J7030; J7120; J7614; J7620; J7626; Q9967

== ENCOUNTER → 2024-11-15 | Day surgery (SDC) | payer OTHER, MEDICAID ==
[~2024-11-15] MED LIST changes: -Iopamidol-370 76% 500 ML MDV (1 ML CHARGE) ONE; +Lidocaine 1% w/Epinephrine 1:100K 20 ML VIAL ONE; +Sodium Bicarbonate 2.5 MEQ/5 ML SDV ONE
[2024-11-15 08:56] LABS: #Basophils Less than 0.03 10x3/uL (0.0-0.2); #Eosinophils 0.18 10x3/uL (0.0-0.7); #Monocytes 0.68 10x3/uL (0.11-0.59); #Neutrophils 2.79 10x3/uL (1.40-6.50); %Basophils 0.2 % (0.0-1.0); %Eosinophils 3.9 % (0.0-10.0); %Lymphocytes 20.7 % (21.0-51.0); %Monocytes 14.7 % (0.0-10.0); %Neutrophils 60.3 % (42.0-75.0); Hematocrit 37.6 % (36.0-47.0); Hemoglobin 11.8 g/dL (12.0-16.0); Mean Corpuscular Hemoglobin 28.4 pg (27.0-31.0); Mean Corpuscular Volume 90.4 fL (78.0-98.0); Platelet Count 175 10x3/uL (130-400); Red Blood Cell (RBC) Count 4.16 mill/uL (4.20-5.40); White Blood Cell (WBC) Count 4.63 10x3/uL (4.8-10.8)
[2024-11-15 09:10] LABS: INR-International Normal Ratio 1.0; Prothrombin Time 13.2 sec (12.0-14.7)
[2024-11-15 09:11] LABS: PTT 35.1 sec (22.9-36.1)
== END ==
LOC: CT 08:38
PROVIDERS: ATTEND Internal Medicine Critical Care Medicine
PROC: 0BBG3ZX Excision of Left Upper Lung Lobe, Percutaneous Approach, Diagnostic (ICD-10-PCS; principal; 2024-11-15)
DX: C34.12 Malignant neoplasm of upper lobe, left bronchus or lung (principal); I50.32 Chronic diastolic (congestive) heart failure; I25.10 Atherosclerotic heart disease of native coronary artery without angina pectoris; I48.20 Chronic atrial fibrillation, unspecified; E11.22 Type 2 diabetes mellitus with diabetic chronic kidney disease; N18.30 Chronic kidney disease, stage 3 unspecified; J44.9 Chronic obstructive pulmonary disease, unspecified; K21.9 Gastro-esophageal reflux disease without esophagitis; Z87.59 Personal history of other complications of pregnancy, childbirth and the puerperium; Z87.891 Personal history of nicotine dependence; Z90.49 Acquired absence of other specified parts of digestive tract; Z90.89 Acquired absence of other organs; Z98.890 Other specified postprocedural states; Z91.040 Latex allergy status; Z88.8 Allergy status to other drugs, medicaments and biological substances; Z79.01 Long term (current) use of anticoagulants; Z79.51 Long term (current) use of inhaled steroids; Z79.84 Long term (current) use of oral hypoglycemic drugs; Z79.899 Other long term (current) drug therapy
CPT/HCPCS: 32408; 36000; 71045; 71046; 77002; 77012; 85025; 85610; 85730; 88333; 88334; J2250; J2272; 36415; 88305; 88341; 88342; 99152; 99153

== ENCOUNTER 2024-12-06 09:30 | Outpatient (CLI) | payer OTHER | END 2024-12-06 09:31 | disposition home or self-care (01) | LOC: PET 09:30 | PROVIDERS: ATTEND Radiology Radiation Oncology | DX: C34.12 Malignant neoplasm of upper lobe, left bronchus or lung (principal); C77.9 Secondary and unspecified malignant neoplasm of lymph node, unspecified; M79.89 Other specified soft tissue disorders | CPT/HCPCS: 78815; A9552; 36415; 82565 ==

== ENCOUNTER 2024-12-14 13:55 | Outpatient (CLI) | payer OTHER, MEDICAID | END 2024-12-14 13:56 | disposition home or self-care (01) | LOC: MRI 13:55 | PROVIDERS: ATTEND Radiology Radiation Oncology | DX: C34.90 Malignant neoplasm of unspecified part of unspecified bronchus or lung (principal); C79.31 Secondary malignant neoplasm of brain; I63.9 Cerebral infarction, unspecified | CPT/HCPCS: 70553; 76376 ==

== ENCOUNTER 2025-03-28 10:43 | Outpatient (CLI) | payer OTHER, MEDICAID ==
[2025-03-28 11:26] LABS: Estimated GFR - POC 44.0
== END 2025-03-28 10:44 | disposition home or self-care (01) ==
LOC: CT 10:43
PROVIDERS: ATTEND Internal Medicine Hematology & Oncology
DX: C34.12 Malignant neoplasm of upper lobe, left bronchus or lung (principal); D50.0 Iron deficiency anemia secondary to blood loss (chronic); R91.8 Other nonspecific abnormal finding of lung field; J90 Pleural effusion, not elsewhere classified; I31.39 Other pericardial effusion (noninflammatory); I25.10 Atherosclerotic heart disease of native coronary artery without angina pectoris; I70.0 Atherosclerosis of aorta
CPT/HCPCS: 36415; 71260; 82565 ×2; J1642